=== PATIENT | female | born 1965 | race African-American/Black ===

== ENCOUNTER 2020-04-22 16:24 | Outpatient (REF) | payer OTHER, SELFPAY | END 2020-04-22 16:25 | disposition home or self-care (01) | LOC: HO.LAB 16:24 | PROVIDERS: Visit Provider Internal Medicine | DX: Z20.822 Contact with and (suspected) exposure to COVID-19 (principal) | CPT/HCPCS: 36415; C9803; U0003 ==

== ENCOUNTER 2020-05-01 10:40 | Outpatient (REF) | payer OTHER, SELFPAY ==
--- NOTE | ~2020-05-01 | MM_ITS ---
EXAMINATION: MM SCREENING DIGITAL BREAST TOMOSYNTHESIS, BILATERAL CLINICAL INFORMATION: Screening. Asymptomatic. The lifetime risk of breast cancer based on the Tyrer-Cuzick Model is 12.6%. COMPARISON: Mammography: January 04, 2019 and studies dating back to February 01, 2013 TECHNIQUE: Digital breast tomosynthesis is performed in both the craniocaudal and mediolateral oblique views along with computer-aided detection (CAD). Synthesized 2D images are generated from the tomosynthesis. FINDINGS: There are scattered areas of fibroglandular density (ACR BI-RADS breast composition Category b). There are no significant masses, abnormal calcifications, or other abnormalities. MM/MM tomosynthesis screening BI IMPRESSION: There are no significant changes from prior study. ASSESSMENT: BI-RADS 1: Negative RECOMMENDATION: Routine annual mammography screening. This patient's information was entered into a reminder system with a target due date for their next mammogram.
[2020-05-01 12:12] LABS: MANUAL DIFF FLAG NO
[2020-05-01 12:22] LABS: Basophils Absolute Auto 0.1 X10*3/uL (0.0-0.2); Basophils Percent Auto 1.2 % (0-2); Eosinophils Absolute Auto 0.5 X10*3/uL (0.0-0.4); Hematocrit 40.3 % (37-47); Hemoglobin 13.1 g/dl (12.0-16.0); Imm Gran Abs Auto 0.01 X10*3/uL (0.00-0.03); Imm Gran Pct Auto 0.2 % (0.0-0.4); Lymphocytes Absolute Auto 2.8 X10*3/uL (1.2-4.9); Lymphocytes Percent Auto 49.2 % (20-40); Mean Corpuscular HGB Conc 32.5 g/dl (31.0-35.0); Mean Corpuscular Hemoglobin 29.4 pg (27.0-33.0); Mean Corpuscular Volume 90.4 fL (80-98); Mean Platelet Volume 12.6 fL (9.4-12.3); Monocytes Absolute Auto 0.6 X10*3/uL (0.1-1.2); Monocytes Percent Auto 10.1 % (2-11); Neutrophils Absolute Auto 1.8 X10*3/uL (2.0-8.3); Neutrophils Percent Auto 31.3 % (45-73); Platelet Count 236 X10*3/uL (160-400); Red Blood Count 4.46 X10*6/uL (4.20-5.50); Red Cell Distribution Width 14.5 % (11.0-16.0); White Blood Count 5.8 X10*3/uL (4.8-10.8)
[2020-05-01 12:52] LABS: Alanine Aminotransferase 15 U/L (0-31); Albumin Level 4.3 g/dL (3.5-5.0); Alkaline Phosphatase 83 U/L (39-117); Anion Gap 13 (12-20); Aspartate Amino Transferase 25 U/L (5-31); Bilirubin Total 0.2 mg/dL (0.0-1.0); Blood Urea Nitrogen 14 mg/dL (9-16); Calcium 9.4 mg/dL (8.4-10.2); Carbon Dioxide 25 mmol/L (22-29); Chloride 106 mmol/L (96-108); Cholesterol 226 mg/dL; Estimated Glomerular Filt Rate > 60; Glucose Random 87 mg/dL (60-115); HDL Cholesterol 79 mg/dL; LDL Cholesterol Calculated 134 mg/dl; Potassium 4.5 mmol/L (3.3-5.1); Sodium 139 mmol/L (135-145); Total Protein 7.5 g/dL (6.5-8.0); Triglycerides 66 mg/dL
[2020-05-01 13:04] LABS: Thyroid Stimulating Hormone 1.97 uIU/mL (0.32-4.0)
== END 2020-05-01 10:41 | disposition home or self-care (01) ==
LOC: HO.MAMMO 10:40
PROVIDERS: PCP Internal Medicine; Visit Provider Internal Medicine
DX: Z00.00 Encounter for general adult medical examination without abnormal findings (principal); Z12.31 Encounter for screening mammogram for malignant neoplasm of breast; F32.89 Other specified depressive episodes; I10 Essential (primary) hypertension; J45.909 Unspecified asthma, uncomplicated
CPT/HCPCS: 36415; 77063; 77067; 80053; 80061; 84443; 85025

== ENCOUNTER 2020-07-18 12:13 | Outpatient (REF) | payer OTHER, SELFPAY ==
--- NOTE | ~2020-07-18 | XR_ITS ---
EXAMINATION: XR KNEE, RIGHT CLINICAL INFORMATION: Pain. COMPARISON: X-ray of the right knee July 2019 TECHNIQUE: Two views of the right knee with additional AP upright view of both right and left knees. FINDINGS: Right knee: There are small marginal osteophytes about all compartments without joint space narrowing indicative of mild tricompartmental osteoarthritis. Trace effusion. Left knee single limited AP upright: Bones, joints and soft tissues are normal. XR/XR knee RT 3V IMPRESSION: Mild osteoarthritis of the right knee, unchanged. Left knee limited: Normal.
== END 2020-07-18 12:14 | disposition home or self-care (01) ==
LOC: HO.HOSX 12:13
PROVIDERS: PCP Internal Medicine; Visit Provider Physician Assistant
DX: M25.561 Pain in right knee (principal)
CPT/HCPCS: 20610; 73562; 99212; J1040

== ENCOUNTER → 2020-09-30 14:49 | Outpatient (BNVA) | payer OTHER, SELFPAY | PROVIDERS: PCP Internal Medicine; Visit Provider Orthopaedic Surgery | DX: M25.561 Pain in right knee (principal); S83.241D Other tear of medial meniscus, current injury, right knee, subsequent encounter; X58.XXXD Exposure to other specified factors, subsequent encounter; Z91.040 Latex allergy status | CPT/HCPCS: 99212 ==

== ENCOUNTER 2020-10-23 15:35 | Outpatient (REF) | payer OTHER, SELFPAY ==
--- NOTE | ~2020-10-23 | MR_ITS ---
EXAMINATION: MR KNEE WITHOUT CONTRAST, RIGHT CLINICAL INFORMATION: Tear of medial meniscus. COMPARISON: X-rays of the right knee June 2020. TECHNIQUE: MRI of the knee without contrast was performed using routine sequences on a high-field scanner. FINDINGS: MENISCI: Medial Meniscus: There is irregularity of the free edge. There is irregular abnormal signal extending from the femoral to the tibial articular surface of the junction of the posterior horn and posterior root indicative of an irregular vertical tear. There is mild outward protrusion of the meniscus which may be in part related to this tear. Slight blunting of the free edge of the body which may reflect additional tearing. The anterior horn is intact. Lateral Meniscus: Intact. LIGAMENTS: Cruciate: Intact. Collateral: Intact. EXTENSOR MECHANISM: Intact. ARTICULAR CARTILAGE/BONE: Patellofemoral Compartment: There is focal cartilage heterogeneity, cartilage loss and subchondral cystic microsoft exchange administrator an 8 mm area of the medial femoral condyle. Medial Compartment: There is high-grade cartilage loss involving both the femoral articular surfaces involving a broad area of the weightbearing portion of the compartment. This extends over approximately 3.5 cm anterior to posterior and up to 2.5 cm transverse. There is associated subchondral edema. There are marginal osteophytes. Overall moderate to severe arthrosis. Lateral Compartment: Mild cartilage heterogeneity in the posterior weightbearing tibial articular cartilage indicative of mild arthrosis. JOINT FLUID AND BURSAE: There is a moderate joint effusion and mild synovitis. There is a small High's cyst. MR/MR knee RT wo con IMPRESSION: Tear of the posterior horn and possibly the body of the medial meniscus. Mild arthrosis of the patellofemoral lateral compartment. Moderate to severe arthrosis of the medial compartment. Moderate joint effusion and synovitis.
== END 2020-10-23 15:36 | disposition home or self-care (01) ==
LOC: HO.MRI 15:35
PROVIDERS: PCP Internal Medicine; Visit Provider Orthopaedic Surgery
DX: S83.241D Other tear of medial meniscus, current injury, right knee, subsequent encounter (principal)
CPT/HCPCS: 73721

== ENCOUNTER → 2020-11-04 08:43 | Outpatient (BNVA) | payer OTHER, SELFPAY | PROVIDERS: Visit Provider Orthopaedic Surgery | DX: S83.241D Other tear of medial meniscus, current injury, right knee, subsequent encounter (principal) | CPT/HCPCS: 99212 ==

== ENCOUNTER → 2020-12-25 12:24 | Outpatient (BNVA) | payer OTHER, SELFPAY | PROVIDERS: Visit Provider Orthopaedic Surgery | DX: S83.241D Other tear of medial meniscus, current injury, right knee, subsequent encounter (principal) | CPT/HCPCS: 99212 ==

== ENCOUNTER 2021-01-21 07:14 | Day surgery (SDC) | payer OTHER, SELFPAY ==
[2021-01-14 10:04] VITALS: BMI 31.8
--- NOTE | 2021-01-19 09:43 | HO.ANESPROP2 ---
Documented by User: Jessica Latham NP 01/19/21 09:47 HPI - Anesthesia Eval Consult details Narrative: 55yo F for Right Knee Arthroscopy PMFSH Active Problems Active Problems: All Active Problems (Updated 01/13/21 @ 15:45 by Marian White, [facility]) Knee pain (Acute) Osteoarthritis of right knee (Acute) Tear of medial meniscus of right knee (Acute) Past Medical History Medical History Asthma Depression HTN (hypertension) Surgical History Surgical History Hx of excision of mass Hx of right breast biopsy Hx of tubal ligation Social History Social History Advance Directives Information Provided: Yes (informational brochure mailed) Advance Directives on File: No Current occupational status: employed 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 Allergies Allergy/AdvReac Type Severity Reaction Status Date / Time latex Allergy Intermediate Rash Verified 01/21/21 08:06 sertraline AdvReac Intermediate Headache Verified 01/21/21 08:06 Home Medications Medication Instructions Recorded Confirmed Last Taken Type albuterol sulfate 90 mcg/actuation 2 puff INHALATION Q6H PRN 01/13/21 01/13/21 Unknown History aerosol inhaler (Ventolin HFA) fluticasone propionate 110 2 puff INHALATION BID 01/13/21 01/13/21 Unknown History mcg/actuation HFA aerosol inhaler (Flovent HFA) ibuprofen 600 mg tablet 1 tab PO TID 01/13/21 01/13/21 Unknown History loratadine 10 mg tablet 10 mg PO DAILY 01/13/21 01/13/21 Unknown History losartan 50 mg tablet 1 tab PO DAILY 01/13/21 01/13/21 Unknown History melatonin 10 mg tablet 10 mg PO BEDTIME 01/13/21 01/13/21 Unknown History Exam Exam Date and Time: January 19, 2021 0943 Height,Weight and Vital Signs: Height 5 ft 3 in Weight 81.647 kg Assessment and Plan Assessment Anesthesia Assessment: Chart Reviewed Documented by User: Sabine Cordoba MD 01/21/21 09:58 [facility] Active Problems Active Problems: All Active Problems (Updated 01/13/21 @ 15:45 by Marian White RN) Knee pain (Acute) Osteoarthritis of right knee (Acute) Tear of medial meniscus of right knee (Acute) Asthma. Controlled. 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 Allergies Allergy/AdvReac Type Severity Reaction Status Date / Time latex Allergy Intermediate Rash Verified 01/21/21 08:06 sertraline AdvReac Intermediate Headache Verified 01/21/21 08:06 Home Medications Medication Instructions Recorded Confirmed Last Taken Type albuterol sulfate 90 mcg/actuation 2 puff INHALATION Q6H PRN 01/13/21 01/13/21 Unknown History aerosol inhaler (Ventolin HFA) fluticasone propionate 110 2 puff INHALATION BID 01/13/21 01/13/21 Unknown History mcg/actuation HFA aerosol inhaler (Flovent HFA) ibuprofen 600 mg tablet 1 tab PO TID 01/13/21 01/13/21 Unknown History loratadine 10 mg tablet 10 mg PO DAILY 01/13/21 01/13/21 Unknown History losartan 50 mg tablet 1 tab PO DAILY 01/13/21 01/13/21 Unknown History melatonin 10 mg tablet 10 mg PO BEDTIME 01/13/21 01/13/21 Unknown History Exam Height,Weight and Vital Signs: Height 5 ft 3 in Weight 81.647 kg Vital Signs Temp Pulse Resp BP Pulse Ox 01/21/21 08:10 97.1 F 77 16 125/75 98 Airway Mallampati Class: II TM Dist: >3cm Neck ROM: Full Loose/Missing/Broken Teeth: No Heart: RRR Lungs: CTAB Assessment and Plan Assessment Anesthesia Assessment: Anesthesia Plan Discussed Final Anesthetic Review Family History of Problems with Anesthesia: No History of Problems with Anesthesia: No NPO: Yes ASA Class: II Final Preanesthetic Review: No Changes in Pt Med Stat, Meds/Allgs Chart Reviewed, Consent Obtained/Reviewed and Anes Risks/Benef Reviewed Patient Risk: Low Procedure Risk: Low Assessment/Block/Sedation in SS: Assess/Block/Sedation-SS Anesthetic Plan Anesthetic Plan: GA Disposition: Standard PACU
[2021-01-21] VITALS (14 sets, daily range): BP systolic 99–138; BP diastolic 59–75; PULSE 60–85; RESP 14–20; TEMP 36.2–36.5; O2SAT 98–100
[2021-01-21] MEDS: Lactated Ringers 1,000 ML 100 ML IVCONT (08:25)
--- NOTE | 2021-01-21 10:14 | MHC.SHP ---
Pre-Procedural Eval Section A Date of Service: 01/21/21 The patient is an INPATIENT: No Changes since office visit: Yes Patient answered all questions; No Cold of Flu in the past 2 weeks, No New Medical Problems and No Changes in Medication The History & Physical has been completed within 30 days and I have reviewed it.: Yes Section B Chief Complaint: tear of medial meniscus Allergies: Allergies Allergy/AdvReac Type Severity Reaction Status Date / Time latex Allergy Intermediate Rash Verified 01/21/21 08:06 sertraline AdvReac Intermediate Headache Verified 01/21/21 08:06 Plan I have reviewed the history and physical and performed a pertinent physical examination on my patient. No changes have occurred unless specified.
--- NOTE | 2021-01-21 11:18 | P.BOP_ITS ---
Brief Operative Note Date of Service: 01/21/21 Pre-op diagnosis: right knee MMT Post-op diagnosis: other (Right knee MMT; Right knee OA) Procedure: Arthroscopiuc partial medial meniscectomy and chondroplasty Surgeon: Albert Samaniego MD Anesthesia: GETA and local Was an Thorough[employer] Horse Farm Manager used for this Procedure?: No Estimated blood loss (mL): 10 Tourniquet time (min): 17 IV fluids (mL): 500 Pathology: none sent Condition: stable Disposition: PACU
--- NOTE | 2021-01-21 11:21 | W.PM.OPN ---
Operative Note Operative Note Date of Service: 01/21/21 Narrative: Pre-op diagnosis: right knee MMT Post-op diagnosis: other (Right knee MMT; Right knee OA) Procedure: Arthroscopiuc partial medial meniscectomy and chondroplasty Surgeon: Albert Samaniego MD Anesthesia: GETA and local Was an Director Medical Science used for this Procedure?: No Estimated blood loss (mL): 10 Tourniquet time (min): 17 IV fluids (mL): 500 Pathology: none sent Condition: stable Disposition: PACU Procedure in detail: Patient was brought to the operating room placed supine on the arthroscopic table and prepped and draped in standard sterile fashion. A time-out was called to identify proper site proper procedure proper surgeon and IV antibiotics per weight were administered. I began by exsanguinating the limb and insufflating tourniquet to 300 mm Hg. Then made a standard anterolateral stab incision. The knee was insufflated with water and 30 degree arthroscope was placed. There was grade 1 fibrillations of the patella and the medial aspect of the trochlear but overall suprapatellar pouch was clean and the gutters were clean. I descended into the medial compartment where I made my medial portal under direct visualization. There was a degenerative tear tear of the body and posterior horn of the medial meniscus. The root was intact and there was grade 4 changes of the weight bearing protion of the MFC. I used a combination of biter shaver and cautery to remove unstable portions of the meniscus. Aroximally 30% meniscal volume was removed. Once I was happy with this the ACL was examined and found to be intact and the lateral compartment was examined. There were G1 fibrillation of the plateau but meniscus and LFC were normal. I then removed all instrumentation and closed the portals with skin glue. 25 mL of 2% Marcaine with epinephrine was injected into the joint and the surrounding soft tissues. Patient was then placed in sterile dressing extubated brought recovery room stable condition. There were no known complications.
[2021-01-21] MEDS: Ketorolac Tromethamine 15 MG/ML VIAL IVPUSH (11:41)
[2021-01-21] MEDS: fentaNYL citrate/PF 100 MCG/2 ML VIAL 25 MCG IVPUSH ×3 (11:41→12:32)
[2021-01-21] MEDS: oxyCODONE HCl Immed Release 5 MG TABLET PO (11:42)
[2021-01-21] MEDS: Acetaminophen 325 MG TABLET 650 MG PO (11:42)
== END 2021-01-21 13:21 | disposition home or self-care (01) ==
PROVIDERS: PCP Internal Medicine; Visit Provider Orthopaedic Surgery
PROC: (CPT 29870; principal; 2021-01-21 09:40)
DX: S83.241A Other tear of medial meniscus, current injury, right knee, initial encounter (principal); M25.461 Effusion, right knee; M17.11 Unilateral primary osteoarthritis, right knee; X58.XXXA Exposure to other specified factors, initial encounter; Y93.9 Activity, unspecified; Y92.9 Unspecified place or not applicable; Y99.8 Other external cause status; I10 Essential (primary) hypertension; J45.909 Unspecified asthma, uncomplicated; Z79.51 Long term (current) use of inhaled steroids; Z79.899 Other long term (current) drug therapy; Z91.040 Latex allergy status; Z88.8 Allergy status to other drugs, medicaments and biological substances
CPT/HCPCS: 29881; J0171; J0690; J1100; J1885; J2250; J2405; J3010

== ENCOUNTER → 2021-02-02 12:45 | Outpatient (BNVA) | payer OTHER, SELFPAY | PROVIDERS: Visit Provider Physician Assistant | DX: S83.241D Other tear of medial meniscus, current injury, right knee, subsequent encounter (principal) | CPT/HCPCS: 99212 ==

== ENCOUNTER → 2021-03-16 13:19 | Outpatient (BNVA) | payer OTHER, SELFPAY | PROVIDERS: Visit Provider Physician Assistant | DX: S83.241D Other tear of medial meniscus, current injury, right knee, subsequent encounter (principal); M17.11 Unilateral primary osteoarthritis, right knee | CPT/HCPCS: 99212 ==

== ENCOUNTER 2021-06-18 10:43 | Outpatient (REF) | payer OTHER, SELFPAY ==
--- NOTE | ~2021-06-18 | MM_ITS ---
EXAMINATION: MM SCREENING DIGITAL BREAST TOMOSYNTHESIS, BILATERAL CLINICAL INFORMATION: Screening. Asymptomatic. The lifetime risk of breast cancer based on the Tyrer-Cuzick Model is 11.6%. COMPARISON: Mammography: May 01, 2020 and studies dating back to September 01, 2011 TECHNIQUE: Digital breast tomosynthesis is performed in both the craniocaudal and mediolateral oblique views along with computer-aided detection (CAD). Synthesized 2D images are generated from the tomosynthesis. FINDINGS: There are scattered areas of fibroglandular density (ACR BI-RADS breast composition Category b). There are no significant masses, abnormal calcifications, or other abnormalities. MM/MM tomosynthesis screening BI IMPRESSION: There are no significant changes from prior study. ASSESSMENT: BI-RADS 1: Negative RECOMMENDATION: Routine annual mammography screening. This patient's information was entered into a reminder system with a target due date for their next mammogram.
== END 2021-06-18 10:44 | disposition home or self-care (01) ==
LOC: HO.MAMMO 10:43
PROVIDERS: PCP Internal Medicine; Visit Provider Internal Medicine
DX: Z12.31 Encounter for screening mammogram for malignant neoplasm of breast (principal)
CPT/HCPCS: 77063; 77067

== ENCOUNTER 2021-07-30 12:41 | Outpatient (REF) | payer OTHER, SELFPAY ==
[2021-07-30 13:00] LABS: MANUAL DIFF FLAG NO
[2021-07-30 13:29] LABS: Basophils Absolute Auto 0.1 X10*3/uL (0.0-0.2); Basophils Percent Auto 1.3 % (0-2); Eosinophils Absolute Auto 0.4 X10*3/uL (0.0-0.4); Eosinophils Percent Auto 5.5 % (0-4); Hematocrit 39.7 % (37.0-47.0); Hemoglobin 12.9 g/dl (12.0-16.0); Imm Gran Abs Auto 0.01 X10*3/uL (0.00-0.03); Imm Gran Pct Auto 0.1 % (0.0-0.4); Lymphocytes Percent Auto 44.1 % (20-40); Mean Corpuscular HGB Conc 32.5 g/dl (31.0-35.0); Mean Corpuscular Hemoglobin 29.6 pg (27.0-33.0); Mean Corpuscular Volume 91.1 fL (80.0-98.0); Mean Platelet Volume 11.9 fL (9.4-12.3); Monocytes Absolute Auto 0.8 X10*3/uL (0.1-1.2); Monocytes Percent Auto 11.5 % (2-11); Neutrophils Absolute Auto 2.5 x10*3/uL (2.0-8.3); Neutrophils Percent Auto 37.5 % (45-73); Platelet Count 298 X10*3/uL (160-400); Red Blood Count 4.36 X10*6/uL (4.20-5.50); White Blood Count 6.8 X10*3/uL (4.8-10.8)
[2021-07-30 13:51] LABS: Alanine Aminotransferase 16 U/L (0-31); Albumin Level 4.3 g/dL (3.5-5.0); Alkaline Phosphatase 104 U/L (39-117); Anion Gap 15 (12-20); Aspartate Amino Transferase 26 U/L (5-31); Bilirubin Total 0.5 mg/dL (0.0-1.0); Blood Urea Nitrogen 11 mg/dL (9-16); Calcium 10.1 mg/dL (8.4-10.2); Carbon Dioxide 27 mmol/L (22-29); Chloride 103 mmol/L (96-108); Cholesterol 249 mg/dL; Estimated Glomerular Filt Rate > 60; Glucose Random 94 mg/dL (60-115); HDL Cholesterol 82 mg/dL; LDL Cholesterol Calculated 152 mg/dl; Potassium 4.5 mmol/L (3.3-5.1); Sodium 140 mmol/L (135-145); Total Protein 7.9 g/dL (6.5-8.0); Triglycerides 75 mg/dL
== END 2021-07-30 12:42 | disposition home or self-care (01) ==
LOC: HO.LAB 12:41
PROVIDERS: PCP Internal Medicine; Visit Provider Internal Medicine
DX: Z00.00 Encounter for general adult medical examination without abnormal findings (principal); E78.00 Pure hypercholesterolemia, unspecified; I10 Essential (primary) hypertension
CPT/HCPCS: 36415; 80053; 80061; 85025

== ENCOUNTER 2021-07-30 15:00 | Outpatient (RCR) | payer OTHER, SELFPAY ==
--- NOTE | 2021-06-11 17:50 | MHC.PT.EP ---
[facility] [place] [facility] [place] Office [place] Office [address] Deborah Batres [address] [phone] F: [phone] F: [phone] F: [phone] F: [phone] Physical Therapy Plan of Care Date of Evaluation: Date of Surgery: 01/21/21 Diagnosis: other tear of medial meniscus, current injury, right knee unilateral primary osteoarthritis of right knee Assessment: Pt is a pleasant 56yo F who presents s/p R knee arthroscopy for a partial medial meniscectomy with chondroplasty with Dr. Samaniego on 01/21/21. She presents today with current impairments in pain, decreased R knee ROM, decreased quad strength, decreased hip/glute strength, and impaired body mechanics. She is limited functionally by prolonged standing, prolonged walking, squatting, and stair navigation. She is a good candidate for skilled PT services in order to address current impairments to maximize strength, ROM and performance with functional mobility. She will be seen 2x/week for 4 weeks and will be reassessed at that time. Frequency and Duration: The patient will be seen 2x/week for 4 weeks Short Term Goals: Pt will be I with HEP to promote self management of symptoms Pt will improve R knee flexion by 10 deg Medical Investigator Goals: Pt will tolerate standing and walking > 1 hour with minimal to no pain Pt will ascend/descend 1 flight of stairs with reciprocal gait pattern Treatment Plan: Modalities to reduce pain, spasms and effusion. Manual therapy to restore motion and function. Therapeutic exercise to improve strength and flexibility. Neuromuscular re-education for posture and balance. Therapeutic activities to return to functional activities of daily living. Electronically signed by: Vanessa Govea, PT, DPT Please sign and return to therapist. Thank you for your referral.
--- NOTE | 2021-08-25 13:50 | MHC.PT.DC ---
[facility] [place] [facility] [place] Office [place] Office [address] Deborah Batres [address] [facility] [phone] F: [phone] F: [phone] F: [phone] F: [phone] Physical Therapy Discharge Report Diagnosis: other tear of medial meniscus, current injury, right knee unilateral primary osteoarthritis of right knee Date of Surgery: 01/21/21 Date of Evaluation: 06/11/21 Date of Discharge: 08/25/21 Treatments to Date: 9 Cancellations to Date: 4 No Shows to Date: Discharge Status: Improved Function Patient Elected to Stop Discharge Summary: Pt was seen for PT from 06/11/21-07/30/21. She was making great progress with skilled PT. She had an overall decrease in pain and an increase in functional activities. Her last attended appointment was 07/30/21. She was anticipated to be D/C her following appointment, on 08/06/21 however pt cancelled that appointment and did not reschedule. Pt is being D/C from skilled PT. Pt current level of function unknown at this time. Electronically signed by: Vanessa Govea, PT, DPT Please sign and return to therapist. Thank you for your referral.
== END 2021-08-25 13:50 | disposition home or self-care (01) ==
LOC: HO.PT 15:00
PROVIDERS: PCP Internal Medicine; Visit Provider Physician Assistant
DX: S83.241D Other tear of medial meniscus, current injury, right knee, subsequent encounter (principal); M17.11 Unilateral primary osteoarthritis, right knee
CPT/HCPCS: 97110; 97140; 97161; 97530

== ENCOUNTER → 2021-10-08 11:24 | Outpatient (BNVA) | payer OTHER, SELFPAY | PROVIDERS: PCP Internal Medicine; Visit Provider Physician Assistant | DX: M17.11 Unilateral primary osteoarthritis, right knee (principal); S83.241D Other tear of medial meniscus, current injury, right knee, subsequent encounter | CPT/HCPCS: 20610; 99212 ==

== ENCOUNTER 2021-12-02 11:57 | Outpatient (REF) | payer OTHER, SELFPAY ==
--- NOTE | ~2021-12-02 | US_ITS ---
EXAMINATION: US ABDOMEN COMPLETE CLINICAL INFORMATION: Right upper quadrant pain. COMPARISON: None. TECHNIQUE: Real-time imaging of the abdominal viscera. FINDINGS: PANCREAS: Not well visualized. There is question of a hypoechoic lesion in the head/neck of the pancreas versus prominent lymph node. This measures 0.6 x 2 cm and is seen image 3. ABDOMINAL AORTA: The proximal, mid, and distal segments are normal in caliber. INFERIOR VENA CAVA: Visualized portions are normal. LIVER: The liver is slightly enlarged. There are multiple hyper and hypoechoic lesions in the liver. Largest lesions are a 5 x 3.3 x 5.4 cm hypoechoic lesion in the lateral segment of the left lobe and 5 cm hyperechoic lesion in the right lobe. GALLBLADDER: Normal. The gallbladder is physiologically distended without evidence of stones, sludge, polyps, wall thickening or pericholecystic fluid. COMMON BILE DUCT: Normal in caliber measuring 0.5 cm in diameter. RIGHT KIDNEY: Normal. No hydronephrosis. No renal calculi or focal parenchymal lesions. The kidney measures 9.4 cm in maximum dimension. LEFT KIDNEY: Normal. No hydronephrosis. No renal calculi or focal parenchymal lesions. The kidney measures 8.9 cm in maximum dimension. SPLEEN: Not seen. FREE FLUID: None. US/US abdomen complete IMPRESSION: Enlarged liver and multiple predominately hyperechoic liver lesions. Appearance is suggestive of metastatic disease. Limited visualization of the pancreas. Otherwise unremarkable exam. Findings will be communicated by the [place] work flow bank examiner.
== END 2021-12-02 11:58 | disposition home or self-care (01) ==
LOC: HO.US 11:57
PROVIDERS: PCP Internal Medicine; Visit Provider Internal Medicine
DX: R10.11 Right upper quadrant pain (principal)
CPT/HCPCS: 76700

== ENCOUNTER → 2021-12-17 10:43 | Outpatient (BNV) | payer MEDICAID, OTHER, SELFPAY | PROVIDERS: PCP Internal Medicine; Referring Provider Internal Medicine; Visit Provider Internal Medicine Medical Oncology | DX: C78.7 Secondary malignant neoplasm of liver and intrahepatic bile duct (principal); C80.1 Malignant (primary) neoplasm, unspecified | CPT/HCPCS: 99204; 99213; 99214 ==

== ENCOUNTER 2022-01-18 07:51 | Outpatient (REF) | payer OTHER, SELFPAY ==
--- NOTE | ~2022-01-18 | CT_ITS ---
EXAMINATION: CT ABDOMEN AND PELVIS WITH CONTRAST CLINICAL INFORMATION: Liver lesions COMPARISON: Previous abdominal ultrasound November 2021 TECHNIQUE: Multidetector volumetric images were obtained from the superior aspect of the liver through the pubic symphysis following administration 85 mL of Omnipaque 350 intravenous contrast. Sagittal and coronal reformatted images were obtained on the technologist's workstation. Oral contrast: Yes This CT examination was performed using dose optimization techniques as appropriate, variously including the following: *Automated exposure control *Adjustment of mA and/or kV according to patient size (this includes techniques or standardized protocols for targeted exams where dose is matched to indication/reason for exam; i.e. extremities or head) *Use of iterative reconstruction technique DLP: 475 mGy-cm FINDINGS: LUNG BASES: Bilateral pulmonary nodules, largest measuring 1 cm in the left lower lobe. LIVER, GALLBLADDER, AND BILIARY TREE: The liver is upper normal in size. There are innumerable low-attenuation liver lesions suggestive of metastatic disease. Largest lesion measure 6 x 6.2 cm in the posterior segment of the right lobe and 5 cm in the medial segment of the left lobe. No biliary duct dilatation. The gallbladder is contracted. PANCREAS: Unremarkable. SPLEEN: Unremarkable. ADRENAL GLANDS: Unremarkable. KIDNEYS AND URETERS: The kidneys are normal in size, shape, and attenuation. No hydronephrosis, hydroureter, or calculi seen. No perinephric stranding. BLADDER: Unremarkable. GASTROINTESTINAL TRACT: There is a soft tissue mass in the hepatic flexure strongly suspicious for neoplasm. This measures approximately 4 cm. There is luminal narrowing or apple core appearance. There is stranding of the adjacent fat and small adjacent soft tissue mass is seen laterally questionable for peritoneal disease versus lymph nodes. These measure 1.4 and 0.6 cm for example coronal reconstructed image 16. There are also prominent adjacent mesenteric lymph nodes largest measuring 9 and 10 mm coronal reconstructed image 23. Small and large bowel is otherwise normal. The appendix is normal. ABDOMINAL WALL: No significant hernia is appreciated. LYMPH NODES: There are prominent mesenteric lymph nodes adjacent to the mass measuring up to 9 and 10 mm. There are soft tissue masses lateral to the mass probably representing peritoneal disease as opposed to lymph nodes measuring 1.4 and 0.6 cm. There is a small peritoneal soft tissue mass in the left upper quadrant adjacent to the left lobe of the liver in the stomach measuring 5 mm axial image 22 series 3. There may be peritoneal disease without fat stranding under the left anterior hemidiaphragm as well. There are prominent retroperitoneal lymph nodes, largest and aortocaval lymph node measuring 1 cm in short axis axial image 27 series No ascites. VASCULAR: Unremarkable. PELVIC VISCERA: Unremarkable. OSSEOUS STRUCTURES: Unremarkable. CT/CT abdomen pelvis w IV con IMPRESSION: 4 cm colon mass in the hepatic flexure. Enlarged adjacent lymph nodes, metastatic disease to the liver and peritoneal disease. Bilateral pulmonary nodules also probably representing metastatic disease. Findings will be communicated by the [place] work flow software quality automation engineer. Fleischner guidelines were followed.
--- NOTE | ~2022-01-18 | CT_ITS ---
EXAMINATION: CT CHEST WITH CONTRAST CLINICAL INFORMATION: Metastatic disease to the liver COMPARISON: None TECHNIQUE: Multidetector volumetric CT imaging of the chest was obtained after the administration of 85 mL of Omnipaque 350 intravenous contrast without immediate adverse reactions. Axial MIP volume rendering provided. Sagittal and coronal reformatted images were obtained. This CT examination was performed using dose optimization techniques as appropriate, variously including the following: *Automated exposure control *Adjustment of mA and/or kV according to patient size (this includes techniques or standardized protocols for targeted exams where dose is matched to indication/reason for exam; i.e. extremities or head) *Use of iterative reconstruction technique DLP: 131 mGy-cm FINDINGS: LUNGS: There are bilateral pulmonary nodules. Largest pulmonary nodules measure 6 mm in the right lower lobe axial image 285 series 7, 9 mm in the left lower lobe axial image 242 series 7 and 1 cm in the left lower lobe axial image 327 series 7. MEDIASTINUM: The mediastinum is normal. CORONARY ARTERY CALCIFICATION: None visualized on this study. PLEURA: There is no pleural effusion. No pleural mass or thickening. AXILLA: There is bilateral axillary and left supraclavicular lymphadenopathy. Lymph nodes are upper normal in size. UPPER ABDOMEN: See abdominal and pelvic CT report from the same day OSSEOUS STRUCTURES: Unremarkable. CT/CT chest w IV con IMPRESSION: Bilateral pulmonary nodules. Bilateral axillary and left supraclavicular upper normal-size lymph nodes. Fleischner guidelines were followed.
[2022-01-18 10:16] LABS: Creatinine POC 0.6 mg/dL (0.5-1.4); GFR POC > 60
[2022-01-18] MEDS: iohexoL 350 MG/ML 100 ML INFUS..BTL IV (10:42)
[2022-01-18] MEDS: Barium Sulfate Oral (Berry) 450 ML ORAL.SUSP 900 ML PO (10:42)
== END 2022-01-18 07:52 | disposition home or self-care (01) ==
LOC: HO.CT 07:51
PROVIDERS: Visit Provider Internal Medicine Medical Oncology
DX: C78.7 Secondary malignant neoplasm of liver and intrahepatic bile duct (principal)
CPT/HCPCS: 71260; 74177; 82565; Q9967

== ENCOUNTER 2022-01-27 11:49 | Day surgery (SDC) | payer OTHER, SELFPAY ==
--- NOTE | ~2022-01-27 | US_ITS ---
EXAMINATION: ULTRASOUND-GUIDED LIVER BIOPSY CLINICAL INFORMATION: Liver lesions COMPARISON: Previous abdominal ultrasound November [address] of the abdomen and pelvis December 2021 TECHNIQUE: Procedure and risks and benefits including bleeding and infection were discussed with the patient through an special education inclusion teacher and informed consent was obtained. The patient was positioned in the left decubitus position. The right upper quadrant was prepped and draped in the usual sterile fashion. The skin and soft tissues were anesthetized with 1% lidocaine plain. Using ultrasound guidance and a coaxial system, access to a 6 cm lesion in the right lobe of the liver was obtained. 6 20-gauge core biopsies were obtained. There is no complication. Patient received 25 mg of intravenous Benadryl during the procedure. FINDINGS: There are multiple hypoechoic liver lesions suggestive of metastatic disease. No fluid collection or ascites post biopsy. US/US biopsy liver IMPRESSION: Ultrasound-guided liver biopsy.
[2022-01-27 12:35] LABS: MANUAL DIFF FLAG NO
[2022-01-27 12:38] LABS: Basophils Absolute Auto 0.1 X10*3/uL (0.0-0.2); Basophils Percent Auto 0.8 % (0-2); Eosinophils Absolute Auto 0.3 X10*3/uL (0.0-0.4); Eosinophils Percent Auto 3.5 % (0-4); Imm Gran Abs Auto 0.04 X10*3/uL (0.00-0.03); Imm Gran Pct Auto 0.5 % (0.0-0.4); Lymphocytes Absolute Auto 1.6 X10*3/uL (1.2-4.9); Lymphocytes Percent Auto 20.5 % (20-40); Mean Corpuscular HGB Conc 33.3 g/dl (31.0-35.0); Mean Corpuscular Hemoglobin 28.9 pg (27.0-33.0); Mean Corpuscular Volume 86.7 fL (80.0-98.0); Mean Platelet Volume 10.9 fL (9.4-12.3); Monocytes Absolute Auto 1.2 X10*3/uL (0.1-1.2); Monocytes Percent Auto 16.3 % (2-11); Neutrophils Absolute Auto 4.4 x10*3/uL (2.0-8.3); Neutrophils Percent Auto 58.4 % (45-73); Platelet Count 349 X10*3/uL (160-400); Red Blood Count 4.15 X10*6/uL (4.20-5.50); Red Cell Distribution Width 14.3 % (11.0-16.0); White Blood Count 7.6 X10*3/uL (4.8-10.8)
[2022-01-27 12:43] VITALS: BMI 26.2
[2022-01-27 12:44] LABS: INTERNATIONAL NORM RATIO 1.3 (0.9-1.1); Prothrombin Time 14.6 SEC (10.0-13.1)
[2022-01-27 12:47] LABS: Partial Thromboplastin Time 28.9 SEC (26.0-36.4)
[2022-01-27 14:10] VITALS: BP 125/71; PULSE 83; RESP 16; TEMP 36.8; O2SAT 100
--- NOTE | 2022-01-27 14:14 | HO.RADPN ---
RADIOLOGY Narrative Narrative: Right lobe liver biopsy using coaxial system. 6 20g core biopsies obtained. No complication.
[2022-01-27] MEDS: Lidocaine HCl 1 % MPF 5 ML VIAL 10 ML SUBCUT (14:18)
[2022-01-27 14:25] VITALS: BP 128/66; PULSE 89; RESP 17; O2SAT 100
[2022-01-27 14:40] VITALS: BP 121/64; PULSE 82; RESP 16; O2SAT 100
[2022-01-27 15:10] VITALS: BP 119/66; PULSE 99; RESP 18; O2SAT 100
[2022-01-27 16:10] VITALS: BP 116/63; PULSE 96; RESP 17; TEMP 36.8; O2SAT 99
== END 2022-01-27 16:40 | disposition home or self-care (01) ==
PROVIDERS: PCP Internal Medicine; Visit Provider Radiology Diagnostic Radiology
DX: C78.7 Secondary malignant neoplasm of liver and intrahepatic bile duct (principal); J45.909 Unspecified asthma, uncomplicated; I10 Essential (primary) hypertension; F32.A Depression, unspecified; Z79.51 Long term (current) use of inhaled steroids; Z79.1 Long term (current) use of non-steroidal anti-inflammatories (NSAID); Z79.899 Other long term (current) drug therapy; Z91.040 Latex allergy status
CPT/HCPCS: 36415; 47000; 76942; 85025; 85610; 85730; 88307; 88341; 88342; J1200; J2250; J3010

== ENCOUNTER 2022-02-04 10:52 | Outpatient (REF) | payer OTHER, SELFPAY ==
[2022-02-04 11:02] LABS: MANUAL DIFF FLAG NO
[2022-02-04 12:01] LABS: Basophils Absolute Auto 0.1 X10*3/uL (0.0-0.2); Basophils Percent Auto 1.2 % (0-2); Eosinophils Absolute Auto 0.6 X10*3/uL (0.0-0.4); Eosinophils Percent Auto 8.4 % (0-4); Hematocrit 36.4 % (37.0-47.0); Hemoglobin 11.7 g/dl (12.0-16.0); Imm Gran Abs Auto 0.01 X10*3/uL (0.00-0.03); Imm Gran Pct Auto 0.1 % (0.0-0.4); Lymphocytes Percent Auto 27.2 % (20-40); Mean Corpuscular HGB Conc 32.1 g/dl (31.0-35.0); Mean Corpuscular Hemoglobin 28.3 pg (27.0-33.0); Mean Corpuscular Volume 87.9 fL (80.0-98.0); Monocytes Absolute Auto 1.1 X10*3/uL (0.1-1.2); Monocytes Percent Auto 14.5 % (2-11); Neutrophils Absolute Auto 3.6 x10*3/uL (2.0-8.3); Neutrophils Percent Auto 48.6 % (45-73); Platelet Count 368 X10*3/uL (160-400); Red Blood Count 4.14 X10*6/uL (4.20-5.50); Red Cell Distribution Width 14.7 % (11.0-16.0); White Blood Count 7.4 X10*3/uL (4.8-10.8)
[2022-02-04 12:37] LABS: Alanine Aminotransferase 27 U/L (0-31); Albumin Level 3.8 g/dL (3.5-5.0); Alkaline Phosphatase 208 U/L (39-117); Anion Gap 19 (12-20); Aspartate Amino Transferase 66 U/L (5-31); Bilirubin Total 0.6 mg/dL (0.0-1.0); Blood Urea Nitrogen 7 mg/dL (9-16); Calcium 9.1 mg/dL (8.4-10.2); Carbon Dioxide 22 mmol/L (22-29); Chloride 103 mmol/L (96-108); Cholesterol 184 mg/dL; Estimated Glomerular Filt Rate > 60; Glucose Random 88 mg/dL (60-115); HDL Cholesterol 40 mg/dL; LDL Cholesterol Calculated 128 mg/dl; Potassium 4.5 mmol/L (3.3-5.1); Sodium 139 mmol/L (135-145); Total Protein 7.4 g/dL (6.5-8.0); Triglycerides 83 mg/dL
[2022-02-04 12:43] LABS: Thyroid Stimulating Hormone 2.64 uIU/mL (0.32-4.0)
== END 2022-02-04 10:53 | disposition home or self-care (01) ==
LOC: HO.LAB 10:52
PROVIDERS: PCP Internal Medicine; Visit Provider Internal Medicine
DX: E78.00 Pure hypercholesterolemia, unspecified (principal); I10 Essential (primary) hypertension; J45.909 Unspecified asthma, uncomplicated; L63.8 Other alopecia areata
CPT/HCPCS: 36415; 80053; 80061; 84443; 85025

== ENCOUNTER → 2022-02-26 12:46 | Outpatient (BNVA) | payer OTHER, SELFPAY | PROVIDERS: PCP Internal Medicine; Visit Provider Internal Medicine | DX: C80.1 Malignant (primary) neoplasm, unspecified (principal); C78.7 Secondary malignant neoplasm of liver and intrahepatic bile duct; D68.9 Coagulation defect, unspecified; R79.89 Other specified abnormal findings of blood chemistry | CPT/HCPCS: 99202 ==

== ENCOUNTER 2022-03-07 18:05 | Observation (INO) | payer OTHER, SELFPAY ==
--- NOTE | ~2022-03-07 | CT_ITS ---
EXAMINATION: CT ANGIOGRAM OF THE CHEST WITH AND WITHOUT CONTRAST (CT PULMONARY ANGIOGRAM FOR PE) CLINICAL INFORMATION: Reason for Exam sob with hx of metastatic colon ca COMPARISON: 01/18/2022 TECHNIQUE: Prior to contrast administration, noncontrast localization images were obtained. Subsequently, multidetector volumetric imaging was performed from the thoracic inlet to below the diaphragms following the administration of 65 mL Omnipaque 350 intravenous contrast. No contrast reaction reported Sagittal, coronal, and MIP oblique sagittal reformatted images were obtained on the CT workstation, uploaded to PACS, and reviewed. This CT examination was performed using dose optimization techniques as appropriate, variously including the following: *Automated exposure control *Adjustment of mA and/or kV according to patient size (this includes techniques or standardized protocols for targeted exams where dose is matched to indication/reason for exam; i.e. extremities or head) *Use of iterative reconstruction technique Total exam dose-length product 237 mGy-cm FINDINGS: QUALITY OF STUDY/CONTRAST BOLUS: Satisfactory. PULMONARY ARTERIES: No central or segmental pulmonary emboli. THORACIC AORTA: No aneurysm or dissection. LUNG: There are numerous bilateral lung nodules, the majority of which are subcentimeter in size, which overall appear increased in size compared to prior. For example, one of the largest nodules measures 1.7 cm in the left lower lobe on image 316/507 currently versus 1.3 cm previously. PLEURA: No pleural effusion or pneumothorax. MEDIASTINUM: Visualized thyroid gland is unremarkable. There is a thick-walled appearance of the distal esophagus near the GE junction. Left hilar adenopathy has increased from prior, now measuring 1.9 x 1.6 cm on image 28/61 versus 0.9 x 0.7 cm previously. Cardiac size is within normal limits; no pericardial effusion. No evidence of septal bowing or right heart strain. CHEST WALL/AXILLA: No axillary or internal mammary lymphadenopathy. OSSEOUS STRUCTURES: No acute or suspicious osseous abnormality. UPPER ABDOMEN: Numerous masses are again demonstrated in the liver, overall increased in size from prior. For example, a posterior right hepatic lobe mass near the dome measures approximately 7.3 cm in diameter currently versus 5.9 cm previously. No reflux of contrast into the hepatic veins to suggest elevated right heart pressures. CT/CT angio chest PE protocol IMPRESSION: 1. No pulmonary embolus identified. 2. Numerous bilateral lung nodules, overall increased in size from 01/18/2022. 3. Left hilar adenopathy, increased from prior. 4. Numerous hepatic masses, overall increased in size from prior. VTE: negative
[2022-03-07 18:29] VITALS: BP 142/76; BP 150/70; PULSE 102; PULSE 125; RESP 18; TEMP 39.3; O2SAT 97; O2SAT 99; BMI 29.0
--- NOTE | 2022-03-07 18:32 | ED.SOB ---
HPI - SOB/Dyspnea General Chief Complaint: Asthma Stated Complaint: diff breathing Time Seen by Provider: 03/07/22 18:32 Source: patient and family Mode of arrival: EMS History of Present Illness HPI Narrative: Patient recently diagnosed with colon cancer with metastasis to liver with history of asthma comes here for increased shortness of breath for last few days feel less air in his chest no fever no chills , +wheezing no chest pain also patient complaining of pain in the right lower chest posteriorly when she takes deep breath previous CT scan of chest showed lung nodules. Colon cancer recently diagnosed plan for colonoscopy next week Related Data Home Medications Medication Instructions Recorded Confirmed albuterol sulfate 90 mcg/actuation 2 puff inhalation Q6H PRN Wheezing 01/13/21 03/07/22 aerosol inhaler (Ventolin HFA) losartan 50 mg tablet 1 tab PO DAILY 01/13/21 03/07/22 omeprazole 20 mg capsule,delayed 20 mg PO DAILY 10/08/21 03/07/22 release metoprolol succinate 50 mg 1 tab PO DAILY 12/17/21 03/07/22 tablet,extended release 24 hr triamcinolone acetonide 0.5 % 1 appl topical BID PRN Pain 12/17/21 02/25/22 topical cream Previous Rx's Medication Instructions Recorded peg 3350-electrolytes 236 240 ml PO Q10M colonoscopy #4,000 02/26/22 gram-22.74 gram-6.74 gram-5.86 mL gram solution (Golytely) Allergies Allergy/AdvReac Type Severity Reaction Status Date / Time latex Allergy Intermediate Rash Verified 02/26/22 13:04 Review of Systems Review of Systems: Yes all other systems are reviewed and are negative [facility] Past Medical History Medical History (Updated 03/08/22 @ 01:43 by Dimitri Monreal MD) Asthma Depression HTN (hypertension) Surgical History Hx of excision of mass Hx of right breast biopsy Hx of tubal ligation Family History Family History Paternal Grandmother Breast cancer Maternal Aunt Breast cancer Social History Social History Household Members: Children Housing: Apartment Are you a primary congregational care pastor to a significant other at home: No Do you presently have visiting nurse or other home services: No Alcohol intake: never Patient Tobacco Use Status: Never used Tobacco Smoked in Last 30 Days: No Use of substances other than those prescribed or required for medical reasons: No Advance Directives: No Advance Directives Information Provided: No Patient : No service: No Current occupational status: employed 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 Oriented X3. No acute distress. Eyes: PERRLA, No Nystagmus ENT: Pharynx normal. Oral Mucosa moist Neck: Normal inspection. Neck supple. CVS: Normal heart rate and rhythm. Pulses normal. Respiratory: No respiratory distress. Equal air entry bilateral, bilateral wheezing and rhonchi Abdomen: Soft and nontender. Bowel sounds are present, no mass palpable, no CVA tenderness Skin: Skin warm and dry. Normal skin color. Normal skin turgor. Extremities: No lower extremity edema. No calf tenderness Neuro: Oriented X 3. No motor deficit. No sensory deficit.No cerebellar signs , cranial nerves II-XII intact Medications Administered Generic Name Dose Route Start Last Admin Trade Name Freq PRN Reason Stop Dose Admin Methylprednisolone Sodium Succinate 40 mg 03/07/22 23:45 03/08/22 01:07 Methylprednisolone Sod Succ 40 Mg/Ml Vial IVPUSH 40 mg Q12H SAUL Administration Sodium Chloride 3 ml 03/08/22 00:00 03/08/22 01:07 0.9 % Sodium Chloride Flush 3 Ml Syringe IVFLUSH 3 ml QSHIFT SAUL Administration Discontinued Medications Generic Name Dose Route Start Last Admin Trade Name Freq PRN Reason Stop Dose Admin Albuterol Sulfate 2.5 mg/ 0 mg 03/07/22 19:08 03/07/22 19:22 Albuterol/Ipratropium 3 ml INHALE 03/07/22 19:09 1 each ONCE ONE Administration Ceftriaxone Sodium 1 gm/ 50 mls @ 100 mls/hr 03/07/22 20:58 03/07/22 22:53 Sodium Chloride IV 03/07/22 21:27 Infused ONCE ONE Infusion Sodium Chloride 1,000 mls @ 999 mls/hr 03/07/22 20:58 03/07/22 22:53 Ns IV 03/07/22 21:58 Infused .Q1H1M ONE Infusion Sodium Chloride 1,000 mls @ 999 mls/hr 03/07/22 22:53 03/08/22 00:05 Ns IV 03/07/22 23:53 Infused .Q1H1M ONE Infusion Ibuprofen 600 mg 03/07/22 21:22 03/07/22 21:46 Ibuprofen 600 Mg Tablet PO 03/07/22 21:23 600 mg ONCE ONE Administration Iohexol 100 ml 03/07/22 21:37 03/07/22 21:37 Iohexol 350 Mg/Ml 100 Ml Infus..Btl IV 03/07/22 21:38 65 ml ONCE ONE Administration Medical Decision Making Medical Decision Making [facility] Narrative: Patient with recent diagnosis of metastatic colorectal cancer came with increased shortness of breath CTA chest negative for PE lab workup showed leukocytosis with lactic acidosis. COVID 19 was positive although patient was vaccinated patient lactic acidosis likely from albuterol treatment and elevated liver functions. Possible sepsis patient received 2 L of normal saline and started on Rocephin will admit Lab Attestation: I reviewed the patient's lab results. Independent interpretation of EKG, rhythm strip, radiology study: Independent interp EKG,rhythm strip, radiology study I performed an independent interpretation of the: EKG My interpretation is sinus tachycardia with heart rate 125 beats per minute poor progression of R waves no acute ST wave changes Discharge Plan Discharge Clinical Impression: COVID-19, Metastatic colon cancer to liver, Acute bronchitis, Acidosis, lactic Patient Disposition: Admitted As Inpatient
--- NOTE | 2022-03-07 19:06 | ECG_ITS ---
Test Reason : SOB Blood Pressure : / mmHG Vent. Rate : 125 BPM Atrial Rate : 125 BPM P-R Int : 128 ms QRS Dur : 072 ms QT Int : 300 ms P-R-T Axes : 043 028 052 degrees QTc Int : 433 ms Sinus tachycardia Septal infarct , age undetermined Abnormal ECG No previous ECGs available Referred By: Dimitri Monreal Electronically Signed By:MARI MCDUFFIE
[2022-03-07] MEDS: Albuterol Sulfate 2.5 MG, Albuterol/Iprat 2.5/0.5MG 3 ML 3 ML INHALE (19:22)
[2022-03-07 20:13] LABS: MANUAL DIFF FLAG NO
[2022-03-07 20:20] LABS: INTERNATIONAL NORM RATIO 1.3 (0.9-1.1); Prothrombin Time 14.9 SEC (10.0-13.1)
[2022-03-07 20:23] LABS: Partial Thromboplastin Time 27.4 SEC (26.0-36.4)
[2022-03-07 20:25] LABS: Basophils Percent Auto 0.2 % (0-2); Eosinophils Percent Auto 0.1 % (0-4); Hematocrit 35.3 % (37.0-47.0); Hemoglobin 11.7 g/dl (12.0-16.0); Imm Gran Abs Auto 0.05 X10*3/uL (0.00-0.03); Imm Gran Pct Auto 0.3 % (0.0-0.4); Lymphocytes Absolute Auto 2.1 X10*3/uL (1.2-4.9); Lymphocytes Percent Auto 14.3 % (20-40); Mean Corpuscular HGB Conc 33.1 g/dl (31.0-35.0); Mean Corpuscular Hemoglobin 28.6 pg (27.0-33.0); Mean Corpuscular Volume 86.3 fL (80.0-98.0); Mean Platelet Volume 12.4 fL (9.4-12.3); Monocytes Absolute Auto 1.4 X10*3/uL (0.1-1.2); Monocytes Percent Auto 9.5 % (2-11); Neutrophils Absolute Auto 11.2 x10*3/uL (2.0-8.3); Neutrophils Percent Auto 75.6 % (45-73); Platelet Count 350 X10*3/uL (160-400); Red Blood Count 4.09 X10*6/uL (4.20-5.50); Red Cell Distribution Width 15.9 % (11.0-16.0); White Blood Count 14.9 X10*3/uL (4.8-10.8)
[2022-03-07 20:51] LABS: Alanine Aminotransferase 38 U/L (0-31); Albumin Level 3.5 g/dL (3.5-5.0); Alkaline Phosphatase 221 U/L (39-117); Anion Gap 20 (12-20); Aspartate Amino Transferase 253 U/L (5-31); Bilirubin Total 1.4 mg/dL (0.0-1.0); Blood Urea Nitrogen 8 mg/dL (9-16); Calcium 8.9 mg/dL (8.4-10.2); Carbon Dioxide 19 mmol/L (22-29); Chloride 99 mmol/L (96-108); Creatinine Clr Calc Pharmacy 64.9; Estimated Glomerular Filt Rate > 60; Glucose Random 75 mg/dL (60-115); Magnesium 1.8 mg/dL (1.6-2.6); Potassium 4.2 mmol/L (3.3-5.1); Sodium 134 mmol/L (135-145); Total Protein 7.3 g/dL (6.5-8.0)
[2022-03-07 20:57] LABS: Lactic Acid 2.6 mmol/L (0.5-2.0)
[2022-03-07 21:10] LABS: Influenza A PCR NEGATIVE (Negative); Influenza B PCR NEGATIVE (Negative); Resp Syncy Virus RNA Qual PCR NEGATIVE (Negative); SARS COV2 PCR INHOUSE POSITIVE (Negative)
[2022-03-07] MEDS: iohexoL 350 MG/ML 100 ML INFUS..BTL IV (21:37)
[2022-03-07] MEDS: Ibuprofen 600 MG TABLET PO (21:46)
[2022-03-07] MEDS: 0.9 % Sodium Chloride 1,000 ML 999 ML IV ×2 (21:47→23:04)
[2022-03-07] MEDS: cefTRIAXone sodium 1 GM in 0.9 % Sodium Chloride 50 ML IV (21:47)
[2022-03-07 22:02] VITALS: BP 138/74; PULSE 116; RESP 18; TEMP 37.9; O2SAT 99
[2022-03-07 22:11] LABS: Reflex Lactate? Lactic Acid Added
[2022-03-07 22:59] LABS: ~Lactic Acid-LAB USE ONLY 2.2 mmol/L (0.5-2.0)
[2022-03-07 23:01] VITALS: TEMP 37.6
--- NOTE | 2022-03-07 23:35 | PM.IMHP ---
History of Present Illness Date of Service: 03/07/22 Chief Complaint: Dyspnea This is a 56-year-old female with pertinent history of essential hypertension, gastroesophageal reflux disease, asthma, recently diagnosed colon cancer who presents to the emergency department for evaluation of dyspnea. Patient states it started 2 days prior to presentation and has been progressive, worse with exertion. Associated wheezing. Also has been having fever and chills at home. Has been vaccinated for COVID-19. She she states she was recently diagnosed with metastatic colon cancer. Is followed by Dr. Salvador as an outpatient and was referred to [facility] for screening colonoscopy. Patient states she her home inhaler did not help with wheezing or dyspnea. Patient denies chest discomfort palpitations, abdominal pain, changes in urinary habits Review of Systems Constitutional: Constitutional: Reports chills and Reports fever(s) Cardiovascular: Cardiovascular: Reports no additional cardiovascular complaints and Reports dyspnea on exertion Respiratory: Respiratory: Reports cough, Reports dyspnea on exertion and Reports wheezing Allergic/Immunologic: Allergic/Immunologic: Reports wheezing [facility] Medical History (Updated 03/07/22 @ 23:41 by Lanie Baker MD) Asthma Depression HTN (hypertension) Family History Paternal Grandmother Breast cancer Maternal Aunt Breast cancer Surgical History Hx of excision of mass Hx of right breast biopsy Hx of tubal ligation Social History Household Members: Children Housing: Apartment Are you a primary reservoir caretaker to a significant other at home: No Do you presently have visiting nurse or other home services: No Alcohol intake: never Patient Tobacco Use Status: Never used Tobacco Smoked in Last 30 Days: No Use of substances other than those prescribed or required for medical reasons: No Advance Directives: No Advance Directives Information Provided: No Patient : No service: No Current occupational status: employed 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 Allergies Allergy/AdvReac Type Severity Reaction Status Date / Time latex Allergy Intermediate Rash Verified 02/26/22 13:04 Active Medications: Current Medications Albuterol/Ipratropium (Albuterol/Iprat 2.5/0.5mg 3 Ml Ampul.Neb) 3 ml INHALE RQ4H WHILE AWAKE [facility] Albuterol/Ipratropium (Albuterol/Iprat 2.5/0.5mg 3 Ml Ampul.Neb) 3 ml INHALE RQ4H PRN PRN Reason: wheezing Sodium Chloride (Ns) 1,000 mls @ 999 mls/hr IV .Q1H1M ONE Stop: 03/07/22 23:53 Last Admin: 03/07/22 23:04 Dose: 999 mls/hr Methylprednisolone Sodium Succinate (Methylprednisolone Sod Succ 40 Mg/Ml Vial) 40 mg IVPUSH Q12H [facility] Pharmacy Consult (Consult Rx Perform Med Rec) 1 each MISCELLANE ONCE PRN PRN Reason: Consult order Home Medications Medication Instructions Recorded Confirmed Last Taken Type albuterol sulfate 90 mcg/actuation 2 puff inhalation Q6H PRN Wheezing 01/13/21 03/07/22 Unknown History aerosol inhaler (Ventolin HFA) losartan 50 mg tablet 1 tab PO DAILY 01/13/21 03/07/22 Unknown History omeprazole 20 mg capsule,delayed 20 mg PO DAILY 10/08/21 03/07/22 Unknown History release metoprolol succinate 50 mg 1 tab PO DAILY 12/17/21 03/07/22 Unknown History tablet,extended release 24 hr triamcinolone acetonide 0.5 % 1 appl topical BID PRN Pain 12/17/21 02/25/22 Unknown History topical cream Physical Exam Vital Signs and Narrative: Vital Signs: Last Vital Signs Temp 99.7 F 03/07/22 23:01 Pulse 116 H 03/07/22 22:02 Resp 18 03/07/22 22:02 BP 138/74 03/07/22 22:02 Pulse Ox 99 03/07/22 22:02 O2 Del Method 03/07/22 22:02 BMI result Body Mass Index 29.0 Middle-aged female lying in bed in mild distress Neck supple, no JVD Regular rate and rhythm, S1-S2 heard Bilateral expiratory wheezing noted Abdomen soft nontender, no guarding, no rigidity Patient is awake, alert and oriented to self, place, time and person ; no focal motor deficit Psych: Normal mood No pedal edema Results Labs CBC and Chem 7: 03/07/22 20:06 03/07/22 20:06 Labs: Laboratory Results - last 24 hr 03/07/22 03/07/22 03/07/22 20:06 20:06 20:06 MCV 86.3 MCH 28.6 MCHC 33.1 RDW 15.9 Plt Count 350 D MPV 12.4 H Immature Gran % (Auto) 0.3 Neut % (Auto) 75.6 H Lymph % (Auto) 14.3 L [place] % (Auto) 9.5 Eos % (Auto) 0.1 Baso % (Auto) 0.2 Lymph # (Auto) 2.1 [place] # (Auto) 1.4 H Eos # (Auto) 0.0 Baso # (Auto) 0.0 Abs Immat Gran (auto) 0.05 H Absolute Neuts (auto) 11.2 H Absolute Nucleated RBC 0.000 Nucleated RBC % (auto) 0.0 PT 14.9 H INR 1.3 H APTT 27.4 Anion Gap 20 Estim Creat Clear Calc 64.9 Estimated GFR > 60 Random Glucose 75 Lactic Acid Lactic Acid F/U @ 2Hr Calcium 8.9 D Magnesium 1.8 Total Bilirubin 1.4 H AST 253 H ALT 38 H Alkaline Phosphatase 221 H Total Protein 7.3 Albumin 3.5 Influenza Type A (PCR) Influenza Type B (PCR) RSV RNA Qual (PCR) SARS-CoV-2 RNA (RT-PCR) 03/07/22 03/07/22 03/07/22 20:06 20:06 22:38 MCV MCH MCHC RDW Plt Count MPV Immature Gran % (Auto) Neut % (Auto) Lymph % (Auto) [place] % (Auto) Eos % (Auto) Baso % (Auto) Lymph # (Auto) [place] # (Auto) Eos # (Auto) Baso # (Auto) Abs Immat Gran (auto) Absolute Neuts (auto) Absolute Nucleated RBC Nucleated RBC % (auto) PT INR APTT Anion Gap Estim Creat Clear Calc Estimated GFR Random Glucose Lactic Acid 2.6 H* Lactic Acid F/U @ 2Hr 2.2 H* Calcium Magnesium Total Bilirubin AST ALT Alkaline Phosphatase Total Protein Albumin Influenza Type A (PCR) NEGATIVE Influenza Type B (PCR) NEGATIVE RSV RNA Qual (PCR) NEGATIVE SARS-CoV-2 RNA (RT-PCR) POSITIVE A Imaging Radiologist's Impressions: Impressions Chest CTA 03/07/22 21:39 IMPRESSION: 1. No pulmonary embolus identified. 2. Numerous bilateral lung nodules, overall increased in size from 01/18/2022. 3. Left hilar adenopathy, increased from prior. 4. Numerous hepatic masses, overall increased in size from prior. VTE: negative Assessment and Plan (1) COVID: Status: Acute (2) Asthma exacerbation: Status: Acute (3) Liver metastases: Status: Acute (4) Colorectal cancer: Status: Acute (5) HTN (hypertension): Status: Acute Plan This is a 56-year-old female with pertinent history of essential hypertension, gastroesophageal reflux disease, asthma, recently diagnosed colon cancer who presents to the emergency department for evaluation of dyspnea. #. Acute dyspnea due to asthma exacerbation in the setting of COVID-19 infection: Maintaining normal oxygen saturation on room air. Will admit with precautions. No indication for remdesivir. Initiating scheduled and p.r.n. DuoNebs. Initiating systemic steroids #. Acute lactic acidosis: Trended down with fluid resuscitation #. Reactive leukocytosis: No indication for bacterial superinfection, defer antibiotics #. Essential hypertension: Hold p.o. antihypertensives, restart as appropriate #. Gastroesophageal reflux disease: On PPI #. Metastatic colon cancer: Is followed by Dr. Salvador as an outpatient. Scheduled for screening colonoscopy by Dr. Jimenez as an outpatient next week Med rec pending DVT prophylaxis: Lovenox 40 mg daily Diet Full code Time Spent With Patient Time: Total time managing care of this patient today ____ minutes. Quality Stroke Does the patient have a stroke diagnosis?: No VTE Prior VTE?: No VTE Risk Level:: Medical - moderate - high VTE Device Contraindication: Treatment Not Indicated VTE Drug Contraindication: N/A - Med Ordered
[2022-03-08 00:14] VITALS: BP 110/64; PULSE 101; RESP 18; TEMP 37.6; O2SAT 98
[2022-03-08 00:42] LABS: Reflex Lactate? 2 Y
[2022-03-08] MEDS: 0.9 % Sodium Chloride Flush 3 ML SYRINGE IVFLUSH ×2 (01:07→10:54)
[2022-03-08] MEDS: methylPREDNISolone Sod Succ 40 MG/ML VIAL IVPUSH ×2 (01:07→10:53)
[2022-03-08 01:28] LABS: ~Lactic Acid-LAB USE ONLY 1.3 mmol/L (0.5-2.0)
[2022-03-08 06:18] LABS: MANUAL DIFF FLAG NO
[2022-03-08 06:28] LABS: Basophils Percent Auto 0.1 % (0-2); Hematocrit 35.4 % (37.0-47.0); Hemoglobin 11.7 g/dl (12.0-16.0); Imm Gran Abs Auto 0.08 X10*3/uL (0.00-0.03); Imm Gran Pct Auto 0.6 % (0.0-0.4); Lymphocytes Absolute Auto 0.8 X10*3/uL (1.2-4.9); Lymphocytes Percent Auto 5.3 % (20-40); Mean Corpuscular HGB Conc 33.1 g/dl (31.0-35.0); Mean Corpuscular Hemoglobin 28.1 pg (27.0-33.0); Mean Corpuscular Volume 84.9 fL (80.0-98.0); Mean Platelet Volume 11.8 fL (9.4-12.3); Monocytes Absolute Auto 0.6 X10*3/uL (0.1-1.2); Monocytes Percent Auto 4.3 % (2-11); Neutrophils Absolute Auto 12.8 x10*3/uL (2.0-8.3); Neutrophils Percent Auto 89.7 % (45-73); Platelet Count 390 X10*3/uL (160-400); Red Blood Count 4.17 X10*6/uL (4.20-5.50); Red Cell Distribution Width 16.4 % (11.0-16.0); White Blood Count 14.3 X10*3/uL (4.8-10.8)
[2022-03-08 06:45] LABS: Anion Gap 13 (12-20); Blood Urea Nitrogen 7 mg/dL (9-16); Calcium 8.5 mg/dL (8.4-10.2); Carbon Dioxide 21 mmol/L (22-29); Chloride 108 mmol/L (96-108); Creatinine Clr Calc Pharmacy 76.2; Estimated Glomerular Filt Rate > 60; Glucose Random 107 mg/dL (60-115); Potassium 4.4 mmol/L (3.3-5.1); Sodium 138 mmol/L (135-145)
[2022-03-08 06:46] VITALS: BP 111/67; PULSE 87; RESP 18; TEMP 36.4; O2SAT 100
[2022-03-08 07:34] VITALS: BP 110/59; PULSE 76; RESP 18; TEMP 37.3; O2SAT 98
--- NOTE | 2022-03-08 08:27 | P.PNIM_ITS ---
Subjective Subjective Date of Service: 03/08/22 Interval History: F/u asthma exacerbation interval history Physical Exam Vital Signs: Vital Signs: Last Vital Signs Temp 99.1 F 03/08/22 07:34 Pulse 76 03/08/22 07:34 Resp 18 03/08/22 07:34 BP 110/59 L 03/08/22 07:34 Pulse Ox 98 03/08/22 07:34 O2 Del Method 03/08/22 07:34 BMI result Body Mass Index 29.0 Const: Other: General: AO X 3, no acute distress Resp: CTA bilateral CVS: S1,S2,RRR GI: +BS, NT, no distention Skin: No rash Neuro: motor grossly intact Psych: appropriate affect Objective Data Active Medications Acetaminophen (Acetaminophen 325 Mg Tablet) 650 mg PO Q6H PRN PRN Reason: Pain, Mild (Pain Scale 1-3) Albuterol/Ipratropium (Albuterol/Iprat 2.5/0.5mg 3 Ml Ampul.Neb) 3 ml INHALE RQ4H WHILE AWAKE [facility] Albuterol/Ipratropium (Albuterol/Iprat 2.5/0.5mg 3 Ml Ampul.Neb) 3 ml INHALE RQ4H PRN PRN Reason: wheezing Enoxaparin Sodium (Enoxaparin Sodium 40 Mg/0.4 Ml Syringe) 40 mg SUBCUT Q24H SAUL Melatonin (Melatonin 3 Mg Tablet) 6 mg PO BEDTIME PRN PRN Reason: Insomnia Methylprednisolone Sodium Succinate (Methylprednisolone Sod Succ 40 Mg/Ml Vial) 40 mg IVPUSH Q12H [facility] Last Admin: 03/08/22 01:07 Dose: 40 mg Documented By: KARINA Ondansetron HCl (Ondansetron Hcl 4 Mg/2 Ml Vial) 4 mg IVPUSH Q8H PRN PRN Reason: Nausea and Vomiting Pharmacy Consult (Consult Rx Perform Med Rec) 1 each MISCELLANE ONCE PRN PRN Reason: Consult order Sodium Chloride (0.9 % Sodium Chloride Flush 3 Ml Syringe) 3 ml IVFLUSH QSHIFT [facility] Last Admin: 03/08/22 01:07 Dose: 3 ml Documented By: KARINA Labs CBC & Chem 7: 03/08/22 05:43 03/08/22 05:43 Labs: Laboratory Results - last 24 hr 1203/07/22 03/07/22 20:06 20:06 20:06 MCV 86.3 MCH 28.6 MCHC 33.1 RDW 15.9 Plt Count 350 D MPV 12.4 H Immature Gran % (Auto) 0.3 Neut % (Auto) 75.6 H Lymph % (Auto) 14.3 L [place] % (Auto) 9.5 Eos % (Auto) 0.1 Baso % (Auto) 0.2 Lymph # (Auto) 2.1 [place] # (Auto) 1.4 H Eos # (Auto) 0.0 Baso # (Auto) 0.0 Abs Immat Gran (auto) 0.05 H Absolute Neuts (auto) 11.2 H Absolute Nucleated RBC 0.000 Nucleated RBC % (auto) 0.0 PT 14.9 H INR 1.3 H APTT 27.4 Anion Gap 20 Estim Creat Clear Calc 64.9 Estimated GFR > 60 Random Glucose 75 Lactic Acid Lactic Acid F/U @ 2Hr Lactic Acid F/U @ 4Hr Calcium 8.9 D Magnesium 1.8 Total Bilirubin 1.4 H AST 253 H ALT 38 H Alkaline Phosphatase 221 H Total Protein 7.3 Albumin 3.5 Influenza Type A (PCR) Influenza Type B (PCR) RSV RNA Qual (PCR) SARS-CoV-2 RNA (RT-PCR) 03/07/22 03/07/22 03/07/22 20:06 20:06 22:38 MCV MCH MCHC RDW Plt Count MPV Immature Gran % (Auto) Neut % (Auto) Lymph % (Auto) [place] % (Auto) Eos % (Auto) Baso % (Auto) Lymph # (Auto) [place] # (Auto) Eos # (Auto) Baso # (Auto) Abs Immat Gran (auto) Absolute Neuts (auto) Absolute Nucleated RBC Nucleated RBC % (auto) PT INR APTT Anion Gap Estim Creat Clear Calc Estimated GFR Random Glucose Lactic Acid 2.6 H* Lactic Acid F/U @ 2Hr 2.2 H* Lactic Acid F/U @ 4Hr Calcium Magnesium Total Bilirubin AST ALT Alkaline Phosphatase Total Protein Albumin Influenza Type A (PCR) NEGATIVE Influenza Type B (PCR) NEGATIVE RSV RNA Qual (PCR) NEGATIVE SARS-CoV-2 RNA (RT-PCR) POSITIVE A 03/08/22 03/08/22 03/08/22 01:12 05:43 05:43 MCV 84.9 MCH 28.1 MCHC 33.1 RDW 16.4 H Plt Count 390 MPV 11.8 Immature Gran % (Auto) 0.6 H Neut % (Auto) 89.7 H Lymph % (Auto) 5.3 L [place] % (Auto) 4.3 Eos % (Auto) 0.0 Baso % (Auto) 0.1 Lymph # (Auto) 0.8 L [place] # (Auto) 0.6 Eos # (Auto) 0.0 Baso # (Auto) 0.0 Abs Immat Gran (auto) 0.08 H Absolute Neuts (auto) 12.8 H Absolute Nucleated RBC 0.000 Nucleated RBC % (auto) 0.0 PT INR APTT Anion Gap 13 Estim Creat Clear Calc 76.2 Estimated GFR > 60 Random Glucose 107 Lactic Acid Lactic Acid F/U @ 2Hr Lactic Acid F/U @ 4Hr 1.3 Calcium 8.5 Magnesium Total Bilirubin AST ALT Alkaline Phosphatase Total Protein Albumin Influenza Type A (PCR) Influenza Type B (PCR) RSV RNA Qual (PCR) SARS-CoV-2 RNA (RT-PCR) Assessment and Plan (1) Metastatic colon cancer to liver: Status: Acute (2) Asthma: Status: Acute Plan This is a 56-year-old female with pertinent history of essential hypertension, gastroesophageal reflux disease, asthma, recently diagnosed colon cancer who presents to the emergency department for evaluation of dyspnea.? #.? Acute dyspnea due to asthma exacerbation in the setting of COVID-19 infection:? Maintaining normal oxygen saturation on room air.? Will admit with precautions.? No indication for remdesivir.? Initiating scheduled and p.r.n. DuoNebs.? Initiating systemic steroids #.? Acute lactic acidosis: Trended down with fluid resuscitation #.? Reactive leukocytosis:? No indication for bacterial superinfection, defer antibiotics #.? Essential hypertension:? Hold p.o. antihypertensives, restart as appropriate #.? Gastroesophageal reflux disease: On PPI #.? Metastatic colon cancer:? Is followed by Dr. Salvador as an outpatient.? Scheduled for screening colonoscopy by Dr. Jimenez as an outpatient next week Med rec pending DVT prophylaxis:? Lovenox 40 mg daily Time Spent With Patient Time: Total time managing care of this patient today ____ minutes. Quality Stroke Does the patient have a stroke diagnosis?: No VTE Prior VTE?: No VTE Risk Level:: Medical - moderate - high VTE Device Contraindication: Treatment Not Indicated VTE Drug Contraindication: N/A - Med Ordered
[2022-03-08] MEDS: Albuterol/Iprat 2.5/0.5MG 3 ML AMPUL.NEB INHALE ×3 (08:49→14:17)
[2022-03-08 08:50] VITALS: PULSE 76; RESP 16; O2SAT 98
--- NOTE | 2022-03-08 09:03 | PHA.MEDREC ---
Pharmacy Consult ? Medication Reconciliation Pharmacy has completed the medication reconciliation. Utilized interpertur. Patient reported all medications. When asked about an albuterol inhaler she reported she need a nebulizer but does not have one at home. Lo Orellana, VirgieD
--- NOTE | 2022-03-08 09:10 | MHC.CM.PN ---
Patient is Covid (+); CM spoke with Son/HCP/Rk @ [phone] and addressed MCGRAW with him, the original will be mailed certified letter to Rk and a copy has been placed on the chart. 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 Home, self care is the goal and CM has initiated and will follow for dc planning. Patient has received Pfizer/covid vax x4 and the PCP is Dr. Corine Martines.
[2022-03-08] MEDS: Enoxaparin Sodium 40 MG/0.4 ML SYRINGE SUBCUT (10:53)
--- NOTE | 2022-03-08 11:21 | P.DS_ITS ---
DS: Providers Provider Date of Service: 03/08/22 Date of admission: 03/07/22 23:43 Primary care physician: Unknown Physician DS: Diagnosis Discharge Diagnosis (1) Metastatic colon cancer to liver: Status: Acute (2) Asthma: Status: Acute DS: Summary Hospital Course Hospital Course: Chief Complaint: Dyspnea This is a 56-year-old female with pertinent history of essential hypertension, gastroesophageal reflux disease, asthma, recently diagnosed colon cancer who presents to the emergency department for evaluation of dyspnea.? Patient states it started 2 days prior to presentation and has been progressive, worse with exertion.? Associated wheezing.? Also has been having fever and chills at home.? Has been vaccinated for COVID-19.? She she states she was recently diagnosed with metastatic colon cancer.? Is followed by Dr. Salvador as an outpatient and was referred to [facility] for screening colonoscopy.? Patient states she her home inhaler did not help with wheezing or dyspnea.? Patient denies chest discomfort palpitations, abdominal pain, changes in urinary habits Hospital course: Patient was admitted overnight for exacerbation of asthm but no hypoxia and incidental covid, she has been treated with IV steroid, bronchodilators by [facility] and is doing well, lungs are clear, normal breathing pattern, there was no indication for remdesevir for covid. Will discharge with Prednisone for 4 more days and to continue use of inhalers Time Spent with Patient Time attestation: Total time managing care of this patient today ____ minutes. Discharge coordination time: Greater than 30 minutes Quality: Safe Use of Opioids Does Pt have an Active Cancer Diagnosis on the Problem List?: Yes Opioid Measure Date for [facility] Report: 02/06/22 Opioid Measure Time for [facility] Report: 11:21 Quality: Stroke Does the patient have a stroke diagnosis?: No Physical Exam Vital Signs: Vital Signs: Last Vital Signs Temp 99.1 F 03/08/22 07:34 Pulse 76 03/08/22 08:50 Resp 16 03/08/22 08:50 BP 110/59 L 03/08/22 07:34 Pulse Ox 98 03/08/22 07:34 O2 Del Method 03/08/22 07:34 BMI result Body Mass Index 29.0 DS: Data Data Completed and Pending Labs on day of discharge: Laboratory Results - last 24 hr 03/07/22 03/07/22 03/07/22 20:06 20:06 20:06 WBC 14.9 H RBC 4.09 L Hgb 11.7 L Hct 35.3 L MCV 86.3 MCH 28.6 MCHC 33.1 RDW 15.9 Plt Count 350 D MPV 12.4 H Immature Gran % (Auto) 0.3 Neut % (Auto) 75.6 H Lymph % (Auto) 14.3 L Greene % (Auto) 9.5 Eos % (Auto) 0.1 Baso % (Auto) 0.2 Lymph # (Auto) 2.1 Greene # (Auto) 1.4 H Eos # (Auto) 0.0 Baso # (Auto) 0.0 Abs Immat Gran (auto) 0.05 H Absolute Neuts (auto) 11.2 H Absolute Nucleated RBC 0.000 Nucleated RBC % (auto) 0.0 PT 14.9 H INR 1.3 H APTT 27.4 Sodium 134 L Potassium 4.2 Chloride 99 Carbon Dioxide 19 L Anion Gap 20 BUN 8 L Creatinine 0.81 Estim Creat Clear Calc 64.9 Estimated GFR > 60 Random Glucose 75 Lactic Acid Lactic Acid F/U @ 2Hr Lactic Acid F/U @ 4Hr Calcium 8.9 D Magnesium 1.8 Total Bilirubin 1.4 H AST 253 H ALT 38 H Alkaline Phosphatase 221 H Total Protein 7.3 Albumin 3.5 Influenza Type A (PCR) Influenza Type B (PCR) RSV RNA Qual (PCR) SARS-CoV-2 RNA (RT-PCR) 03/07/22 03/07/22 03/07/22 20:06 20:06 22:38 WBC RBC Hgb Hct MCV MCH MCHC RDW Plt Count MPV Immature Gran % (Auto) Neut % (Auto) Lymph % (Auto) Greene % (Auto) Eos % (Auto) Baso % (Auto) Lymph # (Auto) Greene # (Auto) Eos # (Auto) Baso # (Auto) Abs Immat Gran (auto) Absolute Neuts (auto) Absolute Nucleated RBC Nucleated RBC % (auto) PT INR APTT Sodium Potassium Chloride Carbon Dioxide Anion Gap BUN Creatinine Estim Creat Clear Calc Estimated GFR Random Glucose Lactic Acid 2.6 H* Lactic Acid F/U @ 2Hr 2.2 H* Lactic Acid F/U @ 4Hr Calcium Magnesium Total Bilirubin AST ALT Alkaline Phosphatase Total Protein Albumin Influenza Type A (PCR) NEGATIVE Influenza Type B (PCR) NEGATIVE RSV RNA Qual (PCR) NEGATIVE SARS-CoV-2 RNA (RT-PCR) POSITIVE A 03/08/22 03/08/22 03/08/22 01:12 05:43 05:43 WBC 14.3 H RBC 4.17 L Hgb 11.7 L Hct 35.4 L MCV 84.9 MCH 28.1 MCHC 33.1 RDW 16.4 H Plt Count 390 MPV 11.8 Immature Gran % (Auto) 0.6 H Neut % (Auto) 89.7 H Lymph % (Auto) 5.3 L Greene % (Auto) 4.3 Eos % (Auto) 0.0 Baso % (Auto) 0.1 Lymph # (Auto) 0.8 L Greene # (Auto) 0.6 Eos # (Auto) 0.0 Baso # (Auto) 0.0 Abs Immat Gran (auto) 0.08 H Absolute Neuts (auto) 12.8 H Absolute Nucleated RBC 0.000 Nucleated RBC % (auto) 0.0 PT INR APTT Sodium 138 Potassium 4.4 Chloride 108 Carbon Dioxide 21 L Anion Gap 13 BUN 7 L Creatinine 0.69 Estim Creat Clear Calc 76.2 Estimated GFR > 60 Random Glucose 107 Lactic Acid Lactic Acid F/U @ 2Hr Lactic Acid F/U @ 4Hr 1.3 Calcium 8.5 Magnesium Total Bilirubin AST ALT Alkaline Phosphatase Total Protein Albumin Influenza Type A (PCR) Influenza Type B (PCR) RSV RNA Qual (PCR) SARS-CoV-2 RNA (RT-PCR) Discharge Plan Discharge Anticipated Discharge Date/Time: 03/08/22 11:19 Patient Disposition: Home Health Service Referrals: Physician,Unknown J [Primary Care Provider] - 1 Week Discharge Medications: No Action metoprolol succinate 50 mg tablet extended release 24 hr 1 tab PO DAILY losartan 50 mg tablet 1 tab PO DAILY omeprazole 20 mg capsule,delayed release(DR/EC) 20 mg PO DAILY Discharge Orders: Discharge Order (Routine); Ordered 03/08/22 Ordered By: Jose Armando Carrion Diet: Advance to usual diet Stand Alone Forms: Patient Portal Discharge page Care Plan Goals: Full recovery from asthma and covid Health Concerns: COVID-19 Asthma exacerbation Metastatic colon cancer Plan of Treatment: Take prednisone as directed. Use inhalers as directed Follow-up with your primary care doctor Follow-up with your oncologist as previously arranged Assessment: as above
[2022-03-08 11:28] VITALS: BP 111/58; PULSE 91; RESP 20; TEMP 36.6; O2SAT 97
[2022-03-08 11:30] VITALS: PULSE 89; RESP 16; O2SAT 99
--- NOTE | 2022-03-08 11:31 | MHC.CM.PN ---
Patient has been medically cleared for dc to home today with services. A referral was made to [facility], who has been notified of today's dc.
== END 2022-03-08 17:04 | disposition home health service (06) ==
LOC: HO.ED 19:42 → HO.EDOVER 23:51 → HO.IMC 03-08 06:04
PROVIDERS: Admitting Provider Student in an Organized Health Care Education/Training Program; Emergency Provider Internal Medicine; PCP Internal Medicine; Visit Provider Internal Medicine
DX: U07.1 COVID-19 (principal); J45.901 Unspecified asthma with (acute) exacerbation; I10 Essential (primary) hypertension; J45.909 Unspecified asthma, uncomplicated; C18.9 Malignant neoplasm of colon, unspecified; C78.7 Secondary malignant neoplasm of liver and intrahepatic bile duct; Z79.899 Other long term (current) drug therapy
CPT/HCPCS: 0241U; 36415; 71275; 80048; 80053; 83605; 83735; 85025; 85610; 85730; 87040; 93005; 94640; 96361; 96372; 96374; 96375; 99219; 99285; J0696; J1650; J2920; Q9967

== ENCOUNTER 2022-03-16 08:27 | Day surgery (SDC) | payer OTHER, SELFPAY ==
--- NOTE | ~2022-03-16 | IR_ITS ---
PROCEDURE: IR INSERTION OF TUNNEL CATHETER CLINICAL INFORMATION: Colon carcinoma with liver metastases. COMPARISON: CT scan of 03/07/[address] abdomen of 01/18/2022. TECHNIQUE AND FINDINGS: Ultrasound evaluation of the neck for venous access was performed demonstrating the right internal jugular vein to be patent. Image was obtained. Using sterile technique and ultrasound guidance, the right internal jugular vein was accessed and guidewire placed into the right atrium. All elements of maximal sterile barrier technique followed including use of cap, mask, sterile gown, sterile gloves, a sterile full body drape and hand hygiene. Also followed skin preparation with 2% chlorhexidine for cutaneous antisepsis, and sterile ultrasound preparation with sterile gel and probe cover when applicable. Over the wire, access catheter was placed with a larger 0.035 inch guidewire directed into the inferior vena cava. Attention was now turned to creating a port pocket within the upper right anterior chest wall. Incision was made and port pocket blunt-dissected. A tunnel track was then made from the port pocket to the internal jugular puncture site and the 6.6-Macedonian port catheter was tunneled through the tract. Following fascial dilatation, through a peel-away sheath, the catheter was placed at the level of the cavoatrial junction and trimmed in length. Catheter was attached to the port and the port was flushed with heparinized saline. The port was then sutured in the port pocket with two 2-0 monofilament sutures. The skin incision site was then closed with a running subcuticular stitch with 4-0 absorbable suture. The port incision was then closed with tissue adhesive and the internal jugular puncture site was closed with tissue adhesive. Patient tolerated the procedure without difficulty. FLUOROSCOPY TIME: 1.2 minutes. DAP: 77 Gy-cm2. CONSCIOUS SEDATION: The patient received intravenous conscious sedation under my direct supervision. A registered nurse monitored the patient and the patient's vital signs throughout the procedure. The total sedation time was 69 minutes. A total of 1 mg of Versed and 50 mcg fentanyl was given for good effect. IR/IR cvc insert tunnel w prt/security developer IMPRESSION: Right internal jugular port catheter placement as described.
[2022-03-16 09:33] LABS: Hematocrit 34.9 % (37.0-47.0); Hemoglobin 11.6 g/dl (12.0-16.0); Mean Corpuscular HGB Conc 33.2 g/dl (31.0-35.0); Mean Corpuscular Volume 84.3 fL (80.0-98.0); Mean Platelet Volume 10.5 fL (9.4-12.3); Platelet Count 475 X10*3/uL (160-400); Red Blood Count 4.14 X10*6/uL (4.20-5.50); Red Cell Distribution Width 16.2 % (11.0-16.0)
[2022-03-16 09:35] LABS: WBC ABN SCTR FOR CBC 1
[2022-03-16 09:38] VITALS: BMI 28.5
[2022-03-16 09:38] LABS: INTERNATIONAL NORM RATIO 1.3 (0.9-1.1); Prothrombin Time 14.8 SEC (10.0-13.1)
[2022-03-16 10:06] LABS: Eosinophils Percent Manual 1 % (0-4); Lymphocytes Percent Manual 5 % (20-40); Monocytes Percent Manual 10 % (2-11); Neutrophils Percent Manual 84 % (45-73)
[2022-03-16 10:07] LABS: Band Neutrophils Percent 0 % (3-5); Large Platelet PRESENT; Platelet Estimate SLIGHTLY INCREASED (NORMAL); Platelet Morphology Comment NOTED
[2022-03-16 10:10] LABS: Burr Cells 1+ (0-2) /OIF; RBC Morphology NOTED
[2022-03-16 10:30] LABS: Eosinophils Absolute Manual 0.1 X10*3/uL (0.0-0.4); Lymphocytes Absolute Manual 0.5 X10*3/uL (1.2-4.9); Monocytes Absolute Manual 1.1 X10*3/uL (0.1-1.2); Neutrophils Absolute Manual 9.2 X10*3/uL (2.0-8.3); White Blood Count 10.9 X10*3/uL (4.8-10.8)
[2022-03-16] MEDS: Lidocaine HCl 1 % MPF 30 ML VIAL SUBCUT (11:52)
[2022-03-16] MEDS: Lidocaine HCl 1% PF/Epi 1:200,000 30 ML VIAL 10 ML INFILTRATI (11:53)
[2022-03-16] MEDS: Heparin Sodium,Porcine Flush 500 UNIT/5 ML SYRINGE IVFLUSH (11:54)
[2022-03-16 12:53] VITALS: BP 126/72; PULSE 94; RESP 17; TEMP 37.2; O2SAT 98
[2022-03-16 13:08] VITALS: BP 120/75; PULSE 89; RESP 18; O2SAT 98
[2022-03-16 13:23] VITALS: BP 124/75; PULSE 88; RESP 16; O2SAT 98
[2022-03-16 13:38] VITALS: BP 119/76; PULSE 90; RESP 16; O2SAT 98
[2022-03-16 13:53] VITALS: BP 115/76; PULSE 90; RESP 18; O2SAT 98
[2022-03-16 14:08] VITALS: BP 132/73; PULSE 99; RESP 18; TEMP 37.2; O2SAT 98
== END 2022-03-16 14:19 | disposition home or self-care (01) ==
PROVIDERS: Radiology Diagnostic Radiology; PCP Internal Medicine; Visit Provider Internal Medicine Medical Oncology
DX: Z45.2 Encounter for adjustment and management of vascular access device (principal); C78.7 Secondary malignant neoplasm of liver and intrahepatic bile duct; C18.9 Malignant neoplasm of colon, unspecified; Z91.040 Latex allergy status; J45.909 Unspecified asthma, uncomplicated; I10 Essential (primary) hypertension; F32.A Depression, unspecified; Z79.51 Long term (current) use of inhaled steroids; Z79.899 Other long term (current) drug therapy
CPT/HCPCS: 36415; 36561; 85007; 85027; 85610; 85730; 99152; 99153; C1769; C1788; J0690; J1642; J2250; J3010

== ENCOUNTER → 2022-03-26 11:17 | Outpatient (REF) | payer OTHER, SELFPAY ==
--- NOTE | ~2022-03-26 | NM_ITS ---
EXAMINATION: NM BONE SCAN OF THE WHOLE BODY CLINICAL INFORMATION: Liver adenocarcinoma. Patient states back and rib pain. COMPARISON: No previous bone scan or recent radiographs are available for comparison. CT angiogram of the chest dated 03/07/[address] scan of the chest, abdomen, and pelvis dated 01/18/2022 are available for comparison. TECHNIQUE: Multiple gamma scintillation camera images of the whole body were performed 2.5 hours following the intravenous administration of 24 mCi Tc-99m MDP. FINDINGS: In the head, no significant abnormalities are present. In the thoracic cage and upper extremities, no significant abnormalities are present. Some residual radiopharmaceutical at the injection site in the left antecubital fossa is noted. In the spine, no significant abnormalities are present. In the pelvis, no significant abnormalities are present. In the lower extremities, no significant abnormalities are present. No other definite bony abnormalities are noted. The urinary bladder and faint visualization of both kidneys are noted. NM/NM bone scan whole body IMPRESSION: Normal whole body bone scan. No evidence of osseous metastatic disease.
== END ==
LOC: HO.NUCMED 11:17
PROVIDERS: Visit Provider Internal Medicine Medical Oncology
DX: C78.7 Secondary malignant neoplasm of liver and intrahepatic bile duct (principal)
CPT/HCPCS: 78306; A9503

== ENCOUNTER 2022-04-08 08:16 | Day surgery (SDC) | payer OTHER, SELFPAY ==
--- NOTE | 2022-04-07 13:16 | HO.ANESPROP2 ---
Documented by User: Jessica Latham NP 04/07/22 13:17 HPI - Anesthesia Eval Consult details Narrative: 56yo F for Upper Endoscopy and Colonoscopy [place] with Liver mets PMFSH Active Problems Active Problems: All Active Problems (Updated 03/18/22 @ 15:34 by Lluvia Araiza [facility]) Metastatic colon cancer to liver (Acute) Knee pain (Acute) Osteoarthritis of right knee (Acute) Tear of medial meniscus of right knee (Acute) Coagulopathy (Acute) Elevated LFTs (Acute) COVID-19 (Acute) Past Medical History Medical History Asthma Asthma Colorectal cancer Depression HTN (hypertension) Liver metastases Metastatic colon cancer to liver Family History Family History Paternal Grandmother Breast cancer Maternal Aunt Breast cancer Family history of problems with anesthesia: No Surgical History Surgical History Hx of arthroscopy of right knee Hx of excision of mass Hx of right breast biopsy Hx of tubal ligation History of Problems with Anesthesia: No Social History Social History Household Members: Children Housing: Apartment Are you a primary respiratory care program director to a significant other at home: No Do you presently have visiting nurse or other home services: No Alcohol intake: never Patient Tobacco Use Status: Never used Tobacco e-Cigarette/Vaping Use: Never Used Are you DNR?: No Advance Directives: No Advance Directives Information Provided: Yes Nutrition Risks: No Nutritional Risk service: No Current occupational status: employed 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 Allergies Allergy/AdvReac Type Severity Reaction Status Date / Time latex Allergy Intermediate Rash Verified 04/01/22 13:26 Home Medications Medication Instructions Recorded Confirmed Last Taken Type losartan 50 mg tablet 1 tab PO DAILY 01/13/21 04/08/22 04/07/22 History omeprazole 20 mg capsule,delayed 20 mg PO DAILY 10/08/21 04/08/22 04/07/22 History release metoprolol succinate 50 mg 1 tab PO DAILY 12/17/21 04/08/22 04/07/22 History tablet,extended release 24 hr Exam Exam Date and Time: April 07, 2022 1316 Pertinent Lab Results Pertinent Lab Results: Laboratory Tests 04/01/22 04/01/22 14:54 14:54 WBC 11.5 H Hgb 11.3 L Hct 34.3 L Plt Count 495 H Sodium 137 Potassium 3.9 Chloride 101 Carbon Dioxide 25 BUN 4 L Creatinine 0.69 Assessment and Plan Assessment Anesthesia Assessment: Chart Reviewed Final Anesthetic Review Family History of Problems with Anesthesia: No History of Problems with Anesthesia: No Documented by User: Valerie Dickerson MD 04/08/22 09:55 [facility] Past Medical History Medical History Asthma Asthma Colorectal cancer Depression HTN (hypertension) Liver metastases Metastatic colon cancer to liver Family History Family History Paternal Grandmother Breast cancer Maternal Aunt Breast cancer Surgical History Surgical History Hx of arthroscopy of right knee Hx of excision of mass Hx of right breast biopsy Hx of tubal ligation Social History Social History Household Members: Children Housing: Apartment Are you a primary respiratory care program director to a significant other at home: No Do you presently have visiting nurse or other home services: No Alcohol intake: never Patient Tobacco Use Status: Never used Tobacco e-Cigarette/Vaping Use: Never Used Are you DNR?: No Advance Directives: No Advance Directives Information Provided: Yes Nutrition Risks: No Nutritional Risk service: No Current occupational status: employed 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 Allergies Allergy/AdvReac Type Severity Reaction Status Date / Time latex Allergy Intermediate Rash Verified 04/01/22 13:26 Home Medications Medication Instructions Recorded Confirmed Last Taken Type losartan 50 mg tablet 1 tab PO DAILY 01/13/21 04/08/22 04/07/22 History omeprazole 20 mg capsule,delayed 20 mg PO DAILY 10/08/21 04/08/22 04/07/22 History release metoprolol succinate 50 mg 1 tab PO DAILY 12/17/21 04/08/22 04/07/22 History tablet,extended release 24 hr Exam Airway Mallampati Class: II TM Dist: >3cm Neck ROM: Full Heart: rr Lungs: cta Assessment and Plan Final Anesthetic Review NPO: Yes ASA Class: II and III Final Preanesthetic Review: No Changes in Pt Med Stat, Meds/Allgs Chart Reviewed, Consent Obtained/Reviewed and Anes Risks/Benef Reviewed Patient Risk: Low Procedure Risk: Low Anesthetic Plan Anesthetic Plan: MAC: Disposition: Standard PACU
[2022-04-08] VITALS (7 sets, daily range): BP systolic 91–134; BP diastolic 59–88; PULSE 99–108; RESP 16–32; TEMP 36.6–37; O2SAT 89–97; BMI 28.1
[2022-04-08] MEDS: Lactated Ringers 1,000 ML 100 ML IVCONT (08:40)
--- NOTE | 2022-04-08 08:45 | MHC.SHP ---
Pre-Procedural Eval Section A Date of Service: 04/08/22 Section B Chief Complaint: coagulation,malignant neoplasm,secondary Relevant Family History (Specify if Yes): No Relevant Social History: None Present Medications: see Short Stay Collaborative assessment Medical History: Significant History (Asthma Asthma Colorectal cancer Depression HTN (hypertension) Liver metastases Metastatic colon cancer to liver) History of Previous Operations: Relevant previous surgery/procedure and date(s) ( Hx of arthroscopy of right knee Hx of excision of mass Hx of right breast biopsy Hx of tubal ligation) Allergies: Allergies Allergy/AdvReac Type Severity Reaction Status Date / Time latex Allergy Intermediate Rash Verified 04/01/22 13:26 Review of Systems Sugical H&P ROS: Negative: Constitution, Cardiovascular, Respiratory, Neurological, Psychiatric, Hem-Onc, Allergic/Immunologic, Gastrointestinal, Genitourinary, Musculoskeletal, Integumentary, Endocrine and Eyes/Ears/Nose/Throat Exam Surgical H&P Exam: Normal: HEENT, Normal: Heart, Normal: Lungs, Normal: Extremities, Normal: Abdomen, Normal: Skin and Normal: Neurological Plan Diagnosis/Plan: Unchanged I have reviewed the history and physical and performed a pertinent physical examination on my patient. No changes have occurred unless specified. Time Spent With Patient Time: Total time managing care of this patient today ____ minutes.
--- NOTE | 2022-04-08 09:13 | W.PM.OPN ---
Operative Note Operative Note Date of Service: 04/08/22 Narrative: Operative Information Procedure Description: EGD, Colonoscopy Indication: neoplasia, liver mets Anesthesia: MAC FLEXIBLE TRANSORAL UPPER GASTROINTESTINAL ENDOSCOPY AND COLONOSCOPY PROCEDURE NOTE UPPER ENDOSCOPY Consent: Indications for the procedure and potential complications of bleeding, perforation, reaction to medications and missed diagnosis were discussed with the patient and informed consent was obtained. Instrument: Olympus GIF H 190 J mid size upper endoscope Monitoring: Vital signs and clinical assessment, continuous EKG monitoring, Pulse oximetry, Carbon Dioxide monitoring and blood pressure monitoring were done throughout the procedure. Procedure: The patient was placed in the left lateral decubitis position and pre-procedure medications were administered and a bite block was placed. The endoscope was inserted into the mouth and advanced under direct vision to the third part of duodenum. A careful inspection was made as the upper endoscope was withdrawn including a retroflexed examination of the proximal stomach; Findings and interventions are described below. Findings: Larynx:normal Esophagus: GE junction at 40 cm, diaphragm hiatus at 40 cm, irregular z line, bx taken Stomach: Patchy erythema bx taken body and from fundus due to reticular appearing mucosa. Biopsies were obtained. Grade 2 flap valve on retroflexed examination of the cardia. Duodenum: Normal bulb and descending duodenum, Intervention: Biopsies as noted above COLONOSCOPY Instrument: Olympus variable stiffness pediatric scope 190L Colonoscopy Monitoring: Vital signs and clinical assessment, continuous EKG monitoring, Pulse oximetry, Carbon Dioxide monitoring and blood pressure monitoring were done throughout the procedure. Colon withdrawal time was 8 minutes. Procedure: The patient was placed in the left lateral decubitis position and pre-procedure medications were administered. After a digital rectal examination of the ano-rectum, the video colonoscope was inserted into the rectum and advanced through the colon to the cecum/TI. The colonoscope was slowly withdrawn in a retrograde panoramic fashion and the colon mucosa was carefully examined including a retroflexed view of the rectum. Findings and interventions are described below. Procedure Difficulty:difficult Findings: Terminal Ileum-not reached Cecum:not reached Ascending Colon: not reached Transverse Colon - colonic mass occluding the lumen at hepatic flexure, unable to pass the scope, tried an upper GI scope but also unable to pass, bx taken Descending Colon:normal Sigmoid Colon: normal Rectum: Retroflexion with small internal hemorrhoids, grade I Anorectum - normal Colon preparation: [place] Bowel Preparation Scale Right colon; n/a Transverse colon: 2 Left colon; 3 (0 = Unprepared colon segment with mucosa not seen due to solid stool that cannot be cleared. 1 = Portion of mucosa of the colon segment seen, but other areas of the colon segment not well seen due to staining, residual stool and/or opaque liquid. 2 = Minor amount of residual staining, small fragments of stool and/or opaque liquid, but mucosa of colon segment seen well. 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
[2022-04-08] MEDS: Albuterol Sulfate (0.083%) 2.5 MG/3 ML VIAL.NEB INHALE (10:38)
== END 2022-04-08 11:45 | disposition home or self-care (01) ==
PROVIDERS: Visit Provider Internal Medicine Gastroenterology
PROC: (CPT 45380; principal; 2022-04-08 09:10)
DX: C78.7 Secondary malignant neoplasm of liver and intrahepatic bile duct (principal); C18.3 Malignant neoplasm of hepatic flexure; R63.0 Anorexia; K29.50 Unspecified chronic gastritis without bleeding; D64.9 Anemia, unspecified; D75.839 Thrombocytosis, unspecified; R79.1 Abnormal coagulation profile; K44.9 Diaphragmatic hernia without obstruction or gangrene; I10 Essential (primary) hypertension; J45.909 Unspecified asthma, uncomplicated; F32.A Depression, unspecified; Z79.899 Other long term (current) drug therapy; Z91.040 Latex allergy status
CPT/HCPCS: 45380; 43239; 88305; 88341; 88342; J2250; J2405

== ENCOUNTER → 2022-04-19 10:30 | Outpatient (BNVA) | payer OTHER, SELFPAY | PROVIDERS: PCP Internal Medicine; Visit Provider Internal Medicine | DX: C19 Malignant neoplasm of rectosigmoid junction (principal); C78.7 Secondary malignant neoplasm of liver and intrahepatic bile duct; R79.89 Other specified abnormal findings of blood chemistry; R76.8 Other specified abnormal immunological findings in serum | CPT/HCPCS: 99212 ==

== ENCOUNTER 2022-05-13 11:04 | Emergency (ER) | payer OTHER, SELFPAY ==
[2022-05-13 11:12] VITALS: BP 148/40; BP 160/90; PULSE 70; PULSE 74; RESP 20; TEMP 37.1; O2SAT 99; BMI 23.6
[2022-05-13 11:22] LABS: Glucose, Whole Blood 380 mg/dL (60-115)
[2022-05-13 12:30] LABS: Basophils Absolute Auto 0.1 X10*3/uL (0.0-0.2); Basophils Percent Auto 0.3 % (0-2); Hematocrit 36.6 % (37.0-47.0); Imm Gran Abs Auto 1.29 X10*3/uL (0.00-0.03); Lymphocytes Absolute Auto 1.9 X10*3/uL (1.2-4.9); Lymphocytes Percent Auto 7.4 % (20-40); Mean Corpuscular HGB Conc 32.8 g/dl (31.0-35.0); Mean Corpuscular Hemoglobin 28.5 pg (27.0-33.0); Mean Corpuscular Volume 86.9 fL (80.0-98.0); Mean Platelet Volume 10.7 fL (9.4-12.3); Monocytes Absolute Auto 1.5 X10*3/uL (0.1-1.2); Monocytes Percent Auto 5.8 % (2-11); NRBC Pct Auto 0.1 /100WBC (0.0-0.2); Neutrophils Absolute Auto 21.1 x10*3/uL (2.0-8.3); Neutrophils Percent Auto 81.5 % (45-73); Platelet Count 151 X10*3/uL (160-400); Red Blood Count 4.21 X10*6/uL (4.20-5.50); Red Cell Distribution Width 20.3 % (11.0-16.0); SCAN SMEAR FLAG 1
[2022-05-13 12:35] LABS: INTERNATIONAL NORM RATIO 1.1 (0.9-1.1); Prothrombin Time 12.8 SEC (10.0-13.1)
[2022-05-13 12:38] LABS: Acetone, serum QL Negative (Negative)
[2022-05-13 12:46] LABS: MANUAL DIFF FLAG NO; White Blood Count 25.9 X10*3/uL (4.8-10.8)
[2022-05-13 12:49] LABS: Alanine Aminotransferase 54 U/L (0-31); Albumin Level 3.2 g/dL (3.5-5.0); Alkaline Phosphatase 281 U/L (39-117); Anion Gap 17 (12-20); Aspartate Amino Transferase 55 U/L (5-31); Bilirubin Total 0.6 mg/dL (0.0-1.0); Blood Urea Nitrogen 20 mg/dL (9-16); Calcium 8.8 mg/dL (8.4-10.2); Carbon Dioxide 22 mmol/L (22-29); Chloride 99 mmol/L (96-108); Estimated Glomerular Filt Rate > 60; Glucose Random 396 mg/dL (60-115); Magnesium 2.2 mg/dL (1.6-2.6); Potassium 5.1 mmol/L (3.3-5.1); Sodium 133 mmol/L (135-145); Total Protein 6.1 g/dL (6.5-8.0)
[2022-05-13 13:12] LABS: Influenza A PCR NEGATIVE (Negative); Influenza B PCR NEGATIVE (Negative); Resp Syncy Virus RNA Qual PCR NEGATIVE (Negative); SARS COV2 PCR INHOUSE NEGATIVE (Negative)
--- NOTE | 2022-05-13 14:57 | ED_ITS ---
HPI - General Adult General Chief complaint: General Medical Stated complaint: WEAKNESS,YELLOW SKIN/EYES,FAST=0 PER EMS Time Seen by Provider: 05/13/22 12:50 Source: patient Mode of arrival: ambulatory Limitations: no limitations History of Present Illness HPI narrative: 57-year-old female with history of colon cancer and liver cancer on chemotherapy presents with swelling of the left face. Symptoms started yesterday. She reports that her face would not go down. She denied any pain, numbness, tingling. She denies any dental issues, sinus issues. She had no fevers or chills, cough or mucus production. She has had no nasal discharge or ear discharge. Patient has never had this before. She describes symptoms as moderate in nature. She called her oncologist who instructed her to come to the emergency department for evaluation. There are no clear relieving or exacerbating features. She reports having rubbed the area which has improved the swelling. Related Data Home Medications Medication Instructions Recorded Confirmed losartan 50 mg tablet 1 tab PO DAILY 01/13/21 04/30/22 omeprazole 20 mg capsule,delayed 20 mg PO DAILY 10/08/21 04/30/22 release metoprolol succinate 50 mg 1 tab PO DAILY 12/17/21 04/30/22 tablet,extended release 24 hr Previous Rx's Medication Instructions Recorded ipratropium 0.5 mg-albuterol 3 mg 3 ml inhalation RQ4H PRN wheezing 03/08/22 (2.5 mg base)/3 mL nebulization #90 mL soln nebulizers #1 ea 03/09/22 oxycodone 5 mg tablet 5 mg PO Q8H PRN Breakthrough Pain, 03/16/22 Moderate #30 tabs ondansetron 8 mg disintegrating 8 mg PO Q8H PRN Nausea And 03/18/22 tablet Vomiting #60 tabs dexamethasone 4 mg tablet 4 mg PO BID #60 tabs 04/14/22 polyethylene glycol 3350 17 17 g PO DAILY 30 days #510 grams 05/03/22 gram/dose oral powder (Miralax) sennosides 8.6 mg tablet (Senokot) 8.6 mg PO BID #60 tabs 05/03/22 Allergies Allergy/AdvReac Type Severity Reaction Status Date / Time latex Allergy Intermediate Rash Verified 04/30/22 14:09 Review of Systems Review of Systems: CONSTITUTIONAL: Denies weight loss, fever and chills. HEENT: Denies changes in vision and hearing. RESPIRATORY: Denies SOB and cough. CV: Denies palpitations no CP. GI: Denies abdominal pain, nausea, vomiting and diarrhea. : Denies dysuria and urinary frequency. MSK: Denies myalgia and joint pain. SKIN: Denies rash and pruritus. NEUROLOGICAL: Denies headache and syncope. PSYCHIATRIC: Denies recent changes in mood. Denies anxiety and depression. All other ROS are negative unless in HPI PMFSH Past Medical History Medical History Asthma Asthma Colorectal cancer Depression HTN (hypertension) Liver metastases Metastatic colon cancer to liver Surgical History History of esophagogastroduodenoscopy (EGD) Hx of arthroscopy of right knee Hx of colonoscopy Hx of excision of mass Hx of right breast biopsy Hx of tubal ligation Family History Family History Paternal Grandmother Breast cancer Maternal Aunt Breast cancer Social History Social History Household Members: Children Housing: Apartment Are you a primary property caretaker to a significant other at home: No Do you presently have visiting nurse or other home services: No Alcohol intake: never Patient Tobacco Use Status: Never used Tobacco Smoked in Last 30 Days: No e-Cigarette/Vaping Use: Never Used Use of substances other than those prescribed or required for medical reasons: No Any prior treatment program specific to substance use: No Advance Directives: No Advance Directives Information Provided: Yes service: No Current occupational status: employed 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 Physical Exam ED Vital Signs: Vital Signs - 24 hr 05/13/22 11:12 Temperature 98.7 F Pulse Rate 70 Respiratory Rate 20 Blood Pressure 160/90 H Pulse Oximetry 99 Oxygen Delivery Method Room Air BMI result Body Mass Index 23.6 GEN: Well developed, no acute distress, alert, oriented HEENT: Normocephalic, atraumatic, normal external ears, nose appears normal, no oropharyngeal edema or exudates, left facial swelling, normal dentition no erythema or fluctuance surfaces, no sinus tenderness, TM clear bilaterally mild redness to the affected area Eyes: Normal to appearance Neck: Supple, no lymphadenopathy Respiratory: Talks in complete sentences, no respiratory distress, clear to auscultation bilaterally Cardiovascular: Regular rate and rhythm, no murmurs rubs or gallops Abdomen: Soft, nontender, nondistended, no guarding, no rebound Back: No CVA tenderness Extremities: No clubbing cyanosis or edema Neurologic: No focal neurologic deficits, cranial nerves 2-12 intact, strength is 5/5 bilaterally, gait normal Skin: No rash Course Course Course Narrative: 57-year-old female with history of metastatic colon cancer presents with swelling to the left face. Is atraumatic, not painful. Examination did not reveal any dental or sinus related issues. Etiology is not entirely clear. Lab work has been obtained which demonstrates an elevated white blood cell count in a few other abnormalities. She did receive a course of chemotherapy yesterday and she does report being fatigued which is normal for her. At this point, we will contact the oncologist discussed the course of action indeterminate appropriate disposition. Patient appears nontoxic. Is possible we could treat for underlying dental related infection with close follow-up. Reevaluation(s) Reevaluation #1: Patient to be discharged at this time. All results and treatment plan has been discussed. Time: 15:14 Consultations Consultation #1: Dr. Salvador is aware of the elevated white blood cell count and additional lab findings. As patient is well appearing, no evidence of CVA which was their concern, will discharge at this time. Will start her on Augmentin for possible skin/dental infection. Will also start her on metformin for a likely iatrogenic induced hyperglycemia secondary to check discussed all results with the patient. Discussed discharge plan with the patient as well. Time: 15:00 Medical Decision Making Medical Decision Making [facility] Narrative: 57-year-old female with history of metastatic colon cancer presents with swelling to the left face. Is atraumatic, not painful. Examination did not reveal any dental or sinus related issues. Etiology is not entirely clear. Lab work has been obtained which demonstrates an elevated white blood cell count in a few other abnormalities. She did receive a course of chemotherapy yesterday and she does report being fatigued which is normal for her. At this point, we will contact the oncologist discussed the course of action indeterminate appropriate disposition. Patient appears nontoxic. Is possible we could treat for underlying dental related infection with close follow-up. Differential Diagnosis Differential Diagnoses: The differential diagnosis associated with the presentation includes (Dental infection, gingivitis, sinus infection, nasal infection, ear infection, cellulitis, parotitis) Admission/Observation Consideration of admission/observation: Escalation of care including admission/observation considered Consult Healthcare Provider Management of the patient was discussed with: Child Nutrition Assistant (Oncologist) Lab Data MDM Lab Attestation statement: I reviewed the patient's lab results. 05/13/22 12:19 05/13/22 12:19 Labs: Lab Results 05/13/22 05/13/22 05/13/22 Range/Units 11:18 12:19 12:19 WBC 25.9 H (4.8-10.8) X10*3/uL RBC 4.21 (4.20-5.50) X10*6/uL Hgb 12.0 (12.0-16.0) g/dl Hct 36.6 L (37.0-47.0) % MCV 86.9 (80.0-98.0) fL MCH 28.5 (27.0-33.0) pg MCHC 32.8 (31.0-35.0) g/dl RDW 20.3 H (11.0-16.0) % Plt Count 151 L (160-400) X10*3/uL MPV 10.7 (9.4-12.3) fL Immature Gran % (Auto) 5.0 H (0.0-0.4) % Neut % (Auto) 81.5 H (45-73) % Lymph % (Auto) 7.4 L (20-40) % [place] % (Auto) 5.8 (2-11) % Eos % (Auto) 0.0 (0-4) % Baso % (Auto) 0.3 (0-2) % Lymph # (Auto) 1.9 (1.2-4.9) X10*3/uL [place] # (Auto) 1.5 H (0.1-1.2) X10*3/uL Eos # (Auto) 0.0 (0.0-0.4) X10*3/uL Baso # (Auto) 0.1 (0.0-0.2) X10*3/uL Abs Immat Gran (auto) 1.29 H (0.00-0.03) X10*3/uL Absolute Neuts (auto) 21.1 H (2.0-8.3) x10*3/uL Absolute Nucleated RBC 0.030 H (0.0-0.012) X10*3/uL Nucleated RBC % (auto) 0.1 (0.0-0.2) /100WBC PT 12.8 (10.0-13.1) SEC INR 1.1 (0.9-1.1) Sodium (135-145) mmol/L Potassium (3.3-5.1) mmol/L Chloride (96-108) mmol/L Carbon Dioxide (22-29) mmol/L Anion Gap (12-20) BUN (9-16) mg/dL Creatinine (0.5-1.4) mg/dL Estim Creat Clear Calc Estimated GFR POC Glucose 380 H* (60-115) mg/dL Random Glucose (60-115) mg/dL Calcium (8.4-10.2) mg/dL Magnesium (1.6-2.6) mg/dL Total Bilirubin (0.0-1.0) mg/dL AST (5-31) U/L ALT (0-31) U/L Alkaline Phosphatase (39-117) U/L Total Protein (6.5-8.0) g/dL Albumin (3.5-5.0) g/dL Acetone, Qual (Negative) Influenza Type A (PCR) (Negative) Influenza Type B (PCR) (Negative) RSV RNA Qual (PCR) (Negative) SARS-CoV-2 RNA (RT-PCR) (Negative) 05/13/22 05/13/22 Range/Units 12:19 12:19 WBC (4.8-10.8) X10*3/uL RBC (4.20-5.50) X10*6/uL Hgb (12.0-16.0) g/dl Hct (37.0-47.0) % MCV (80.0-98.0) fL MCH (27.0-33.0) pg MCHC (31.0-35.0) g/dl RDW (11.0-16.0) % Plt Count (160-400) X10*3/uL MPV (9.4-12.3) fL Immature Gran % (Auto) (0.0-0.4) % Neut % (Auto) (45-73) % Lymph % (Auto) (20-40) % [place] % (Auto) (2-11) % Eos % (Auto) (0-4) % Baso % (Auto) (0-2) % Lymph # (Auto) (1.2-4.9) X10*3/uL [place] # (Auto) (0.1-1.2) X10*3/uL Eos # (Auto) (0.0-0.4) X10*3/uL Baso # (Auto) (0.0-0.2) X10*3/uL Abs Immat Gran (auto) (0.00-0.03) X10*3/uL Absolute Neuts (auto) (2.0-8.3) x10*3/uL Absolute Nucleated RBC (0.0-0.012) X10*3/uL Nucleated RBC % (auto) (0.0-0.2) /100WBC PT (10.0-13.1) SEC INR (0.9-1.1) Sodium 133 L (135-145) mmol/L Potassium 5.1 D (3.3-5.1) mmol/L Chloride 99 (96-108) mmol/L Carbon Dioxide 22 (22-29) mmol/L Anion Gap 17 (12-20) BUN 20 H (9-16) mg/dL Creatinine 0.76 (0.5-1.4) mg/dL Estim Creat Clear Calc 63.0 Estimated GFR > 60 POC Glucose (60-115) mg/dL Random Glucose 396 H* (60-115) mg/dL Calcium 8.8 (8.4-10.2) mg/dL Magnesium 2.2 (1.6-2.6) mg/dL Total Bilirubin 0.6 (0.0-1.0) mg/dL AST 55 H (5-31) U/L ALT 54 H (0-31) U/L Alkaline Phosphatase 281 H (39-117) U/L Total Protein 6.1 L (6.5-8.0) g/dL Albumin 3.2 L (3.5-5.0) g/dL Acetone, Qual Negative (Negative) Influenza Type A (PCR) NEGATIVE (Negative) Influenza Type B (PCR) NEGATIVE (Negative) RSV RNA Qual (PCR) NEGATIVE (Negative) SARS-CoV-2 RNA (RT-PCR) NEGATIVE (Negative) Tests considered The following testing was considered but not selected: CT scan sinuses Prescription Management I considered prescription management with: Antibiotic Chronic Conditions Patient?s care impacted by: Cancer Discharge Plan Discharge Clinical Impression: Left facial swelling, Elevated LFTs, Leukocytosis Patient Disposition: Home, Self-Care Instructions: Leukocytosis (ED), Cellulitis (ED) Additional Instructions: Return to the emergency department for worsening swelling, high fevers, any additional concerning symptoms. Prescriptions: No Action metoprolol succinate 50 mg tablet extended release 24 hr 1 tab PO DAILY oxycodone 5 mg Tablet 5 mg PO Q8H PRN (Reason: Breakthrough Pain, Moderate) Qty: 30 0RF Rx Instructions: Partial Fill upon patient request. ondansetron 8 mg Tablet,Disintegrating 8 mg PO Q8H PRN (Reason: Nausea And Vomiting) Qty: 60 6RF dexamethasone 4 mg Tablet 4 mg PO BID Qty: 60 4RF Rx Instructions: Take 4 mg po BID, days 2 and 3 of chemotherapy q 2 weeks. polyethylene glycol 3350 [Miralax] 17 gram/dose powder 17 g PO DAILY 30 Days Qty: 510 0RF sennosides [Senokot] 8.6 mg Tablet 8.6 mg PO BID Qty: 60 3RF losartan 50 mg tablet 1 tab PO DAILY ipratropium-albuterol 0.5 mg-3 mg(2.5 mg base)/3 mL Solution For Nebulization 3 ml inhalation RQ4H PRN (Reason: wheezing) Qty: 90 0RF (DME) nebulizers [facility] See Rx Instructions .Route Qty: 1 0RF Rx Instructions: As directed omeprazole 20 mg capsule,delayed release(DR/EC) 20 mg PO DAILY Referrals: Corine Martines MD [Primary Care Provider] - 2 days James Salvador MD [Physician] - 2 days Print Language: Slovenian
[2022-05-13] MEDS: metFORMIN HCl 500 MG TABLET PO (15:22)
[2022-05-13] MEDS: Amoxicillin/Potassium Clav 875 MG TABLET PO (15:22)
[2022-05-13 15:26] VITALS: BP 145/96; PULSE 73; RESP 18; TEMP 37.2; O2SAT 99
== END 2022-05-13 15:27 | disposition home or self-care (01) ==
PROVIDERS: Physician Assistant Medical; Emergency Provider Emergency Medicine; PCP Internal Medicine
DX: R22.0 Localized swelling, mass and lump, head (principal); D72.829 Elevated white blood cell count, unspecified; R79.89 Other specified abnormal findings of blood chemistry; Z20.822 Contact with and (suspected) exposure to COVID-19; Z20.828 Contact with and (suspected) exposure to other viral communicable diseases; Z79.899 Other long term (current) drug therapy
CPT/HCPCS: 0241U; 36415; 80053; 82009; 82947; 83735; 85025; 85610; 99283; 99284

== ENCOUNTER 2022-06-16 11:09 | Outpatient (REF) | payer OTHER, SELFPAY ==
[2022-06-16 12:55] LABS: Estimated Average Glucose 154 mg/dL
[2022-06-16 13:49] LABS: Alanine Aminotransferase 46 U/L (0-31); Albumin Level 3.5 g/dL (3.5-5.0); Alkaline Phosphatase 224 U/L (39-117); Anion Gap 20 (12-20); Aspartate Amino Transferase 85 U/L (5-31); Bilirubin Total 0.4 mg/dL (0.0-1.0); Blood Urea Nitrogen 25 mg/dL (9-16); Calcium 9.4 mg/dL (8.4-10.2); Carbon Dioxide 19 mmol/L (22-29); Chloride 108 mmol/L (96-108); Estimated Glomerular Filt Rate 48; Glucose Random 111 mg/dL (60-115); Potassium 4.3 mmol/L (3.3-5.1); Sodium 143 mmol/L (135-145); Total Protein 6.2 g/dL (6.5-8.0)
[2022-06-16 14:12] LABS: Creatinine Urine 145.73 mg/dL; Microalbum/Creatinine Ratio Ur 334.1 ug/mg cr
== END 2022-06-16 11:10 | disposition home or self-care (01) ==
LOC: HO.LAB 11:09
PROVIDERS: PCP Internal Medicine; Visit Provider Internal Medicine
DX: Z00.01 Encounter for general adult medical examination with abnormal findings (principal); E11.65 Type 2 diabetes mellitus with hyperglycemia; I10 Essential (primary) hypertension; I73.00 Raynaud's syndrome without gangrene; J45.909 Unspecified asthma, uncomplicated
CPT/HCPCS: 36415; 80053; 82043; 83036

== ENCOUNTER 2022-06-30 12:33 | Outpatient (REF) | payer OTHER, SELFPAY ==
--- NOTE | ~2022-06-30 | MM_ITS ---
EXAMINATION: MM SCREENING DIGITAL BREAST TOMOSYNTHESIS, BILATERAL CLINICAL INFORMATION: Screening. Asymptomatic. Prior history left excisional biopsy 2001 and right ultrasound biopsy 2004. History colon cancer with hepatic metastases. The lifetime risk of breast cancer based on the Tyrer-Cuzick Model is 17%. COMPARISON: Mammography: 06/18/2021, 05/01/2020, 01/04/2019 TECHNIQUE: Digital breast tomosynthesis is performed in both the craniocaudal and mediolateral oblique views along with computer-aided detection (CAD). Synthesized 2D images are generated from the tomosynthesis. Additional left MLO view is provided. FINDINGS: There are scattered areas of fibroglandular density (ACR BI-RADS breast composition Category b). There are no significant masses, abnormal calcifications, or other abnormalities. Parenchymal pattern is similar to prior studies. There is no developing density or architectural abnormality. There is a port overlying the posterior upper right axilla on the MLO view. The skin contours are unremarkable. No significant changes. MM/MM tomosynthesis screening BI IMPRESSION: No significant changes from prior studies. ASSESSMENT: BI-RADS 2: Benign RECOMMENDATION: Routine annual mammography screening. This patient's information was entered into a reminder system with a target due date for their next mammogram.
== END 2022-06-30 12:34 | disposition home or self-care (01) ==
LOC: HO.MAMMO 12:33
PROVIDERS: PCP Internal Medicine; Visit Provider Internal Medicine
DX: Z12.31 Encounter for screening mammogram for malignant neoplasm of breast (principal)
CPT/HCPCS: 77063; 77067

== ENCOUNTER 2022-08-18 08:01 | Outpatient (REF) | payer OTHER, SELFPAY ==
--- NOTE | ~2022-08-18 | CT_ITS ---
EXAMINATION: CT ABDOMEN AND PELVIS WITH CONTRAST CLINICAL INFORMATION: Colon cancer. Follow-up liver lesions. COMPARISON: Previous CT of the abdomen and pelvis most recent December 2021 TECHNIQUE: Multidetector volumetric images were obtained from the superior aspect of the liver through the pubic symphysis following administration 85 mL of Omnipaque 350 intravenous contrast. Sagittal and coronal reformatted images were obtained on the technologist's workstation. Oral contrast: Yes This CT examination was performed using dose optimization techniques as appropriate, variously including the following: *Automated exposure control *Adjustment of mA and/or kV according to patient size (this includes techniques or standardized protocols for targeted exams where dose is matched to indication/reason for exam; i.e. extremities or head) *Use of iterative reconstruction technique DLP: 382 mGy-cm FINDINGS: LUNG BASES: The visualized lung bases are unremarkable. LIVER, GALLBLADDER, AND BILIARY TREE: There are multiple low-attenuation lesions seen in both lobes of the liver. These do not appear appreciably changed from December 2021 exam. Largest lesion in the left lobe measures 4 x 8 cm compared to 4 x 9 cm December 2021. Largest lesion in the right lobe measures 6 cm compared to 6 cm December 2021. No new liver lesion. Normal gallbladder. No biliary duct dilatation. PANCREAS: Unremarkable. SPLEEN: Unremarkable. ADRENAL GLANDS: Unremarkable. KIDNEYS AND URETERS: The kidneys are normal in size, shape, and attenuation. No hydronephrosis, hydroureter, or calculi seen. No perinephric stranding. BLADDER: Not optimally distended. GASTROINTESTINAL TRACT: The soft tissue mass in the hepatic flexure appears less apparent than seen on December 2021 exam. Peritoneal masses appear decreased in size as well. Largest peritoneal mass measures 5 mm axial image 37 series 3 compared to 1.4 cm on prior exam. No new peroneal disease. No ascites. The appendix is unremarkable. ABDOMINAL WALL: No significant hernia is appreciated. LYMPH NODES: Interval decrease in retroperitoneal lymphadenopathy. VASCULAR: Unremarkable. PELVIC VISCERA: Large new left pelvic mass measuring 5.3 x 7.6 cm Hounsfield units measure 50 postcontrast. This is increased from 1.5 x 2.5 cm December 2021. This does not abut the pelvic sidewall it is more suggestive of a left adnexal mass or peritoneal mass then enlarged lymph node. OSSEOUS STRUCTURES: Degenerative changes of the spine. No fracture or bone lesion. CT/CT abdomen pelvis w IV con IMPRESSION: Stable liver lesions. Interval decrease in soft tissue mass in the hepatic flexure, adjacent peritoneal disease and retroperitoneal lymphadenopathy. New left pelvic mass measuring 5.3 x 7.6 cm. Question primary left adnexal mass, metastatic disease to the left ovary or new peritoneal disease. Lymph node is considered less likely. Follow-up pelvic ultrasound recommended. Fleischner guidelines were followed.
--- NOTE | ~2022-08-18 | CT_ITS ---
EXAMINATION: CT CHEST WITH CONTRAST CLINICAL INFORMATION: Colon cancer. Follow up lung nodules. COMPARISON: Previous chest CT scans most recent February 2022 TECHNIQUE: Multidetector volumetric CT imaging of the chest was obtained after the administration of 85 mL of Omnipaque 350 intravenous contrast without immediate adverse reactions. Axial MIP volume rendering provided. Sagittal and coronal reformatted images were obtained. This CT examination was performed using dose optimization techniques as appropriate, variously including the following: *Automated exposure control *Adjustment of mA and/or kV according to patient size (this includes techniques or standardized protocols for targeted exams where dose is matched to indication/reason for exam; i.e. extremities or head) *Use of iterative reconstruction technique DLP: 98 mGy-cm FINDINGS: LUNGS: Largest pulmonary nodule may be slightly decreased in size and measures 0.8 x 1.3 cm in the left lower lobe axial image 320 series 5 compared to 0.9 x 1.4 cm on prior exam. Otherwise pulmonary nodules do not appear appreciably changed. No new pulmonary nodules are seen. MEDIASTINUM: Interval decrease in left hilar lymph node measuring 0.8 x 1 cm axial image 30 series 3 compared to 1.6 x 2 cm on previous exam. Small right hilar lymph nodes do not appear appreciably changed. No mediastinal adenopathy. Normal heart size. No pericardial effusion. Right jugular port with tip projecting over the SV PLEURA: There is no pleural effusion. No pleural mass or thickening. AXILLA: Small bilateral axillary lymph nodes. No enlarged lymph nodes or chest wall mass. UPPER ABDOMEN: See abdominal and pelvic CT report from the same day. OSSEOUS STRUCTURES: Unremarkable. CT/CT chest w IV con IMPRESSION: No appreciable change in bilateral pulmonary nodules. Largest pulmonary nodule in the left lower lobe may be slightly decreased in size. No new pulmonary nodules. Interval decrease in left hilar adenopathy. Fleischner guidelines were followed.
[2022-08-18] MEDS: Barium Sulfate Oral (Berry) 450 ML ORAL.SUSP 900 ML PO (10:48)
[2022-08-18] MEDS: iohexoL 350 MG/ML 100 ML INFUS..BTL IV (10:49)
== END 2022-08-18 08:02 | disposition home or self-care (01) ==
LOC: HO.CT 08:01
PROVIDERS: PCP Internal Medicine; Visit Provider Internal Medicine Medical Oncology
DX: C18.9 Malignant neoplasm of colon, unspecified (principal); C78.7 Secondary malignant neoplasm of liver and intrahepatic bile duct
CPT/HCPCS: 71260; 74177; Q9967

== ENCOUNTER 2022-09-03 12:58 | Outpatient (REF) | payer OTHER, SELFPAY ==
--- NOTE | ~2022-09-03 | US_ITS ---
EXAMINATION: US PELVIS performed transvaginally and transvesical CLINICAL INFORMATION: Left pelvic pain COMPARISON: CT scan of the abdomen and pelvis from 08/18/2022 TECHNIQUE: Ultrasound of the pelvis is performed using both transabdominal and transvaginal transducers along with Doppler. Transvaginal imaging is performed due to inadequate visualization transabdominally. FINDINGS: Uterus: The uterus is anteverted and anteflexed and measures 7.8 x 2.7 x 4.7 cm. The double wall endometrial thickness is 0.2 mm. The uterus is smooth in contour and has normal myometrial echogenicity. No visible fibroid. Adnexa: Right adnexa demonstrate complex heterogeneous and hypervascular 6.6 x 4.9 x 5.0 cm mass with cystic and solid components, findings are concordant with the recent CT scan Left ovary is not seen. Right ovary is not seen US/US pelvic and transvaginal IMPRESSION: 1. Complex hypervascular mass in the right adnexa. Consider possibility of cystadenocarcinoma among correlate with MRI 2. Nonvisualization of left ovary and unremarkable uterus.
== END 2022-09-03 12:59 | disposition home or self-care (01) ==
LOC: HO.US 12:58
PROVIDERS: Visit Provider Internal Medicine Medical Oncology
DX: R19.00 Intra-abdominal and pelvic swelling, mass and lump, unspecified site (principal)
CPT/HCPCS: 76830; 76856

== ENCOUNTER 2022-10-19 19:14 | Emergency (ER) | payer OTHER, SELFPAY ==
[2022-10-19 19:22] VITALS: BP 138/92; PULSE 90; O2SAT 98
[2022-10-19 19:25] VITALS: BP 150/88; PULSE 86; RESP 18; TEMP 36.8; O2SAT 94
[2022-10-19 19:44] VITALS: BMI 30.6
--- NOTE | 2022-10-19 20:14 | ED.GENADULT ---
HPI - General Adult General Chief complaint: General Medical Stated complaint: chemo meds stopped running in iv, per ems Time Seen by Provider: 10/19/22 19:50 History of Present Illness HPI narrative: Patient is a 57-year-old female presented today with having the chemo tubing falling off. came to the ED for further evaluation. No fever no chills no chest pain no shortness breath no nausea no vomiting history of colon cancer metastatic to the liver his son 5 fluorouracil. Is on a continuous infusion. Has a port in place. No chest pain or shortness of breath no dizziness no complaint except for the machine keep ringing Related Data Home Medications Medication Instructions Recorded Confirmed losartan 50 mg tablet 1 tab PO DAILY 01/13/21 07/26/22 omeprazole 20 mg capsule,delayed 20 mg PO DAILY 10/08/21 07/26/22 release metoprolol succinate 50 mg 1 tab PO DAILY 12/17/21 07/26/22 tablet,extended release 24 hr Previous Rx's Medication Instructions Recorded ipratropium 0.5 mg-albuterol 3 mg 3 ml inhalation RQ4H PRN wheezing 03/08/22 (2.5 mg base)/3 mL nebulization #90 mL soln nebulizers #1 ea 03/09/22 ondansetron 8 mg disintegrating 8 mg PO Q8H PRN Nausea And 03/18/22 tablet Vomiting #60 tabs polyethylene glycol 3350 17 17 g PO DAILY 30 days #510 grams 05/03/22 gram/dose oral powder (Miralax) sennosides 8.6 mg tablet (Senokot) 8.6 mg PO BID #60 tabs 05/03/22 metformin 500 mg tablet,extended 500 mg PO DAILY #14 tabs 05/13/22 release 24hr dexamethasone 4 mg tablet 4 mg PO BID #60 tabs 05/31/22 oxycodone 5 mg tablet 5 mg PO Q8H PRN Breakthrough Pain, 06/22/22 Moderate #30 tabs meclizine 25 mg chewable tablet 25 mg PO TID PRN Dizziness #50 tabs 06/28/22 (Antivert) Allergies Allergy/AdvReac Type Severity Reaction Status Date / Time latex Allergy Intermediate Rash Verified 04/30/22 14:09 Review of Systems Review of Systems: No fever no chills no chest pain or shortness breath no nausea no vomiting Yes all other systems are reviewed and are negative PMFSH Past Medical History Attestation statement: The following information was validated with the patient. Medical History Asthma Asthma Colorectal cancer Depression HTN (hypertension) Liver metastases Metastatic colon cancer to liver Surgical History History of esophagogastroduodenoscopy (EGD) Hx of arthroscopy of right knee Hx of colonoscopy Hx of excision of mass Hx of right breast biopsy Hx of tubal ligation Family History Family History Paternal Grandmother Breast cancer Maternal Aunt Breast cancer Social History Social History Household Members: Children Housing: Apartment Are you a primary day care home mother to a significant other at home: No Do you presently have visiting nurse or other home services: No Alcohol intake: never Patient Tobacco Use Status: Never used Tobacco e-Cigarette/Vaping Use: Never Used service: No Current occupational status: employed 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 Oriented X3. No acute distress. Eyes: Pupils equal, round and reactive to light. ENT: Pharynx normal. Neck: Normal inspection. Neck supple. No lymph nodes noted. No crepitus CVS: Normal heart rate and rhythm. Pulses normal. Normal S1 and S2 Respiratory: No respiratory distress. Breath sounds normal. No Wheezing. No rales Abdomen: Soft and nontender. No rigidity. No distention. good BS x4 Skin: Skin warm and dry. Normal skin color. Normal skin turgor. Extremities: No lower extremity edema. Neurovascular intact to all extremities. No Lacerations. No Rash Neuro: Oriented X 3. No motor deficit. No sensory deficit. Moving all extermities. No slurred speech Medical Decision Making Medical Decision Making MDM Narrative: Patient's chemo port seems to be clotted off. Flushes was done by nursing. Seems to be working at this point. Patient in no distress. Refilled up to the chemo pump. Everything is working. No distress. Will discharge Differential Diagnosis Differential Diagnoses: The differential diagnosis associated with the presentation includes Pump not working Discharge Plan Discharge Clinical Impression: Encounter for insertion of venous access port Patient Disposition: Home, Self-Care Instructions: Implanted Venous Access Port (DC), How to Care for Your Implanted Venous Access Port (DC) Prescriptions: No Action metoprolol succinate 50 mg tablet extended release 24 hr 1 tab PO DAILY ondansetron 8 mg Tablet,Disintegrating 8 mg PO Q8H PRN (Reason: Nausea And Vomiting) Qty: 60 6RF polyethylene glycol 3350 [Miralax] 17 gram/dose powder 17 g PO DAILY 30 Days Qty: 510 0RF sennosides [Senokot] 8.6 mg Tablet 8.6 mg PO BID Qty: 60 3RF dexamethasone 4 mg Tablet 4 mg PO BID Qty: 60 4RF Rx Instructions: Take 4 mg po BID, days 2 and 3 of chemotherapy q 2 weeks. oxycodone 5 mg Tablet 5 mg PO Q8H PRN (Reason: Breakthrough Pain, Moderate) Qty: 30 0RF Rx Instructions: Partial Fill upon patient request. meclizine [Antivert] 25 mg Tablet,Chewable 25 mg PO TID PRN (Reason: Dizziness) Qty: 50 4RF losartan 50 mg tablet 1 tab PO DAILY ipratropium-albuterol 0.5 mg-3 mg(2.5 mg base)/3 mL Solution For Nebulization 3 ml inhalation RQ4H PRN (Reason: wheezing) Qty: 90 0RF (DME) nebulizers Misc See Rx Instructions .Route Qty: 1 0RF Rx Instructions: As directed metformin 500 mg tablet extended release 24hr 500 mg PO DAILY Qty: 14 0RF omeprazole 20 mg capsule,delayed release(DR/EC) 20 mg PO DAILY Referrals: Corine Martines MD [Primary Care Provider] - 10/21/22
--- NOTE | 2022-10-19 20:21 | PC.NURSE ---
pt a&o, no sob or chest pain, Assessed port site, flushed with 10cc normal saline, port appears to be working appropriately. Will continue to monitor.
--- NOTE | 2022-10-19 20:34 | PC.NURSE ---
Reviewed discharge instructions with pt, pt verbalized understanding, no sign of distress upon discharge.
== END 2022-10-19 20:35 | disposition home or self-care (01) ==
PROVIDERS: Emergency Provider Emergency Medicine Emergency Medical Services; PCP Internal Medicine
DX: T82.594A Other mechanical complication of infusion catheter, initial encounter (principal); Y82.9 Unspecified medical devices associated with adverse incidents; Y92.9 Unspecified place or not applicable
CPT/HCPCS: 99282; 99284

== ENCOUNTER 2022-10-20 14:15 | Outpatient (REF) | payer OTHER, SELFPAY ==
--- NOTE | ~2022-10-20 | MR_ITS ---
EXAMINATION: MRI PELVIS WITH AND WITHOUT CONTRAST CLINICAL INFORMATION: Reason for Exam Complex Right adnexal mass COMPARISON: Pelvic ultrasound 09/03/2022, CT chest abdomen pelvis 10/20/2022. TECHNIQUE: Multiple routine MRI sequences through the pelvis were obtained before and after the uneventful administration of 7 mL of Gadavist gadolinium-based IV contrast. FINDINGS: UTERUS: Anteverted uterus has a normal configuration and is normal in size. Endometrium is uniform and measures 0.1 cm in thickness. Junctional zone is normal in signal and thickness. No focal uterine mass seen. CERVIX: Unremarkable. VAGINA: Unremarkable. OVARIES: A 6.7 x 7.2 x 5.6 cm heterogeneous T2 signal mass centered in the left adnexa with multiple thin internal septations, previously 7.4 x 5.[address] not significantly changed in size. KIDNEYS: Two normally positioned kidneys are seen. No hydronephrosis. Multiple hepatic metastases, partially imaged measuring up to 8.7 cm in the left hepatic lobe, previously 8.7 cm suboptimally evaluated on this MR pelvis. Previously seen peritoneal disease is suboptimally evaluated. BLADDER: Unremarkable. PELVIC FREE FLUID: No free fluid or ascites. LYMPH NODES: No pathologically enlarged lymph nodes. OSSEOUS STRUCTURES: T2 hyperintense signal in seen in the bilateral sacral ala and to a lesser extent the adjacent right iliac bone which could be seen in the setting of sacral insufficiency fractures. MR/MR pelvis wo/w con IMPRESSION: 1. A 7.2 cm heterogeneous T2 signal mass centered in the left adnexa with multiple thin internal septations not significantly changed in size from prior and remains suspicious for ovarian neoplasm, though given history of metastatic colon cancer metastasis could also be considered. 2. Multiple hepatic metastases, partially imaged measuring up to 8.7 cm in the left hepatic lobe, previously 8.7 cm suboptimally evaluated on this MR pelvis. Previously seen peritoneal disease is suboptimally evaluated on this MR pelvis. 3. T2 hyperintense signal in the bilateral sacral ala and to a lesser extent the adjacent right iliac bone which could be seen in the setting of sacral insufficiency fractures.
== END 2022-10-20 14:16 | disposition home or self-care (01) ==
LOC: HO.MRI 14:15
PROVIDERS: PCP Internal Medicine; Visit Provider Internal Medicine Medical Oncology
DX: N94.89 Other specified conditions associated with female genital organs and menstrual cycle (principal)
CPT/HCPCS: 72197; A9585

== ENCOUNTER 2022-11-24 09:39 | Outpatient (REF) | payer OTHER, SELFPAY ==
--- NOTE | ~2022-11-24 | PE_ITS ---
EXAMINATION: Fluorine-18 FDG PET/CT Scan CLINICAL INDICATION: Subsequent treatment management. Carcinoma of the colon and liver. Restaging. PROCEDURE: 70 minutes following the intravenous administration of 16.2 mCi of fluorine 18 FDG, images from the base of the skull to the mid thighs were obtained using a combined PET/CT scanner with CT scan based attenuation correction. No intravenous contrast was administered. Transverse, coronal, sagittal, and volume reconstruction projections were obtained. The patient's blood glucose as determined by a finger stick, was 107 mg/dl immediately prior to injection. The radiotracer was injected intravenously through the left antecubital superficial vein, without any complications. Total CT exam dose-length product 656.55 mGy-cm * These CT images were obtained using dose optimization techniques as appropriate, variously including the following: Automated exposure control * Adjustment of mA and/or kV according to patient size (this includes techniques or standardized protocols for targeted exams where dose is matched to indication/reason for exam; i.e. extremities or head) * Use of iterative reconstruction technique COMPARISON: CT of the chest abdomen and pelvis done on 01/18/2022 and August 18, 2022. Pelvic ultrasound done on 09/03/2022 and MRI of the pelvis done on 10/20/2022. FINDINGS: NECK AND VISUALIZED HEAD: No suspicious FDG avid disease. THORAX: Multiple abnormal FDG avid circumscribed solid-appearing soft tissue nodules are noted within the left axilla and subpectoral region. The dominant lesion measures approximately 2.1 x 1.1 cm, seen in the subpectoral region with SUV max of 9.8 (211/267), most consistent with presumed metastatic lymphadenopathy. There are numerous predominantly subcentimeter bilateral noncalcified non-FDG avid lung nodules present throughout both lung foley, consistent with metastatic disease, shows interval progression since the prior study dated 08/18/2022. However, the dominant nodule seen at left lower lobe of the lung currently measures approximately 1.1 cm and is stable. Specific note is made of new FDG avid groundglass nodule seen at the central part of the right upper lobe measures 2.4 x 1.2 cm with SUV max of 8.3 (199/267), consistent with interval disease progression, may represent evolving metastatic disease versus pneumonia or combination thereof. Close interval follow-up imaging surveillance is recommended for clarification. There are no FDG avid mediastinal or hilar or right axillary lymphadenopathy or pleural or pericardial effusion. ABDOMEN AND PELVIS: Previously documented, clinically known multifocal presumed metastatic disease seen throughout both lobes of the liver shows heterogeneous, variable FDG avidity with most pronounced changes seen along the subdiaphragmatic part of right lobe of the liver along the peripheral part of the lesions. For example eccentric nodular FDG avidity is seen SUV max of 7.6 along the posterior subdiaphragmatic lesions (171 67). The anterior subdiaphragmatic larger lesion shows peripheral FDG avidity with SUV max of 8.4 (166/267). Intense focal FDG avidity is noted within an annular constricting lesion involving the hepatic flexure region at right mid abdomen with SUV max of 9.4 (127/267), likely represent the site of primary colonic neoplasm. Please correlate with colonoscopy findings. The gallbladder, biliary tree, pancreas, spleen, both adrenal glands appear unremarkable. There are no FDG avid retroperitoneal, mesenteric, pelvic and/or groin lymphadenopathy. Both kidneys appear unremarkable. The bladder is unremarkable. The indexed left hemipelvic heterogeneous solid mass measuring approximately 7.3 x 5.4 x 6.5 cm at its maximum anteroposterior by transverse by craniocaudal dimension is predominantly photopenic/non-FDG avid except for anterior part of the mass shows some FDG avidity with SUV max of 3.7 (77/267). Differential diagnostic consideration would include primary ovarian neoplasm versus metastatic disease. MUSCULOSKELETAL: Mild generalized increase FDG avidity is noted throughout the entire included axial and visualized appendicular skeleton, may represent physiologic changes related to interval administration of G-CSF versus mild diffuse bone marrow involvement or physiologic reactive hyperplastic marrow or combination thereof. VASCULAR: No significant calcific atherosclerotic disease of the aorta and its branches. SUV max OF MEDIASTINAL BLOOD POOL: 2.9 SUV max OF LIVER: 4.7 THE SITE(S) OF MOST INTENSE FDG AVIDITY AND SUV MAX: Left subpectoral/level 2 left axillary lymph node with SUV max of 9.8. Focal intense FDG avidity involving the hepatic flexure with SUV max of 9.4, presumably represents the site of primary colonic neoplasm. PET/PET CT fusion skull to thigh IMPRESSION: 1. There are multiple presumed metastatic left axillary/subpectoral FDG avid lymphadenopathy with SUV max of 9.8. 2. Interval development of FDG avid groundglass opacity within the central part of the right upper lobe of the lung with SUV max of 3.3, may represent infection versus new metastatic disease or combination thereof. 3. Interval increase in size and number of previously documented presumed bilateral multifocal multilobar noncalcified lung parenchymal metastatic disease, too small for accurate characterization on this current study. The dominant lung nodules seen at left lower lobe of the lung however appears relatively stable in size measuring approximately 1.1 cm. 4. Previously documented, clinically known multifocal hepatic metastatic disease shows variable echogenicity and increased peripheral/marginal FDG avidity most pronounced along the subdiaphragmatic surface of right lobe of the liver. 5. Intense FDG avidity associated with annular constricting lesion at the hepatic flexure at right mid abdomen with SUV max of 9.4, likely representing the site of primary colonic neoplasm. 6. Previously documented, clinically known heterogeneous solid-appearing mass in the left hemipelvis shows mild FDG avidity anteriorly by the majority of the mass is not FDG avid. Differential includes primary ovarian malignancy versus ovarian metastatic disease. 7. Heterogeneous FDG avidity within the entire visualized skeleton, may represent physiologic changes related to interval administration of G-CSF versus physiologic reactive hyperplastic marrow or mild diffuse bone marrow replacement and/or infiltrative process.
== END 2022-11-24 09:40 | disposition home or self-care (01) ==
LOC: HO.PET 09:39
PROVIDERS: PCP Internal Medicine; Visit Provider Internal Medicine Medical Oncology
DX: Z13.89 Encounter for screening for other disorder (principal)

== ENCOUNTER 2022-12-06 09:46 | Day surgery (SDC) | payer MEDICAID, SELFPAY ==
--- NOTE | ~2022-12-06 | CT_ITS ---
PROCEDURE: CT GUIDED BIOPSY, ABDOMINAL MASS CLINICAL INFORMATION: Enlarging left adnexal mass. Past history of rectal cancer. COMPARISON: None available. TECHNIQUE: Following explaining CT fluoroscopy-guided left adnexal mass biopsy procedure, benefits and risk, a written consent was obtained. Patient was placed supine on CT fluoroscopy table and preliminary CT imaging was obtained. An optimal site was selected along the left anterior abdominal wall and marked on the skin. The marked area was cleaned and draped in usual sterile manner. 1% lidocaine was injected puncture site. A 20-gauge biopsy gun was then extremities from the skin incision into left adnexal mass and a 3 pass core biopsy of the mass was performed. Postprocedure complete hemostasis achieved at puncture site. Sterile dressing applied at puncture site. Repeat CT imaging was performed through the pelvis. This CT examination was performed using dose optimization techniques as appropriate, variously including the following: *Automated exposure control *Adjustment of mA and/or kV according to patient size (this includes techniques or standardized protocols for targeted exams where dose is matched to indication/reason for exam; i.e. extremities or head) *Use of iterative reconstruction technique DLP: 545. mGy-cm FINDINGS: On preliminary CT imaging there is a moderate size mass left adnexa similar to previous PET/CT exam 11/25/2022.. There is FDG activity seen in this mass. The bladder is mildly distended. There are numerous small pelvic wall lymph nodes which are small Approximately 3 pass core biopsy of this mass was performed with a 20-gauge biopsy gun. Post procedure CT revealed no hemorrhage or fluid in the pelvis. CT/CT guided needle placement IMPRESSION: Successful CT fluoroscopy-guided left adnexal mass biopsy performed. There were no immediate complications.
[2022-12-06 10:15] VITALS: BP 104/70; PULSE 96; RESP 18; TEMP 36.7; O2SAT 100; BMI 27.6
[2022-12-06 10:27] LABS: Prothrombin Time 12.7 SEC (11.1-13.3)
[2022-12-06 10:30] LABS: Partial Thromboplastin Time 30.7 SEC (26.0-36.4)
[2022-12-06 12:50] VITALS: BP 106/70; PULSE 84; RESP 14; TEMP 36.4; O2SAT 94
[2022-12-06 13:05] VITALS: BP 124/77; PULSE 82; RESP 17; O2SAT 95
[2022-12-06 13:24] VITALS: BP 110/66; PULSE 84; RESP 18; O2SAT 96
[2022-12-06 13:45] VITALS: BP 116/72; PULSE 96; RESP 18; TEMP 36.9; O2SAT 99
== END 2022-12-06 13:59 | disposition home or self-care (01) ==
PROVIDERS: PCP Internal Medicine; Visit Provider Radiology Diagnostic Radiology
DX: N94.89 Other specified conditions associated with female genital organs and menstrual cycle (principal); R19.09 Other intra-abdominal and pelvic swelling, mass and lump; C19 Malignant neoplasm of rectosigmoid junction; C78.7 Secondary malignant neoplasm of liver and intrahepatic bile duct; I10 Essential (primary) hypertension; J45.909 Unspecified asthma, uncomplicated; F32.A Depression, unspecified; Z79.899 Other long term (current) drug therapy; Z91.040 Latex allergy status
CPT/HCPCS: 36415; 49180; 77012; 85610; 85730; 88305; 88333; 88334; 88341; 88342; 99152; 99153; J2250; J3010

== ENCOUNTER 2022-12-30 13:08 | Outpatient (REF) | payer MEDICAID, SELFPAY | END 2022-12-30 13:09 | disposition home or self-care (01) | LOC: HO.LAB 13:08 | PROVIDERS: PCP Internal Medicine; Visit Provider Internal Medicine | DX: C18.9 Malignant neoplasm of colon, unspecified (principal); C78.7 Secondary malignant neoplasm of liver and intrahepatic bile duct; E11.65 Type 2 diabetes mellitus with hyperglycemia; I10 Essential (primary) hypertension; J45.909 Unspecified asthma, uncomplicated | CPT/HCPCS: 36415; 80053; 83036 ==

== ENCOUNTER 2023-02-10 13:00 | Outpatient (RCR) | payer MEDICAID, OTHER, SELFPAY ==
[2021-12-17 10:51] VITALS: BP 138/67; PULSE 75; RESP 14; TEMP 36.2; O2SAT 100; BMI 30.5
--- NOTE | 2021-12-17 11:15 | P.CNHO_ITS ---
Subjective - Subjective Chief complaint: Consult for: Liver lesions. Patient: new to practice Consult date: 12/17/21 Requesting Physician: Conrad. Primary Care Provider: Corine Martines MD Medical Summary: DIAGNOSIS: NEW LIVER LESIONS. HPI - Consult Narrative Reason for consult: Consult for: New liver lesions. Narrative: Kayden Angulo is a pleasant 56 year old lady, who developed abdominal pain a couple of weeks ago. She mentions sharp pain in the upper abdomen radiating to both sides, back to front like a belt. Level was up to 7 on 1-10 scale. It was a sharp pain. It recurred with change of position. Not related to meals. She went to see her primary doctor who ordered an abdominal ultrasound. Ultrasound of the abdomen from 12/07 revealed: IMPRESSION: Enlarged liver and multiple predominately hyperechoic liver lesions. Appearance is suggestive of metastatic disease. Limited visualization of the pancreas. Otherwise unremarkable exam. FAMILY HISTORY: Paternal grandma had breast cancer. Maternal aunt had breast cancer. They both from it. 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 She is single. She has 3 children. She denies any history of smoking. She quit alcohol several years ago. Denies drugs. ROS: She denies easy fatigability. No fever nor chills. Appetite is good however she has lost a few lb recently. She denies any headaches nor dizziness. She has had some chest pain. Denies shortness of breath. She recently had some cold symptoms those have resolved now. She denies any abdominal pain nausea vomiting heartburn or indigestion now. He denies diarrhea. Denies any gross blood in the stools. She has never had a colonoscopy. She denies any dysuria or hematuria. She has arthritis and tendinitis. She denies any focal weakness. She has depression. She has history of dermatitis but not active right now. She uses Dove soap only. Review of Systems - Constitutional Reports system reviewed and no additional complaints, except as documented - Eyes Reports system reviewed and no additional complaints, except as documented - ENT Reports system reviewed and no additional complaints, except as documented - Cardiovascular Reports system reviewed and no additional complaints, except as documented - Respiratory Reports no additional respiratory complaints - Gastrointestinal Reports system reviewed and no additional complaints, except as documented - Genitourinary Reports no additional female genitourinary complaints - Musculoskeletal Reports system reviewed and no additional complaints, except as documented - Integumentary/Breasts Skin/Breast: Reports no additional skin complaints - Neurologic Reports system reviewed and no additional complaints, except as documented - Psychiatric Reports system reviewed and no additional complaints, except as documented - Endocrine Reports no additional endocrine complaints - Hematologic/Lymphatic Reports system reviewed and no additional complaints, except as documented - Allergic/Immunologic Reports system reviewed and no additional complaints, except as documented Oncology Screenings - ECOG Performance Status ECOG Performance Status: 0 [facility] Medical History: Medical History (Last Reviewed 12/17/21 @ 10:59 by Jo Ann Sumner CMA) Asthma Depression HTN (hypertension) Functional capacity: independent ambulation Patient : No Family History: Family History (Last Updated 12/17/21 @ 11:00 by Jo Ann Sumner CMA) Paternal Grandmother Breast cancer Maternal Aunt Breast cancer Surgical History: Surgical History (Last Reviewed 12/17/21 @ 10:59 by Jo Ann Sumner CMA) Hx of excision of mass Hx of right breast biopsy Hx of tubal ligation Social History: Social History (Last Updated 12/17/21 @ 11:02 by Jo Ann Sumner CMA) Living Situation History: Household Members: Children Housing: Apartment Are you a primary human services care specialist to a significant other at home: No Do you presently have visiting nurse or other home services: No Alcohol History Details: 1. How often do you have a drink containing alcohol?: a. Never Tobacco History: Patient Tobacco Use Status: Never used Tobacco Substance Use History: Use of substances other than those prescribed or required for medical reasons : No Domestic Abuse History: Have you been hit, kicked, punched, or otherwise hurt by someone within the past year? 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 Home Medications and Allergies Home Medications Medication Instructions Recorded Confirmed Type albuterol sulfate 90 mcg/actuation 2 puff inhalation Q6H PRN Wheezing 01/13/21 12/17/21 History aerosol inhaler (Ventolin HFA) fluticasone propionate 110 2 puff inhalation BID 01/13/21 12/17/21 History mcg/actuation HFA aerosol inhaler (Flovent HFA) ibuprofen 600 mg tablet 1 tab PO TID 01/13/21 12/17/21 History losartan 50 mg tablet 1 tab PO DAILY 01/13/21 12/17/21 History omeprazole 20 mg capsule,delayed 20 mg PO DAILY 10/08/21 12/17/21 History release metoprolol succinate 50 mg 1 tab PO DAILY 12/17/21 12/17/21 History tablet,extended release 24 hr triamcinolone acetonide 0.5 % 1 appl topical BID PRN Pain 12/17/21 12/17/21 History topical cream Allergies Allergy/AdvReac Type Severity Reaction Status Date / Time latex Allergy Intermediate Rash Verified 12/17/21 11:02 Physical Exam Vital signs: Vital Signs Temp 97.1 F 12/17/21 10:51 Pulse 75 12/17/21 10:51 Resp 14 12/17/21 10:51 BP 138/67 12/17/21 10:51 Pulse Ox 100 12/17/21 10:51 O2 Del Method 12/17/21 10:51 Intake & Output 12/16/21 12/17/21 12/17/21 18:59 06:59 18:59 Other: Weight 73.4 kg [place] Weight in Grams [id number] Weight 73.4 kg - Constitutional Present: no acute distress - Routine HEENT Exam Head: Present: normal inspection Eye: Present: PERRL ENT: Present: mucous membranes moist - Routine Neck Exam Present: supple - Routine Respiratory Exam Present: CTAB - Routine Cardiovascular Exam Cardiovascular: Present: RRR, S1, S2 - Routine Abdominal Exam Present: soft, nontender - Routine Extremities Exam Present: nontender - Routine Skin Exam Present: intact - Routine Neurological Exam Present: alert, oriented X3, vision grossly intact - Detailed Neurological Exam: Coma Scale Eye Opening: Spontaneous (4) Verbal Response: Oriented (5) Motor Response: Obeys commands (6) [place] Coma Scale Total: 15 - Routine Psychiatric Exam Present: depressed Hem/Onc Consult Result - Labs CBC & Chem 7: 12/17/21 11:44 12/17/21 11:44 Assessment and Plan Patient Active problem list reviewed?: Yes (1) Liver metastases Status: Acute Assessment and plan: This is a pleasant 56-year-old lady who developed upper abdominal pain a couple of weeks ago. The pain has since subsided however ultrasound revealed: IMPRESSION: Enlarged liver and multiple predominately hyperechoic liver lesions. Appearance is suggestive of metastatic disease. Limited visualization of the pancreas. Otherwise unremarkable exam. No known primary has been noted. DIFFERENTIAL DIAGNOSIS: 1. A GI PRIMARY: COLON CARCINOMA: She has not had a screening colonoscopy done yet. 2. PANCREATIC CANCER: 3. BREAST CANCER: However recent mammogram was normal. 4. LUNG CANCER: Is in the differential however she does not smoke. , so less likely. 5. PRIMARY HEPATOMA: Would also be unlikely. Usually we find metastases, from another site into the liver and not primary. PLAN: I will proceed with further evaluation. Will initiate search for a primary: Get CT scans of the chest abdomen and pelvis. Will get ultrasound guided biopsy of the liver lesions to further define the primary. Will check baseline labs including tumor markers today:CEA 325, Ca 19/9 962, Ca 27.29: 18 . Will make further plans based upon the above results. All her questions were answered to her satisfaction. Thank you, Cc: Dr. Martines. - Time Spent With Patient Time Spent with Patient (in minutes): 30
[2021-12-17 11:47] LABS: MANUAL DIFF FLAG NO
[2021-12-17 12:09] LABS: Basophils Absolute Auto 0.1 X10*3/uL (0.0-0.2); Basophils Percent Auto 1.1 % (0-2); Eosinophils Absolute Auto 0.6 X10*3/uL (0.0-0.4); Eosinophils Percent Auto 8.9 % (0-4); Hematocrit 37.9 % (37.0-47.0); Hemoglobin 12.5 g/dl (12.0-16.0); Imm Gran Abs Auto 0.02 X10*3/uL (0.00-0.03); Imm Gran Pct Auto 0.3 % (0.0-0.4); Lymphocytes Absolute Auto 2.3 X10*3/uL (1.2-4.9); Lymphocytes Percent Auto 33.1 % (20-40); Mean Corpuscular Hemoglobin 29.1 pg (27.0-33.0); Mean Corpuscular Volume 88.3 fL (80.0-98.0); Monocytes Absolute Auto 0.9 X10*3/uL (0.1-1.2); Monocytes Percent Auto 12.6 % (2-11); Neutrophils Absolute Auto 3.1 x10*3/uL (2.0-8.3); Platelet Count 359 X10*3/uL (160-400); Red Blood Count 4.29 X10*6/uL (4.20-5.50); Red Cell Distribution Width 14.5 % (11.0-16.0); White Blood Count 7.1 X10*3/uL (4.8-10.8)
[2021-12-17 12:15] LABS: Alanine Aminotransferase 21 U/L (0-31); Albumin Level 3.9 g/dL (3.5-5.0); Alkaline Phosphatase 139 U/L (39-117); Anion Gap 16 (12-20); Aspartate Amino Transferase 44 U/L (5-31); Bilirubin Total 0.5 mg/dL (0.0-1.0); Blood Urea Nitrogen 8 mg/dL (9-16); Calcium 9.3 mg/dL (8.4-10.2); Carbon Dioxide 25 mmol/L (22-29); Chloride 106 mmol/L (96-108); Creatinine Clr Calc Pharmacy 76.9; Estimated Glomerular Filt Rate > 60; Glucose Random 98 mg/dL (60-115); Potassium 4.3 mmol/L (3.3-5.1); Sodium 143 mmol/L (135-145); Total Protein 7.3 g/dL (6.5-8.0)
[2021-12-17 12:27] LABS: Lactate Dehydrogenase 776 U/L (122-220)
--- NOTE | 2021-12-17 12:32 | MHC.HEMONCMA ---
Pt was in for consult. Clinical summary reviewed and updated, VSS. Labs were drawn. Pt to return in [address] scan and US was ordered.
[2021-12-19 09:07] LABS: CA 27.29 18 U/mL (<38)
[2021-12-19 10:36] LABS: Carbohydrate Antigen 19-9 962 U/mL (<34)
[2021-12-21 13:53] LABS: Alpha Fetoprotein 2.3 ng/mL
--- NOTE | 2021-12-23 14:01 | HO.HEMONCSCH ---
Ct scan and US sent to [facility].
--- NOTE | 2022-01-08 14:58 | PM.HEMONCPN ---
Medical Summary - Medical Summary Date of Service: 01/08/22 Chief complaint: Follow-up for: New liver lesions. Medical Summary: DIAGNOSIS: NEW LIVER LESIONS. Interval History Interval history: Kayden Angulo is a pleasant 56 year old lady, Here for a follow-up visit. She tells me there is nothing new in terms of her medical history. She does get pain around her ribs sometimes. She has good energy level. She is still working. She denies easy fatigability. No fever nor chills. Appetite is good however she has lost a few lb recently. She denies any headaches nor dizziness. She has had some chest pain. Denies shortness of breath. She recently had some cold symptoms those have resolved now. She denies any abdominal pain nausea vomiting heartburn or indigestion now. He denies diarrhea. Denies any gross blood in the stools. She has never had a colonoscopy. She denies any dysuria or hematuria. She has arthritis and tendinitis. She denies any focal weakness. She has depression. She has history of dermatitis but not active right now. She uses Dove soap only. PRESENTING HISTORY: She developed abdominal pain a couple of weeks ago. She mentions sharp pain in the upper abdomen radiating to both sides, back to front like a belt. Level was up to 7 on 1-10 scale. It was a sharp pain. It recurred with change of position. Not related to meals. She went to see her primary doctor who ordered an abdominal ultrasound. Ultrasound of the abdomen from 12/07 revealed: IMPRESSION: Enlarged liver and multiple predominately hyperechoic liver lesions. Appearance is suggestive of metastatic disease. Limited visualization of the pancreas. Otherwise unremarkable exam. FAMILY HISTORY: Paternal grandma had breast cancer. Maternal aunt had breast cancer. They both from it. 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 She is single. She has 3 children. She denies any history of smoking. She quit alcohol several years ago. Denies drugs. Review of Systems - Constitutional Reports no additional constitutional complaints - Eyes Reports no additional eye complaints - ENT Reports no additional ear, nose, mouth, and throat complaints - Cardiovascular Reports no additional cardiovascular complaints - Respiratory Reports no additional respiratory complaints - Gastrointestinal Reports no additional gastrointestinal complaints - Genitourinary Reports no additional female genitourinary complaints - Musculoskeletal Reports no additional musculoskeletal complaints - Integumentary/Breasts Skin/Breast: Reports no additional skin complaints - Neurologic Reports no additional neurologic complaints - Psychiatric Reports no additional psychiatric complaints - Endocrine Reports no additional endocrine complaints - Hematologic/Lymphatic Reports no additional hematologic/lymphatic complaints - Allergic/Immunologic Reports no additional allergic/immunologic complaints [facility] Medical History: Medical History (Last Reviewed 01/08/22 @ 15:12 by Jo Ann Sumner CMA) Asthma Depression HTN (hypertension) Functional capacity: independent ambulation Patient : No Family History: Family History (Last Reviewed 01/08/22 @ 15:12 by Jo Ann Sumner CMA) Paternal Grandmother Breast cancer Maternal Aunt Breast cancer Surgical History: Surgical History (Last Reviewed 01/08/22 @ 15:12 by Jo Ann Sumner CMA) Hx of excision of mass Hx of right breast biopsy Hx of tubal ligation Social History: Social History (Last Reviewed 01/08/22 @ 15:12 by Jo Ann Sumner CMA) Living Situation History: Household Members: Children Housing: Apartment Are you a primary care coordinator to a significant other at home: No Do you presently have visiting nurse or other home services: No Tobacco History: Patient Tobacco Use Status: Never used Tobacco Occupation Assessmet: service: No Current occupational status: employed 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 Oncology Screenings - ECOG Performance Status ECOG Performance Status: 0 Home Medications and Allergies Home Medications Medication Instructions Recorded Confirmed Type albuterol sulfate 90 mcg/actuation 2 puff inhalation Q6H PRN Wheezing 01/13/21 01/08/22 History aerosol inhaler (Ventolin HFA) fluticasone propionate 110 2 puff inhalation BID 01/13/21 01/08/22 History mcg/actuation HFA aerosol inhaler (Flovent HFA) ibuprofen 600 mg tablet 1 tab PO TID 01/13/21 01/08/22 History losartan 50 mg tablet 1 tab PO DAILY 01/13/21 01/08/22 History omeprazole 20 mg capsule,delayed 20 mg PO DAILY 10/08/21 01/08/22 History release metoprolol succinate 50 mg 1 tab PO DAILY 12/17/21 01/08/22 History tablet,extended release 24 hr triamcinolone acetonide 0.5 % 1 appl topical BID PRN Pain 12/17/21 01/08/22 History topical cream Allergies Allergy/AdvReac Type Severity Reaction Status Date / Time latex Allergy Intermediate Rash Verified 01/08/22 15:13 Exam Vital signs: Vital Signs Temp 97.1 F 12/17/21 10:51 Pulse 75 12/17/21 10:51 Resp 14 12/17/21 10:51 BP 138/67 12/17/21 10:51 Pulse Ox 100 12/17/21 10:51 O2 Del Method 12/17/21 10:51 Weight 73.4 kg BMI result Body Mass Index 30.5 - Constitutional Present: no acute distress - Routine HEENT Exam Head: Present: normal inspection Eye: Present: normal appearance ENT: Present: mucous membranes moist - Routine Neck Exam Present: full ROM - Routine Respiratory Exam Present: CTAB - Routine Cardiovascular Exam Cardiovascular: Present: RRR, S1, S2 - Routine Abdominal Exam Present: soft, nontender - Routine Rectal Exam Patient deferred: digital exam - Routine Extremities Exam Present: nontender - Routine Back/Spine/Pelvis Exam Back/Spine: Present: full ROM - Routine Skin Exam Present: intact - Routine Neurological Exam Present: alert, oriented X3, vision grossly intact - Detailed Neurological Exam: Coma Scale Eye Opening: Spontaneous (4) - Routine Psychiatric Exam Present: normal affect Data - Labs CBC & Chem 7: 12/17/21 11:44 12/17/21 11:44 Labs: 12/17/21 11:44 AFP [Alpha Fetoprotein] Routine CA 27.29 Routine Carbohydrate Antigen 19-9 Routine Carcinoembryonic Antigen Routine Complete Blood Count Auto Diff Stat Comprehensive Met. Panel Stat Lactate Dehydrogenase Routine Laboratory Last Values WBC 7.1 X10*3/uL (4.8-10.8) 12/17/21 11:44 RBC 4.29 X10*6/uL (4.20-5.50) 12/17/21 11:44 Hgb 12.5 g/dl (12.0-16.0) 12/17/21 11:44 Hct 37.9 % (37.0-47.0) 12/17/21 11:44 MCV 88.3 fL (80.0-98.0) 12/17/21 11:44 MCH 29.1 pg (27.0-33.0) 12/17/21 11:44 MCHC 33.0 g/dl (31.0-35.0) 12/17/21 11:44 RDW 14.5 % (11.0-16.0) 12/17/21 11:44 Plt Count 359 X10*3/uL (160-400) 12/17/21 11:44 MPV 12.0 fL (9.4-12.3) 12/17/21 11:44 Immature Gran % (Auto) 0.3 % (0.0-0.4) 12/17/21 11:44 Neut % (Auto) 44.0 % (45-73) L 12/17/21 11:44 Lymph % (Auto) 33.1 % (20-40) 12/17/21 11:44 [place] % (Auto) 12.6 % (2-11) H 12/17/21 11:44 Eos % (Auto) 8.9 % (0-4) H 12/17/21 11:44 Baso % (Auto) 1.1 % (0-2) 12/17/21 11:44 Lymph # (Auto) 2.3 X10*3/uL (1.2-4.9) 12/17/21 11:44 [place] # (Auto) 0.9 X10*3/uL (0.1-1.2) 12/17/21 11:44 Eos # (Auto) 0.6 X10*3/uL (0.0-0.4) H 12/17/21 11:44 Baso # (Auto) 0.1 X10*3/uL (0.0-0.2) 12/17/21 11:44 Abs Immat Gran (auto) 0.02 X10*3/uL (0.00-0.03) 12/17/21 11:44 Absolute Neuts (auto) 3.1 x10*3/uL (2.0-8.3) 12/17/21 11:44 Absolute Nucleated RBC 0.000 X10*3/uL (0.0-0.012) 12/17/21 11:44 Nucleated RBC % (auto) 0.0 /100WBC (0.0-0.2) 12/17/21 11:44 Sodium 143 mmol/L (135-145) 12/17/21 11:44 Potassium 4.3 mmol/L (3.3-5.1) 12/17/21 11:44 Chloride 106 mmol/L (96-108) 12/17/21 11:44 Carbon Dioxide 25 mmol/L (22-29) 12/17/21 11:44 Anion Gap 16 (12-20) 12/17/21 11:44 BUN 8 mg/dL (9-16) L 12/17/21 11:44 Creatinine 0.73 mg/dL (0.5-1.4) 12/17/21 11:44 Estim Creat Clear Calc 76.9 12/17/21 11:44 Estimated GFR > 60 12/17/21 11:44 Random Glucose 98 mg/dL (60-115) 12/17/21 11:44 Calcium 9.3 mg/dL (8.4-10.2) D 12/17/21 11:44 Total Bilirubin 0.5 mg/dL (0.0-1.0) 12/17/21 11:44 AST 44 U/L (5-31) H D 12/17/21 11:44 ALT 21 U/L (0-31) 12/17/21 11:44 Alkaline Phosphatase 139 U/L (39-117) H D 12/17/21 11:44 Lactate Dehydrogenase 776 U/L (122-220) H 12/17/21 11:44 Total Protein 7.3 g/dL (6.5-8.0) 12/17/21 11:44 Albumin 3.9 g/dL (3.5-5.0) 12/17/21 11:44 Alpha Fetoprotein 2.3 ng/mL 12/17/21 11:44 Carcinoembryonic Ag 325.60 ng/mL 12/17/21 11:44 CA 19-9 Antigen 962 U/mL (<34) H 12/17/21 11:44 CA 27-29 18 U/mL (<38) 12/17/21 11:44 Assessment and Plan Patient Active problem list reviewed?: Yes (1) Liver metastases Status: Acute Assessment and plan: This is a pleasant 56-year-old lady who developed upper abdominal pain a couple of weeks ago. The pain has since subsided however ultrasound revealed: IMPRESSION: Enlarged liver and multiple predominately hyperechoic liver lesions. Appearance is suggestive of metastatic disease. Limited visualization of the pancreas. Otherwise unremarkable exam. No known primary has been noted. DIFFERENTIAL DIAGNOSIS: 1. A GI PRIMARY: COLON CARCINOMA: She has not had a screening colonoscopy done yet. 2. PANCREATIC CANCER: 3. BREAST CANCER: However recent mammogram was normal. 4. LUNG CANCER: Is in the differential however she does not smoke. , so less likely. 5. PRIMARY HEPATOMA: Would also be unlikely. Usually we find metastases, from another site into the liver and not primary. l checked baseline labs including tumor markers today:CEA 325, Ca 19/9 962, Ca 27.29: 18 . PLAN: I will proceed with further evaluation. Will initiate search for a primary: Get CT scans of the chest abdomen and pelvis. Will get ultrasound guided biopsy of the liver lesions to further define the primary. Will make further plans based upon the above results. She will return in a couple of weeks for a follow-up. All her questions were answered to her satisfaction. Thank you, Cc: Dr. Martines. - Time Spent With Patient Time Spent with Patient (in minutes): 25
[2022-01-08 15:09] VITALS: BP 146/78; PULSE 87; RESP 12; TEMP 36.2; O2SAT 99
--- NOTE | 2022-01-08 16:36 | MHC.HEMONCMA ---
Pt was in for follow up. Clinical summary reviewed and updated, VSS. Labs were drawn. Pt was given CT scan appt in office for 01/18.
--- NOTE | 2022-01-13 12:55 | HO.HEMONCSCH ---
Addendum entered by Jo Ann Sumner CMA 01/21/22 13:15: Left pt another msg informing her of appt. Original Note: Called pt and left msg informing her of US biopsy for 01/27/22 at 1pm, told her to go to [facility] at 12pm and to stop ibuprofen 3 days prior.
[2022-02-04 11:19] VITALS: BP 145/77; PULSE 90; RESP 14; TEMP 36.4; O2SAT 100; BMI 28.8
--- NOTE | 2022-02-04 11:30 | PM.HEMONCPN ---
Medical Summary - Medical Summary Date of Service: 02/04/22 Chief complaint: Follow-up for: Mets to liver from colon primary. Medical Summary: DIAGNOSIS: NEW LIVER LESIONS. 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 Interval History Interval history: Kayden Angulo is a pleasant 56 year old lady, here for a follow-up visit. She tells me that lately she has noticed some nausea especially in the morning. She denies any abdominal pain, vomiting heartburn or indigestion now. She denies diarrhea. Denies any gross blood in the stools. She has never had a colonoscopy. She does get pain around her ribs sometimes. She has good energy level. She is still working. She denies easy fatigability. No fever nor chills. Appetite is not that good, she has lost some weight recently. She gets headaches, occassional dizziness. She has had some chest pain. Denies shortness of breath. She recently had some cold symptoms those have resolved now. She denies any dysuria or hematuria. She has arthritis and tendinitis. She denies any focal weakness. She has depression. She has history of dermatitis but not active right now. She uses Dove soap only. She tells me there is nothing new in terms of her medical history. PRESENTING HISTORY: She developed abdominal pain about six weeks ago. She mentions sharp pain in the upper abdomen radiating to both sides, back to front like a belt. Level was up to 7 on 1-10 scale. It was a sharp pain. It recurred with change of position. Not related to meals. She went to see her primary doctor who ordered an abdominal ultrasound. Ultrasound of the abdomen from 12/07 revealed: IMPRESSION: Enlarged liver and multiple predominately hyperechoic liver lesions. Appearance is suggestive of metastatic disease. Limited visualization of the pancreas. Otherwise unremarkable exam. FAMILY HISTORY: Paternal grandma had breast cancer. Maternal aunt had breast cancer. They both from it. 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 She is single. She has 3 children. She denies any history of smoking. She quit alcohol several years ago. Denies drugs. Review of Systems - Constitutional Reports system reviewed and no additional complaints, except as documented, Reports weight loss, Denies lack of energy - Eyes Reports system reviewed and no additional complaints, except as documented - ENT Reports system reviewed and no additional complaints, except as documented - Cardiovascular Reports system reviewed and no additional complaints, except as documented - Respiratory Reports no additional respiratory complaints - Gastrointestinal Reports system reviewed and no additional complaints, except as documented, Reports nausea - Genitourinary Reports no additional female genitourinary complaints - Musculoskeletal Reports system reviewed and no additional complaints, except as documented - Integumentary/Breasts Skin/Breast: Reports no additional skin complaints - Neurologic Reports system reviewed and no additional complaints, except as documented - Psychiatric Reports system reviewed and no additional complaints, except as documented - Endocrine Reports no additional endocrine complaints - Hematologic/Lymphatic Reports system reviewed and no additional complaints, except as documented - Allergic/Immunologic Reports system reviewed and no additional complaints, except as documented PMFSH Medical History: Medical History (Last Reviewed 02/04/22 @ 11:23 by Jo Ann Sumner CMA) Asthma Depression HTN (hypertension) Functional capacity: independent ambulation Patient : No Family History: Family History (Last Reviewed 02/04/22 @ 11:23 by Jo Ann Sumner CMA) Paternal Grandmother Breast cancer Maternal Aunt Breast cancer Surgical History: Surgical History (Last Reviewed 02/04/22 @ 11:23 by Jo Ann Sumner CMA) Hx of excision of mass Hx of right breast biopsy Hx of tubal ligation Social History: Social History (Last Reviewed 02/04/22 @ 11:23 by Jo Ann Sumner CMA) Living Situation History: Household Members: Children Housing: Apartment Are you a primary health care assistant to a significant other at home: No Do you presently have visiting nurse or other home services: No Tobacco History: Patient Tobacco Use Status: Never used Tobacco Occupation Assessmet: service: No Current occupational status: employed 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 Home Medications and Allergies Home Medications Medication Instructions Recorded Confirmed Type albuterol sulfate 90 mcg/actuation 2 puff inhalation Q6H PRN Wheezing 01/13/21 02/04/22 History aerosol inhaler (Ventolin HFA) fluticasone propionate 110 2 puff inhalation BID 01/13/21 02/04/22 History mcg/actuation HFA aerosol inhaler (Flovent HFA) ibuprofen 600 mg tablet 1 tab PO TID 01/13/21 02/04/22 History losartan 50 mg tablet 1 tab PO DAILY 01/13/21 02/04/22 History omeprazole 20 mg capsule,delayed 20 mg PO DAILY 10/08/21 02/04/22 History release metoprolol succinate 50 mg 1 tab PO DAILY 12/17/21 02/04/22 History tablet,extended release 24 hr triamcinolone acetonide 0.5 % 1 appl topical BID PRN Pain 12/17/21 02/04/22 History topical cream Allergies Allergy/AdvReac Type Severity Reaction Status Date / Time latex Allergy Intermediate Rash Verified 02/04/22 11:24 Exam Vital signs: Vital Signs Temp 97.5 F 02/04/22 11:19 Pulse 90 02/04/22 11:19 Resp 14 02/04/22 11:19 BP 145/77 H 02/04/22 11:19 Pulse Ox 100 02/04/22 11:19 O2 Del Method 02/04/22 11:19 Intake & Output 02/03/22 02/04/22 02/04/22 18:59 06:59 18:59 Other: Weight 69.3 kg [place] Weight in Grams 08181 Weight 69.3 kg BMI result Body Mass Index 28.8 - Constitutional Present: no acute distress - Routine HEENT Exam Head: Present: normal inspection Eye: Present: normal appearance ENT: Present: mucous membranes moist - Routine Neck Exam Present: full ROM - Routine Respiratory Exam Present: CTAB - Routine Cardiovascular Exam Cardiovascular: Present: RRR, S1, S2 - Routine Abdominal Exam Present: soft, nontender - Routine Rectal Exam Patient deferred: digital exam - Routine Extremities Exam Present: nontender - Routine Back/Spine/Pelvis Exam Back/Spine: Present: full ROM - Routine Skin Exam Present: intact - Routine Neurological Exam Present: alert, oriented X3, vision grossly intact - Detailed Neurological Exam: Coma Scale Eye Opening: Spontaneous (4) - Routine Psychiatric Exam Present: normal affect Data - Labs CBC & Chem 7: 12/17/21 11:44 12/17/21 11:44 Assessment and Plan Patient Active problem list reviewed?: Yes (1) Liver metastases Status: Acute Assessment and plan: This is a pleasant 56-year-old lady who developed upper abdominal pain a couple of weeks ago. The pain has since subsided however ultrasound revealed: IMPRESSION: Enlarged liver and multiple predominately hyperechoic liver lesions. Appearance is suggestive of metastatic disease. Limited visualization of the pancreas. Otherwise unremarkable exam. No known primary has been noted. DIFFERENTIAL DIAGNOSIS: 1. A GI PRIMARY: COLON CARCINOMA: She has not had a screening colonoscopy done yet. 2. PANCREATIC CANCER: 3. BREAST CANCER: However recent mammogram was normal. 4. LUNG CANCER: Is in the differential however she does not smoke. , so less likely. 5. PRIMARY HEPATOMA: Would also be unlikely. Usually we find metastases, from another site into the liver and not primary. l checked baseline labs including tumor markers today:CEA 325, Ca 19/9 962, Ca 27.29: 18 . DATABASE: LABS FROM TODAY: CBC WBC 7.4, HGB 11.7, HCT 36.4, PLT 368. CMP: Lytes WNL, glucose:88, BUN 7, SUPERVISOR [employer] ACCOUNTS 0.73. LFTs: 0.6/208/66/27. I proceeded with further evaluation. l initiated search for a primary: CT scans of the chest abdomen and pelvis, from 01/18: Bilateral pulmonary nodules. Bilateral axillary and left supraclavicular upper normal-size lymph nodes. 4 cm colon mass in the hepatic flexure. Enlarged adjacent lymph nodes metastatic disease to the liver and peritoneal disease. Bilateral pulmonary nodules also probably representing metastatic disease. l proceeded with an ultrasound guided biopsy of the liver lesions to further define the primary. Biopsy of the lesion in the right lobe of the liver on 01/27 revealed: Moderately differentiated adenocarcinoma consistent with metastatic colorectal cancer. Unfortunately, very little tumor was present, insufficient for ancillary testing. I did shared the results with her today. PLAN: I will refer her to GI for a colonoscopy. That way we can obtain more issues to proceed with ancillary testing, to decide about the best regimen to give her. An appointment is being set up with [facility] [place]. Will make further plans based upon the above results. She will return in a couple of weeks for a follow-up. All her questions were answered to her satisfaction. Thank you, Cc: Dr. Martines. - Time Spent With Patient Time Spent with Patient (in minutes): 30
--- NOTE | 2022-02-04 12:12 | MHC.HEMONCMA ---
Pt was in for follow up. Clinical summary reviewed and updated, VSS. Pt to return in 1 month. I will set up an appt for colonoscopy, once scheduled i will inform pt.
--- NOTE | 2022-02-16 14:17 | HO.HEMONCSCH ---
Sent message for GI to contact pt for a colonoscopy appt.
[2022-02-25 09:54] VITALS: BP 137/81; PULSE 95; RESP 12; TEMP 37.3; O2SAT 99; BMI 28.1
--- NOTE | 2022-02-25 10:04 | P.PNHO-ONC_ITS ---
Medical Summary - Medical Summary Date of Service: 02/25/22 Chief complaint: Follow-up for: Liver metastases, likely colon primary. Medical Summary: DIAGNOSIS: NEW LIVER LESIONS. 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 Interval History Interval history: Kayden Angulo is a pleasant 56 year old lady, here for a follow-up visit. She tells me that lately she has noticed pain under both sides of her ribcages. Sometimes she feels electric shock-like sensations. That is fleeting. She denies any abdominal pain, vomiting heartburn or indigestion now. She gets some nausea especially in the morning. Appetite is not that good, she has lost some weight, from 152 to in 49 lbs. She denies diarrhea. Denies any gross blood in the stools. She has never had a colonoscopy. Her energy level, has gone down. She is still trying to work, it is getting harder. No fever nor chills. She gets headaches, occassional dizziness. She has had some chest pain. Denies shortness of breath. She denies any dysuria or hematuria. She has arthritis and tendinitis. She has some back pain, and right knee pain. : Down the steps, couple of months ago. She denies any focal weakness. She has depression. She has history of dermatitis but not active now. She uses Dove soap only. PRESENTING HISTORY: She developed abdominal pain about six weeks ago. She mentions sharp pain in the upper abdomen radiating to both sides, back to front like a belt. Level was up to 7 on 1-10 scale. It was a sharp pain. It recurred with change of position. Not related to meals. She went to see her primary doctor who ordered an abdominal ultrasound. Ultrasound of the abdomen from 12/07 revealed: IMPRESSION: Enlarged liver and multiple predominately hyperechoic liver lesions. Appearance is suggestive of metastatic disease. Limited visualization of the pancreas. Otherwise unremarkable exam. FAMILY HISTORY: Paternal grandma had breast cancer. Maternal aunt had breast cancer. They both from it. 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 She is single. She has 3 children. She denies any history of smoking. She quit alcohol several years ago. Denies drugs. Review of Systems - Constitutional Reports system reviewed and no additional complaints, except as documented, Reports fatigue, Reports weakness, Reports weight loss, Denies fever(s) - Eyes Reports system reviewed and no additional complaints, except as documented - ENT Reports system reviewed and no additional complaints, except as documented - Cardiovascular Reports system reviewed and no additional complaints, except as documented, Reports chest pain - Respiratory Reports no additional respiratory complaints - Gastrointestinal Reports system reviewed and no additional complaints, except as documented - Genitourinary Reports no additional female genitourinary complaints - Musculoskeletal Reports system reviewed and no additional complaints, except as documented, Reports back pain - Integumentary/Breasts Skin/Breast: Reports no additional skin complaints - Neurologic Reports system reviewed and no additional complaints, except as documented - Psychiatric Reports system reviewed and no additional complaints, except as documented - Endocrine Reports no additional endocrine complaints - Hematologic/Lymphatic Reports system reviewed and no additional complaints, except as documented - Allergic/Immunologic Reports system reviewed and no additional complaints, except as documented PMFSH Medical History: Medical History (Last Reviewed 02/26/22 @ 14:01 by Cassie Jimenez MD) Asthma Depression HTN (hypertension) Functional capacity: independent ambulation Patient : No Family History: Family History (Last Reviewed 02/26/22 @ 14:01 by Cassie Jimenez MD) Paternal Grandmother Breast cancer Maternal Aunt Breast cancer Surgical History: Surgical History (Last Reviewed 02/26/22 @ 14:01 by Cassie Jimenez MD) Hx of excision of mass Hx of right breast biopsy Hx of tubal ligation Social History: Social History (Last Reviewed 02/26/22 @ 14:01 by Cassie Jimenez MD) Living Situation History: Household Members: Children Housing: Apartment Are you a primary manager of care to a significant other at home: No Do you presently have visiting nurse or other home services: No Tobacco History: Patient Tobacco Use Status: Never used Tobacco Occupation Assessmet: service: No Current occupational status: employed 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 Oncology Screenings - ECOG Performance Status ECOG Performance Status: 0 Home Medications and Allergies Home Medications Medication Instructions Recorded Confirmed Type albuterol sulfate 90 mcg/actuation 2 puff inhalation Q6H PRN Wheezing 01/13/21 02/25/22 History aerosol inhaler (Ventolin HFA) fluticasone propionate 110 2 puff inhalation BID 01/13/21 02/25/22 History mcg/actuation HFA aerosol inhaler (Flovent HFA) losartan 50 mg tablet 1 tab PO DAILY 01/13/21 02/25/22 History omeprazole 20 mg capsule,delayed 20 mg PO DAILY 10/08/21 02/25/22 History release metoprolol succinate 50 mg 1 tab PO DAILY 12/17/21 02/25/22 History tablet,extended release 24 hr triamcinolone acetonide 0.5 % 1 appl topical BID PRN Pain 12/17/21 02/25/22 History topical cream atorvastatin 20 mg tablet 20 mg PO DAILY 02/26/22 History Allergies Allergy/AdvReac Type Severity Reaction Status Date / Time latex Allergy Intermediate Rash Verified 02/26/22 13:04 Exam Vital signs: Vital Signs Temp 99.1 F 02/25/22 09:54 Pulse 95 02/25/22 09:54 Resp 12 02/25/22 09:54 BP 137/81 02/25/22 09:54 Pulse Ox 99 02/25/22 09:54 O2 Del Method 02/25/22 09:54 Intake & Output 02/24/22 02/25/22 02/25/22 18:59 06:59 18:59 Other: Weight 67.6 kg Weight in Grams 34795 Weight 67.6 kg BMI result Body Mass Index 28.1 - Constitutional Present: no acute distress - Routine HEENT Exam Head: Present: normal inspection Eye: Present: normal appearance ENT: Present: mucous membranes moist - Routine Neck Exam Present: full ROM - Routine Respiratory Exam Present: CTAB - Routine Cardiovascular Exam Cardiovascular: Present: RRR, S1, S2 - Routine Abdominal Exam Present: soft, nontender - Routine Rectal Exam Patient deferred: digital exam - Routine Extremities Exam Present: nontender - Routine Back/Spine/Pelvis Exam Back/Spine: Present: full ROM - Routine Skin Exam Present: intact - Routine Neurological Exam Present: alert, oriented X3, vision grossly intact - Detailed Neurological Exam: Coma Scale Eye Opening: Spontaneous (4) - Routine Psychiatric Exam Present: normal affect Data - Labs CBC & Chem 7: 02/25/22 10:23 02/25/22 10:23 Assessment and Plan Patient Active problem list reviewed?: Yes (1) Liver metastases Status: Acute Assessment and plan: This is a pleasant 56-year-old lady who developed upper abdominal pain a couple of weeks ago. The pain has since subsided however ultrasound revealed: IMPRESSION: Enlarged liver and multiple predominately hyperechoic liver lesions. Appearance is suggestive of metastatic disease. Limited visualization of the pancreas. Otherwise unremarkable exam. No known primary has been noted. DIFFERENTIAL DIAGNOSIS: 1. A GI PRIMARY: COLON CARCINOMA: She has not had a screening colonoscopy done yet. 2. PANCREATIC CANCER: 3. BREAST CANCER: However recent mammogram was normal. 4. LUNG CANCER: Is in the differential however she does not smoke. , so less likely. 5. PRIMARY HEPATOMA: Would also be unlikely. Usually we find metastases, from another site into the liver and not primary. l checked baseline labs including tumor markers today:CEA 325, Ca 19/9 962, Ca 27.29: 18 . DATABASE: LABS FROM TODAY: CBC WBC 7.4, HGB 11.7, HCT 36.4, PLT 368. CMP: Lytes WNL, glucose:88, BUN 7, BREAK OFF WORKER 0.73. LFTs: 0.6/208/66/27. I proceeded with further evaluation. l initiated search for a primary: CT scans of the chest abdomen and pelvis, from 01/18: Bilateral pulmonary nodules. Bilateral axillary and left supraclavicular upper normal-size lymph nodes. 4 cm colon mass in the hepatic flexure. Enlarged adjacent lymph nodes metastatic disease to the liver and peritoneal disease. Bilateral pulmonary nodules also probably representing metastatic disease. l proceeded with an ultrasound guided biopsy of the liver lesions to further def ine the primary. Biopsy of the lesion in the right lobe of the liver on 01/27 revealed: Moderately differentiated adenocarcinoma consistent with metastatic colorectal cancer. Unfortunately, very little tumor was present, insufficient for ancillary testing. I referred her to GI for a colonoscopy. That way we can obtain more issues to proceed with ancillary testing, to decide about the best regimen to give her. Initial appointment was 03/16. Fortunately they were able to give us an earlier appointment for tomorrow at 13:[address] Jimenez. PLAN: Hopefully the colonoscopy can be expedited as well. Will make further plans based upon the above results. She would be a candidate for FOLFOX plus bevacizumab, as first-line therapy. In while I will check a bone scan on account of ongoing back and rib pain. She will return in a couple of weeks for a follow-up. All her questions were answered to her satisfaction. Thank you, Cc: Dr. Martines. Addendum: Dr. Jimenez, has graciously seen her and is scheduling her for an EGD/COLONOSCOPY, in the near future. Will follow the results and start her on treatment. Meanwhile will arrange for a Port-A-Cath placement, to facilitate the chemo. - Time Spent With Patient Time Spent with Patient (in minutes): 30
[2022-02-25 10:29] LABS: MANUAL DIFF FLAG NO
[2022-02-25 10:34] LABS: Basophils Absolute Auto 0.1 X10*3/uL (0.0-0.2); Basophils Percent Auto 0.7 % (0-2); Eosinophils Absolute Auto 0.4 X10*3/uL (0.0-0.4); Eosinophils Percent Auto 4.3 % (0-4); Hematocrit 35.6 % (37.0-47.0); Hemoglobin 11.8 g/dl (12.0-16.0); Imm Gran Abs Auto 0.03 X10*3/uL (0.00-0.03); Imm Gran Pct Auto 0.4 % (0.0-0.4); Lymphocytes Absolute Auto 1.7 X10*3/uL (1.2-4.9); Mean Corpuscular HGB Conc 33.1 g/dl (31.0-35.0); Mean Corpuscular Hemoglobin 28.9 pg (27.0-33.0); Mean Platelet Volume 10.5 fL (9.4-12.3); Monocytes Absolute Auto 1.4 X10*3/uL (0.1-1.2); Monocytes Percent Auto 16.2 % (2-11); Neutrophils Percent Auto 58.4 % (45-73); Platelet Count 486 X10*3/uL (160-400); Red Blood Count 4.09 X10*6/uL (4.20-5.50); Red Cell Distribution Width 15.4 % (11.0-16.0); White Blood Count 8.6 X10*3/uL (4.8-10.8)
[2022-02-25 10:52] LABS: Alanine Aminotransferase 27 U/L (0-31); Albumin Level 3.8 g/dL (3.5-5.0); Alkaline Phosphatase 208 U/L (39-117); Anion Gap 19 (12-20); Aspartate Amino Transferase 65 U/L (5-31); Blood Urea Nitrogen 7 mg/dL (9-16); Calcium 9.5 mg/dL (8.4-10.2); Carbon Dioxide 24 mmol/L (22-29); Chloride 101 mmol/L (96-108); Estimated Glomerular Filt Rate > 60; Glucose Random 95 mg/dL (60-115); Potassium 4.5 mmol/L (3.3-5.1); Sodium 139 mmol/L (135-145); Total Protein 7.6 g/dL (6.5-8.0)
[2022-02-25 11:04] LABS: Bilirubin Total 0.8 mg/dL (0.0-1.0)
--- NOTE | 2022-02-25 12:35 | MHC.HEMONCMA ---
Pt was in for follow up. Clinical summary reviewed and updated, VSS. Labs were drawn. Pt to return in 2 weeks.
--- NOTE | 2022-02-25 16:12 | HO.HEMONCSCH ---
Bone scan sent to [facility] as STAT.
--- NOTE | 2022-03-01 17:07 | MHC.HEMONC ---
Port order left for J Oann to enter into [facility].
--- NOTE | 2022-03-03 11:05 | HO.HEMONCSCH ---
Port insertion sent to [facility]. Waiting appt.
--- NOTE | 2022-03-05 16:16 | HO.HEMONCSCH ---
Spoke with pt and informed her of port insertion on tuesday03/08/22 at 0830.
--- NOTE | 2022-03-10 09:48 | HO.HEMONCSCH ---
Pt is r/s for bone scan on 03/26 at 11. She is aware of appt. Also informed pt we are waiting on new appt for port insertion.
--- NOTE | 2022-03-10 12:25 | HO.HEMONCSCH ---
Pt is scheduled for port insertion on 03/16 at 1030, she is aware of appt.
[2022-03-18 10:24] VITALS: BP 119/68; PULSE 139; RESP 14; TEMP 37.1; O2SAT 99; BMI 27.2
[2022-03-18 10:44] LABS: Basophils Percent Auto 0.2 % (0-2); Eosinophils Percent Auto 0.1 % (0-4); Hematocrit 34.2 % (37.0-47.0); Hemoglobin 11.4 g/dl (12.0-16.0); Imm Gran Abs Auto 0.18 X10*3/uL (0.00-0.03); Lymphocytes Absolute Auto 1.2 X10*3/uL (1.2-4.9); Lymphocytes Percent Auto 6.4 % (20-40); MANUAL DIFF FLAG SCAN; Mean Corpuscular HGB Conc 33.3 g/dl (31.0-35.0); Mean Corpuscular Hemoglobin 27.9 pg (27.0-33.0); Mean Corpuscular Volume 83.8 fL (80.0-98.0); Mean Platelet Volume 10.3 fL (9.4-12.3); Monocytes Percent Auto 10.7 % (2-11); Neutrophils Absolute Auto 15.3 x10*3/uL (2.0-8.3); Neutrophils Percent Auto 81.6 % (45-73); Platelet Count 402 X10*3/uL (160-400); Red Blood Count 4.08 X10*6/uL (4.20-5.50); Red Cell Distribution Width 16.3 % (11.0-16.0); SCAN SMEAR FLAG 1; White Blood Count 18.7 X10*3/uL (4.8-10.8)
--- NOTE | 2022-03-18 10:55 | PM.HEMONCPN ---
Medical Summary - Medical Summary Date of Service: 03/18/22 Chief complaint: Follow-up for: Liver lesions from colon primary. Medical Summary: DIAGNOSIS: NEW LIVER LESIONS. 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 Interval History Interval history: Kayden Angulo is a pleasant 56 year old lady, here for a follow-up visit. She is not feeling well. She had the Port-A-Cath placed on Tuesday. The site is hurting. I gave her oxycodone however she took it on an empty stomach. It caused nausea and drowsiness. She has pain under both sides of her ribcages. She feels it radiating to the back on the right side. Sometimes she feels electric shock-like sensations. That is fleeting. She denies any abdominal pain, vomiting heartburn or indigestion now. She gets some nausea especially in the morning. She brings up whitish phlegm. Appetite is not that good, she has lost some weight, from 152 to in 49 lbs. She denies diarrhea. Denies any gross blood in the stools. She has never had a colonoscopy. Her energy level, is down. It is very difficult for her to continue working. No fever nor chills. She gets headaches, occassional dizziness. She has had some chest pain. Denies shortness of breath. She denies any dysuria or hematuria. She has arthritis and tendinitis. She has some back pain, and right knee pain. : Down the steps, couple of months ago. She denies any focal weakness. She has depression. She has history of dermatitis but not active now. She uses Dove soap only. PRESENTING HISTORY: She developed abdominal pain about six weeks ago. She mentions sharp pain in the upper abdomen radiating to both sides, back to front like a belt. Level was up to 7 on 1-10 scale. It was a sharp pain. It recurred with change of position. Not related to meals. She went to see her primary doctor who ordered an abdominal ultrasound. Ultrasound of the abdomen from 12/07 revealed: IMPRESSION: Enlarged liver and multiple predominately hyperechoic liver lesions. Appearance is suggestive of metastatic disease. Limited visualization of the pancreas. Otherwise unremarkable exam. FAMILY HISTORY: Paternal grandma had breast cancer. Maternal aunt had breast cancer. They both from it. 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 She is single. She has 3 children. She denies any history of smoking. She quit alcohol several years ago. Denies drugs. Review of Systems - Constitutional Reports no additional constitutional complaints, Reports daytime sleepiness, Reports lack of energy, Reports malaise, Reports weakness, Reports weight loss - Eyes Reports no additional eye complaints - ENT Reports no additional ear, nose, mouth, and throat complaints - Cardiovascular Reports no additional cardiovascular complaints - Respiratory Reports no additional respiratory complaints - Gastrointestinal Reports no additional gastrointestinal complaints, Reports abdominal pain, Reports feeling full early, Reports nausea - Genitourinary Reports no additional female genitourinary complaints - Musculoskeletal Reports no additional musculoskeletal complaints - Integumentary/Breasts Skin/Breast: Reports no additional skin complaints - Neurologic Reports no additional neurologic complaints, Reports weakness - Psychiatric Reports no additional psychiatric complaints - Endocrine Reports no additional endocrine complaints - Hematologic/Lymphatic Reports no additional hematologic/lymphatic complaints - Allergic/Immunologic Reports no additional allergic/immunologic complaints [facility] Medical History: Medical History (Last Reviewed 03/18/22 @ 10:26 by Jo Ann Sumner CMA) Asthma Asthma Colorectal cancer Depression HTN (hypertension) Liver metastases Metastatic colon cancer to liver Functional capacity: independent ambulation Patient : No Family History: Family History (Last Reviewed 03/18/22 @ 10:27 by Jo Ann Sumner CMA) Paternal Grandmother Breast cancer Maternal Aunt Breast cancer Surgical History: Surgical History (Last Reviewed 03/18/22 @ 10:27 by Jo Ann Sumner CMA) Hx of arthroscopy of right knee Hx of excision of mass Hx of right breast biopsy Hx of tubal ligation Social History: Social History (Last Reviewed 03/18/22 @ 10:27 by Jo Ann Sumner CMA) Living Situation History: Household Members: Children Housing: Apartment Are you a primary respiratory care technician to a significant other at home: No Do you presently have visiting nurse or other home services: No Alcohol History Details: 1. How often do you have a drink containing alcohol?: a. Never Tobacco History: Patient Tobacco Use Status: Never used Tobacco e-Cigarette/Vaping Use: Never Used Substance Use History: Use of substances other than those prescribed or required for medical reasons: No Domestic Abuse History: Have you been hit, kicked, punched, or otherwise hurt by someone within the past year? 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 Oncology Screenings - ECOG Performance Status ECOG Performance Status: 1 Home Medications and Allergies Home Medications Medication Instructions Recorded Confirmed Type losartan 50 mg tablet 1 tab PO DAILY 01/13/21 03/18/22 History omeprazole 20 mg capsule,delayed 20 mg PO DAILY 10/08/21 03/18/22 History release metoprolol succinate 50 mg 1 tab PO DAILY 12/17/21 03/18/22 History tablet,extended release 24 hr Allergies Allergy/AdvReac Type Severity Reaction Status Date / Time latex Allergy Intermediate Rash Verified 03/18/22 10:27 Exam Vital signs: Vital Signs Temp 98.7 F 03/18/22 10:24 Pulse 139 H 03/18/22 10:24 Resp 14 03/18/22 10:24 BP 119/68 03/18/22 10:24 Pulse Ox 99 03/18/22 10:24 O2 Del Method 03/18/22 10:24 Intake & Output 03/17/22 03/18/22 03/18/22 18:59 06:59 18:59 Other: Weight 65.4 kg Weight in Grams 65021 Weight 65.4 kg BMI result Body Mass Index 27.2 - Constitutional Present: no acute distress - Routine HEENT Exam Head: Present: normal inspection Eye: Present: normal appearance ENT: Present: mucous membranes moist - Routine Neck Exam Present: full ROM - Routine Respiratory Exam Present: CTAB - Routine Cardiovascular Exam Cardiovascular: Present: RRR, S1, S2 - Routine Abdominal Exam Present: soft, nontender - Routine Rectal Exam Patient deferred: digital exam - Routine Extremities Exam Present: nontender - Routine Back/Spine/Pelvis Exam Back/Spine: Present: full ROM - Routine Skin Exam Present: intact - Routine Neurological Exam Present: alert, oriented X3, vision grossly intact - Detailed Neurological Exam: Coma Scale Eye Opening: Spontaneous (4) - Routine Psychiatric Exam Present: normal affect Data - Labs CBC & Chem 7: 03/18/22 10:30 03/18/22 10:30 Assessment and Plan Patient Active problem list reviewed?: Yes (1) Liver metastases Status: Inactive Assessment and plan: This is a pleasant 56-year-old lady who developed upper abdominal pain a couple of weeks ago. The pain has since subsided however ultrasound revealed: IMPRESSION: Enlarged liver and multiple predominately hyperechoic liver lesions. Appearance is suggestive of metastatic disease. Limited visualization of the pancreas. Otherwise unremarkable exam. No known primary has been noted. DIFFERENTIAL DIAGNOSIS: 1. A GI PRIMARY: COLON CARCINOMA: She has not had a screening colonoscopy done yet. 2. PANCREATIC CANCER: 3. BREAST CANCER: However recent mammogram was normal. 4. LUNG CANCER: Is in the differential however she does not smoke. , so less likely. 5. PRIMARY HEPATOMA: Would also be unlikely. Usually we find metastases, from another site into the liver and not primary. l checked baseline labs including tumor markers today:CEA 325, Ca 19/9 962, Ca 27.29: 18 . DATABASE: LABS FROM TODAY: CBC WBC 7.4, HGB 11.7, HCT 36.4, PLT 368. CMP: Lytes WNL, glucose:88, BUN 7, LYE PEEL OPERATOR 0.73. LFTs: 0.6/208//. I proceeded with further evaluation. l initiated search for a primary: CT scans of the chest abdomen and pelvis, from 01/18: Bilateral pulmonary nodules. Bilateral axillary and left supraclavicular upper normal-size lymph nodes. 4 cm colon mass in the hepatic flexure. Enlarged adjacent lymph nodes metastatic disease to the liver and peritoneal disease. Bilateral pulmonary nodules also probably representing metastatic disease. l proceeded with an ultrasound guided biopsy of the liver lesions to further define the primary. Biopsy of the lesion in the right lobe of the liver on 01/27 revealed: Moderately differentiated adenocarcinoma consistent with metastatic colorectal cancer. Unfortunately, very little tumor was present, insufficient for ancillary testing. I referred her to GI for a colonoscopy. That way we can obtain more issues to proceed with ancillary testing, to decide about the best regimen to give her. She was seen by Dr. Jimenez, on 02/26. The colonoscopy is scheduled for 03/30/22. Meanwhile she is not feeling well today. Has pain and nausea. Has not been eating too well. PLAN: She was given some IV hydration with MVI, oxycodone and Zofran. Will make further plans based upon the above results. She would be a candidate for FOLFOX plus bevacizumab, as first-line therapy. Will schedule treatment right after the colonoscopy. Will omit bevacizumab with the 1st cycle. The bone scan has been ordered on account of ongoing back and rib pain. It is scheduled for next Tuesday. She will return in a couple of weeks for a follow-up. All her questions were answered to her satisfaction. Thank you, Cc: Dr. Martines. - Time Spent With Patient Time Spent with Patient (in minutes): 30
[2022-03-18 11:14] LABS: Alanine Aminotransferase 34 U/L (0-31); Albumin Level 3.3 g/dL (3.5-5.0); Alkaline Phosphatase 212 U/L (39-117); Anion Gap 15 (12-20); Aspartate Amino Transferase 118 U/L (5-31); Blood Urea Nitrogen 8 mg/dL (9-16); Calcium 8.7 mg/dL (8.4-10.2); Carbon Dioxide 25 mmol/L (22-29); Chloride 95 mmol/L (96-108); Estimated Glomerular Filt Rate > 60; Glucose Random 92 mg/dL (60-115); Potassium 4.1 mmol/L (3.3-5.1); Sodium 131 mmol/L (135-145); Total Protein 6.8 g/dL (6.5-8.0)
[2022-03-18 11:22] LABS: SLIDE REVIEW VERIFIED
[2022-03-18] MEDS: oxyCODONE HCl Immed Release 5 MG TABLET PO (11:36)
[2022-03-18] MEDS: Ondansetron ODT 8 MG TAB.RAPDIS TRANSLINGU (11:36)
[2022-03-18 12:36] LABS: Bilirubin Total 2.3 mg/dL (0.0-1.0)
--- NOTE | 2022-03-18 15:55 | MHC.HEMONC ---
Per Dr. Salvador's request, this nurse admin oxycodone 5mg PO x1 now and Ondansetron 8mg PO x1 now, w/ good effect, pt stated she had abdominal pain of 7/10, which improved to 2/10, also had no appetite, but was able to eat half a sandwich today. [facility] accounts payable administrator Ashley was in for Belgian-language translation. Nurse accessed pt's R chest implanted port, flushed w/ NS, and found positive blood return. Nurse admin 1 liter NS w/ MVI over 2 hours, which pt tolerated well. Nurse flushed port w/ NS and Heparin 500 units, then de-accessed. Pt was given documentation about Bevacizumab, Fluorouracil, Oxaliplatin, and Leucovorin, as she will apparently be beginning FOLFOX w/ Bevacizumab in March. PA is to be requested by Ammonia Worker Dai, but this nurse booked pt for chemo teach on , 04/01/22. Pt was given departure packet.
--- NOTE | 2022-03-26 09:58 | MHC.HEMONC ---
Triage call: Patient complains of abdominal pain with no bowel movement in 4 days.(on Oxycodone) Serbian speaking only. Proposal Coordinator Le here and assisted with translation. Patient instructed to start over the counter Colace once a day and Miralax twice a day as needed. Instructed to call back if symptoms do not improve. Patient verbalizes understanding.
--- NOTE | 2022-03-30 17:34 | HO.HEMONCPA ---
Addendum entered by Lilly Traore 02/02/23 11:55: PER WEBSITE NO PA NEEDED FOR NEULASTA [id number] ON 02/02/23 AT 11:56AM EST Addendum entered by Lilly Traore 12/02/22 13:18: PA APPROVED BY FOR AVASTIN AUTH # [id number] EXPIRES ON 06/02/23 11/30/22 WILL BE COVERED CALLED AND SPOKE WITH FREDERICK Mccord ON 12/02/22 AT 1312 EST Addendum entered by Lilly Traore 12/02/22 11:37: [facility] DIRECT TERMED ON 11/25/22 PA PENDING FOR AVASTIN [id number] AWAITING DECISION FROM [facility] Addendum entered by Lilly Traore 11/26/22 10:36: PA FOR AVASTIN APPROVED AUTH# [id number] DOS 11/25/22 - 11/23/23 Addendum entered by Lilly Traore 11/24/22 13:57: NO PA FOR LEUCOVORIN [id number] FLUOROURCIL [id number] AND IRINOTECAN [id number] PER [address](PROMPT PA) FOR [facility] PA PENDING FOR AVASTIN [id number] TRACKING [id number] PENDING FOR [address](PROMPT PA) Addendum entered by Lilly Traore 11/18/22 10:42: PA PENDING FOR AVASTIN J9305 LEUCOVORIN J0640 FLUOROURCIL J9190 AND IRINOTECAN [id number] PENDING AWAITING DECISION FROM [address]/[facility] DIRECT NEULASTA PA for continuation of therapy APPROVED AUTH # [id number] dos 09/14/22 - 03/16/23 Addendum entered by Lilly Traore 10/08/22 11:14: NEULASTA PA for continuation of therapy APPROVED AUTH # [id number] dos 09/14/22 - 03/16/23 Addendum entered by Dai Pressley 09/14/22 15:11: NEULASTA PA for continuation of therapy REQUESTED. AWAITING DECISION Addendum entered by Dai Pressley 04/02/22 16:10: NO PA REQUIRED FOR EMEND, OXALIPLATIN, LEUCOVORIN, &FLUOROURSCIL. DOCUMENT SCANNED IN THE CHART. MVASI([id number]) PREFERRED DRUG, NO PA REQUIRED NEULASTA PA APPROVED. AUTH#[id number]. DOS- 03/30/2022 to 09/27/2022. DOCUMENT SCANNED IN THE CHART AVASTIN PA DENIED Addendum entered by Dai Pressley 04/02/22 11:16: NO PA REQUIRED FOR EMEND, OXALIPLATIN, LEUCOVORIN, &FLUOROURSCIL. DOCUMENT SCANNED IN THE CHART NEULASTA & BEVACIZUMAB PA REQUESTED. AWAITING DECISION Original Note: PA FOR EMEND, AVASTIN, OXALIPLATIN, LEUCOVORIN, FLUOROURSCIL, AND NEULASTA REQIESED. AWAITING DECISION
[2022-04-01 13:23] VITALS: BP 143/86; PULSE 105; RESP 12; TEMP 36.6; O2SAT 99; BMI 27.1
--- NOTE | 2022-04-01 13:45 | P.PNHO-ONC_ITS ---
Medical Summary - Medical Summary Date of Service: 04/01/22 Chief complaint: Follow-up for: Metastatic colon carcinoma with liver lesions. Medical Summary: DIAGNOSIS: NEW LIVER LESIONS. 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 Interval History Interval history: Kayden Angulo is a pleasant 56 year old lady, here for a follow-up visit. She tells me she came down with COVID on March 08. She was not feeling well, for few days. She is now feeling better. Her energy level, is down. No fever nor chills. She gets headaches, occassional dizziness. She has had some chest pain. Denies shortness of breath. She still gets pain in the back radiating to the left side of the belly. She has pain under both sides of her ribcages. She feels it radiating to the back on the right side. Sometimes she feels electric shock-like sensations. That is fleeting. She denies any abdominal pain, vomiting heartburn or indigestion. She gets some nausea especially in the morning. She brings up whitish phlegm. Appetite is not that good, she has lost some weight, from 152 to to 149 lbs. She is only able to take apple juice, fruit cocktail and Rema soup. She is trying Ensure now. She denies diarrhea. Denies any gross blood in the stools. She actually has constipation. She has never had a colonoscopy. She denies any dysuria or hematuria. She has arthritis and tendinitis. She has some back pain, and right knee pain. : Down the steps, couple of months ago. She denies any focal weakness. She has depression. She has history of dermatitis but not active now. She uses Dove soap only. It is very difficult for her to continue working. PRESENTING HISTORY: She developed abdominal pain about six weeks ago. She mentions sharp pain in the upper abdomen radiating to both sides, back to front like a belt. Level was up to 7 on 1-10 scale. It was a sharp pain. It recurred with change of position. Not related to meals. She went to see her primary doctor who ordered an abdominal ultrasound. Ultrasound of the abdomen from 12/07 revealed: IMPRESSION: Enlarged liver and multiple predominately hyperechoic liver lesions. Appearance is suggestive of metastatic disease. Limited visualization of the pancreas. Otherwise unremarkable exam. FAMILY HISTORY: Paternal grandma had breast cancer. Maternal aunt had breast cancer. They both from it. 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 She is single. She has 3 children. She denies any history of smoking. She quit alcohol several years ago. Denies drugs. Review of Systems - Constitutional Reports system reviewed and no additional complaints, except as documented, Reports fatigue, Reports lack of energy, Reports weakness, Reports weight loss, Denies fever(s) - Eyes Reports system reviewed and no additional complaints, except as documented - ENT Reports system reviewed and no additional complaints, except as documented - Cardiovascular Reports system reviewed and no additional complaints, except as documented - Respiratory Reports no additional respiratory complaints - Gastrointestinal Reports system reviewed and no additional complaints, except as documented - Genitourinary Reports no additional female genitourinary complaints - Musculoskeletal Reports system reviewed and no additional complaints, except as documented - Integumentary/Breasts Skin/Breast: Reports no additional skin complaints - Neurologic Reports system reviewed and no additional complaints, except as documented, Reports weakness - Psychiatric Reports system reviewed and no additional complaints, except as documented - Endocrine Reports no additional endocrine complaints - Hematologic/Lymphatic Reports system reviewed and no additional complaints, except as documented - Allergic/Immunologic Reports system reviewed and no additional complaints, except as documented PMFSH Medical History: Medical History (Last Reviewed 04/01/22 @ 13:26 by Jo Ann Sumner CMA) Asthma Asthma Colorectal cancer Depression HTN (hypertension) Liver metastases Metastatic colon cancer to liver Functional capacity: independent ambulation Patient : No Family History: Family History (Last Reviewed 04/01/22 @ 13:26 by Jo Ann Sumner CMA) Paternal Grandmother Breast cancer Maternal Aunt Breast cancer Surgical History: Surgical History (Last Reviewed 04/01/22 @ 13:26 by Jo Ann Sumner CMA) Hx of arthroscopy of right knee Hx of excision of mass Hx of right breast biopsy Hx of tubal ligation Social History: Social History (Last Reviewed 04/01/22 @ 13:26 by Jo Ann Sumner CMA) Living Situation History: Household Members: Children Housing: Apartment Are you a primary personal care attendant to a significant other at home: No Do you presently have visiting nurse or other home services: No Tobacco History: Patient Tobacco Use Status: Never used Tobacco e-Cigarette/Vaping Use: Never Used Occupation Assessmet: service: No Current occupational status: employed 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 Oncology Screenings - ECOG Performance Status ECOG Performance Status: 0 Home Medications and Allergies Home Medications Medication Instructions Recorded Confirmed Type losartan 50 mg tablet 1 tab PO DAILY 01/13/21 04/01/22 History omeprazole 20 mg capsule,delayed 20 mg PO DAILY 10/08/21 04/01/22 History release metoprolol succinate 50 mg 1 tab PO DAILY 12/17/21 04/01/22 History tablet,extended release 24 hr Allergies Allergy/AdvReac Type Severity Reaction Status Date / Time latex Allergy Intermediate Rash Verified 04/01/22 13:26 Exam Vital signs: Vital Signs Temp 97.9 F 04/01/22 13:23 Pulse 105 H 04/01/22 13:23 Resp 12 04/01/22 13:23 BP 143/86 H 04/01/22 13:23 Pulse Ox 99 04/01/22 13:23 O2 Del Method 04/01/22 13:23 Intake & Output 03/31/22 04/01/22 04/01/22 18:59 06:59 18:59 Other: Weight 65 kg [place] Weight in Grams 31599 Weight 65 kg BMI result Body Mass Index 27.1 - Constitutional Present: no acute distress - Routine HEENT Exam Head: Present: normal inspection Eye: Present: normal appearance ENT: Present: mucous membranes moist - Routine Neck Exam Present: full ROM - Routine Respiratory Exam Present: CTAB - Routine Cardiovascular Exam Cardiovascular: Present: RRR, S1, S2 - Routine Abdominal Exam Present: soft, nontender - Routine Rectal Exam Patient deferred: digital exam - Routine Extremities Exam Present: nontender - Routine Back/Spine/Pelvis Exam Back/Spine: Present: full ROM - Routine Skin Exam Present: intact - Routine Neurological Exam Present: alert, oriented X3, vision grossly intact - Detailed Neurological Exam: Coma Scale Eye Opening: Spontaneous (4) - Routine Psychiatric Exam Present: normal affect Data - Labs CBC & Chem 7: 04/01/22 14:54 04/01/22 14:54 Assessment and Plan Patient Active problem list reviewed?: Yes (1) Liver metastases Status: Inactive Assessment and plan: This is a pleasant 56-year-old lady who developed upper abdominal pain a couple of weeks ago. The pain has since subsided however ultrasound revealed: IMPRESSION: Enlarged liver and multiple predominately hyperechoic liver lesions. Appearance is suggestive of metastatic disease. Limited visualization of the pancreas. Otherwise unremarkable exam. No known primary has been noted. DIFFERENTIAL DIAGNOSIS: 1. A GI PRIMARY: COLON CARCINOMA: She has not had a screening colonoscopy done yet. 2. PANCREATIC CANCER: 3. BREAST CANCER: However recent mammogram was normal. 4. LUNG CANCER: Is in the differential however she does not smoke. , so less likely. 5. PRIMARY HEPATOMA: Would also be unlikely. Usually we find metastases, from another site into the liver and not primary. l checked baseline labs including tumor markers today:CEA 325, Ca 19/9 962, Ca 27.29: 18 . DATABASE: LABS FROM TODAY: CBC WBC 7.4, HGB 11.7, HCT 36.4, PLT 368. CMP: Lytes WNL, glucose:88, BUN 7, CASTING REPAIRER 0.73. LFTs: 0.6/208/66/27. I proceeded with further evaluation. l initiated search for a primary: CT scans of the chest abdomen and pelvis, from 01/18: Bilateral pulmonary nodules. Bilateral axillary and left supraclavicular upper normal-size lymph nodes. 4 cm colon mass in the hepatic flexure. Enlarged adjacent lymph nodes metastatic disease to the liver and peritoneal disease. Bilateral pulmonary nodules also probably representing metastatic disease. l proceeded with an ultrasound guided biopsy of the liver lesions to further define the primary. Biopsy of the lesion in the right lobe of the liver on 01/27 revealed: Moderately differentiated adenocarcinoma consistent with metastatic colorectal cancer. Unfortunately, very little tumor was present, insufficient for ancillary t esting. I referred her to GI for a colonoscopy. That way we can obtain more issues to proceed with ancillary testing, to decide about the best regimen to give her. She was seen by Dr. Jimenez, on 02/26. The colonoscopy was scheduled for 03/26/22. However she came down with COVID. The procedure was postponed pending medical clearance. The bone scan was ordered on account of ongoing back and rib pain. It was done on 03/26: Normal whole body bone scan. No evidence of osseous metastatic disease. CEA Level: 863. She is not feeling well. Has had pain and nausea. She has not been eating too well. PLAN: She is now scheduled for the colonoscopy for April 08. She would be a candidate for FOLFOX plus bevacizumab, as first-line therapy. Will schedule treatment right after the colonoscopy. Will omit bevacizumab with the 1st cycle. She will return in a couple of weeks for a follow-up. All her questions were answered to her satisfaction. Thank you, Cc: Dr. Martines. Dr. Jimenez. - Time Spent With Patient Time Spent with Patient (in minutes): 30
[2022-04-01 14:57] LABS: MANUAL DIFF FLAG NO
--- NOTE | 2022-04-01 15:07 | MHC.HEMONC ---
Chemotherapy: FOLFOX + AVASTIN. Patient accompanied by friend. Patient Mozambican speaking only- jet mechanic Lucy present. Educational materials provided on each medication. Potential side effects including nausea/vomiting, neutropenia, fatigue, alopecia, peripheral neuropathy, diarrhea etc all discussed. Symptom management including use of prn Zofran/Imodium and when to call clinic reviewed with patient. She verbalizes understanding. All questions and concerns addressed. Consent signed. Awaiting prior authorization before scheduling chemotherapy. Exam with Dr. Salvador today. Labs obtained. VSS. Oxycodone refill requested - Dr. Salvador aware.
[2022-04-01 15:12] LABS: Basophils Percent Auto 0.3 % (0-2); Eosinophils Absolute Auto 0.1 X10*3/uL (0.0-0.4); Eosinophils Percent Auto 0.5 % (0-4); Hematocrit 34.3 % (37.0-47.0); Hemoglobin 11.3 g/dl (12.0-16.0); Imm Gran Abs Auto 0.06 X10*3/uL (0.00-0.03); Imm Gran Pct Auto 0.5 % (0.0-0.4); Lymphocytes Absolute Auto 1.6 X10*3/uL (1.2-4.9); Lymphocytes Percent Auto 13.9 % (20-40); Mean Corpuscular HGB Conc 32.9 g/dl (31.0-35.0); Mean Corpuscular Hemoglobin 28.3 pg (27.0-33.0); Mean Corpuscular Volume 85.8 fL (80.0-98.0); Mean Platelet Volume 11.2 fL (9.4-12.3); Monocytes Absolute Auto 1.4 X10*3/uL (0.1-1.2); Monocytes Percent Auto 12.1 % (2-11); Neutrophils Absolute Auto 8.3 x10*3/uL (2.0-8.3); Neutrophils Percent Auto 72.7 % (45-73); Platelet Count 495 X10*3/uL (160-400); Red Cell Distribution Width 18.1 % (11.0-16.0); White Blood Count 11.5 X10*3/uL (4.8-10.8)
[2022-04-01 15:30] LABS: Alanine Aminotransferase 23 U/L (0-31); Albumin Level 3.2 g/dL (3.5-5.0); Alkaline Phosphatase 374 U/L (39-117); Anion Gap 15 (12-20); Aspartate Amino Transferase 106 U/L (5-31); Blood Urea Nitrogen 4 mg/dL (9-16); Calcium 8.9 mg/dL (8.4-10.2); Carbon Dioxide 25 mmol/L (22-29); Chloride 101 mmol/L (96-108); Creatinine Clr Calc Pharmacy 76.7; Estimated Glomerular Filt Rate > 60; Glucose Random 94 mg/dL (60-115); Potassium 3.9 mmol/L (3.3-5.1); Sodium 137 mmol/L (135-145); Total Protein 7.2 g/dL (6.5-8.0)
[2022-04-02 09:25] LABS: HBc Num1 8.68 S/CO (0.00-0.79); HBsAGNum1 0.23 S/CO (0.00-0.99); Hepatitis B Surface Antigen Negative (Negative); ~Hepatitis B Surface Antibody NONREACTIVE (Nonreactive)
[2022-04-02 13:35] LABS: HBc Num2 8.24 S/CO; HBc Num3 8.42 S/CO; Hepatitis B Core Antibody Reactive (Nonreactive)
[2022-04-03 20:54] LABS: Hepatitis B Core Antibody IgM NON-REACTIVE (NON-REACTIVE)
--- NOTE | 2022-04-05 15:54 | MHC.HEMONC ---
Patient scheduled for chemotherapy 04/14/22- notified by Iris. Patient requested to have labs done day prior.
[2022-04-13 10:06] LABS: MANUAL DIFF FLAG NO
[2022-04-13 10:12] LABS: Basophils Absolute Auto 0.1 X10*3/uL (0.0-0.2); Basophils Percent Auto 0.5 % (0-2); Eosinophils Absolute Auto 0.2 X10*3/uL (0.0-0.4); Eosinophils Percent Auto 1.8 % (0-4); Hematocrit 32.5 % (37.0-47.0); Hemoglobin 10.8 g/dl (12.0-16.0); Imm Gran Pct Auto 1.1 % (0.0-0.4); Lymphocytes Absolute Auto 1.4 X10*3/uL (1.2-4.9); Lymphocytes Percent Auto 15.3 % (20-40); Mean Corpuscular HGB Conc 33.2 g/dl (31.0-35.0); Mean Corpuscular Hemoglobin 28.3 pg (27.0-33.0); Mean Corpuscular Volume 85.1 fL (80.0-98.0); Mean Platelet Volume 10.1 fL (9.4-12.3); Monocytes Absolute Auto 1.3 X10*3/uL (0.1-1.2); Neutrophils Absolute Auto 6.3 x10*3/uL (2.0-8.3); Neutrophils Percent Auto 67.3 % (45-73); Platelet Count 463 X10*3/uL (160-400); Red Blood Count 3.82 X10*6/uL (4.20-5.50); Red Cell Distribution Width 19.7 % (11.0-16.0); White Blood Count 9.3 X10*3/uL (4.8-10.8)
[2022-04-13 10:19] LABS: Appearance Urine Cloudy; Color Urine Dark Yellow; Glucose Urine UA Negative (Negative); Leukocyte Esterase Urine Small (1+) (Negative); Nitrite Urine Negative (Negative); Specific Gravity - Urine 1.015 (1.005-1.025); UMIC TRIGGER UA YES; Urine Blood Trace (Negative); Urine Ketones Trace mg/dL (Negative); Urine Protein 30 (1+) mg/dL (Neg-Trace)
[2022-04-13 10:33] LABS: Bacteria Urine 3+ (None Seen)
[2022-04-13 10:38] LABS: Alanine Aminotransferase 18 U/L (0-31); Albumin Level 2.7 g/dL (3.5-5.0); Alkaline Phosphatase 356 U/L (39-117); Anion Gap 13 (12-20); Aspartate Amino Transferase 81 U/L (5-31); Bilirubin Total 1.9 mg/dL (0.0-1.0); Blood Urea Nitrogen 6 mg/dL (9-16); Calcium 8.4 mg/dL (8.4-10.2); Carbon Dioxide 28 mmol/L (22-29); Chloride 101 mmol/L (96-108); Creatinine Clr Calc Pharmacy 81.4; Estimated Glomerular Filt Rate > 60; Glucose Random 88 mg/dL (60-115); Potassium 3.8 mmol/L (3.3-5.1); Sodium 138 mmol/L (135-145); Total Protein 6.4 g/dL (6.5-8.0)
[2022-04-14 08:44] VITALS: BP 134/84; PULSE 97; RESP 18; TEMP 36.3; O2SAT 98; BMI 26.8
[2022-04-14] MEDS: Fosaprepitant Dimeglumine 150 MG in 0.9 % Sodium Chloride 145 ML 300 MG IV (09:09)
[2022-04-14] MEDS: diphenhydrAMINE HCL 50 MG/ML VIAL 25 MG IVPUSH (09:45)
[2022-04-14] MEDS: Acetaminophen 325 MG TABLET 650 MG PO (09:47)
[2022-04-14] MEDS: dexAMETHasone sod phosphate/NS 12 MG/50 ML PIGGYBACK 200 MG IV (09:48)
[2022-04-14] MEDS: OXALIplatin 100 MG, OXALIplatin 50 MG in Dextrose 5 % 500 ML 265 MG IV (11:57)
[2022-04-14] MEDS: Leucovorin Calcium 680 MG in Dextrose 5 % 250 ML 142 MG IV (11:58)
[2022-04-14 14:00] VITALS: BP 132/80; PULSE 89; RESP 18; TEMP 36.1; O2SAT 98
[2022-04-14] MEDS: fluorouraciL 4,100 MG in 0.9 % Sodium Chloride 10 ML IV (14:21)
--- NOTE | 2022-04-14 15:24 | MHC.HEMONC ---
Pt here for C1 Folfox/MVasi. Port accessed with good blood return noted. Labs done 04/13 reviewed. Forest Ecologist in to review treatment today. All pts questions were answered. Pre-meds given as ordered. Pt tolerated MVasi well. At end of oxaliplatin infusion, pt states she is SOB. Forest Ecologist Ganesh in room. Pt states she feels SOB for a little while, and thought it was from her asthma, so she tried her inhaler. She did not ring out for nurse. She states inhaler helped a little, but still SOB. No cough. VSS. Dr Leyva notified and in to see pt. LS clear. Pt ok to go home, and understands to call if SOB gets worse at home. Departure packet given. Pt home with 5fu infusion pump. Hospital transportation van set up for pt to return on Tuesday for pump take down and for next treatment scheduled in 2 weeks.
--- NOTE | 2022-04-15 14:18 | MHC.HEMONC ---
Received call from pt's son stating he doesn't know what to do with the box his mother came home with yesterday as it has no directions Educated on home chemo pump and to return to department tomorrow when machine beeps that it is completed infusion. Son states pharmacy did not fill script for dexamethasone yesterday- states directions were unclear to pharmacist. Pharmacy called-dexamethasone administration instructions clarified with pharmacy. Son notified-plan to picker packer dexamethasone today and administer one tablet today and 2 tomorrow as directed-verbalizes understanding
--- NOTE | 2022-04-16 08:52 | HE.ONCSEC ---
PATIENT CAME IN EARLY (8:49 TO BE EXACT ) . PATIENT'S INJECTION APPT WAS FOR 12:00PM , I NOTIFIED ANDREAS OF THIS AND SHE TOLD ME IT WAS OK TO CHECK PATIENT IN .
[2022-04-16] MEDS: Heparin Sodium,Porcine Flush 500 UNIT/5 ML SYRINGE IVFLUSH (11:25)
--- NOTE | 2022-04-16 11:35 | MHC.HEMONC ---
Pt here for chemo pump take down. Port flushed with heparin and de accessed. Neulasta not given today per Dr Salvador-will monitor WBC with next cycle. Pt has calendar with next appointment scheduled
[2022-04-27 08:31] LABS: MANUAL DIFF FLAG NO
[2022-04-27 08:44] LABS: Appearance Urine Turbid; Color Urine Dark Yellow; Eosinophils Absolute Auto 0.1 X10*3/uL (0.0-0.4); Eosinophils Percent Auto 2.9 % (0-4); Glucose Urine UA Negative (Negative); Hematocrit 32.9 % (37.0-47.0); Hemoglobin 10.9 g/dl (12.0-16.0); Imm Gran Abs Auto 0.01 X10*3/uL (0.00-0.03); Imm Gran Pct Auto 0.2 % (0.0-0.4); Leukocyte Esterase Urine Small (1+) (Negative); Lymphocytes Absolute Auto 1.8 X10*3/uL (1.2-4.9); Lymphocytes Percent Auto 42.9 % (20-40); Mean Corpuscular HGB Conc 33.1 g/dl (31.0-35.0); Mean Corpuscular Hemoglobin 28.7 pg (27.0-33.0); Mean Corpuscular Volume 86.6 fL (80.0-98.0); Mean Platelet Volume 11.2 fL (9.4-12.3); Monocytes Absolute Auto 0.8 X10*3/uL (0.1-1.2); Monocytes Percent Auto 19.6 % (2-11); Neutrophils Absolute Auto 1.4 x10*3/uL (2.0-8.3); Neutrophils Percent Auto 33.4 % (45-73); Nitrite Urine Negative (Negative); PH 7.5 (5.0-9.0); Platelet Count 410 X10*3/uL (160-400); Red Cell Distribution Width 19.5 % (11.0-16.0); Specific Gravity - Urine 1.015 (1.005-1.025); UMIC TRIGGER UA YES; Urine Blood Negative (Negative); Urine Ketones Negative (Negative); Urine Protein 30 (1+) mg/dL (Neg-Trace); White Blood Count 4.1 X10*3/uL (4.8-10.8)
[2022-04-27 08:53] LABS: Bacteria Urine 4+ (None Seen); Squamous Epithelial Cell Urine >20 /HPF (0-2)
[2022-04-27 09:00] LABS: Alanine Aminotransferase 22 U/L (0-31); Albumin Level 3.1 g/dL (3.5-5.0); Alkaline Phosphatase 313 U/L (39-117); Anion Gap 15 (12-20); Aspartate Amino Transferase 58 U/L (5-31); Bilirubin Total 1.2 mg/dL (0.0-1.0); Blood Urea Nitrogen 7 mg/dL (9-16); Calcium 8.8 mg/dL (8.4-10.2); Carbon Dioxide 26 mmol/L (22-29); Chloride 103 mmol/L (96-108); Creatinine Clr Calc Pharmacy 86.4; Estimated Glomerular Filt Rate > 60; Glucose Random 87 mg/dL (60-115); Potassium 4.2 mmol/L (3.3-5.1); Sodium 140 mmol/L (135-145); Total Protein 6.6 g/dL (6.5-8.0)
[2022-04-28 08:35] VITALS: BP 156/80; PULSE 92; RESP 18; TEMP 36.4; O2SAT 98; BMI 25.3
[2022-04-28] MEDS: Alteplase Cath Clear 2 MG VIAL INTRACATH (09:58)
[2022-04-28] MEDS: ondansetron HCL 16 MG in 0.9 % Sodium Chloride 50 ML 232 MG IV (10:52)
[2022-04-28] MEDS: diphenhydrAMINE HCL 50 MG/ML VIAL 25 MG IVPUSH (10:53)
[2022-04-28] MEDS: dexAMETHasone sod phosphate 12 MG in 0.9 % Sodium Chloride 50 ML 212 MG IV (10:54)
[2022-04-28] MEDS: Acetaminophen 325 MG TABLET 650 MG PO (10:55)
[2022-04-28] MEDS: Fosaprepitant Dimeglumine 150 MG in 0.9 % Sodium Chloride 145 ML 300 MG IV (11:54)
[2022-04-28] MEDS: LEUCOVORIN CALCIUM IV (13:17)
[2022-04-28] MEDS: DEXTROSE 5% IV (13:17)
[2022-04-28] MEDS: OXALIplatin 100 MG, OXALIplatin 40 MG in Dextrose 5 % 500 ML 264 MG IV (13:24)
[2022-04-28] MEDS: fluorouraciL 650 MG in Syringe 0 ML IVPUSH (15:19)
[2022-04-28] MEDS: FLUOROURACIL IV (15:20)
[2022-04-28] MEDS: SODIUM CHLORIDE 0.9% IV (15:20)
--- NOTE | 2022-04-28 16:34 | MHC.HEMONC ---
C2: FOLFOX +MVASI. Labs/UA obtained day prior and reviewed. Patient reports feeling well after first cycle. Denies nausea/diarrhea. Port accessed without difficulty- flushes easily. Patient denies pain however no blood return. Dr. Leyva notified. TPA ordered and instilled. Approx after 30minutes -positive blood return. Pre-medicated with Tylenol 650mg PO, Zofran 16mg IV, Dexamethasone 12mg IV, Benadryl 25mg IV, and Emend. Chemo infusion well tolerated. No signs of reaction. Patient to return Tuesday for pump take down/Neulasta and exam with Dr. Salvador. Discharge packet provided.
[2022-04-30] MEDS: Heparin Sodium,Porcine Flush 500 UNIT/5 ML SYRINGE IVFLUSH (13:18)
--- NOTE | 2022-04-30 13:27 | MHC.HEMONC ---
Pt here for chemo pump take down-port flushed with heparin and de accessed. Neulasta injection given SC in left arm-tolerated well
[2022-04-30 13:39] VITALS: BP 130/84; PULSE 84; RESP 18; TEMP 36.4; O2SAT 97
--- NOTE | 2022-04-30 14:16 | P.PNHO-ONC_ITS ---
Medical Summary - Medical Summary Date of Service: 04/30/22 Chief complaint: FOLLOW-UP FOR: METASTATIC RECTAL CARCINOMA. Medical Summary: DIAGNOSIS: NEW LIVER LESIONS. Pathology from 01/27: Moderately differentiated adenocarcinoma consistent with metastases from colore ctal primary. CURRENT THERAPY: Started on modified FOLFOX and bevacizumab on 04/14. Day 15 on 04/28. Interval History Interval history: Kayden Angulo is a pleasant 56 year old lady, here for a follow-up visit. She tolerated the chemotherapy will for the most part. She noted a headache and some back pain. Sometimes she feels her hands are shaky. She gets pain in her right knee. However yesterday she was full of energy. She cleaned out the whole house. She has noticed that her bellyi is down in terms of the girth. It feels softer too. She has been under the care of GI. They have recommended low-fiber low residue diet. She tells me that since she came down with COVID, she has noticed some night sweats 2 to 3 times a week. She is unable to sleep those nights. Her energy level, is up. No fever nor chills. She gets headaches, occassional dizziness. She has no chest pain. Denies shortness of breath. She denies any abdominal pain, vomiting heartburn or indigestion. She denies nausea nor vomiting. Appetite is better, now, She is taking Ensure now. She denies diarrhea. Denies any gross blood in the stools. She actually has constipation. . She denies any dysuria or hematuria. She has arthritis and tendinitis. She has some back pain, and right knee pain. . She denies any focal weakness. She has depression. She has history of dermatitis but not active now. She uses Dove soap only. She had a colonoscopy on 04/[address] Olivarez: Transverse Colon - colonic mass occluding the lumen at hepatic flexure, unable to pass the scope, tried an upper GI scope but also unable to pass, bx taken. Positive for adenocarcinoma. MSI stable. PRESENTING HISTORY: She developed abdominal pain about six weeks ago. She mentions sharp pain in the upper abdomen radiating to both sides, back to front like a belt. Level was up to 7 on 1-10 scale. It was a sharp pain. It recurred with change of position. Not related to meals. She went to see her primary doctor who ordered an abdominal ultrasound. Ultrasound of the abdomen from 12/07 revealed: IMPRESSION: Enlarged liver and multiple predominately hyperechoic liver lesions. Appearance is suggestive of metastatic disease. Limited visualization of the pancreas. Otherwise unremarkable exam. FAMILY HISTORY: Paternal grandma had breast cancer. Maternal aunt had breast cancer. They both from it. 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 She is single. She has 3 children. She denies any history of smoking. She quit alcohol several years ago. Denies drugs. Review of Systems - Constitutional Reports system reviewed and no additional complaints, except as documented - Eyes Reports system reviewed and no additional complaints, except as documented - ENT Reports system reviewed and no additional complaints, except as documented - Cardiovascular Reports system reviewed and no additional complaints, except as documented - Respiratory Reports no additional respiratory complaints - Gastrointestinal Reports system reviewed and no additional complaints, except as documented - Genitourinary Reports no additional female genitourinary complaints - Musculoskeletal Reports system reviewed and no additional complaints, except as documented - Integumentary/Breasts Skin/Breast: Reports no additional skin complaints - Neurologic Reports system reviewed and no additional complaints, except as documented, Reports weakness - Psychiatric Reports system reviewed and no additional complaints, except as documented - Endocrine Reports no additional endocrine complaints - Hematologic/Lymphatic Reports system reviewed and no additional complaints, except as documented - Allergic/Immunologic Reports system reviewed and no additional complaints, except as documented PMFSH Medical History: Medical History (Last Reviewed 04/30/22 @ 14:09 by Jo Ann Sumner CMA) Asthma Asthma Colorectal cancer Depression HTN (hypertension) Liver metastases Metastatic colon cancer to liver Functional capacity: independent ambulation Patient : No Family History: Family History (Last Reviewed 04/30/22 @ 14:09 by Jo Ann Sumner CMA) Paternal Grandmother Breast cancer Maternal Aunt Breast cancer Surgical History: Surgical History (Last Reviewed 04/30/22 @ 14:09 by Jo Ann Sumner CMA) History of esophagogastroduodenoscopy (EGD) Hx of arthroscopy of right knee Hx of colonoscopy Hx of excision of mass Hx of right breast biopsy Hx of tubal ligation Social History: Social History (Last Reviewed 04/30/22 @ 14:09 by Jo Ann Sumner CMA) Living Situation History: Household Members: Children Housing: Apartment Are you a primary occasional caregiver to a significant other at home: No Do you presently have visiting nurse or other home services: No Alcohol History Details: 1. How often do you have a drink containing alcohol?: a. Never Tobacco History: Patient Tobacco Use Status: Never used Tobacco e-Cigarette/Vaping Use: Never Used Substance Use History: Use of substances other than those prescribed or required for medical reasons : No Domestic Abuse History: Have you been hit, kicked, punched, or otherwise hurt by someone within the past year? 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 Oncology Screenings - ECOG Performance Status ECOG Performance Status: 0 Home Medications and Allergies Current Medications: Current Medications Heparin Sodium (Porcine) (Heparin Sodium,Porcine Flush 500 Unit/5 Ml Syringe) 500 unit IVFLUSH ONCE SAUL Stop: 04/30/22 23:59 Last Admin: 04/30/22 13:18 Dose: 500 unit Dexamethasone Sodium Phosphate (12 mg/ Sodium Chloride) 53 mls @ 212 mls/hr IV ONCE SAUL Last Infusion: 04/28/22 11:09 Dose: Infused Home Medications Medication Instructions Recorded Confirmed Type losartan 50 mg tablet 1 tab PO DAILY 01/13/21 04/30/22 History omeprazole 20 mg capsule,delayed 20 mg PO DAILY 10/08/21 04/30/22 History release metoprolol succinate 50 mg 1 tab PO DAILY 12/17/21 04/30/22 History tablet,extended release 24 hr Allergies Allergy/AdvReac Type Severity Reaction Status Date / Time latex Allergy Intermediate Rash Verified 04/30/22 14:09 Exam Vital signs: Vital Signs Temp 97.6 F 04/30/22 13:39 Pulse 84 04/30/22 13:39 Resp 18 04/30/22 13:39 BP 130/84 04/30/22 13:39 Pulse Ox 97 04/30/22 13:39 O2 Del Method 04/30/22 13:39 Weight 60.8 kg BMI result Body Mass Index 25.3 - Constitutional Present: no acute distress - Routine HEENT Exam Head: Present: normal inspection Eye: Present: normal appearance ENT: Present: mucous membranes moist - Routine Neck Exam Present: full ROM - Routine Respiratory Exam Present: CTAB - Routine Cardiovascular Exam Cardiovascular: Present: RRR, S1, S2 - Routine Abdominal Exam Present: soft, nontender - Routine Rectal Exam Patient deferred: digital exam - Routine Extremities Exam Present: nontender - Routine Back/Spine/Pelvis Exam Back/Spine: Present: full ROM - Routine Skin Exam Present: intact - Routine Neurological Exam Present: alert, oriented X3, vision grossly intact - Detailed Neurological Exam: Coma Scale Eye Opening: Spontaneous (4) - Routine Psychiatric Exam Present: normal affect Data - Labs CBC & Chem 7: 04/27/22 08:23 04/27/22 08:23 Assessment and Plan Patient Active problem list reviewed?: Yes (1) Liver metastases Status: Inactive Assessment and plan: This is a pleasant 56-year-old lady who developed upper abdominal pain a couple of weeks ago. The pain has since subsided however ultrasound revealed: IMPRESSION: Enlarged liver and multiple predominately hyperechoic liver lesions. Appearance is suggestive of metastatic disease. Limited visualization of the pancreas. Otherwise unremarkable exam. No known primary has been noted. DIFFERENTIAL DIAGNOSIS: 1. A GI PRIMARY: COLON CARCINOMA: She has not had a screening colonoscopy done yet. 2. PANCREATIC CANCER: 3. BREAST CANCER: However recent mammogram was normal. 4. LUNG CANCER: Is in the differential however she does not smoke. , so less likely. 5. PRIMARY HEPATOMA: Would also be unlikely. Usually we find metastases, from another site into the liver and not primary. l checked baseline labs including tumor markers today:CEA 325, Ca 19/9 962, Ca 27.29: 18 . DATABASE: LABS FROM TODAY: CBC WBC 7.4, HGB 11.7, HCT 36.4, PLT 368. CMP: Lytes WNL, glucose:88, BUN 7, ALFALFA DEHYDRATOR OPERATOR 0.73. LFTs: 0.6/208/66/27. I proceeded with further evaluation. l initiated search for a primary: CT scans of the chest abdomen and pelvis, from 01/18: Bilateral pulmonary nodules. Bilateral axillary and left supraclavicular upper normal-size lymph nodes. 4 cm colon mass in the hepatic flexure. Enlarged adjacent lymph nodes metastatic disease to the liver and peritoneal disease. Bilateral pulmonary nodules also probably representing metastatic disease. l proceeded with an ultrasound guided biopsy of the liver lesions to further define the primary. Biopsy of the lesion in the right lobe of the liver on 01/27 revealed: Moderately differentiated adenocarcinoma consistent with metastatic colorectal cancer. Unfortunately, very little tumor was present, insufficient for ancillary testing. I referred her to GI for a colonoscopy. That way we can obtain more issues to proceed with ancillary testing, to decide about the best regimen to give her. She was seen by Dr. Jimenez, on 02/26. The colonoscopy was scheduled for 03/26/22. However she came down with COVID. The procedure was postponed pending medical clearance. The bone scan was ordered on account of ongoing back and rib pain. It was done on 03/26: Normal whole body bone scan. No evidence of osseous metastatic disease. CEA Level: 754, previously 863. She is feeling quite well. So far tolerating the chemotherapy well. She is symptomatically improved. Sign of early response. PLAN: She has started on FOLFOX plus bevacizumab, she received day 15 on 04/28. She is here for pump removal. Her white count was 4.1 this week. She was given Neulasta to prevent chemothe rapy-induced neutropenia. Will follow the tumor marker, after completion of this cycle. She will return in a couple of weeks for a follow-up. Will recheck imaging after she completes 3 cycles of chemo. All her questions were answered to her satisfaction. Thank you, Cc: Dr. Martines. Dr. Jimenez. - Time Spent With Patient Time Spent with Patient (in minutes): 30
--- NOTE | 2022-04-30 15:15 | MHC.HEMONCMA ---
Pt was in for follow up. Clinical summary reviewed and updated, VSS. Pt to return in few weeks.
--- NOTE | 2022-05-03 15:01 | MHC.HEMONC ---
Triage call: Patient called [facility] to report ongoing constipation stating that Miralax was causing more discomfort. Dr. Salvador notified. Order for Senna sent to pharmacy- patient instructed to take two Senna tonight before bedtime and if needed 1-2 tabs daily. Encouraged to increase PO fluids and notify our department if no relief. Patient verbalizes understanding.
[2022-05-12 08:32] LABS: Hematocrit 40.4 % (37.0-47.0); Hemoglobin 13.2 g/dl (12.0-16.0); Mean Corpuscular HGB Conc 32.7 g/dl (31.0-35.0); Mean Corpuscular Hemoglobin 28.8 pg (27.0-33.0); Mean Corpuscular Volume 88.2 fL (80.0-98.0); Mean Platelet Volume 11.5 fL (9.4-12.3); NRBC Pct Auto 0.4 /100WBC (0.0-0.2); Platelet Count 166 X10*3/uL (160-400); Red Blood Count 4.58 X10*6/uL (4.20-5.50); Red Cell Distribution Width 21.2 % (11.0-16.0); White Blood Count 18.7 X10*3/uL (4.8-10.8)
[2022-05-12 08:49] VITALS: BP 144/86; PULSE 78; RESP 12; TEMP 36.3; O2SAT 100; BMI 24.5
[2022-05-12 08:51] LABS: Appearance Urine Clear; Color Urine Yellow; Glucose Urine UA Negative (Negative); Leukocyte Esterase Urine Trace (Negative); Nitrite Urine Negative (Negative); PH 8.5 (5.0-9.0); Specific Gravity - Urine 1.015 (1.005-1.025); UMIC TRIGGER UA YES; Urine Blood Negative (Negative); Urine Ketones Negative (Negative); Urine Protein Negative (Neg-Trace)
[2022-05-12 08:52] LABS: Alanine Aminotransferase 39 U/L (0-31); Albumin Level 3.6 g/dL (3.5-5.0); Alkaline Phosphatase 294 U/L (39-117); Anion Gap 15 (12-20); Aspartate Amino Transferase 45 U/L (5-31); Bilirubin Total 0.7 mg/dL (0.0-1.0); Blood Urea Nitrogen 15 mg/dL (9-16); Carbon Dioxide 23 mmol/L (22-29); Chloride 104 mmol/L (96-108); Creatinine Clr Calc Pharmacy 70.3; Estimated Glomerular Filt Rate > 60; Glucose Random 111 mg/dL (60-115); Potassium 4.2 mmol/L (3.3-5.1); Sodium 138 mmol/L (135-145); Total Protein 6.6 g/dL (6.5-8.0)
[2022-05-12 09:02] LABS: Band Neutrophils Percent 1 % (3-5); Lymphocytes Absolute Manual 5.8 X10*3/uL (1.2-4.9); Lymphocytes Percent Manual 31 % (20-40); Metamyelocytes Absolute 0.6 X10*3/uL; Metamyelocytes Percent 3 %; Monocytes Absolute Manual 1.5 X10*3/uL (0.1-1.2); Monocytes Percent Manual 8 % (2-11); Neutrophils Absolute Manual 10.8 X10*3/uL (2.0-8.3); Neutrophils Percent Manual 57 % (45-73)
[2022-05-12 09:03] LABS: Platelet Estimate NORMAL (NORMAL); Platelet Morphology Comment NORMAL; RBC Morphology NOTED
[2022-05-12 09:08] LABS: Bacteria Urine 1+ (None Seen); Hyaline Casts Urine 0-2 /LPF (0-2); RBC Urine 0-2 /HPF (0-2)
[2022-05-12] MEDS: ondansetron HCL 16 MG in 0.9 % Sodium Chloride 50 ML 200 MG IV (09:34)
[2022-05-12] MEDS: diphenhydrAMINE HCL 50 MG/ML VIAL 25 MG IVPUSH (09:34)
[2022-05-12] MEDS: dexAMETHasone sod phosphate 12 MG in 0.9 % Sodium Chloride 50 ML 212 MG IV (09:34)
[2022-05-12] MEDS: Acetaminophen 325 MG TABLET 650 MG PO (09:35)
[2022-05-12] MEDS: Fosaprepitant Dimeglumine 150 MG in 0.9 % Sodium Chloride 145 ML 300 MG IV (10:45)
[2022-05-12 11:26] VITALS: BP 132/74; PULSE 77; RESP 18; TEMP 36.8; O2SAT 98
[2022-05-12] MEDS: DEXTROSE 5% IV (12:15)
[2022-05-12] MEDS: LEUCOVORIN CALCIUM IV (12:15)
[2022-05-12] MEDS: OXALIplatin 100 MG, OXALIplatin 40 MG in Dextrose 5 % 500 ML 264 MG IV (12:16)
[2022-05-12] MEDS: fluorouraciL 650 MG in Syringe 0 ML 600 MG IVPUSH (14:34)
[2022-05-12] MEDS: FLUOROURACIL IV (14:35)
[2022-05-12] MEDS: SODIUM CHLORIDE 0.9% IV (14:35)
--- NOTE | 2022-05-12 15:17 | MHC.HEMONC ---
Here for C3 Mvasi/Folfox. Lab draw done. Port accessed with good blood return noted. Amada CAVAZOS in room to interpret. Pt does c/o some fatigue. She also has some discoloration to her first 2 fingers on the right hand. Skin is intact, and she states she is using lotion. No other complaints offered. Lab results reviewed. Premeds given as ordered. Treatment done and tolerated well. Departure packet given with calendar for next appointment. Home with infusion pump.
--- NOTE | 2022-05-13 08:51 | HE.ONCSEC ---
PATIENT CALLED TRIAGE THIS MORNING , ANDREAS TRANSFERRED THE CALL TO ME . I HAD DIFFICULTY TRYING TO TRANSLATE SOME THINGS THE PATIENT WAS SAYING SO WITH THE HELP OF HERNESTO THE ELASTIC YARN TWISTER , SHE TRANSLATED THAT THE PATIENT WAS SAYING WHEN SHE GOT HOME FROM [facility] SHE REALIZED AND NOTICED THAT THE LEFT SIDE OF HER FACE WAS HIGHER THEN THE OTHER AND SHE FEELS LIKE SHE IS GETTING PARALYSIS . SHE ALSO STATED HOW SHE HAS BEEN SWEATING ALOT RECENTLY AND EVEN HAD TO CHANGE HER BED SHEETS 3-4 TIMES. I INFORMED ANDREAS OF THIS .
--- NOTE | 2022-05-13 10:13 | MHC.HEMONC ---
Triage call-pt states she noticed that the left side of her face is higher than her right side of her face-states feels like she is getting paralysis States she's been sweating a lot in the past week and needs to change bed linen a few times. Dr Salvador notified. Pt called with assist of [employer] bridge leverman-Pt instructed to go to the ED to r/o stroke-verbalizes understanding to information given. States she does not have a ride but will call an ambulance
[2022-05-14] MEDS: Heparin Sodium,Porcine Flush 500 UNIT/5 ML SYRINGE IVFLUSH (13:18)
--- NOTE | 2022-05-14 16:06 | MHC.HEMONC ---
Here for pump take down. Is feeling good today. She states the left side of her face was swollen yesterday, but today is fine. She was evaluated in the ED and discharged home. Confirmed that 5fu infusion is complete. Port flushed with heparin 500units and de-accessed. No neulasta given per Dr Salvador. Pt scheduled for labs on 05/18 and Dai Renee will work on getting lyft for pt as hospital transportation is booked.
[2022-05-18 10:51] LABS: MANUAL DIFF FLAG NO
[2022-05-18 10:55] LABS: Basophils Percent Auto 0.1 % (0-2); Hematocrit 40.5 % (37.0-47.0); Hemoglobin 13.5 g/dl (12.0-16.0); Imm Gran Abs Auto 0.07 X10*3/uL (0.00-0.03); Imm Gran Pct Auto 0.7 % (0.0-0.4); Lymphocytes Absolute Auto 1.4 X10*3/uL (1.2-4.9); Lymphocytes Percent Auto 13.2 % (20-40); Mean Corpuscular HGB Conc 33.3 g/dl (31.0-35.0); Mean Corpuscular Volume 87.1 fL (80.0-98.0); Mean Platelet Volume 10.2 fL (9.4-12.3); Monocytes Absolute Auto 0.2 X10*3/uL (0.1-1.2); Monocytes Percent Auto 1.4 % (2-11); NRBC Pct Auto 0.5 /100WBC (0.0-0.2); Neutrophils Absolute Auto 9.1 x10*3/uL (2.0-8.3); Neutrophils Percent Auto 84.6 % (45-73); Platelet Count 165 X10*3/uL (160-400); Red Blood Count 4.65 X10*6/uL (4.20-5.50); Red Cell Distribution Width 19.9 % (11.0-16.0); White Blood Count 10.7 X10*3/uL (4.8-10.8)
[2022-05-18 11:31] LABS: Alanine Aminotransferase 37 U/L (0-31); Albumin Level 3.9 g/dL (3.5-5.0); Alkaline Phosphatase 226 U/L (39-117); Anion Gap 16 (12-20); Aspartate Amino Transferase 25 U/L (5-31); Blood Urea Nitrogen 22 mg/dL (9-16); Calcium 9.3 mg/dL (8.4-10.2); Carbon Dioxide 21 mmol/L (22-29); Chloride 97 mmol/L (96-108); Creatinine Clr Calc Pharmacy 61.6; Estimated Glomerular Filt Rate > 60; Glucose Random 454 mg/dL (60-115); Potassium 4.4 mmol/L (3.3-5.1); Sodium 130 mmol/L (135-145); Total Protein 6.8 g/dL (6.5-8.0)
--- NOTE | 2022-05-18 11:43 | MHC.HEMONC ---
Nurse took call from lab, pt has critical high glucose of 454. Nurse informed Dr. Salvador. Nurse called pt at home, informed her, she stated she had eaten breakfast before test, nurse asked if she takes PO metformin BID, but she could not confirm, but she did confirm that she can check her blood sugar at home, will check it now. Pt is asymptomatic.
[2022-05-26 08:48] LABS: Alanine Aminotransferase 39 U/L (0-31); Albumin Level 3.2 g/dL (3.5-5.0); Alkaline Phosphatase 208 U/L (39-117); Anion Gap 13 (12-20); Aspartate Amino Transferase 48 U/L (5-31); Bilirubin Total 0.6 mg/dL (0.0-1.0); Blood Urea Nitrogen 15 mg/dL (9-16); Calcium 8.3 mg/dL (8.4-10.2); Carbon Dioxide 23 mmol/L (22-29); Chloride 105 mmol/L (96-108); Creatinine Clr Calc Pharmacy 72.3; Estimated Glomerular Filt Rate > 60; Glucose Random 142 mg/dL (60-115); Potassium 4.6 mmol/L (3.3-5.1); Sodium 136 mmol/L (135-145); Total Protein 5.7 g/dL (6.5-8.0)
[2022-05-26 08:51] LABS: Basophils Percent Auto 0.3 % (0-2); Eosinophils Percent Auto 0.8 % (0-4); Hematocrit 38.2 % (37.0-47.0); Hemoglobin 12.6 g/dl (12.0-16.0); Imm Gran Abs Auto 0.01 X10*3/uL (0.00-0.03); Imm Gran Pct Auto 0.3 % (0.0-0.4); Lymphocytes Absolute Auto 2.4 X10*3/uL (1.2-4.9); Lymphocytes Percent Auto 62.2 % (20-40); MANUAL DIFF FLAG SCAN; Mean Corpuscular Hemoglobin 29.3 pg (27.0-33.0); Mean Corpuscular Volume 88.8 fL (80.0-98.0); Mean Platelet Volume 10.2 fL (9.4-12.3); Monocytes Absolute Auto 0.8 X10*3/uL (0.1-1.2); Monocytes Percent Auto 20.4 % (2-11); Neutrophils Absolute Auto 0.6 x10*3/uL (2.0-8.3); Platelet Count 134 X10*3/uL (160-400); Red Cell Distribution Width 20.2 % (11.0-16.0); SCAN SMEAR FLAG 1; White Blood Count 3.9 X10*3/uL (4.8-10.8)
[2022-05-26 08:54] VITALS: BP 110/72; PULSE 100; RESP 18; TEMP 36.6; O2SAT 98
[2022-05-26 08:55] VITALS: BMI 24.5
[2022-05-26 08:56] LABS: Appearance Urine Clear; Color Urine Yellow; Glucose Urine UA Negative (Negative); Leukocyte Esterase Urine Small (1+) (Negative); Nitrite Urine Negative (Negative); UMIC TRIGGER UA YES; Urine Blood Negative (Negative); Urine Ketones Negative (Negative); Urine Protein Negative (Neg-Trace)
[2022-05-26 09:08] LABS: Bacteria Urine Trace (None Seen); Hyaline Casts Urine 0-2 /LPF (0-2); RBC Urine 0-2 /HPF (0-2); WBC Urine 0-5 /HPF (0-5)
[2022-05-26 09:23] LABS: SLIDE REVIEW VERIFIED
--- NOTE | 2022-05-26 12:00 | MHC.HEMONC ---
treatment held today for anc 0.6. pre pharmacist anc needs be to >1.5 for oxplatin. rescheduled for 05/31. she will still come on tuesday for follow up with dr virk. pt reports she has been taking dexamethasone everyday and now needs refill. pt was told multiple time with electronic assembly and son, who speaks citizen of [place], how to take this medication. explained again and the harmful effects if continues to take dex everyday. pt also concerned with skin color changes, black finger tips. explained this is a side effect of the chemo and will be addresses with dr virk.
[2022-05-28 13:15] VITALS: BP 125/69; PULSE 82; RESP 16; TEMP 36.1; O2SAT 98; BMI 25.4
--- NOTE | 2022-05-28 13:30 | PM.HEMONCPN ---
Medical Summary - Medical Summary Date of Service: 05/28/22 Chief complaint: For: Rectal carcinoma. Primary Care Provider: Corine Martines MD Medical Summary: DIAGNOSIS: NEW LIVER LESIONS. 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 CURRENT THERAPY: Started on modified FOLFOX and bevacizumab on 04/14. Day 15 on 04/28. Cycle 2 on 05/12. Day 14 on 06/01. Interval History Interval history: Kayden Angulo is a pleasant 57 year old lady, here for a follow-up visit. She tolerated the chemotherapy very well. However her last chemotherapy had to be held on account of neutropenia. She has had occassional nose bleeds. Her energy is fluctuating. Apetite is good. She has changed her diet. Taking more fiber. She gets dizzy at times. She gets pain in her right knee. Legs are not that strong. She has noticed that her belly is down in terms of the girth. It feels softer. She has been eating more now. She has been under the care of GI. No fever nor chills. She gets headaches. She has no chest pain. Denies shortness of breath. She denies any abdominal pain, vomiting heartburn or indigestion. She denies nausea nor vomiting. She denies diarrhea. Denies any gross blood in the stools. She actually has constipation. . She denies any dysuria or hematuria. She has arthritis and tendinitis. She has some back pain, and right knee pain. She denies any focal weakness. She has depression. Skin of her fingers is darkening. She has history of dermatitis but not active now. She uses Dove soap only. She had a colonoscopy on 04/[address] Olivarez: Transverse Colon - colonic mass occluding the lumen at hepatic flexure, unable to pass the scope, tried an upper GI scope but also unable to pass, bx taken. Positive for adenocarcinoma. MSI stable. PRESENTING HISTORY: She developed abdominal pain about six weeks ago. She mentions sharp pain in the upper abdomen radiating to both sides, back to front like a belt. Level was up to 7 on 1-10 scale. It was a sharp pain. It recurred with change of position. Not related to meals. She went to see her primary doctor who ordered an abdominal ultrasound. Ultrasound of the abdomen from 12/07 revealed: IMPRESSION: Enlarged liver and multiple predominately hyperechoic liver lesions. Appearance is suggestive of metastatic disease. Limited visualization of the pancreas. Otherwise unremarkable exam. FAMILY HISTORY: Paternal grandma had breast cancer. Maternal aunt had breast cancer. They both from it. 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 She is single. She has 3 children. She denies any history of smoking. She quit alcohol several years ago. Denies drugs. Review of Systems - Constitutional Reports no additional constitutional complaints - Eyes Reports no additional eye complaints - ENT Reports no additional ear, nose, mouth, and throat complaints - Cardiovascular Reports no additional cardiovascular complaints - Respiratory Reports no additional respiratory complaints - Gastrointestinal Reports no additional gastrointestinal complaints - Genitourinary Reports no additional female genitourinary complaints - Musculoskeletal Reports no additional musculoskeletal complaints - Integumentary/Breasts Skin/Breast: Reports no additional skin complaints - Neurologic Reports no additional neurologic complaints, Reports weakness - Psychiatric Reports no additional psychiatric complaints - Endocrine Reports no additional endocrine complaints - Hematologic/Lymphatic Reports no additional hematologic/lymphatic complaints - Allergic/Immunologic Reports no additional allergic/immunologic complaints [facility] Medical History: Medical History (Last Reviewed 05/13/22 @ 14:58 by Damion Marquis MD) Asthma Asthma Colorectal cancer Depression HTN (hypertension) Liver metastases Metastatic colon cancer to liver Functional capacity: independent ambulation Family History: Family History (Last Reviewed 05/13/22 @ 14:58 by Damion Marquis MD) Paternal Grandmother Breast cancer Maternal Aunt Breast cancer Surgical History: Surgical History (Last Reviewed 05/13/22 @ 14:58 by Damion Marquis MD) History of esophagogastroduodenoscopy (EGD) Hx of arthroscopy of right knee Hx of colonoscopy Hx of excision of mass Hx of right breast biopsy Hx of tubal ligation Social History: Social History (Last Reviewed 05/13/22 @ 14:58 by Damion Marquis MD) Living Situation History: Household Members: Children Housing: Apartment Are you a primary patient care coordinator to a significant other at home: No Do you presently have visiting nurse or other home services: No Alcohol History Details: 1. How often do you have a drink containing alcohol?: a. Never Tobacco History: Patient Tobacco Use Status: Never used Tobacco e-Cigarette/Vaping Use: Never Used Substance Use History: Use of substances other than those prescribed or required for medical reasons: No Domestic Abuse History: Have you been hit, kicked, punched, or otherwise hurt by someone within the past year? 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 Home Medications and Allergies Current Medications: Current Medications Heparin Sodium (Porcine) (Heparin Sodium,Porcine Flush 500 Unit/5 Ml Syringe) 500 unit IVFLUSH ONCE SAUL Stop: 05/28/22 23:59 Dexamethasone Sodium Phosphate (12 mg/ Sodium Chloride) 53 mls @ 212 mls/hr IV ONCE SAUL Last Infusion: 04/28/22 11:09 Dose: Infused Home Medications Medication Instructions Recorded Confirmed Type losartan 50 mg tablet 1 tab PO DAILY 01/13/21 04/30/22 History omeprazole 20 mg capsule,delayed 20 mg PO DAILY 10/08/21 04/30/22 History release metoprolol succinate 50 mg 1 tab PO DAILY 12/17/21 04/30/22 History tablet,extended release 24 hr Allergies Allergy/AdvReac Type Severity Reaction Status Date / Time latex Allergy Intermediate Rash Verified 04/30/22 14:09 Exam Vital signs: Vital Signs Temp 97.0 F 05/28/22 13:15 Pulse 82 05/28/22 13:15 Resp 16 05/28/22 13:15 BP 125/69 05/28/22 13:15 Pulse Ox 98 05/28/22 13:15 O2 Del Method 05/28/22 13:15 Intake & Output 05/27/22 05/28/22 05/28/22 18:59 06:59 18:59 Other: Weight 61 kg [place] Weight in Grams 54539 Weight 61 kg BMI result Body Mass Index 25.4 - Constitutional Present: no acute distress - Routine HEENT Exam Head: Present: normal inspection Eye: Present: normal appearance ENT: Present: mucous membranes moist - Routine Neck Exam Present: full ROM - Routine Respiratory Exam Present: CTAB - Routine Cardiovascular Exam Cardiovascular: Present: RRR, S1, S2 - Routine Abdominal Exam Present: soft, nontender - Routine Rectal Exam Patient deferred: digital exam - Routine Extremities Exam Present: nontender - Routine Back/Spine/Pelvis Exam Back/Spine: Present: full ROM - Routine Skin Exam Present: intact - Routine Neurological Exam Present: alert, oriented X3, vision grossly intact - Detailed Neurological Exam: Coma Scale Eye Opening: Spontaneous (4) - Routine Psychiatric Exam Present: normal affect Data - Labs CBC & Chem 7: 05/26/22 08:23 05/26/22 08:23 Assessment and Plan Patient Active problem list reviewed?: Yes (1) Liver metastases Status: Inactive Assessment and plan: This is a pleasant 56-year-old lady who developed upper abdominal pain a couple of weeks ago. The pain has since subsided however ultrasound revealed: IMPRESSION: Enlarged liver and multiple predominately hyperechoic liver lesions. Appearance is suggestive of metastatic disease. Limited visualization of the pancreas. Otherwise unremarkable exam. No known primary has been noted. DIFFERENTIAL DIAGNOSIS: 1. A GI PRIMARY: COLON CARCINOMA: She has not had a screening colonoscopy done yet. 2. PANCREATIC CANCER: 3. BREAST CANCER: However recent mammogram was normal. 4. LUNG CANCER: Is in the differential however she does not smoke. , so less likely. 5. PRIMARY HEPATOMA: Would also be unlikely. Usually we find metastases, from another site into the liver and not primary. l checked baseline labs including tumor markers today:CEA 325, Ca 19/9 962, Ca 27.29: 18 . DATABASE: LABS FROM TODAY: CBC WBC 7.4, HGB 11.7, HCT 36.4, PLT 368. CMP: Lytes WNL, glucose:88, BUN 7, MIXING MACHINE TENDER CORK ROD 0.73. LFTs: 0.6/208/66/27. I proceeded with further evaluation. l initiated search for a primary: CT scans of the chest abdomen and pelvis, from 01/18: Bilateral pulmonary nodules. Bilateral axillary and left supraclavicular upper normal-size lymph nodes. 4 cm colon mass in the hepatic flexure. Enlarged adjacent lymph nodes metastatic disease to the liver and peritoneal disease. Bilateral pulmonary nodules also probably representing metastatic disease. l proceeded with an ultrasound guided biopsy of the liver lesions to further define the primary. Biopsy of the lesion in the right lobe of the liver on 01/27 revealed: Moderately differentiated adenocarcinoma consistent with metastatic colorectal cancer. Unfortunately, very little tumor was present, insufficient for ancillary testing. I referred her to GI for a colonoscopy. That way we can obtain more issues to proceed with ancillary testing, to decide about the best regimen to give her. She was seen by Dr. Jimenez, on 02/26. The colonoscopy was scheduled for 03/26/22. However she came down with COVID. The procedure was postponed pending medical clearance. The bone scan was ordered on account of ongoing back and rib pain. It was done on 03/26: Normal whole body bone scan. No evidence of osseous metastatic disease. CEA Level: 754, previously 863. She is feeling very well. She is symptomatically improved. Sign of early response. So far tolerating the chemotherapy well. She started FOLFOX plus bevacizumab, on 04/14. She received day 15 on 04/28. Cycle 2 on 05/12. D 14 had to be postponed till 06/01, on account of neutropenia. PLAN: She will recieve Neulasta, on 06/03 to prevent chemotherapy-induced neutropenia. Will follow the tumor marker, after completion of this cycle. She will return in a couple of weeks for a follow-up. Will recheck imaging after she completes 3 cycles of chemo. All her questions were answered to her satisfaction. Thank you, Cc: Dr. Martines. Dr. Jimenez. - Time Spent With Patient Time Spent with Patient (in minutes): 26
--- NOTE | 2022-05-28 16:13 | MHC.HEMONC ---
Addendum entered by Ivone Rogers RN 05/28/22 16:29: Refill request for Dexamethasone given to Dr. Salvador. Original Note: Exam with Dr. Salvador- [facility] present. VSS. Patient reports feeling well. Patient to return Tuesday for chemotherapy.
[2022-05-31 09:12] LABS: Basophils Percent Auto 0.8 % (0-2); Eosinophils Absolute Auto 0.1 X10*3/uL (0.0-0.4); Eosinophils Percent Auto 1.9 % (0-4); Hematocrit 36.5 % (37.0-47.0); Imm Gran Abs Auto 0.12 X10*3/uL (0.00-0.03); Imm Gran Pct Auto 2.5 % (0.0-0.4); Lymphocytes Absolute Auto 2.8 X10*3/uL (1.2-4.9); Lymphocytes Percent Auto 58.6 % (20-40); MANUAL DIFF FLAG SCAN; Mean Corpuscular HGB Conc 32.9 g/dl (31.0-35.0); Mean Corpuscular Hemoglobin 29.3 pg (27.0-33.0); Mean Platelet Volume 9.9 fL (9.4-12.3); Monocytes Absolute Auto 1.1 X10*3/uL (0.1-1.2); Monocytes Percent Auto 22.3 % (2-11); Neutrophils Absolute Auto 0.7 x10*3/uL (2.0-8.3); Neutrophils Percent Auto 13.9 % (45-73); Platelet Count 282 X10*3/uL (160-400); Red Cell Distribution Width 20.8 % (11.0-16.0); SCAN SMEAR FLAG 1; White Blood Count 4.9 X10*3/uL (4.8-10.8)
[2022-05-31 09:14] LABS: Appearance Urine Clear; Color Urine Yellow; Glucose Urine UA Negative (Negative); Leukocyte Esterase Urine Trace (Negative); Nitrite Urine Negative (Negative); UMIC TRIGGER UA YES; Urine Blood Negative (Negative); Urine Ketones Negative (Negative); Urine Protein Negative (Neg-Trace)
[2022-05-31 09:16] LABS: Bacteria Urine Trace (None Seen); Hyaline Casts Urine 0-2 /LPF (0-2); RBC Urine 0-2 /HPF (0-2); Squamous Epithelial Cell Urine 0-2 /HPF (0-2); WBC Urine 0-5 /HPF (0-5)
[2022-05-31 09:28] LABS: Alanine Aminotransferase 39 U/L (0-31); Albumin Level 3.1 g/dL (3.5-5.0); Alkaline Phosphatase 226 U/L (39-117); Anion Gap 13 (12-20); Aspartate Amino Transferase 49 U/L (5-31); Bilirubin Total 0.5 mg/dL (0.0-1.0); Blood Urea Nitrogen 9 mg/dL (9-16); Calcium 8.4 mg/dL (8.4-10.2); Carbon Dioxide 21 mmol/L (22-29); Chloride 109 mmol/L (96-108); Creatinine Clr Calc Pharmacy 74.6; Estimated Glomerular Filt Rate > 60; Glucose Random 139 mg/dL (60-115); Sodium 139 mmol/L (135-145); Total Protein 5.6 g/dL (6.5-8.0)
[2022-05-31 09:37] VITALS: BP 125/71; PULSE 102; TEMP 36.8; O2SAT 98
[2022-05-31 09:38] VITALS: BMI 25.4
[2022-05-31 09:47] LABS: SLIDE REVIEW VERIFIED
[2022-05-31] MEDS: diphenhydrAMINE HCL 50 MG/ML VIAL 25 MG IVPUSH (10:03)
[2022-05-31] MEDS: dexAMETHasone sod phosphate/NS 12 MG/50 ML PIGGYBACK 200 MG IV (10:03)
[2022-05-31] MEDS: Acetaminophen 325 MG TABLET 650 MG PO (10:03)
--- NOTE | 2022-05-31 10:24 | HE.PHANOTE ---
CHEMO- 05/31/22 PATIENTS ANC 0.7 TODAY. LAST WEEK PATIENT WAS NOT TREATED DUE TO LOW ANC. SPOKE WITH DR. MAYO AND STILL WANTS TO TREAT AND WILL GIVE NEULASTA AT THE END OF TREATMENT. ALSO WANTS TO GIVE 100% OF DOSES.
[2022-05-31] MEDS: Leucovorin Calcium 640 MG in Dextrose 5 % 250 ML 141 MG IV (11:53)
[2022-05-31] MEDS: OXALIplatin 100 MG, OXALIplatin 40 MG in Dextrose 5 % 500 ML 264 MG IV (12:00)
--- NOTE | 2022-05-31 13:03 | MHC.HEMONC ---
Here for c4 mvasi/folfox. Port accessed and good blood return obtained. Labs drawn and reviewed by Dr Salvador. OK to proceed today despite low ANC, will give neulasta at pump takedown appt. Premeds and chemo tolerated well. Complains of fatigue at times and discolortion in fingers. Dexamethasone instructions reviewed and written on calendar. She is aware of next appt. Discharge packet provided.
[2022-05-31] MEDS: fluorouraciL 650 MG in Syringe 0 ML 13 MG IVPUSH (14:08)
[2022-06-02] MEDS: Heparin Sodium,Porcine Flush 500 UNIT/5 ML SYRINGE IVFLUSH (13:40)
--- NOTE | 2022-06-02 13:51 | MHC.HEMONC ---
chemo pump d/c bag volume 0. port flushed with heparin. nuelasta given in r upper arm. pt confirms tonight will be the last night of taking dexamethasone
[2022-06-14 08:15] VITALS: BP 145/81; PULSE 88; RESP 18; TEMP 36.2; O2SAT 100; BMI 26.7
[2022-06-14 08:49] LABS: MANUAL DIFF FLAG NO
[2022-06-14 08:55] LABS: Basophils Absolute Auto 0.1 X10*3/uL (0.0-0.2); Basophils Percent Auto 0.6 % (0-2); Eosinophils Percent Auto 0.2 % (0-4); Hematocrit 37.9 % (37.0-47.0); Hemoglobin 12.3 g/dl (12.0-16.0); Imm Gran Abs Auto 0.48 X10*3/uL (0.00-0.03); Imm Gran Pct Auto 3.9 % (0.0-0.4); Lymphocytes Absolute Auto 4.1 X10*3/uL (1.2-4.9); Lymphocytes Percent Auto 33.4 % (20-40); Mean Corpuscular HGB Conc 32.5 g/dl (31.0-35.0); Mean Corpuscular Hemoglobin 29.6 pg (27.0-33.0); Mean Corpuscular Volume 91.3 fL (80.0-98.0); Mean Platelet Volume 12.6 fL (9.4-12.3); Monocytes Absolute Auto 1.5 X10*3/uL (0.1-1.2); Monocytes Percent Auto 11.8 % (2-11); Neutrophils Absolute Auto 6.2 x10*3/uL (2.0-8.3); Neutrophils Percent Auto 50.1 % (45-73); Platelet Count 156 X10*3/uL (160-400); Red Blood Count 4.15 X10*6/uL (4.20-5.50); Red Cell Distribution Width 21.2 % (11.0-16.0); White Blood Count 12.3 X10*3/uL (4.8-10.8)
[2022-06-14 08:56] LABS: NRBC Pct Auto 1.1 /100WBC (0.0-0.2)
[2022-06-14 08:59] LABS: Appearance Urine Clear; Color Urine Yellow; Glucose Urine UA Negative (Negative); Leukocyte Esterase Urine Small (1+) (Negative); Nitrite Urine Negative (Negative); PH 5.5 (5.0-9.0); UMIC TRIGGER UA YES; Urine Blood Negative (Negative); Urine Ketones Trace mg/dL (Negative); Urine Protein 30 (1+) mg/dL (Neg-Trace)
[2022-06-14 09:07] LABS: Alanine Aminotransferase 26 U/L (0-31); Albumin Level 3.1 g/dL (3.5-5.0); Alkaline Phosphatase 222 U/L (39-117); Anion Gap 16 (12-20); Aspartate Amino Transferase 49 U/L (5-31); Bilirubin Total 0.4 mg/dL (0.0-1.0); Blood Urea Nitrogen 14 mg/dL (9-16); Calcium 8.7 mg/dL (8.4-10.2); Carbon Dioxide 20 mmol/L (22-29); Chloride 109 mmol/L (96-108); Creatinine Clr Calc Pharmacy 75.3; Estimated Glomerular Filt Rate > 60; Glucose Random 97 mg/dL (60-115); Sodium 141 mmol/L (135-145); Total Protein 5.7 g/dL (6.5-8.0)
[2022-06-14 09:08] LABS: Bacteria Urine None Seen (None Seen); Hyaline Casts Urine 0-2 /LPF (0-2); RBC Urine 0-2 /HPF (0-2)
--- NOTE | 2022-06-14 09:24 | PM.HEMONCPN ---
Medical Summary - Medical Summary Date of Service: 06/14/22 Chief complaint: Follow-up for: Rectal carcinoma. Primary Care Provider: Corine Martines MD Medical Summary: DIAGNOSIS: NEW LIVER LESIONS. 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 CURRENT THERAPY: Started on modified FOLFOX and bevacizumab on 04/14. Day 15 on 04/28. Cycle 2 on 05/12. Day 14 on 06/01. Cycle 3 day 1 today. Interval History Interval history: Kayden Angulo is a pleasant 57 year old lady, here for a follow-up visit. She is here for cycle 3 day 1. Yesterday she noted pain in her left flank, it was not severe was more of a boring nature. Today she noted pain in her right upper quadrant area that radiated to the right flank. She has noted some bloating after eating. She has had occassional nose bleeds. Her skin of the hands is turning dark, she is otherwise tolerated the chemotherapy very well. Her energy goes up and down. Legs are not that strong. Apetite is good. She has been eating more now. She has changed her diet. Has been taking more fiber. She gets dizzy at times. No fever nor chills. She gets headaches. She has no chest pain. Denies shortness of breath. She has noticed that her belly is down in terms of the girth. It feels softer. She has been under the care of GI. She denies any abdominal pain, vomiting heartburn or indigestion. She does feel bloated. She denies nausea nor vomiting. She denies diarrhea. Denies any gross blood in the stools. She actually has constipation. . She denies any dysuria or hematuria. She has arthritis and tendinitis. She has some back pain, and right knee pain. She gets pain in her right knee. She denies any focal weakness. She has depression. Skin of her fingers is darkening. She has history of dermatitis but not active now. She uses Dove soap only. PRESENTING HISTORY: She developed abdominal pain about six weeks ago. She mentions sharp pain in the upper abdomen radiating to both sides, back to front like a belt. Level was up to 7 on 1-10 scale. It was a sharp pain. It recurred with change of position. Not related to meals. She went to see her primary doctor who ordered an abdominal ultrasound. Ultrasound of the abdomen from 12/07 revealed: IMPRESSION: Enlarged liver and multiple predominately hyperechoic liver lesions. Appearance is suggestive of metastatic disease. Limited visualization of the pancreas. Otherwise unremarkable exam. She had a colonoscopy on 04/[address] Olivarez: Transverse Colon - colonic mass occluding the lumen at hepatic flexure, unable to pass the scope, tried an upper GI scope but also unable to pass, bx taken. Positive for adenocarcinoma. MSI stable. FAMILY HISTORY: Paternal grandma had breast cancer. Maternal aunt had breast cancer. They both from it. 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 She is single. She has 3 children. She denies any history of smoking. She quit alcohol several years ago. Denies drugs. Review of Systems - Constitutional Reports no additional constitutional complaints - Eyes Reports no additional eye complaints - ENT Reports no additional ear, nose, mouth, and throat complaints - Cardiovascular Reports no additional cardiovascular complaints - Respiratory Reports no additional respiratory complaints - Gastrointestinal Reports no additional gastrointestinal complaints - Genitourinary Reports no additional female genitourinary complaints - Musculoskeletal Reports no additional musculoskeletal complaints - Integumentary/Breasts Skin/Breast: Reports no additional skin complaints - Neurologic Reports no additional neurologic complaints, Reports weakness - Psychiatric Reports no additional psychiatric complaints - Endocrine Reports no additional endocrine complaints - Hematologic/Lymphatic Reports no additional hematologic/lymphatic complaints - Allergic/Immunologic Reports no additional allergic/immunologic complaints [facility] Medical History: Medical History (Last Reviewed 05/13/22 @ 14:58 by Damion Marquis MD) Asthma Asthma Colorectal cancer Depression HTN (hypertension) Liver metastases Metastatic colon cancer to liver Functional capacity: independent ambulation Family History: Family History (Last Reviewed 05/13/22 @ 14:58 by Damion Marquis MD) Paternal Grandmother Breast cancer Maternal Aunt Breast cancer Surgical History: Surgical History (Last Reviewed 05/13/22 @ 14:58 by Damion Marquis MD) History of esophagogastroduodenoscopy (EGD) Hx of arthroscopy of right knee Hx of colonoscopy Hx of excision of mass Hx of right breast biopsy Hx of tubal ligation Social History: Social History (Last Reviewed 05/13/22 @ 14:58 by Damion Marquis MD) Living Situation History: Household Members: Children Housing: Apartment Are you a primary child care giver to a significant other at home: No Do you presently have visiting nurse or other home services: No Alcohol History Details: 1. How often do you have a drink containing alcohol?: a. Never Tobacco History: Patient Tobacco Use Status: Never used Tobacco e-Cigarette/Vaping Use: Never Used Substance Use History: Use of substances other than those prescribed or required for medical reasons: No Domestic Abuse History: Have you been hit, kicked, punched, or otherwise hurt by someone within the past year? 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 Oncology Screenings - ECOG Performance Status ECOG Performance Status: 1 Home Medications and Allergies Current Medications: Current Medications Acetaminophen (Acetaminophen 325 Mg Tablet) 650 mg PO ONCE SAUL Stop: 06/14/22 23:59 Diphenhydramine HCl (Diphenhydramine Hcl 50 Mg/Ml Vial) 25 mg IVPUSH ONCE SAUL Stop: 06/14/22 23:59 Dexamethasone Sodium Phosphate (Decadron) 12 mg in 50 mls @ 200 mls/hr IV ONCE SAUL Stop: 06/14/22 23:59 Ondansetron HCl (Zofran) 16 mg in 50 mls @ 200 mls/hr IV ONCE SAUL Stop: 06/14/22 23:59 Dexamethasone Sodium Phosphate (12 mg/ Sodium Chloride) 53 mls @ 212 mls/hr IV ONCE SAUL Last Infusion: 04/28/22 11:09 Dose: Infused Home Medications Medication Instructions Recorded Confirmed Type losartan 50 mg tablet 1 tab PO DAILY 01/13/21 04/30/22 History omeprazole 20 mg capsule,delayed 20 mg PO DAILY 10/08/21 04/30/22 History release metoprolol succinate 50 mg 1 tab PO DAILY 12/17/21 04/30/22 History tablet,extended release 24 hr Allergies Allergy/AdvReac Type Severity Reaction Status Date / Time latex Allergy Intermediate Rash Verified 04/30/22 14:09 Exam Vital signs: Vital Signs Temp 97.2 F 06/14/22 08:15 Pulse 88 06/14/22 08:15 Resp 18 06/14/22 08:15 BP 145/81 H 06/14/22 08:15 Pulse Ox 100 06/14/22 08:15 O2 Del Method 06/14/22 08:15 Intake & Output 06/13/22 06/14/22 06/14/22 18:59 06:59 18:59 Other: Weight 64.2 kg [place] Weight in Grams 30075 Weight 64.2 kg BMI result Body Mass Index 26.7 - Constitutional Present: no acute distress - Routine HEENT Exam Head: Present: normal inspection Eye: Present: normal appearance ENT: Present: mucous membranes moist - Routine Neck Exam Present: full ROM - Routine Respiratory Exam Present: CTAB - Routine Cardiovascular Exam Cardiovascular: Present: RRR, S1, S2 - Routine Abdominal Exam Present: soft, nontender - Routine Rectal Exam Patient deferred: digital exam - Routine Extremities Exam Present: nontender - Routine Back/Spine/Pelvis Exam Back/Spine: Present: full ROM - Routine Skin Exam Present: intact - Routine Neurological Exam Present: alert, oriented X3, vision grossly intact - Detailed Neurological Exam: Coma Scale Eye Opening: Spontaneous (4) - Routine Psychiatric Exam Present: normal affect Data - Labs CBC & Chem 7: 06/14/22 08:30 06/14/22 08:30 Assessment and Plan Patient Active problem list reviewed?: Yes (1) Liver metastases Status: Inactive Assessment and plan: This is a pleasant 56-year-old lady who developed upper abdominal pain a couple of weeks ago. The pain has since subsided however ultrasound revealed: IMPRESSION: Enlarged liver and multiple predominately hyperechoic liver lesions. Appearance is suggestive of metastatic disease. Limited visualization of the pancreas. Otherwise unremarkable exam. No known primary has been noted. DIFFERENTIAL DIAGNOSIS: 1. A GI PRIMARY: COLON CARCINOMA: She has not had a screening colonoscopy done yet. 2. PANCREATIC CANCER: 3. BREAST CANCER: However recent mammogram was normal. 4. LUNG CANCER: Is in the differential however she does not smoke. , so less likely. 5. PRIMARY HEPATOMA: Would also be unlikely. Usually we find metastases, from another site into the liver and not primary. l checked baseline labs including tumor markers today:CEA 325, Ca 19/9 962, Ca 27.29: 18 . DATABASE: LABS FROM TODAY: CBC WBC 7.4, HGB 11.7, HCT 36.4, PLT 368. CMP: Lytes WNL, glucose:88, BUN 7, POSTPARTUM NURSE 0.73. LFTs: 0.6/208/66/27. I proceeded with further evaluation. l initiated search for a primary: CT scans of the chest abdomen and pelvis, from 01/18: Bilateral pulmonary nodules. Bilateral axillary and left supraclavicular upper normal-size lymph nodes. 4 cm colon mass in the hepatic flexure. Enlarged adjacent lymph nodes metastatic disease to the liver and peritoneal disease. Bilateral pulmonary nodules also probably representing metastatic disease. l proceeded with an ultrasound guided biopsy of the liver lesions to further define the primary. Biopsy of the lesion in the right lobe of the liver on 01/27 revealed: Moderately differentiated adenocarcinoma consistent with metastatic colorectal cancer. Unfortunately, very little tumor was present, insufficient for ancillary testing. I referred her to GI for a colonoscopy. That way we can obtain more issues to proceed with ancillary testing, to decide about the best regimen to give her. She was seen by Dr. Jimenez, on 02/26. The colonoscopy was scheduled for 03/26/22. However she came down with COVID. The procedure was postponed pending medical clearance. The bone scan was ordered on account of ongoing back and rib pain. It was done on 03/26: Normal whole body bone scan. No evidence of osseous metastatic disease. CEA Level: 863, 754, 1460, 1920, 869 (06/14). She started FOLFOX plus bevacizumab, on 04/14. She received day 15 on 04/28. Cycle 2 on 05/12. D 14 had to be postponed till 06/01, on account of neutropenia. Here for cycle 3 day 1. She is feeling well. She had flank pain over the weekend. She feels bloating, otherwise tolerating the chemotherapy well. She has omeprazole at home however she has not been taking it. PLAN: I gave her a dose today. She will continue it on a regular basis, at home. She will recieve Neulasta, on 06/16 to prevent chemotherapy-induced neutropenia. Will follow the tumor marker, and imaging studies, after completion of this cycle. She will return in a couple of weeks for a follow-up. All her questions were answered to her satisfaction. Thank you, Cc: Dr. Martines. Dr. Jimenez. - Time Spent With Patient Time Spent with Patient (in minutes): 30
[2022-06-14] MEDS: Acetaminophen 325 MG TABLET 650 MG PO (09:32)
[2022-06-14] MEDS: diphenhydrAMINE HCL 50 MG/ML VIAL 25 MG IVPUSH (09:33)
[2022-06-14] MEDS: dexAMETHasone sod phosphate/NS 12 MG/50 ML PIGGYBACK 200 MG IV (09:37)
[2022-06-14] MEDS: Fosaprepitant Dimeglumine 150 MG in 0.9 % Sodium Chloride 145 ML 300 MG IV (10:46)
[2022-06-14] MEDS: OXALIplatin 100 MG, OXALIplatin 40 MG in Dextrose 5 % 500 ML 264 MG IV (12:22)
[2022-06-14] MEDS: LEUCOVORIN CALCIUM IV (12:23)
[2022-06-14] MEDS: DEXTROSE 5% IV (12:23)
[2022-06-14] MEDS: Omeprazole 20 MG CAPSULE.DR PO (14:31)
[2022-06-14] MEDS: fluorouraciL 650 MG in Syringe 0 ML 13 MG IVPUSH (14:36)
[2022-06-14] MEDS: FLUOROURACIL IV (14:37)
[2022-06-14] MEDS: SODIUM CHLORIDE 0.9% IV (14:37)
--- NOTE | 2022-06-14 15:10 | MHC.HEMONC ---
Here for C5 MVasi/Folfox. Port accessed with good blood return noted. Labs obtained. Iris in room to translate, pt c/o pain to both sides abd that radiates around the back. States the pain is sharp. Also states her abd feels bloated. Both hands discolored. States she is applying lotion. No peeling, denies neuropathy. States only sensitive to cold. Dr Salvador aware and will see pt today. Labs reviewed and ok for treatment. Premeds given as ordered. Treatment done and tolerated well. Dr Salvador in to see pt. Omeprazole 20mg po given as ordered. Home with infusion pump. Scheduled for take down in 2 days. Transportation scheduled for appointments. Departure packet given and pt departed unit.
[2022-06-16] MEDS: Heparin Sodium,Porcine Flush 500 UNIT/5 ML SYRINGE IVFLUSH (11:47)
--- NOTE | 2022-06-16 16:32 | MHC.HEMONC ---
Pt was in today for pump takedown, nurse verified that pt's take-home 5FU infusion had completed. Nurse flushed pt's port w/ NS and heparin 500 units. Pt said she had a PCP appt w/ Dr. Hylton's office, OA Iris called to inform them pt would be a bit late. Nurse de-accessed pt's port, all of which was well-tolerated. Pt departed clinic in a aaron, then nurse noted that pt also has Neulasta inj sched on tx plan. Nurse called pt after she left, no answer, left VM to please call back or return to clinic for Neulasta inj, but no response. Nurse also called Dr. Hylton's office, but they were closed from 12-1pm for lunch, nurse also left message to call back, but no response. Dr. Salvador was notified, also that pt's WBC was 12.3 on Mon, 06/14. Dr. Salvador asked that pt return the following week to have labs checked. This nurse to sched f/u labs w/ pt the next day, so transportation can be booked.
--- NOTE | 2022-06-17 15:43 | HO.HEMONCSCH ---
Pt was called multiple times by BLAYNE Haley, messages left, she was finally able to contact pt by cell phone, informed her that Dr. Salvador requests she come in next week to have her blood work checked, particularly to see if her WBC count is low. Pt agreed to come in on 06/22/22 at 11:30am for blood draw. BLAYNE Haley agreed to contact transportation services to book pt a shuttle filler picker at 11am. Nurse created lab appt for that time, and entered orders.
[2022-06-22 11:38] VITALS: BP 148/85; PULSE 83; RESP 18; TEMP 36.8; O2SAT 99
[2022-06-22] MEDS: 0.9 % Sodium Chloride 1,000 ML 500 ML IV (12:10)
[2022-06-22 12:16] LABS: MANUAL DIFF FLAG NO
[2022-06-22 12:21] LABS: Basophils Percent Auto 0.5 % (0-2); Eosinophils Absolute Auto 0.1 X10*3/uL (0.0-0.4); Eosinophils Percent Auto 0.8 % (0-4); Hematocrit 33.9 % (37.0-47.0); Hemoglobin 11.2 g/dl (12.0-16.0); Imm Gran Abs Auto 0.07 X10*3/uL (0.00-0.03); Imm Gran Pct Auto 1.1 % (0.0-0.4); Lymphocytes Absolute Auto 2.3 X10*3/uL (1.2-4.9); Lymphocytes Percent Auto 37.8 % (20-40); Mean Corpuscular Hemoglobin 29.5 pg (27.0-33.0); Mean Corpuscular Volume 89.2 fL (80.0-98.0); Monocytes Absolute Auto 0.4 X10*3/uL (0.1-1.2); Monocytes Percent Auto 6.7 % (2-11); NRBC Pct Auto 0.5 /100WBC (0.0-0.2); Neutrophils Absolute Auto 3.3 x10*3/uL (2.0-8.3); Neutrophils Percent Auto 53.1 % (45-73); Platelet Count 124 X10*3/uL (160-400); Red Cell Distribution Width 19.9 % (11.0-16.0); White Blood Count 6.2 X10*3/uL (4.8-10.8)
[2022-06-22 12:37] LABS: Alanine Aminotransferase 26 U/L (0-31); Alkaline Phosphatase 177 U/L (39-117); Anion Gap 12 (12-20); Aspartate Amino Transferase 41 U/L (5-31); Bilirubin Total 0.6 mg/dL (0.0-1.0); Blood Urea Nitrogen 11 mg/dL (9-16); Calcium 8.2 mg/dL (8.4-10.2); Carbon Dioxide 23 mmol/L (22-29); Chloride 110 mmol/L (96-108); Creatinine Clr Calc Pharmacy 67.5; Estimated Glomerular Filt Rate > 60; Glucose Random 182 mg/dL (60-115); Potassium 3.6 mmol/L (3.3-5.1); Sodium 141 mmol/L (135-145); Total Protein 5.2 g/dL (6.5-8.0)
--- NOTE | 2022-06-22 12:46 | MHC.HEMONC ---
Addendum entered by Gem Dueñas RN 06/22/22 15:30: Hydration finished. Pt reports feeling better. No dizziness when questioned. Labs reviewed. Port was de accessed with heparin. Site benign. Bandaid applied. Pt given summary. Pt instructed to call if symptoms worsen. Pt departed. Neulasta not given, too soon to next treatment. Original Note: Pt here for labs to check CBC had not received neulasta last week. Port to right chest assessed and labs drawn. Pt c/o feeling dizzy, facial swelling, acid reflux, abd bloating. Pt reports BM daily using softners. also c/o intermittent bleeding when she wakes up from left nare. Pt alert, talking in full sentences, amb with steady gait. Dr Salvador in to see patient. Encouraged use of nasal saline spray, steam in showers to moisten nasal passages. Verbal order for NS 1 liter over 2 hours. Order entered and NS hung at 500ml hr. Pt relaxing in recliner, talking with other visitors in room.
[2022-06-28 08:17] VITALS: BP 168/97; PULSE 100; RESP 18; TEMP 36.6; O2SAT 100; BMI 28.0
[2022-06-28 08:55] LABS: Appearance Urine Clear; Color Urine Yellow; Glucose Urine UA Negative (Negative); Leukocyte Esterase Urine Trace (Negative); Nitrite Urine Negative (Negative); UMIC TRIGGER UA YES; Urine Blood Negative (Negative); Urine Ketones Negative (Negative); Urine Protein Negative (Neg-Trace)
[2022-06-28 08:57] LABS: Bacteria Urine None Seen (None Seen); Hyaline Casts Urine 0-2 /LPF (0-2); RBC Urine 0-2 /HPF (0-2); WBC Urine 0-5 /HPF (0-5)
[2022-06-28] MEDS: Acetaminophen 325 MG TABLET 650 MG PO (09:28)
[2022-06-28] MEDS: diphenhydrAMINE HCL 50 MG/ML VIAL 25 MG IVPUSH (09:28)
[2022-06-28] MEDS: dexAMETHasone sod phosphate/NS 12 MG/50 ML PIGGYBACK 200 MG IV (09:29)
[2022-06-28] MEDS: Fosaprepitant Dimeglumine 150 MG in 0.9 % Sodium Chloride 145 ML 300 MG IV (10:54)
[2022-06-28] MEDS: Leucovorin Calcium 680 MG in Dextrose 5 % 250 ML 142 MG IV (12:12)
[2022-06-28] MEDS: OXALIplatin 100 MG, OXALIplatin 40 MG in Dextrose 5 % 500 ML 264 MG IV (12:13)
[2022-06-28 13:47] VITALS: BP 145/77; PULSE 95; RESP 18; O2SAT 98
--- NOTE | 2022-06-28 15:28 | MHC.HEMONC ---
Addendum entered by Ivone Rogers RN 06/28/22 15:50: Patient requests medication for dizziness. Dr. Salvador notified. Original Note: C6: FOLFOX +MVASI. Labs obtained day Tuesday and reviewed. UA unremarkable. Patient reports feeling well. Facial swelling still present but not worse. No other symptoms. Dr. Salvador notified and states this is probably related to Dexamethasone use. (patient did report taking Dex for one month)Denies nausea/diarrhea. Port accessed without difficulty- flushes easily. Positive blood return. Pre-medicated with Tylenol 650mg PO, Zofran 16mg IV, Dexamethasone 12mg IV, Benadryl 25mg IV, and Emend. Chemo infusion well tolerated. No signs of reaction. 5FU bolus and pump administered. Patient to return Tuesday for pump take down/Neulasta. Discharge packet provided.
[2022-06-30] MEDS: Heparin Sodium,Porcine Flush 500 UNIT/5 ML SYRINGE IVFLUSH (12:24)
[2022-07-13 08:12] VITALS: BP 145/77; PULSE 110; RESP 18; TEMP 36.2; O2SAT 98; BMI 27.6
[2022-07-13 08:47] LABS: Hematocrit 38.2 % (37.0-47.0); Hemoglobin 12.4 g/dl (12.0-16.0); Mean Corpuscular HGB Conc 32.5 g/dl (31.0-35.0); Mean Corpuscular Hemoglobin 29.7 pg (27.0-33.0); Mean Corpuscular Volume 91.4 fL (80.0-98.0); Mean Platelet Volume 12.2 fL (9.4-12.3); Platelet Count 105 X10*3/uL (160-400); Red Blood Count 4.18 X10*6/uL (4.20-5.50); Red Cell Distribution Width 20.8 % (11.0-16.0)
[2022-07-13 08:50] LABS: NRBC Pct Auto 1.8 /100WBC (0.0-0.2)
[2022-07-13 08:51] LABS: WBC ABN SCTR FOR CBC 1; White Blood Count 15.4 X10*3/uL (4.8-10.8)
[2022-07-13 08:56] LABS: Appearance Urine Hazy; Color Urine Yellow; Glucose Urine UA Negative (Negative); Leukocyte Esterase Urine Trace (Negative); Nitrite Urine Negative (Negative); UMIC TRIGGER UA YES; Urine Blood Negative (Negative); Urine Ketones Negative (Negative); Urine Protein Negative (Neg-Trace)
[2022-07-13 09:02] LABS: Bacteria Urine Trace (None Seen); Hyaline Casts Urine 0-2 /LPF (0-2); RBC Urine 0-2 /HPF (0-2)
[2022-07-13 09:05] LABS: Alanine Aminotransferase 28 U/L (0-31); Albumin Level 3.5 g/dL (3.5-5.0); Alkaline Phosphatase 255 U/L (39-117); Anion Gap 13 (12-20); Aspartate Amino Transferase 53 U/L (5-31); Bilirubin Total 0.6 mg/dL (0.0-1.0); Blood Urea Nitrogen 9 mg/dL (9-16); Calcium 8.7 mg/dL (8.4-10.2); Carbon Dioxide 23 mmol/L (22-29); Chloride 110 mmol/L (96-108); Creatinine Clr Calc Pharmacy 67.6; Estimated Glomerular Filt Rate > 60; Glucose Random 176 mg/dL (60-115); Potassium 3.3 mmol/L (3.3-5.1); Sodium 143 mmol/L (135-145); Total Protein 6.1 g/dL (6.5-8.0)
[2022-07-13 09:08] LABS: Atypical Lymph Absolute Manual 0.2 x10*3/uL; Atypical Lymphs Percent Manual 1 % (0-6); Band Neutrophils Percent 4 % (3-5); Basophils Abs Manual 0.5 X10*3/uL (0.0-0.2); Basophils Percent Manual 3 % (0-2); Lymphocytes Absolute Manual 4.8 X10*3/uL (1.2-4.9); Lymphocytes Percent Manual 31 % (20-40); Metamyelocytes Absolute 0.3 X10*3/uL; Metamyelocytes Percent 2 %; Monocytes Absolute Manual 0.8 X10*3/uL (0.1-1.2); Monocytes Percent Manual 5 % (2-11); Neutrophils Absolute Manual 8.9 X10*3/uL (2.0-8.3); Neutrophils Percent Manual 54 % (45-73)
[2022-07-13 09:09] LABS: Nucleated Red Blood Cells 3 /100WBC (0-0)
[2022-07-13 09:14] LABS: Macrocytosis 1+ (5-14) /OIF; RBC Morphology NOTED
[2022-07-13 09:15] LABS: Large Platelet PRESENT; Microcytosis 1+ (5-14) /OIF; Platelet Estimate DECREASED (NORMAL); Platelet Morphology Comment NOTED; Polychromasia 1+ (0-2) /OIF
[2022-07-13] MEDS: diphenhydrAMINE HCL 50 MG/ML VIAL 25 MG IVPUSH (09:39)
[2022-07-13] MEDS: dexAMETHasone sod phosphate/NS 12 MG/50 ML PIGGYBACK 200 MG IV (09:40)
[2022-07-13] MEDS: Acetaminophen 325 MG TABLET 650 MG PO (09:41)
[2022-07-13 10:01] VITALS: PULSE 94
[2022-07-13] MEDS: Fosaprepitant Dimeglumine 150 MG in 0.9 % Sodium Chloride 145 ML 300 MG IV (11:08)
[2022-07-13] MEDS: Leucovorin Calcium 680 MG in Dextrose 5 % 250 ML 142 MG IV (12:54)
[2022-07-13] MEDS: OXALIplatin 100 MG, OXALIplatin 40 MG in Dextrose 5 % 500 ML 264 MG IV (12:55)
--- NOTE | 2022-07-13 15:46 | MHC.HEMONC ---
C7 Mvasi/Folfox. Pt amb to tx room 1. Pt denies any symptoms. Does have intermittent low back pain. Port to right chest accessed good blood return. Labs drawn and reviewed by Dr Leyva. ok to treat. Pre meds given: Tylenol 650mg po, Dex 12mg IV, Benadryl 25mg IV, Zofran 16mg IV, Emend 150mg IV. Mvasi/Folfox infused. Pt toll well. 5FU push given and Pt home with 5FU pump. Pt to return on 07/15/22 for pump takedown. Summary given and Pt departed.
[2022-07-15] MEDS: Heparin Sodium,Porcine Flush 500 UNIT/5 ML SYRINGE IVFLUSH (12:49)
--- NOTE | 2022-07-15 14:36 | MHC.HEMONC ---
Here for pump take down. Verified bag volume of 0ml. Port flushed with heparin 500units and de-accessed. Neulasta 6mg sc given left upper arm and tolerated well. Next chemo scheduled for 2 weeks. Departed unit.
[2022-07-26 08:34] VITALS: BP 166/91; PULSE 87; RESP 18; TEMP 36.6; O2SAT 98; BMI 28.0
[2022-07-26 08:59] LABS: Basophils Absolute Auto 0.1 X10*3/uL (0.0-0.2); Basophils Percent Auto 1.3 % (0-2); Eosinophils Absolute Auto 0.2 X10*3/uL (0.0-0.4); Eosinophils Percent Auto 1.8 % (0-4); Hematocrit 36.8 % (37.0-47.0); Hemoglobin 11.9 g/dl (12.0-16.0); Imm Gran Abs Auto 0.07 X10*3/uL (0.00-0.03); Imm Gran Pct Auto 0.7 % (0.0-0.4); Lymphocytes Absolute Auto 3.1 X10*3/uL (1.2-4.9); MANUAL DIFF FLAG SCAN; Mean Corpuscular HGB Conc 32.3 g/dl (31.0-35.0); Mean Corpuscular Hemoglobin 29.6 pg (27.0-33.0); Mean Corpuscular Volume 91.5 fL (80.0-98.0); Mean Platelet Volume 12.8 fL (9.4-12.3); Monocytes Absolute Auto 1.8 X10*3/uL (0.1-1.2); Monocytes Percent Auto 19.4 % (2-11); NRBC Pct Auto 0.2 /100WBC (0.0-0.2); Neutrophils Absolute Auto 4.1 x10*3/uL (2.0-8.3); Neutrophils Percent Auto 43.8 % (45-73); Platelet Count 132 X10*3/uL (160-400); Red Blood Count 4.02 X10*6/uL (4.20-5.50); Red Cell Distribution Width 20.3 % (11.0-16.0); SCAN SMEAR FLAG 1; White Blood Count 9.4 X10*3/uL (4.8-10.8)
[2022-07-26 09:00] LABS: Appearance Urine Clear; Color Urine Yellow; Glucose Urine UA Negative (Negative); Leukocyte Esterase Urine Moderate (2+) (Negative); Nitrite Urine Negative (Negative); PH 7.5 (5.0-9.0); UMIC TRIGGER UA YES; Urine Blood Negative (Negative); Urine Ketones Negative (Negative); Urine Protein Negative (Neg-Trace)
[2022-07-26 09:05] LABS: Bacteria Urine 1+ (None Seen); Hyaline Casts Urine 0-2 /LPF (0-2); RBC Urine 0-2 /HPF (0-2)
[2022-07-26 09:31] LABS: SLIDE REVIEW VERIFIED
[2022-07-26 09:51] LABS: Alanine Aminotransferase 31 U/L (0-31); Albumin Level 3.3 g/dL (3.5-5.0); Alkaline Phosphatase 283 U/L (39-117); Anion Gap 14 (12-20); Aspartate Amino Transferase 48 U/L (5-31); Bilirubin Total 0.7 mg/dL (0.0-1.0); Blood Urea Nitrogen 8 mg/dL (9-16); Calcium 8.8 mg/dL (8.4-10.2); Carbon Dioxide 22 mmol/L (22-29); Chloride 109 mmol/L (96-108); Estimated Glomerular Filt Rate > 60; Potassium 3.4 mmol/L (3.3-5.1); Sodium 142 mmol/L (135-145); Total Protein 5.8 g/dL (6.5-8.0)
[2022-07-26] MEDS: Acetaminophen 325 MG TABLET 650 MG PO (10:40)
[2022-07-26] MEDS: diphenhydrAMINE HCL 50 MG/ML VIAL 25 MG IVPUSH (10:40)
[2022-07-26] MEDS: dexAMETHasone sod phosphate/NS 12 MG/50 ML PIGGYBACK 200 MG IV (10:41)
[2022-07-26] MEDS: Fosaprepitant Dimeglumine 150 MG in 0.9 % Sodium Chloride 145 ML 300 MG IV (10:41)
[2022-07-26 11:22] LABS: Glucose Random 134 mg/dL (60-115)
--- NOTE | 2022-07-26 12:36 | PM.HEMONCPN ---
Medical Summary - Medical Summary Date of Service: 07/26/22 Chief complaint: Follow-up for: Rectal carcinoma with Mets. Primary Care Provider: Corine Martines MD Medical Summary: DIAGNOSIS: NEW LIVER LESIONS. 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 CURRENT THERAPY: Started on modified FOLFOX and bevacizumab on 04/14. Day 15 on 04/28. Cycle 2 on 05/12. Day 14 on 06/01. Cycle 3 day 1 today. Interval History Interval history: Kayden Angulo is a pleasant 57 year old lady, here for a follow-up visit. She is here for cycle 4 day 14. She is feeling very well. Occasionally she notices some easy bruising on her arms and legs. Sometimes she notes pain in her back and left flank. Her skin of the hands is turning dark, she is otherwise tolerated the chemotherapy very well. Her energy is good. No QUINTERO, nor dizziness. No fever nor chills. She has no chest pain. Denies shortness of breath. She has noticed that her abdominal girth is down. She denies any abdominal pain, vomiting heartburn or indigestion. She does feel bloated. She denies nausea nor vomiting.She has noted some bloating after eating. She denies diarrhea. Denies any gross blood in the stools. She actually has constipation. Apetite is good. She has been eating more now. She has changed her diet. Has been taking more fiber. She has been under the care of GI. She denies any dysuria or hematuria. She has arthritis and tendinitis. She has some back pain, and right knee pain. She gets pain in her right knee. She denies any focal weakness. She has depression. Skin of her fingers is darkening. She has history of dermatitis but not active now. She uses Dove soap only. PRESENTING HISTORY: She developed abdominal pain about six weeks ago. She mentions sharp pain in the upper abdomen radiating to both sides, back to front like a belt. Level was up to 7 on 1-10 scale. It was a sharp pain. It recurred with change of position. Not related to meals. She went to see her primary doctor who ordered an abdominal ultrasound. Ultrasound of the abdomen from 12/07 revealed: IMPRESSION: Enlarged liver and multiple predominately hyperechoic liver lesions. Appearance is suggestive of metastatic disease. Limited visualization of the pancreas. Otherwise unremarkable exam. She had a colonoscopy on 04/[address] Olivarez: Transverse Colon - colonic mass occluding the lumen at hepatic flexure, unable to pass the scope, tried an upper GI scope but also unable to pass, bx taken. Positive for adenocarcinoma. MSI stable. FAMILY HISTORY: Paternal grandma had breast cancer. Maternal aunt had breast cancer. They both from it. 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 She is single. She has 3 children. She denies any history of smoking. She quit alcohol several years ago. Denies drugs. Review of Systems - Constitutional Reports no additional constitutional complaints, Denies fever(s), Denies weakness, Reports weight gain - Eyes Reports no additional eye complaints - ENT Reports no additional ear, nose, mouth, and throat complaints - Cardiovascular Reports no additional cardiovascular complaints - Respiratory Reports no additional respiratory complaints - Gastrointestinal Reports no additional gastrointestinal complaints - Genitourinary Reports no additional female genitourinary complaints - Musculoskeletal Reports no additional musculoskeletal complaints - Integumentary/Breasts Skin/Breast: Reports no additional skin complaints - Neurologic Reports no additional neurologic complaints, Reports weakness - Psychiatric Reports no additional psychiatric complaints - Endocrine Reports no additional endocrine complaints - Hematologic/Lymphatic Reports no additional hematologic/lymphatic complaints - Allergic/Immunologic Reports no additional allergic/immunologic complaints PMFSH Medical History: Medical History (Last Reviewed 05/13/22 @ 14:58 by Damion Marquis MD) Asthma Asthma Colorectal cancer Depression HTN (hypertension) Liver metastases Metastatic colon cancer to liver Functional capacity: independent ambulation Patient : No Family History: Family History (Last Reviewed 05/13/22 @ 14:58 by Damion Marquis MD) Paternal Grandmother Breast cancer Maternal Aunt Breast cancer Surgical History: Surgical History (Last Reviewed 05/13/22 @ 14:58 by Damion Marquis MD) History of esophagogastroduodenoscopy (EGD) Hx of arthroscopy of right knee Hx of colonoscopy Hx of excision of mass Hx of right breast biopsy Hx of tubal ligation Social History: Social History (Last Reviewed 05/13/22 @ 14:58 by Damion Marquis MD) Living Situation History: Household Members: Children Housing: Apartment Are you a primary customer care team coach to a significant other at home: No Do you presently have visiting nurse or other home services: No Alcohol History Details: 1. How often do you have a drink containing alcohol?: a. Never Tobacco History: Patient Tobacco Use Status: Never used Tobacco e-Cigarette/Vaping Use: Never Used Substance Use History: Use of substances other than those prescribed or required for medical reasons: No Domestic Abuse History: Have you been hit, kicked, punched, or otherwise hurt by someone within the past year? 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 Oncology Screenings - ECOG Performance Status ECOG Performance Status: 0 Home Medications and Allergies Current Medications: Current Medications Acetaminophen (Acetaminophen 325 Mg Tablet) 650 mg PO ONCE SAUL Stop: 07/26/22 23:59 Last Admin: 07/26/22 10:40 Dose: 650 mg Diphenhydramine HCl (Diphenhydramine Hcl 50 Mg/Ml Vial) 25 mg IVPUSH ONCE SAUL Stop: 07/26/22 23:59 Last Admin: 07/26/22 10:40 Dose: 25 mg Dexamethasone Sodium Phosphate (Decadron) 12 mg in 50 mls @ 200 mls/hr IV ONCE SAUL Stop: 07/26/22 23:59 Last Admin: 07/26/22 10:41 Dose: 200 mls/hr Ondansetron HCl (Zofran) 16 mg in 50 mls @ 200 mls/hr IV ONCE SAUL Stop: 07/26/22 23:59 Last Admin: 07/26/22 10:41 Dose: 200 mls/hr Fosaprepitant 150 mg/ Sodium (Chloride) 150 mls @ 300 mls/hr IV ONCE SAUL Stop: 07/26/22 23:59 Last Admin: 07/26/22 10:41 Dose: 300 mls/hr Bevacizumab-awwb 325 mg/ (Sodium Chloride) 100 mls @ 200 mls/hr IV ONCE SAUL Stop: 07/26/22 23:59 Last Admin: 07/26/22 12:32 Dose: 200 mls/hr Leucovorin Calcium 680 mg/ (Dextrose) 284 mls @ 142 mls/hr IV ONCE SAUL Stop: 07/26/22 23:59 Oxaliplatin 100 mg/ (Oxaliplatin 40 mg/ Dextrose) 528 mls @ 264 mls/hr IV ONCE SAUL Stop: 07/26/22 23:59 Fluorouracil 4,050 mg/ Sodium (Chloride) 92 mls @ 2 mls/hr IV ONCE SAUL Stop: 07/26/22 23:59 Fluorouracil 675 mg/ IV (Miscellaneous Supplies) 13.5 mls @ 0 mls/hr IVPUSH ONCE SAUL Stop: 07/26/22 23:59 Home Medications Medication Instructions Recorded Confirmed Type losartan 50 mg tablet 1 tab PO DAILY 01/13/21 07/26/22 History omeprazole 20 mg capsule,delayed 20 mg PO DAILY 10/08/21 07/26/22 History release metoprolol succinate 50 mg 1 tab PO DAILY 12/17/21 07/26/22 History tablet,extended release 24 hr Allergies Allergy/AdvReac Type Severity Reaction Status Date / Time latex Allergy Intermediate Rash Verified 04/30/22 14:09 Exam Vital signs: Vital Signs Temp 97.8 F 07/26/22 08:34 Pulse 87 07/26/22 08:34 Resp 18 07/26/22 08:34 BP 166/91 H 07/26/22 08:34 Pulse Ox 98 07/26/22 08:34 O2 Del Method Room Air 07/26/22 08:34 Intake & Output 07/25/22 07/26/22 07/26/22 18:59 06:59 18:59 Other: Weight 67.3 kg Opp Weight in Grams 08411 Weight 67.3 kg BMI result Body Mass Index 28.0 - Constitutional Present: no acute distress - Routine HEENT Exam Head: Present: normal inspection Eye: Present: normal appearance ENT: Present: mucous membranes moist - Routine Neck Exam Present: full ROM - Routine Respiratory Exam Present: CTAB - Routine Cardiovascular Exam Cardiovascular: Present: RRR, S1, S2 - Routine Abdominal Exam Present: soft, nontender - Routine Rectal Exam Patient deferred: digital exam - Routine Extremities Exam Present: nontender - Routine Back/Spine/Pelvis Exam Back/Spine: Present: full ROM - Routine Skin Exam Present: intact - Routine Neurological Exam Present: alert, oriented X3, vision grossly intact - Detailed Neurological Exam: Coma Scale Eye Opening: Spontaneous (4) - Routine Psychiatric Exam Present: normal affect Data - Labs CBC & Chem 7: 07/26/22 08:49 07/26/22 08:49 Assessment and Plan Patient Active problem list reviewed?: Yes (1) Liver metastases Status: Inactive Assessment and plan: This is a pleasant 56-year-old lady who developed upper abdominal pain a couple of weeks ago. The pain has since subsided however ultrasound revealed: IMPRESSION: Enlarged liver and multiple predominately hyperechoic liver lesions. Appearance is suggestive of metastatic disease. Limited visualization of the pancreas. Otherwise unremarkable exam. No known primary has been noted. DIFFERENTIAL DIAGNOSIS: 1. A GI PRIMARY: COLON CARCINOMA: She has not had a screening colonoscopy done yet. 2. PANCREATIC CANCER: 3. BREAST CANCER: However recent mammogram was normal. 4. LUNG CANCER: Is in the differential however she does not smoke. , so less likely. 5. PRIMARY HEPATOMA: Would also be unlikely. Usually we find metastases, from another site into the liver and not primary. l checked baseline labs including tumor markers today:CEA 325, Ca 19/9 962, Ca 27.29: 18 . DATABASE: LABS FROM TODAY: CBC WBC 7.4, HGB 11.7, HCT 36.4, PLT 368. CMP: Lytes WNL, glucose:88, BUN 7, STEEL WHEEL ENGRAVER 0.73. LFTs: 0.6/208/66/27. I proceeded with further evaluation. l initiated search for a primary: CT scans of the chest abdomen and pelvis, from 01/18: Bilateral pulmonary nodules. Bilateral axillary and left supraclavicular upper normal-size lymph nodes. 4 cm colon mass in the hepatic flexure. Enlarged adjacent lymph nodes metastatic disease to the liver and peritoneal disease. Bilateral pulmonary nodules also probably representing metastatic disease. l proceeded with an ultrasound guided biopsy of the liver lesions to further define the primary. Biopsy of the lesion in the right lobe of the liver on 01/27 revealed: Moderately differentiated adenocarcinoma consistent with metastatic colorectal cancer. Unfortunately, very little tumor was present, insufficient for ancillary testing. I referred her to GI for a colonoscopy. That way we can obtain more issues to proceed with ancillary testing, to decide about the best regimen to give her. She was seen by Dr. Jimenez, on 02/26. The colonoscopy was scheduled for 03/26/22. However she came down with COVID. The procedure was postponed pending medical clearance. The bone scan was ordered on account of ongoing back and rib pain. It was done on 03/26: Normal whole body bone scan. No evidence of osseous metastatic disease. CEA Level: 863, 754, 1460, 1920, 869 (06/14). She started FOLFOX plus bevacizumab, on 04/14. She received day 15 on 04/28. Cycle 2 on 05/12. D 14 had to be postponed till 06/01, on account of neutropenia. Here for cycle 4 day 14. She is feeling well. She feels bloating, otherwise tolerating the chemotherapy well. She is taking omeprazole. CEA level: 05/18:1920. 06/14:869. 07/26:426. This is very encouraging. PLAN: She will recieve Neulasta, on 07/28 to prevent chemotherapy-induced neutropenia. Will follow the imaging studies, after completion of this cycle. She will return in a couple of weeks for her next does and a follow-up. All her questions were answered to her satisfaction. Thank you, Cc: Dr. Martines. Dr. Jimenez. - Time Spent With Patient Time Spent with Patient (in minutes): 30
[2022-07-26] MEDS: Leucovorin Calcium 680 MG in Dextrose 5 % 250 ML 142 MG IV (13:18)
[2022-07-26] MEDS: OXALIplatin 100 MG, OXALIplatin 40 MG in Dextrose 5 % 500 ML 264 MG IV (13:20)
--- NOTE | 2022-07-26 13:37 | MHC.HEMONCSW ---
SW introduced self to Pt. who speaks some maori. she wants her son to be her Health Care Proxy and thinks she filled out a form. She said she would bring a copy.
[2022-07-26] MEDS: fluorouraciL 4,050 MG in 0.9 % Sodium Chloride 11 ML IV (15:25)
--- NOTE | 2022-07-26 15:54 | MHC.HEMONC ---
Pt here for C7D1 Mvasi/Folfox and follow up. Pt reports that her blood sugars have been elevated at home. States is on a sliding scale insulin at home. Also reports that she has fatigue. Dr Salvador made aware of blood sugar elevations at home. Dexamethasone at home decreased to 4mg po daily x 2 days after day 1 of chemo. Port to right chest accessed, good blood return, labs drawn and reviewed with Dr salvador. Ok to treat. Pre meds given. Tylenol po, Dex IV, Benadryl IV, Zofran IV, Emend IV. Mvasi, Leucovorin, Oxaliplatin infused. 5FU push given and Pt home with 5FU pump. Pt aware to return on Tue for pump take down and neulasta. Pt departed.
[2022-07-28] MEDS: Heparin Sodium,Porcine Flush 500 UNIT/5 ML SYRINGE IVFLUSH (12:33)
[2022-07-28 12:35] VITALS: BP 148/82; PULSE 78; RESP 20
[2022-08-09 08:53] VITALS: BMI 27.6
[2022-08-09 08:55] LABS: Appearance Urine Clear; Basophils Absolute Auto 0.1 X10*3/uL (0.0-0.2); Basophils Percent Auto 0.9 % (0-2); Color Urine Dark Yellow; Eosinophils Absolute Auto 0.2 X10*3/uL (0.0-0.4); Eosinophils Percent Auto 1.3 % (0-4); Glucose Urine UA Negative (Negative); Hematocrit 38.2 % (37.0-47.0); Hemoglobin 12.5 g/dl (12.0-16.0); Imm Gran Abs Auto 0.24 X10*3/uL (0.00-0.03); Imm Gran Pct Auto 1.7 % (0.0-0.4); Leukocyte Esterase Urine Small (1+) (Negative); Lymphocytes Absolute Auto 3.1 X10*3/uL (1.2-4.9); Lymphocytes Percent Auto 21.9 % (20-40); Mean Corpuscular HGB Conc 32.7 g/dl (31.0-35.0); Mean Corpuscular Hemoglobin 30.2 pg (27.0-33.0); Mean Corpuscular Volume 92.3 fL (80.0-98.0); Monocytes Absolute Auto 3.1 X10*3/uL (0.1-1.2); NRBC Pct Auto 0.2 /100WBC (0.0-0.2); Neutrophils Absolute Auto 7.4 x10*3/uL (2.0-8.3); Neutrophils Percent Auto 52.3 % (45-73); Nitrite Urine Negative (Negative); Platelet Count 137 X10*3/uL (160-400); Red Blood Count 4.14 X10*6/uL (4.20-5.50); Red Cell Distribution Width 19.3 % (11.0-16.0); SCAN SMEAR FLAG 1; Specific Gravity - Urine 1.015 (1.005-1.025); UMIC TRIGGER UA YES; Urine Blood Negative (Negative); Urine Ketones Negative (Negative); Urine Protein 30 (1+) mg/dL (Neg-Trace); White Blood Count 14.1 X10*3/uL (4.8-10.8)
[2022-08-09 08:57] LABS: Bacteria Urine Trace (None Seen); Hyaline Casts Urine 0-2 /LPF (0-2)
[2022-08-09 08:59] VITALS: BP 125/75; PULSE 105; TEMP 36.3; O2SAT 97
[2022-08-09 09:09] LABS: Alanine Aminotransferase 20 U/L (0-31); Albumin Level 3.5 g/dL (3.5-5.0); Alkaline Phosphatase 271 U/L (39-117); Anion Gap 12 (12-20); Aspartate Amino Transferase 35 U/L (5-31); Blood Urea Nitrogen 7 mg/dL (9-16); Calcium 8.6 mg/dL (8.4-10.2); Carbon Dioxide 23 mmol/L (22-29); Chloride 105 mmol/L (96-108); Creatinine Clr Calc Pharmacy 71.3; Estimated Glomerular Filt Rate > 60; Glucose Random 200 mg/dL (60-115); Potassium 3.3 mmol/L (3.3-5.1); Sodium 137 mmol/L (135-145); Total Protein 6.3 g/dL (6.5-8.0)
[2022-08-09 09:17] LABS: MANUAL DIFF FLAG NO; Monocytes Percent Auto 21.9 % (2-11)
[2022-08-09] MEDS: oxyCODONE HCl Immed Release 5 MG TABLET PO (09:26)
[2022-08-09] MEDS: Acetaminophen 325 MG TABLET 650 MG PO (09:26)
[2022-08-09] MEDS: dexAMETHasone sod phosphate/NS 12 MG/50 ML PIGGYBACK 200 MG IV (09:27)
[2022-08-09] MEDS: diphenhydrAMINE HCL 50 MG/ML VIAL 25 MG IVPUSH (09:27)
[2022-08-09] MEDS: Fosaprepitant Dimeglumine 150 MG in 0.9 % Sodium Chloride 145 ML 300 MG IV (09:34)
[2022-08-09] MEDS: OXALIplatin 100 MG, OXALIplatin 40 MG in Dextrose 5 % 500 ML 264 MG IV (11:49)
[2022-08-09] MEDS: Leucovorin Calcium 680 MG in Dextrose 5 % 250 ML 142 MG IV (11:56)
--- NOTE | 2022-08-09 14:47 | MHC.HEMONC ---
Addendum entered by Margarita Pedersen RN 08/09/22 14:56: Scheduled for CT scan on 08/18/22 at 10:00 Original Note: Here for c8 mvasi/folfox. Labs drawn and reviewed, ok to proceed today. Complains of pain in left side and back, not currently taking her pain meds. Given oxycodone 5mg here in infusion suite with moderate effect. Has script at home for oxycodone that she will take with food. Chemo tolerated well, pt aware of next appt. Discharge packet provided.
[2022-08-11 11:24] VITALS: BP 177/92; PULSE 82; RESP 18; TEMP 36.2; O2SAT 97; BMI 27.9
[2022-08-11] MEDS: Heparin Sodium,Porcine Flush 500 UNIT/5 ML SYRINGE IVFLUSH (11:30)
[2022-08-11 11:34] VITALS: BP 143/86
--- NOTE | 2022-08-11 16:12 | MHC.HEMONC ---
Pt was in today for pump takedown of home-fluorouracil infusion, as well as Neulasta injection, nurse verified pt has PA for Neulasta. Nurse confirmed infusion had completed, flushed pt's R chest port w/ NS, found positive blood return, then flushed w/ heparin 500 units, and de-accessed port.. Unfotunately, pt c/o worsening facial swelling, as well as continued discoloration and dryness of bilat hands and feet. This nurse left message to update Dr. Salvador. Nurse admin Neulasta 6mg SC to pt's RUE, which she tolerated well. Pt departed, to return in 2 weeks for next cycle.
[2022-08-24 08:15] VITALS: BP 134/81; PULSE 90; RESP 18; TEMP 36.5; O2SAT 98; BMI 28.0
[2022-08-24 08:39] LABS: Appearance Urine Clear; Color Urine Yellow; Glucose Urine UA Negative (Negative); Leukocyte Esterase Urine Trace (Negative); Nitrite Urine Negative (Negative); PH 6.5 (5.0-9.0); UMIC TRIGGER UA YES; Urine Blood Negative (Negative); Urine Ketones Negative (Negative); Urine Protein Negative (Neg-Trace)
[2022-08-24 08:42] LABS: Bacteria Urine Trace (None Seen); Hyaline Casts Urine 0-2 /LPF (0-2); RBC Urine 0-2 /HPF (0-2); WBC Urine 0-5 /HPF (0-5)
[2022-08-24 08:54] LABS: Basophils Absolute Auto 0.1 X10*3/uL (0.0-0.2); Basophils Percent Auto 0.8 % (0-2); Eosinophils Absolute Auto 0.1 X10*3/uL (0.0-0.4); Eosinophils Percent Auto 1.1 % (0-4); Hematocrit 39.3 % (37.0-47.0); Hemoglobin 12.5 g/dl (12.0-16.0); Imm Gran Abs Auto 0.44 X10*3/uL (0.00-0.03); Imm Gran Pct Auto 3.9 % (0.0-0.4); Lymphocytes Percent Auto 35.1 % (20-40); Mean Corpuscular HGB Conc 31.8 g/dl (31.0-35.0); Mean Corpuscular Hemoglobin 29.7 pg (27.0-33.0); Mean Corpuscular Volume 93.3 fL (80.0-98.0); Mean Platelet Volume 12.1 fL (9.4-12.3); Monocytes Absolute Auto 2.4 X10*3/uL (0.1-1.2); NRBC Pct Auto 0.5 /100WBC (0.0-0.2); Neutrophils Absolute Auto 4.3 x10*3/uL (2.0-8.3); Neutrophils Percent Auto 37.8 % (45-73); Platelet Count 224 X10*3/uL (160-400); Red Blood Count 4.21 X10*6/uL (4.20-5.50); Red Cell Distribution Width 19.6 % (11.0-16.0); SCAN SMEAR FLAG 1; White Blood Count 11.3 X10*3/uL (4.8-10.8)
[2022-08-24 08:59] LABS: Alanine Aminotransferase 19 U/L (0-31); Albumin Level 3.4 g/dL (3.5-5.0); Alkaline Phosphatase 248 U/L (39-117); Anion Gap 12 (12-20); Aspartate Amino Transferase 34 U/L (5-31); Bilirubin Total 0.4 mg/dL (0.0-1.0); Blood Urea Nitrogen 10 mg/dL (9-16); Calcium 9.2 mg/dL (8.4-10.2); Carbon Dioxide 25 mmol/L (22-29); Chloride 109 mmol/L (96-108); Creatinine Clr Calc Pharmacy 73.8; Estimated Glomerular Filt Rate > 60; Glucose Random 121 mg/dL (60-115); Potassium 3.6 mmol/L (3.3-5.1); Sodium 142 mmol/L (135-145); Total Protein 6.4 g/dL (6.5-8.0)
[2022-08-24 09:01] LABS: MANUAL DIFF FLAG NO; Monocytes Percent Auto 21.3 % (2-11)
[2022-08-24] MEDS: Acetaminophen 325 MG TABLET 650 MG PO (09:24)
[2022-08-24] MEDS: diphenhydrAMINE HCL 50 MG/ML VIAL 25 MG IVPUSH (09:25)
[2022-08-24] MEDS: dexAMETHasone sod phosphate/NS 12 MG/50 ML PIGGYBACK 200 MG IV (09:25)
--- NOTE | 2022-08-24 09:39 | PM.HEMONCPN ---
Medical Summary - Medical Summary Date of Service: 08/24/22 Chief complaint: FOLLOW-UP FOR: RECTAL CARCINOMA WITH LIVER METS. Primary Care Provider: Corine Martines MD Medical Summary: DIAGNOSIS: NEW LIVER LESIONS. 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 CURRENT THERAPY: Started on modified FOLFOX and bevacizumab on 04/14. Day 15 on 04/28. Cycle 2 on 05/12. Day 14 on 06/01. Cycle 5 day 14 today. Interval History Interval history: Kayden Angulo is a pleasant 57 year old lady, here for a follow-up visit. She is here for cycle 5 day 14. She is feeling very well. Last Tuesday while she was cooking, she noted onset of tingling in her hands. It spread to the back of her neck and into the back and then legs. She felt too weak. She also noted some memory loss. It lasted about 3 minutes. She then went to lay down in the living room. Her blood sugar was normal. Her energy is good. No QUINTERO, nor dizziness. No fever nor chills. She has no chest pain. Denies shortness of breath. She has noticed that her abdominal girth is down. She denies any abdominal pain, vomiting heartburn or indigestion. She does feel bloated. She denies nausea nor vomiting.She has noted some bloating after eating. She denies diarrhea. Denies any gross blood in the stools. She actually has constipation. Apetite is good. She has been eating more now. She has changed her diet. Has been taking more fiber. She has been under the care of GI. Sometimes she notes pain in her back and left flank. She denies any dysuria or hematuria. She has arthritis and tendinitis. She has some back pain, and right knee pain. She gets pain in her right knee. She denies any focal weakness. She has depression. Skin of her fingers is darkening. She has history of dermatitis but not active now. She uses Dove soap only. She is otherwise tolerated the chemotherapy very well. Occasionally she notices some easy bruising on her arms and legs. PRESENTING HISTORY: She developed abdominal pain about six weeks ago. She mentions sharp pain in the upper abdomen radiating to both sides, back to front like a belt. Level was up to 7 on 1-10 scale. It was a sharp pain. It recurred with change of position. Not related to meals. She went to see her primary doctor who ordered an abdominal ultrasound. Ultrasound of the abdomen from 12/07 revealed: IMPRESSION: Enlarged liver and multiple predominately hyperechoic liver lesions. Appearance is suggestive of metastatic disease. Limited visualization of the pancreas. Otherwise unremarkable exam. She had a colonoscopy on 04/[address] Olivarez: Transverse Colon - colonic mass occluding the lumen at hepatic flexure, unable to pass the scope, tried an upper GI scope but also unable to pass, bx taken. Positive for adenocarcinoma. MSI stable. FAMILY HISTORY: Paternal grandma had breast cancer. Maternal aunt had breast cancer. They both from it. 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 She is single. She has 3 children. She denies any history of smoking. She quit alcohol several years ago. Denies drugs. Review of Systems - Constitutional Reports system reviewed and no additional complaints, except as documented, Denies fatigue, Denies fever(s), Denies weakness, Denies weight loss - Eyes Reports system reviewed and no additional complaints, except as documented - ENT Reports system reviewed and no additional complaints, except as documented - Cardiovascular Reports system reviewed and no additional complaints, except as documented - Respiratory Reports no additional respiratory complaints - Gastrointestinal Reports system reviewed and no additional complaints, except as documented - Genitourinary Reports no additional female genitourinary complaints - Musculoskeletal Reports system reviewed and no additional complaints, except as documented - Integumentary/Breasts Skin/Breast: Reports no additional skin complaints - Neurologic Reports system reviewed and no additional complaints, except as documented, Denies weakness - Psychiatric Reports system reviewed and no additional complaints, except as documented - Endocrine Reports no additional endocrine complaints - Hematologic/Lymphatic Reports system reviewed and no additional complaints, except as documented - Allergic/Immunologic Reports system reviewed and no additional complaints, except as documented PMFSH Medical History: Medical History (Last Reviewed 05/13/22 @ 14:58 by Damion Marquis MD) Asthma Asthma Colorectal cancer Depression HTN (hypertension) Liver metastases Metastatic colon cancer to liver Functional capacity: independent ambulation Patient : No Family History: Family History (Last Reviewed 05/13/22 @ 14:58 by Damion Marquis MD) Paternal Grandmother Breast cancer Maternal Aunt Breast cancer Surgical History: Surgical History (Last Reviewed 05/13/22 @ 14:58 by Damion Marquis MD) History of esophagogastroduodenoscopy (EGD) Hx of arthroscopy of right knee Hx of colonoscopy Hx of excision of mass Hx of right breast biopsy Hx of tubal ligation Social History: Social History (Last Reviewed 05/13/22 @ 14:58 by Damion Marquis MD) Living Situation History: Household Members: Children Housing: Apartment Are you a primary transitions rn care coordinator to a significant other at home: No Do you presently have visiting nurse or other home services: No Tobacco History: Patient Tobacco Use Status: Never used Tobacco e-Cigarette/Vaping Use: Never Used Occupation Assessmet: service: No Current occupational status: employed 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 Oncology Screenings - ECOG Performance Status ECOG Performance Status: 0 Home Medications and Allergies Current Medications: Current Medications Acetaminophen (Acetaminophen 325 Mg Tablet) 650 mg PO ONCE SAUL Stop: 08/24/22 23:59 Last Admin: 08/24/22 09:24 Dose: 650 mg Diphenhydramine HCl (Diphenhydramine Hcl 50 Mg/Ml Vial) 25 mg IVPUSH ONCE SAUL Stop: 08/24/22 23:59 Last Admin: 08/24/22 09:25 Dose: 25 mg Dexamethasone Sodium Phosphate (Decadron) 12 mg in 50 mls @ 200 mls/hr IV ONCE SAUL Stop: 08/24/22 23:59 Last Admin: 08/24/22 09:25 Dose: 200 mls/hr Ondansetron HCl (Zofran) 16 mg in 50 mls @ 200 mls/hr IV ONCE SAUL Stop: 08/24/22 23:59 Last Admin: 08/24/22 09:25 Dose: 200 mls/hr Fosaprepitant 150 mg/ Sodium (Chloride) 150 mls @ 300 mls/hr IV ONCE SAUL Stop: 08/24/22 23:59 Home Medications Medication Instructions Recorded Confirmed Type losartan 50 mg tablet 1 tab PO DAILY 01/13/21 07/26/22 History omeprazole 20 mg capsule,delayed 20 mg PO DAILY 10/08/21 07/26/22 History release metoprolol succinate 50 mg 1 tab PO DAILY 12/17/21 07/26/22 History tablet,extended release 24 hr Allergies Allergy/AdvReac Type Severity Reaction Status Date / Time latex Allergy Intermediate Rash Verified 04/30/22 14:09 Exam Vital signs: Vital Signs Temp 97.7 F 08/24/22 08:15 Pulse 90 08/24/22 08:15 Resp 18 08/24/22 08:15 BP 134/81 08/24/22 08:15 Pulse Ox 98 08/24/22 08:15 O2 Del Method Room Air 08/24/22 08:15 Intake & Output 08/23/22 08/24/22 08/24/22 18:59 06:59 18:59 Other: Weight 67.3 kg Weight in Grams [id number] Weight 67.3 kg BMI result Body Mass Index 28.0 - Constitutional Present: no acute distress - Routine HEENT Exam Head: Present: normal inspection Eye: Present: normal appearance ENT: Present: mucous membranes moist - Routine Neck Exam Present: full ROM - Routine Respiratory Exam Present: CTAB - Routine Cardiovascular Exam Cardiovascular: Present: RRR, S1, S2 - Routine Abdominal Exam Present: soft, nontender - Routine Rectal Exam Patient deferred: digital exam - Routine Extremities Exam Present: nontender - Routine Back/Spine/Pelvis Exam Back/Spine: Present: full ROM - Routine Skin Exam Present: intact - Routine Neurological Exam Present: alert, oriented X3, vision grossly intact - Detailed Neurological Exam: Coma Scale Eye Opening: Spontaneous (4) - Routine Psychiatric Exam Present: normal affect Data - Labs CBC & Chem 7: 08/24/22 08:20 08/24/22 08:20 Assessment and Plan Patient Active problem list reviewed?: Yes (1) Liver metastases Status: Inactive Assessment and plan: This is a pleasant 57-year-old lady who developed upper abdominal pain. The pain since subsided however ultrasound revealed: IMPRESSION: Enlarged liver and multiple predominately hyperechoic liver lesions. Appearance is suggestive of metastatic disease. Limited visualization of the pancreas. Otherwise unremarkable exam. No known primary has been noted. DIFFERENTIAL DIAGNOSIS: 1. A GI PRIMARY: COLON CARCINOMA: She has not had a screening colonoscopy done yet. 2. PANCREATIC CANCER: 3. BREAST CANCER: However recent mammogram was normal. 4. LUNG CANCER: Is in the differential however she does not smoke. , so less likely. 5. PRIMARY HEPATOMA: Would also be unlikely. Usually we find metastases, from another site into the liver and not primary. l checked baseline labs including tumor markers today:CEA 325, Ca 19/9 962, Ca 27.29: 18 . DATABASE: LABS FROM TODAY: CBC WBC 7.4, HGB 11.7, HCT 36.4, PLT 368. CMP: Lytes WNL, glucose:88, BUN 7, CAP INSPECTOR 0.73. LFTs: 0.6/208/66/27. I proceeded with further evaluation. l initiated search for a primary: CT scans of the chest abdomen and pelvis, from 01/18: Bilateral pulmonary nodules. Bilateral axillary and left supraclavicular upper normal-size lymph nodes. 4 cm colon mass in the hepatic flexure. Enlarged adjacent lymph nodes metastatic disease to the liver and peritoneal disease. Bilateral pulmonary nodules also probably representing metastatic disease. l proceeded with an ultrasound guided biopsy of the liver lesions to further define the primary. Biopsy of the lesion in the right lobe of the liver on 01/27 revealed: Moderately differentiated adenocarcinoma consistent with metastatic colorectal cancer. Unfortunately, very little tumor was present, insufficient for ancillary testing. I referred her to GI for a colonoscopy. That way we can obtain more issues to proceed with ancillary testing, to decide about the best regimen to give her. She was seen by Dr. Jimenez, on 02/26. The colonoscopy was scheduled for 03/26/22. However she came down with COVID. The procedure was postponed pending medical clearance. The bone scan was ordered on account of ongoing back and rib pain. It was done on 03/26: Normal whole body bone scan. No evidence of osseous metastatic disease. CEA Level: 863, 754, 1460, 1920, 869 (06/14). She started FOLFOX plus bevacizumab, on 04/14. She received day 15 on 04/28. Cycle 2 on 05/12. D 14 had to be postponed till 06/01, on account of neutropenia. Here for cycle 5 day 14. She is feeling well. She feels bloating, otherwise tolerating the chemotherapy well. She is taking omeprazole. CEA level: 05/18:1920. 06/14:869. /:426. CT scan of the chest from 08/18: No appreciable change in bilateral pulmonary nodules. Largest pulmonary nodule in the left lower lobe may be slightly decreased in size. No new pulmonary nodules. Interval decrease in left hilar adenopathy. CT scan of the abdomen from 08/18: IMPRESSION: Stable liver lesions. Interval decrease in soft tissue mass in the hepatic flexure, adjacent peritoneal disease and retroperitoneal lymphadenopathy. New left pelvic mass measuring 5.3 x 7.6 cm. Question primary left adnexal mass, metastatic disease to the left ovary or new peritoneal disease. Lymph node is considered less likely. Follow-up pelvic ultrasound recommended. Fleischner guidelines were followed. PLAN: Will proceed with pelvic ultrasound for further evaluation, of the pelvic mass. Will consider biopsy as indicated. If there is disease progression will switch her to FOLFIRI with Avastin. She will return in a week for a follow-up. All her questions were answered to her satisfaction. Thank you, Cc: Dr. Martines. Dr. Jimenez. - Time Spent With Patient Time Spent with Patient (in minutes): 30
[2022-08-24] MEDS: Fosaprepitant Dimeglumine 150 MG in 0.9 % Sodium Chloride 145 ML 300 MG IV (09:57)
[2022-08-24] MEDS: Leucovorin Calcium 680 MG in Dextrose 5 % 250 ML 142 MG IV (14:23)
[2022-08-24] MEDS: OXALIplatin 100 MG, OXALIplatin 40 MG in Dextrose 5 % 500 ML 264 MG IV (14:24)
--- NOTE | 2022-08-24 16:50 | MHC.HEMONC ---
Dr Salvador in room to discuss recent cat scan results with pt
[2022-08-26] MEDS: Heparin Sodium,Porcine Flush 500 UNIT/5 ML SYRINGE IVFLUSH (13:01)
--- NOTE | 2022-08-26 15:38 | MHC.HEMONC ---
Pt here for chemo pump take down. Port flushed with heparin and de-accessed. Neulasta SC injection given in right arm-Tolerated well. (PA good till 09/27/22-Dai Pressley notified of need for new PA soon)
[2022-08-30 08:09] LABS: Carbohydrate Antigen 19-9 1686 U/mL (<34)
[2022-09-06 08:25] VITALS: BP 111/65; PULSE 118; RESP 18; TEMP 36.3; O2SAT 100; BMI 27.5
[2022-09-06 08:48] LABS: Basophils Absolute Auto 0.1 X10*3/uL (0.0-0.2); Basophils Percent Auto 0.6 % (0-2); Eosinophils Percent Auto 0.1 % (0-4); Hematocrit 36.6 % (37.0-47.0); Imm Gran Abs Auto 0.19 X10*3/uL (0.00-0.03); Imm Gran Pct Auto 1.6 % (0.0-0.4); Lymphocytes Absolute Auto 2.4 X10*3/uL (1.2-4.9); Lymphocytes Percent Auto 19.8 % (20-40); MANUAL DIFF FLAG SCAN; Mean Corpuscular HGB Conc 32.8 g/dl (31.0-35.0); Mean Corpuscular Hemoglobin 29.7 pg (27.0-33.0); Mean Corpuscular Volume 90.6 fL (80.0-98.0); Mean Platelet Volume 11.7 fL (9.4-12.3); Monocytes Absolute Auto 3.7 X10*3/uL (0.1-1.2); Monocytes Percent Auto 29.8 % (2-11); Neutrophils Absolute Auto 5.9 x10*3/uL (2.0-8.3); Neutrophils Percent Auto 48.1 % (45-73); Platelet Count 159 X10*3/uL (160-400); Red Blood Count 4.04 X10*6/uL (4.20-5.50); SCAN SMEAR FLAG 1; White Blood Count 12.2 X10*3/uL (4.8-10.8)
[2022-09-06 08:49] LABS: Appearance Urine Cloudy; Color Urine Yellow; Glucose Urine UA Negative (Negative); Leukocyte Esterase Urine Moderate (2+) (Negative); Nitrite Urine Negative (Negative); Specific Gravity - Urine 1.015 (1.005-1.025); UMIC TRIGGER UA YES; Urine Blood Negative (Negative); Urine Ketones Trace mg/dL (Negative); Urine Protein 30 (1+) mg/dL (Neg-Trace)
[2022-09-06 09:03] LABS: Alanine Aminotransferase 18 U/L (0-31); Albumin Level 3.4 g/dL (3.5-5.0); Alkaline Phosphatase 237 U/L (39-117); Anion Gap 17 (12-20); Aspartate Amino Transferase 26 U/L (5-31); Bilirubin Total 1.9 mg/dL (0.0-1.0); Blood Urea Nitrogen 9 mg/dL (9-16); Calcium 8.4 mg/dL (8.4-10.2); Carbon Dioxide 18 mmol/L (22-29); Chloride 103 mmol/L (96-108); Creatinine Clr Calc Pharmacy 61.2; Estimated Glomerular Filt Rate > 60; Glucose Random 166 mg/dL (60-115); Potassium 3.5 mmol/L (3.3-5.1); Sodium 134 mmol/L (135-145); Total Protein 6.2 g/dL (6.5-8.0)
[2022-09-06 09:10] LABS: Bacteria Urine 2+ (None Seen); Hyaline Casts Urine 0-2 /LPF (0-2); RBC Urine 0-2 /HPF (0-2); Renal Epithelial Cells Urine Present; Squamous Epithelial Cell Urine >20 /HPF (0-2); WBC Urine >50 /HPF (0-5)
[2022-09-06 09:13] LABS: SLIDE REVIEW VERIFIED
[2022-09-06] MEDS: diphenhydrAMINE HCL 50 MG/ML VIAL 25 MG IVPUSH (09:31)
[2022-09-06] MEDS: dexAMETHasone sod phosphate/NS 12 MG/50 ML PIGGYBACK 200 MG IV (09:34)
[2022-09-06] MEDS: Acetaminophen 325 MG TABLET 650 MG PO (09:36)
[2022-09-06] MEDS: Fosaprepitant Dimeglumine 150 MG in 0.9 % Sodium Chloride 145 ML 300 MG IV (10:40)
[2022-09-06] MEDS: Leucovorin Calcium 680 MG in Dextrose 5 % 250 ML 142 MG IV (12:09)
[2022-09-06] MEDS: OXALIplatin 100 MG, OXALIplatin 40 MG in Dextrose 5 % 500 ML 264 MG IV (12:11)
--- NOTE | 2022-09-06 15:17 | MHC.HEMONC ---
Here for C11 Folfox/MVasi. Port accessed with good blood return noted. Labs obtained and spec to lab. States is feeling ok, just feels tired, and c/o constipation. Labs reviewed and ok for treatment. Premedicated with tylenol po, zofran, benadryl, dexamethasone, and emend IV. Treatment done and tolerated well. Departure packet given. Scheduled for take down in 2 days, and next treatment in 2 weeks. Attempted to schedule hospital transportation for next treatment, but transportation van is booked that day, with no available berry picker time. Will need to schedule lyft for that day. Departed unit with home infusion pump.
[2022-09-08 12:35] VITALS: BP 127/80; PULSE 83; RESP 18; TEMP 35.9; O2SAT 98
[2022-09-08] MEDS: Heparin Sodium,Porcine Flush 500 UNIT/5 ML SYRINGE IVFLUSH (12:35)
--- NOTE | 2022-09-08 13:34 | MHC.HEMONC ---
Pt here for pump takedown. Pt offers no complaints. Pump verified at zero. Pump disconnected. Port flushed with saline and heparin, good blood return noted. Port de accessed. Neulasta 6mg subq given YOSELIN. Pt oll well. Declined summary. Pt departed.
--- NOTE | 2022-09-16 09:29 | HE.ONCSEC ---
Called and LVM for reminder of appt and chemo on 09/20/22.
[2022-09-20 07:58] VITALS: BP 125/92; PULSE 96; RESP 18; TEMP 36.2; O2SAT 100; BMI 28.2
--- NOTE | 2022-09-20 08:13 | PM.HEMONCPN ---
Medical Summary - Medical Summary Date of Service: 09/20/22 Chief complaint: Follow-up for: Rectal carcinoma with liver Mets. Primary Care Provider: Corine Martines MD Medical Summary: DIAGNOSIS: NEW LIVER LESIONS. 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 CURRENT THERAPY: Started on modified FOLFOX and bevacizumab on 04/14. Day 15 on 04/28. Cycle 2 on 05/12. Day 14 on 06/01. Cycle 6 day 14 today. Interval History Interval history: Kayden Angulo is a pleasant 57 year old lady, here for a follow-up visit. She had imaging done on 08/18, reported on 08/24 which revealed: No appreciable change in bilateral pulmonary nodules. Largest pulmonary nodule in the left lower lobe may be slightly decreased in size. No new pulmonary nodules. Interval decrease in left hilar adenopathy. IMPRESSION: Stable liver lesions. Interval decrease in soft tissue mass in the hepatic flexure, adjacent peritoneal disease and retroperitoneal lymphadenopathy. New left pelvic mass measuring 5.3 x 7.6 cm. Question primary left adnexal mass, metastatic disease to the left ovary or new peritoneal disease. Lymph node is considered less likely. Follow-up pelvic ultrasound recommended. Fleischner guidelines were followed. She had pelvic ultrasound on 09/03 that revealed: 1. Complex hypervascular mass in the right adnexa. Consider possibility of cystadenocarcinoma among correlate with MRI. 2. Nonvisualization of left ovary and unremarkable uterus. She is here for cycle 6 day 14. She is feeling quite well. Sometimes she gets a pain in the belly which radiates from the front to the back. Denies any pelvic pain. She has not had any pelvic surgery. Energy level is down. No QUINTERO, nor dizziness. No fever nor chills. She has no chest pain. Denies shortness of breath. She has noticed that her abdominal girth is down. She nausea,vomiting heartburn or indigestion. She does feel bloated. She denies diarrhea. Denies any gross blood in the stools. She actually has constipation. Apetite is good. She has been eating better now. She has been taking more fiber. She is under the care of GI. Sometimes she notes pain in her back and left flank. She denies any dysuria or hematuria. She has arthritis and tendinitis. She has some back pain, and right knee pain. She gets pain in her right knee. She denies any focal weakness. She has depression. Skin of her fingers is darkening. She has history of dermatitis but not active now. She uses Dove soap only. She is otherwise tolerated the chemotherapy very well. No easy bruising on her arms and legs. PRESENTING HISTORY: She developed abdominal pain about six weeks ago. She mentions sharp pain in the upper abdomen radiating to both sides, back to front like a belt. Level was up to 7 on 1-10 scale. It was a sharp pain. It recurred with change of position. Not related to meals. She went to see her primary doctor who ordered an abdominal ultrasound. Ultrasound of the abdomen from 12/07 revealed: IMPRESSION: Enlarged liver and multiple predominately hyperechoic liver lesions. Appearance is suggestive of metastatic disease. Limited visualization of the pancreas. Otherwise unremarkable exam. She had a colonoscopy on 04/[address] Olivarez: Transverse Colon - colonic mass occluding the lumen at hepatic flexure, unable to pass the scope, tried an upper GI scope but also unable to pass, bx taken. Positive for adenocarcinoma. MSI stable. FAMILY HISTORY: Paternal grandma had breast cancer. Maternal aunt had breast cancer. They both from it. 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 She is single. She has 3 children. She denies any history of smoking. She quit alcohol several years ago. Denies drugs. Review of Systems - Constitutional Reports no additional constitutional complaints, Denies increased appetite, Reports lack of energy, Denies weakness, Reports weight gain, Denies weight loss - Eyes Reports no additional eye complaints - ENT Reports no additional ear, nose, mouth, and throat complaints - Cardiovascular Reports no additional cardiovascular complaints - Respiratory Reports no additional respiratory complaints - Gastrointestinal Reports no additional gastrointestinal complaints, Reports abdominal pain - Genitourinary Reports no additional female genitourinary complaints - Musculoskeletal Reports no additional musculoskeletal complaints - Integumentary/Breasts Skin/Breast: Reports no additional skin complaints - Neurologic Reports no additional neurologic complaints, Denies weakness - Psychiatric Reports no additional psychiatric complaints - Endocrine Reports no additional endocrine complaints - Hematologic/Lymphatic Reports no additional hematologic/lymphatic complaints - Allergic/Immunologic Reports no additional allergic/immunologic complaints [facility] Medical History: Medical History (Last Reviewed 05/13/22 @ 14:58 by Damion Marquis MD) Asthma Asthma Colorectal cancer Depression HTN (hypertension) Liver metastases Metastatic colon cancer to liver Functional capacity: independent ambulation Patient : No Family History: Family History (Last Reviewed 05/13/22 @ 14:58 by Damion Marquis MD) Paternal Grandmother Breast cancer Maternal Aunt Breast cancer Surgical History: Surgical History (Last Reviewed 05/13/22 @ 14:58 by Damion Marquis MD) History of esophagogastroduodenoscopy (EGD) Hx of arthroscopy of right knee Hx of colonoscopy Hx of excision of mass Hx of right breast biopsy Hx of tubal ligation Social History: Social History (Last Reviewed 05/13/22 @ 14:58 by Damion Marquis MD) Living Situation History: Household Members: Children Housing: Apartment Are you a primary human services care specialist to a significant other at home: No Do you presently have visiting nurse or other home services: No Tobacco History: Patient Tobacco Use Status: Never used Tobacco e-Cigarette/Vaping Use: Never Used Occupation Assessmet: service: No Current occupational status: employed 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 Oncology Screenings - ECOG Performance Status ECOG Performance Status: 0 Home Medications and Allergies Current Medications: Current Medications Acetaminophen (Acetaminophen 325 Mg Tablet) 650 mg PO ONCE SAUL Stop: 09/20/22 23:59 Diphenhydramine HCl (Diphenhydramine Hcl 50 Mg/Ml Vial) 25 mg IVPUSH ONCE SAUL Stop: 09/20/22 23:59 Dexamethasone Sodium Phosphate (Decadron) 12 mg in 50 mls @ 200 mls/hr IV ONCE SAUL Stop: 09/20/22 23:59 Ondansetron HCl (Zofran) 16 mg in 50 mls @ 200 mls/hr IV ONCE SAUL Stop: 09/20/22 23:59 Fosaprepitant 150 mg/ Sodium (Chloride) 150 mls @ 300 mls/hr IV ONCE SAUL Stop: 09/20/22 23:59 Home Medications Medication Instructions Recorded Confirmed Type losartan 50 mg tablet 1 tab PO DAILY 01/13/21 07/26/22 History omeprazole 20 mg capsule,delayed 20 mg PO DAILY 10/08/21 07/26/22 History release metoprolol succinate 50 mg 1 tab PO DAILY 12/17/21 07/26/22 History tablet,extended release 24 hr Allergies Allergy/AdvReac Type Severity Reaction Status Date / Time latex Allergy Intermediate Rash Verified 04/30/22 14:09 Exam Vital signs: Vital Signs Temp 97.1 F 09/20/22 07:58 Pulse 96 09/20/22 07:58 Resp 18 09/20/22 07:58 BP 125/92 H 09/20/22 07:58 Pulse Ox 100 09/20/22 07:58 O2 Del Method Room Air 09/20/22 07:58 Intake & Output 09/19/22 09/20/22 09/20/22 18:59 06:59 18:59 Other: Weight 67.8 kg [place] Weight in Grams [id number] Weight 67.8 kg BMI result Body Mass Index 28.2 - Constitutional Present: no acute distress - Routine HEENT Exam Head: Present: normal inspection Eye: Present: normal appearance ENT: Present: mucous membranes moist - Routine Neck Exam Present: full ROM - Routine Respiratory Exam Present: CTAB - Routine Cardiovascular Exam Cardiovascular: Present: RRR, S1, S2 - Routine Abdominal Exam Present: soft, nontender - Routine Rectal Exam Patient deferred: digital exam - Routine Extremities Exam Present: nontender - Routine Back/Spine/Pelvis Exam Back/Spine: Present: full ROM - Routine Skin Exam Present: intact - Routine Neurological Exam Present: alert, oriented X3, vision grossly intact - Detailed Neurological Exam: Coma Scale Eye Opening: Spontaneous (4) - Routine Psychiatric Exam Present: normal affect Data - Labs CBC & Chem 7: 09/20/22 08:30 09/20/22 08:30 Assessment and Plan Patient Active problem list reviewed?: Yes (1) Liver metastases Status: Inactive Assessment and plan: This is a pleasant 57-year-old lady who developed upper abdominal pain. The pain since subsided however ultrasound revealed: IMPRESSION: Enlarged liver and multiple predominately hyperechoic liver lesions. Appearance is suggestive of metastatic disease. Limited visualization of the pancreas. Otherwise unremarkable exam. No known primary has been noted. DIFFERENTIAL DIAGNOSIS: 1. A GI PRIMARY: COLON CARCINOMA: She has not had a screening colonoscopy done yet. 2. PANCREATIC CANCER: 3. BREAST CANCER: However recent mammogram was normal. 4. LUNG CANCER: Is in the differential however she does not smoke. , so less likely. 5. PRIMARY HEPATOMA: Would also be unlikely. Usually we find metastases, from another site into the liver and not primary. l checked baseline labs including tumor markers today:CEA 325, Ca 19/9 962, Ca 27.29: 18 . DATABASE: LABS FROM TODAY: CBC WBC 7.4, HGB 11.7, HCT 36.4, PLT 368. CMP: Lytes WNL, glucose:88, BUN 7, MANAGER HEAVY DUTY 0.73. LFTs: 0.6/208/66/27. I proceeded with further evaluation. l initiated search for a primary: CT scans of the chest abdomen and pelvis, from 01/18: Bilateral pulmonary nodules. Bilateral axillary and left supraclavicular upper normal-size lymph nodes. 4 cm colon mass in the hepatic flexure. Enlarged adjacent lymph nodes metastatic disease to the liver and peritoneal disease. Bilateral pulmonary nodules also probably representing metastatic disease. l proceeded with an ultrasound guided biopsy of the liver lesions to further define the primary. Biopsy of the lesion in the right lobe of the liver on 01/27 revealed: Moderately differentiated adenocarcinoma consistent with metastatic colorectal cancer. Unfortunately, very little tumor was present, insufficient for ancillary testing. I referred her to GI for a colonoscopy. That way we can obtain more issues to proceed with ancillary testing, to decide about the best regimen to give her. She was seen by Dr. Jimenez, on 02/26. The colonoscopy was scheduled for 03/26/22. However she came down with COVID. The procedure was postponed pending medical clearance. The bone scan was ordered on account of ongoing back and rib pain. It was done on 03/26: Normal whole body bone scan. No evidence of osseous metastatic disease. CEA Level: 863, 754, 1460, 1920, 869 (06/14). She started FOLFOX plus bevacizumab, on 04/14. She received day 15 on 04/28. Cycle 2 on 05/12. D 14 had to be postponed till 06/01, on account of neutropenia. Here for cycle 5 day 14. She is feeling well. She feels bloating, otherwise tolerating the chemotherapy well. She is taking omeprazole. CEA level: 05/18:1920. 06/14:869. /:426. CT scan of the chest from 08/18: No appreciable change in bilateral pulmonary nodules. Largest pulmonary nodule in the left lower lobe may be slightly decreased in size. No new pulmonary nodules. Interval decrease in left hilar adenopathy. CT scan of the abdomen from 08/18: IMPRESSION: Stable liver lesions. Interval decrease in soft tissue mass in the hepatic flexure, adjacent peritoneal disease and retroperitoneal lymphadenopathy. New left pelvic mass measuring 5.3 x 7.6 cm. Question primary left adnexal mass, metastatic disease to the left ovary or new peritoneal disease. Lymph node is considered less likely. Follow-up pelvic ultrasound recommended. Fleischner guidelines were followed. l proceeded with pelvic ultrasound for further evaluation: 1. Complex hypervascular mass in the right adnexa. Consider possibility of cystadenocarcinoma among correlate with MRI. 2. Nonvisualization of left ovary and unremarkable uterus. She is clinically doing well. Tolerating treatment reasonably well. CEA: 228.60. This is reassuring. PLAN: Will proceed with MRI to follow-up on the right adnexal mass. Earliest they can do is 10/06. Will refer to air conditioning supervisor Oncology. Will follow-up on her tumor markers: CEA: 228.60, down from 1600 range. If there is disease progression will switch her to FOLFIRI with Avastin. She will return in 2 weeks for a follow-up. All her questions were answered to her satisfaction. Thank you, Cc: Dr. Martines. Dr. Jimenez. - Time Spent With Patient Time Spent with Patient (in minutes): 30
[2022-09-20 08:43] LABS: Basophils Absolute Auto 0.1 X10*3/uL (0.0-0.2); Basophils Percent Auto 1.1 % (0-2); Eosinophils Absolute Auto 0.2 X10*3/uL (0.0-0.4); Eosinophils Percent Auto 2.5 % (0-4); Hematocrit 38.4 % (37.0-47.0); Hemoglobin 12.3 g/dl (12.0-16.0); Imm Gran Abs Auto 0.24 X10*3/uL (0.00-0.03); Imm Gran Pct Auto 2.7 % (0.0-0.4); Lymphocytes Absolute Auto 3.3 X10*3/uL (1.2-4.9); Lymphocytes Percent Auto 36.1 % (20-40); MANUAL DIFF FLAG SCAN; Mean Corpuscular Hemoglobin 29.6 pg (27.0-33.0); Mean Corpuscular Volume 92.3 fL (80.0-98.0); Mean Platelet Volume 11.7 fL (9.4-12.3); Monocytes Absolute Auto 1.7 X10*3/uL (0.1-1.2); Monocytes Percent Auto 18.7 % (2-11); NRBC Pct Auto 0.4 /100WBC (0.0-0.2); Neutrophils Absolute Auto 3.5 x10*3/uL (2.0-8.3); Neutrophils Percent Auto 38.9 % (45-73); Platelet Count 146 X10*3/uL (160-400); Red Blood Count 4.16 X10*6/uL (4.20-5.50); Red Cell Distribution Width 21.6 % (11.0-16.0); SCAN SMEAR FLAG 1; White Blood Count 9.1 X10*3/uL (4.8-10.8)
[2022-09-20 08:45] LABS: Appearance Urine Clear; Color Urine Yellow; Glucose Urine UA Negative (Negative); Leukocyte Esterase Urine Small (1+) (Negative); Nitrite Urine Negative (Negative); UMIC TRIGGER UA YES; Urine Blood Negative (Negative); Urine Ketones Negative (Negative); Urine Protein Negative (Neg-Trace)
[2022-09-20 08:49] LABS: Bacteria Urine 1+ (None Seen); Hyaline Casts Urine 0-2 /LPF (0-2); RBC Urine 0-2 /HPF (0-2)
[2022-09-20 09:00] LABS: Alanine Aminotransferase 15 U/L (0-31); Albumin Level 3.4 g/dL (3.5-5.0); Alkaline Phosphatase 254 U/L (39-117); Anion Gap 13 (12-20); Aspartate Amino Transferase 37 U/L (5-31); Bilirubin Total 0.5 mg/dL (0.0-1.0); Blood Urea Nitrogen 8 mg/dL (9-16); Calcium 9.3 mg/dL (8.4-10.2); Carbon Dioxide 24 mmol/L (22-29); Chloride 109 mmol/L (96-108); Creatinine Clr Calc Pharmacy 77.3; Estimated Glomerular Filt Rate > 60; Glucose Random 134 mg/dL (60-115); Potassium 3.8 mmol/L (3.3-5.1); Sodium 142 mmol/L (135-145); Total Protein 6.5 g/dL (6.5-8.0)
[2022-09-20 09:02] LABS: SLIDE REVIEW VERIFIED
[2022-09-20] MEDS: diphenhydrAMINE HCL 50 MG/ML VIAL 25 MG IVPUSH (09:27)
[2022-09-20] MEDS: Acetaminophen 325 MG TABLET 650 MG PO (09:30)
[2022-09-20] MEDS: dexAMETHasone sod phosphate/NS 12 MG/50 ML PIGGYBACK 200 MG IV (09:30)
[2022-09-20] MEDS: Fosaprepitant Dimeglumine 150 MG in 0.9 % Sodium Chloride 145 ML 300 MG IV (10:31)
[2022-09-20] MEDS: Leucovorin Calcium 680 MG in Dextrose 5 % 250 ML 142 MG IV (12:07)
[2022-09-20] MEDS: OXALIplatin 100 MG, OXALIplatin 40 MG in Dextrose 5 % 500 ML 264 MG IV (12:07)
[2022-09-20] MEDS: fluorouraciL 4,050 MG in 0.9 % Sodium Chloride 11 ML IV (14:28)
--- NOTE | 2022-09-20 15:29 | MHC.HEMONC ---
Here for C12 Folfox/Mvasi. Port accessed with good blood return noted. Labs obtained. Feeling good today. Lab results reviewed and ok for treatment. Premeds given as ordered. Treatment done and tolerated well. Dr Salvador in to see pt for followup. Home with 5fu infusion pump. Scheduled for pump take down and neulasta in 2 days. Departure packet given and pt departed unit.
[2022-09-22 12:48] VITALS: BP 132/87; PULSE 88; RESP 18; TEMP 36.7; O2SAT 95; BMI 28.4
[2022-09-22] MEDS: Heparin Sodium,Porcine Flush 500 UNIT/5 ML SYRINGE IVFLUSH (12:48)
[2022-10-04 08:24] VITALS: BP 121/80; PULSE 90; RESP 18; TEMP 36.5; O2SAT 97; BMI 28.4
[2022-10-04 09:02] LABS: Alanine Aminotransferase 15 U/L (0-31); Albumin Level 3.2 g/dL (3.5-5.0); Alkaline Phosphatase 260 U/L (39-117); Anion Gap 14 (12-20); Aspartate Amino Transferase 30 U/L (5-31); Bilirubin Total 0.6 mg/dL (0.0-1.0); Blood Urea Nitrogen 7 mg/dL (9-16); Carbon Dioxide 23 mmol/L (22-29); Chloride 109 mmol/L (96-108); Creatinine Clr Calc Pharmacy 79.7; Estimated Glomerular Filt Rate > 60; Glucose Random 142 mg/dL (60-115); Potassium 3.1 mmol/L (3.3-5.1); Sodium 143 mmol/L (135-145); Total Protein 6.3 g/dL (6.5-8.0)
--- NOTE | 2022-10-04 15:55 | MHC.HEMONC ---
Addendum entered by Gem Dueñas RN 10/04/22 16:27: K+ 3.1 Potassium 20meq po given per Dr Salvador. Information on potassium rich foods given to patient. Original Note: Pt here for C13 Folfox/MVASI. Pt reports still having some nausea talking zofran, Discoloration of hands/Fingers, Low back pain, Neuropathy in fingers/toes. Port to right chest accessed, good blood return. Labs drawn and results reviewed. Ok to treat. Pre meds given Emend IV, Dex IV, Benadryl IV, Zofran IV, Tylenol PO. Oxaliplatin/Leucovorin infused. 5FU push given and sent home with pump. Pt returns on Tuesday for pump take down and Neulasta. Pt takes Dex 4mg daily on day 2 and 3. Summary given and pt departed. Pt has MRI on 10/15/22.
--- NOTE | 2022-10-04 16:34 | MHC.HEMONC ---
Pt notes faxed to REPRODUCTION ORDER PROCESSOR ONC at [facility] for Consultation due to abnormal T/V ultrasound.
--- NOTE | 2022-10-05 11:59 | MHC.HEMONC ---
Pt has appt with CONTENT MANAGER ONC at [facility] on 10/19/22 at 2pm. [id number]. Pt was advised of appt by Sudha (Faroese speaking ENGINEER SOILS). All notes sent.
[2022-10-06] MEDS: Heparin Sodium,Porcine Flush 500 UNIT/5 ML SYRINGE IVFLUSH (12:52)
--- NOTE | 2022-10-06 14:12 | MHC.HEMONC ---
Pt here for pump takedown. Pt asking about discoloration on hands and feet. This is not new but skin is darker. Skin intact, denies pain and has tingling. Will have Dr Salvador look at discoloration next treatment. Pump verified at zero and disconnected. Port to right chest flushed with saline/heparin. Good blood return. Neulasta given REX. Pt toll well. Calendar given and pt departed.
--- NOTE | 2022-10-18 08:08 | PM.HEMONCPN ---
Medical Summary - Medical Summary Date of Service: 10/19/22 Chief complaint: Follow-up for: Rectal carcinoma. Primary Care Provider: Corine Martines MD Medical Summary: DIAGNOSIS: NEW LIVER LESIONS. 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 CURRENT THERAPY: Started on modified FOLFOX and bevacizumab on 04/14. Day 15 on 04/28. Cycle 2 on 05/12. Day 14 on 06/01. Cycle 6 day 14 today. Interval History Interval history: Kayden Angulo is a pleasant 57 year old lady, here for a follow-up visit. She had imaging done on 08/18, reported on 08/24 which revealed: No appreciable change in bilateral pulmonary nodules. Largest pulmonary nodule in the left lower lobe may be slightly decreased in size. No new pulmonary nodules. Interval decrease in left hilar adenopathy. IMPRESSION: Stable liver lesions. Interval decrease in soft tissue mass in the hepatic flexure, adjacent peritoneal disease and retroperitoneal lymphadenopathy. New left pelvic mass measuring 5.3 x 7.6 cm. Question primary left adnexal mass, metastatic disease to the left ovary or new peritoneal disease. Lymph node is considered less likely. Follow-up pelvic ultrasound recommended. Fleischner guidelines were followed. She had pelvic ultrasound on 09/03 that revealed: 1. Complex hypervascular mass in the right adnexa. Consider possibility of cystadenocarcinoma among correlate with MRI. 2. Nonvisualization of left ovary and unremarkable uterus. She is here for cycle 6 day 14. She is feeling quite well. Sometimes she gets a pain in the belly which radiates from the front to the back. Denies any pelvic pain. She has not had any pelvic surgery. Energy level is down. No QUINTERO, nor dizziness. No fever nor chills. She has no chest pain. Denies shortness of breath. She has noticed that her abdominal girth is down. She nausea,vomiting heartburn or indigestion. She does feel bloated. She denies diarrhea. Denies any gross blood in the stools. She actually has constipation. Apetite is good. She has been eating better now. She has been taking more fiber. She is under the care of GI. Sometimes she notes pain in her back and left flank. She denies any dysuria or hematuria. She has arthritis and tendinitis. She has some back pain, and right knee pain. She gets pain in her right knee. She denies any focal weakness. She has depression. Skin of her fingers is darkening. She has history of dermatitis but not active now. She uses Dove soap only. She is otherwise tolerated the chemotherapy very well. No easy bruising on her arms and legs. PRESENTING HISTORY: She developed abdominal pain about six weeks ago. She mentions sharp pain in the upper abdomen radiating to both sides, back to front like a belt. Level was up to 7 on 1-10 scale. It was a sharp pain. It recurred with change of position. Not related to meals. She went to see her primary doctor who ordered an abdominal ultrasound. Ultrasound of the abdomen from 12/07 revealed: IMPRESSION: Enlarged liver and multiple predominately hyperechoic liver lesions. Appearance is suggestive of metastatic disease. Limited visualization of the pancreas. Otherwise unremarkable exam. She had a colonoscopy on 04/[address] Olivarez: Transverse Colon - colonic mass occluding the lumen at hepatic flexure, unable to pass the scope, tried an upper GI scope but also unable to pass, bx taken. Positive for adenocarcinoma. MSI stable. FAMILY HISTORY: Paternal grandma had breast cancer. Maternal aunt had breast cancer. They both from it. 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 She is single. She has 3 children. She denies any history of smoking. She quit alcohol several years ago. Denies drugs. Review of Systems - Constitutional Reports system reviewed and no additional complaints, except as documented - Eyes Reports system reviewed and no additional complaints, except as documented - ENT Reports system reviewed and no additional complaints, except as documented - Cardiovascular Reports system reviewed and no additional complaints, except as documented - Respiratory Reports no additional respiratory complaints - Gastrointestinal Reports system reviewed and no additional complaints, except as documented - Genitourinary Reports no additional female genitourinary complaints - Musculoskeletal Reports system reviewed and no additional complaints, except as documented - Integumentary/Breasts Skin/Breast: Reports no additional skin complaints - Neurologic Reports system reviewed and no additional complaints, except as documented, Denies weakness - Psychiatric Reports system reviewed and no additional complaints, except as documented - Endocrine Reports no additional endocrine complaints - Hematologic/Lymphatic Reports system reviewed and no additional complaints, except as documented - Allergic/Immunologic Reports system reviewed and no additional complaints, except as documented [facility] Medical History: Medical History (Last Reviewed 10/19/22 @ 20:16 by Laina Souza MD) Asthma Asthma Colorectal cancer Depression HTN (hypertension) Liver metastases Metastatic colon cancer to liver Functional capacity: independent ambulation Family History: Family History (Last Reviewed 05/13/22 @ 14:58 by Damion Marquis MD) Paternal Grandmother Breast cancer Maternal Aunt Breast cancer Surgical History: Surgical History (Last Reviewed 10/19/22 @ 20:16 by Laina Souza MD) History of esophagogastroduodenoscopy (EGD) Hx of arthroscopy of right knee Hx of colonoscopy Hx of excision of mass Hx of right breast biopsy Hx of tubal ligation Social History: Social History (Last Reviewed 05/13/22 @ 14:58 by Damion Marquis MD) Living Situation History: Household Members: Children Housing: Apartment Are you a primary pharmacy customer care specialist to a significant other at home: No Do you presently have visiting nurse or other home services: No Tobacco History: Patient Tobacco Use Status: Never used Tobacco e-Cigarette/Vaping Use: Never Used Occupation Assessmet: service: No Current occupational status: employed 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 Oncology Screenings - ECOG Performance Status ECOG Performance Status: 0 Home Medications and Allergies Current Medications: Current Medications Acetaminophen (Acetaminophen 325 Mg Tablet) 650 mg PO ONCE SAUL Stop: 10/18/22 23:59 Diphenhydramine HCl (Diphenhydramine Hcl 50 Mg/Ml Vial) 25 mg IVPUSH ONCE SAUL Stop: 10/18/22 23:59 Dexamethasone Sodium Phosphate (Decadron) 12 mg in 50 mls @ 200 mls/hr IV ONCE SAUL Stop: 10/18/22 23:59 Ondansetron HCl (Zofran) 16 mg in 50 mls @ 200 mls/hr IV ONCE SAUL Stop: 10/18/22 23:59 Fosaprepitant 150 mg/ Sodium (Chloride) 150 mls @ 300 mls/hr IV ONCE SAUL Stop: 10/18/22 23:59 Home Medications Medication Instructions Recorded Confirmed Type losartan 50 mg tablet 1 tab PO DAILY 01/13/21 07/26/22 History omeprazole 20 mg capsule,delayed 20 mg PO DAILY 10/08/21 07/26/22 History release metoprolol succinate 50 mg 1 tab PO DAILY 12/17/21 07/26/22 History tablet,extended release 24 hr Allergies Allergy/AdvReac Type Severity Reaction Status Date / Time latex Allergy Intermediate Rash Verified 04/30/22 14:09 Exam Vital signs: Vital Signs Temp 97.7 F 10/04/22 08:24 Pulse 90 10/04/22 08:24 Resp 18 10/04/22 08:24 BP 121/80 10/04/22 08:24 Pulse Ox 97 10/04/22 08:24 O2 Del Method Room Air 10/04/22 08:24 Weight 68.1 kg BMI result Body Mass Index 28.4 - Constitutional Present: no acute distress - Routine HEENT Exam Head: Present: normal inspection Eye: Present: normal appearance ENT: Present: mucous membranes moist - Routine Neck Exam Present: full ROM - Routine Respiratory Exam Present: CTAB - Routine Cardiovascular Exam Cardiovascular: Present: RRR, S1, S2 - Routine Abdominal Exam Present: soft, nontender - Routine Rectal Exam Patient deferred: digital exam - Routine Extremities Exam Present: nontender - Routine Back/Spine/Pelvis Exam Back/Spine: Present: full ROM - Routine Skin Exam Present: intact - Routine Neurological Exam Present: alert, oriented X3, vision grossly intact - Detailed Neurological Exam: Coma Scale Eye Opening: Spontaneous (4) - Routine Psychiatric Exam Present: normal affect Data - Labs CBC & Chem 7: 10/18/22 08:45 10/18/22 08:45 Assessment and Plan Patient Active problem list reviewed?: Yes (1) Liver metastases Status: Inactive Assessment and plan: This is a pleasant 57-year-old lady who developed upper abdominal pain. The pain since subsided however ultrasound revealed: IMPRESSION: Enlarged liver and multiple predominately hyperechoic liver lesions. Appearance is suggestive of metastatic disease. Limited visualization of the pancreas. Otherwise unremarkable exam. No known primary has been noted. DIFFERENTIAL DIAGNOSIS: 1. A GI PRIMARY: COLON CARCINOMA: She has not had a screening colonoscopy done yet. 2. PANCREATIC CANCER: 3. BREAST CANCER: However recent mammogram was normal. 4. LUNG CANCER: Is in the differential however she does not smoke. , so less likely. 5. PRIMARY HEPATOMA: Would also be unlikely. Usually we find metastases, from another site into the liver and not primary. l checked baseline labs including tumor markers today:CEA 325, Ca 19/9 962, Ca 27.29: 18 . DATABASE: LABS FROM TODAY: CBC WBC 7.4, HGB 11.7, HCT 36.4, PLT 368. CMP: Lytes WNL, glucose:88, BUN 7, LIME MIXER TENDER 0.73. LFTs: 0.6/208/66/27. I proceeded with further evaluation. l initiated search for a primary: CT scans of the chest abdomen and pelvis, from 01/18: Bilateral pulmonary nodules. Bilateral axillary and left supraclavicular upper normal-size lymph nodes. 4 cm colon mass in the hepatic flexure. Enlarged adjacent lymph nodes metastatic disease to the liver and peritoneal disease. Bilateral pulmonary nodules also probably representing metastatic disease. l proceeded with an ultrasound guided biopsy of the liver lesions to further define the primary. Biopsy of the lesion in the right lobe of the liver on 01/27 revealed: Moderately differentiated adenocarcinoma consistent with metastatic colorectal cancer. Unfortunately, very little tumor was present, insufficient for ancillary testing. I referred her to GI for a colonoscopy. That way we can obtain more issues to proceed with ancillary testing, to decide about the best regimen to give her. She was seen by Dr. Jimenez, on 02/26. The colonoscopy was scheduled for 03/26/22. However she came down with COVID. The procedure was postponed pending medical clearance. The bone scan was ordered on account of ongoing back and rib pain. It was done on 03/26: Normal whole body bone scan. No evidence of osseous metastatic disease. CEA Level: 863, 754, 1460, 1920, 869 (06/14). She started FOLFOX plus bevacizumab, on 04/14. She received day 15 on 04/28. Cycle 2 on 05/12. D 14 had to be postponed till 06/01, on account of neutropenia. Here for cycle 5 day 14. She is feeling well. She feels bloating, otherwise tolerating the chemotherapy well. She is taking omeprazole. CEA level: 05/18:1920. 06/14:869. 5/1:426. CT scan of the chest from 08/18: No appreciable change in bilateral pulmonary nodules. Largest pulmonary nodule in the left lower lobe may be slightly decreased in size. No new pulmonary nodules. Interval decrease in left hilar adenopathy. CT scan of the abdomen from 08/18: IMPRESSION: Stable liver lesions. Interval decrease in soft tissue mass in the hepatic flexure, adjacent peritoneal disease and retroperitoneal lymphadenopathy. New left pelvic mass measuring 5.3 x 7.6 cm. Question primary left adnexal mass, metastatic disease to the left ovary or new peritoneal disease. Lymph node is considered less likely. Follow-up pelvic ultrasound recommended. Fleischner guidelines were followed. l proceeded with pelvic ultrasound for further evaluation: 1. Complex hypervascular mass in the right adnexa. Consider possibility of cystadenocarcinoma among correlate with MRI. 2. Nonvisualization of left ovary and unremarkable uterus. She is clinically doing well. Tolerating treatment reasonably well. CEA: 228.60. This is reassuring. PLAN: Will proceed with MRI to follow-up on the right adnexal mass. Earliest they can do is 10/06. 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 Will follow-up on her tumor markers: CEA: 228.60, down from 1600 range. If there is disease progression will switch her to FOLFIRI with Avastin. She will return in 2 weeks for a follow-up. All her questions were answered to her satisfaction. Thank you, Cc: Dr. Martines. Dr. Jimenez. - Time Spent With Patient Time Spent with Patient (in minutes): 30
[2022-10-18 08:11] VITALS: BP 150/79; PULSE 103; RESP 18; TEMP 36.7; O2SAT 98; BMI 28.7
[2022-10-18 08:58] LABS: Basophils Absolute Auto 0.1 X10*3/uL (0.0-0.2); Eosinophils Absolute Auto 0.1 X10*3/uL (0.0-0.4); Eosinophils Percent Auto 0.7 % (0-4); Hematocrit 38.2 % (37.0-47.0); Hemoglobin 12.3 g/dl (12.0-16.0); Imm Gran Abs Auto 0.35 X10*3/uL (0.00-0.03); Imm Gran Pct Auto 3.6 % (0.0-0.4); Lymphocytes Absolute Auto 3.9 X10*3/uL (1.2-4.9); Lymphocytes Percent Auto 39.5 % (20-40); Mean Corpuscular HGB Conc 32.2 g/dl (31.0-35.0); Mean Corpuscular Hemoglobin 29.7 pg (27.0-33.0); Mean Corpuscular Volume 92.3 fL (80.0-98.0); Mean Platelet Volume 11.7 fL (9.4-12.3); Monocytes Absolute Auto 2.3 X10*3/uL (0.1-1.2); NRBC Pct Auto 0.6 /100WBC (0.0-0.2); Neutrophils Absolute Auto 3.1 x10*3/uL (2.0-8.3); Neutrophils Percent Auto 31.6 % (45-73); Platelet Count 151 X10*3/uL (160-400); Red Blood Count 4.14 X10*6/uL (4.20-5.50); Red Cell Distribution Width 23.3 % (11.0-16.0); SCAN SMEAR FLAG 1; White Blood Count 9.9 X10*3/uL (4.8-10.8)
[2022-10-18 09:00] LABS: MANUAL DIFF FLAG NO; Monocytes Percent Auto 23.6 % (2-11)
[2022-10-18 09:04] LABS: Appearance Urine Clear; Color Urine Yellow; Glucose Urine UA Negative (Negative); Leukocyte Esterase Urine Trace (Negative); Nitrite Urine Negative (Negative); UMIC TRIGGER UA YES; Urine Blood Negative (Negative); Urine Ketones Negative (Negative); Urine Protein Negative (Neg-Trace)
[2022-10-18 09:06] LABS: Alanine Aminotransferase 23 U/L (0-31); Albumin Level 3.4 g/dL (3.5-5.0); Alkaline Phosphatase 311 U/L (39-117); Anion Gap 14 (12-20); Aspartate Amino Transferase 49 U/L (5-31); Bilirubin Total 0.4 mg/dL (0.0-1.0); Blood Urea Nitrogen 7 mg/dL (9-16); Calcium 8.8 mg/dL (8.4-10.2); Carbon Dioxide 23 mmol/L (22-29); Chloride 109 mmol/L (96-108); Creatinine Clr Calc Pharmacy 69.9; Estimated Glomerular Filt Rate > 60; Glucose Random 193 mg/dL (60-115); Potassium 3.7 mmol/L (3.3-5.1); Sodium 142 mmol/L (135-145); Total Protein 6.9 g/dL (6.5-8.0)
[2022-10-18 09:07] LABS: Bacteria Urine None Seen (None Seen); Hyaline Casts Urine 0-2 /LPF (0-2); RBC Urine 0-2 /HPF (0-2); Squamous Epithelial Cell Urine 0-2 /HPF (0-2); WBC Urine 0-5 /HPF (0-5)
[2022-10-18] MEDS: Fosaprepitant Dimeglumine 150 MG in 0.9 % Sodium Chloride 145 ML 300 MG IV (09:58)
[2022-10-18] MEDS: Acetaminophen 325 MG TABLET 650 MG PO (10:00)
[2022-10-18] MEDS: dexAMETHasone sod phosphate/NS 12 MG/50 ML PIGGYBACK 200 MG IV (10:01)
[2022-10-18] MEDS: diphenhydrAMINE HCL 50 MG/ML VIAL 25 MG IVPUSH (10:01)
[2022-10-18] MEDS: Leucovorin Calcium 680 MG in Dextrose 5 % 250 ML 142 MG IV (12:17)
[2022-10-18] MEDS: fluorouraciL 4,100 MG in 0.9 % Sodium Chloride 10 ML IV (14:26)
--- NOTE | 2022-10-18 15:13 | MHC.HEMONC ---
C14: FOLFOX +MVASI- Port accessed without difficulty-positive blood return. Biopatch in place. Labs obtained and reviewed. UA unremarkable. VSS. Patient reported worsening numbness/tingling to fingers affecting activities of daily living- fingers/hands discolored black. Dr. Salvador aware. Oxaliplation reduced to 50%. Pre-medicated with Tylenol 650mg PO, Dexamethasone 12mg IV, Benadryl 25mg IV, Zofran 16mg IV, and Emend 150mg IV. Chemo infused. 5FU bolus and pump administered. Patient to return Tuesday for pump take down and Neulasta. Discharge packet provided. Transportation service booked for appt Tuesday and next cycle.
--- NOTE | 2022-10-19 09:45 | MHC.HEMONC ---
Pt informed on telephone by Leatha that MRI could scan her tomorrow after her pump takedown. She said she would attend. She also plans on going to [facility] this afternoon.
[2022-10-20] MEDS: Heparin Sodium,Porcine Flush 500 UNIT/5 ML SYRINGE IVFLUSH (13:04)
[2022-11-01 08:22] VITALS: BP 119/75; PULSE 107; RESP 18; TEMP 37.1; O2SAT 96; BMI 28.7
[2022-11-01 08:49] LABS: Basophils Absolute Auto 0.1 X10*3/uL (0.0-0.2); Basophils Percent Auto 0.9 % (0-2); Eosinophils Absolute Auto 0.2 X10*3/uL (0.0-0.4); Eosinophils Percent Auto 2.1 % (0-4); Hematocrit 36.7 % (37.0-47.0); Hemoglobin 11.8 g/dl (12.0-16.0); Imm Gran Pct Auto 1.2 % (0.0-0.4); Lymphocytes Absolute Auto 2.4 X10*3/uL (1.2-4.9); Lymphocytes Percent Auto 29.7 % (20-40); MANUAL DIFF FLAG SCAN; Mean Corpuscular HGB Conc 32.2 g/dl (31.0-35.0); Mean Corpuscular Hemoglobin 29.3 pg (27.0-33.0); Mean Corpuscular Volume 91.1 fL (80.0-98.0); Mean Platelet Volume 11.5 fL (9.4-12.3); Monocytes Absolute Auto 2.2 X10*3/uL (0.1-1.2); Monocytes Percent Auto 27.8 % (2-11); Neutrophils Absolute Auto 3.1 x10*3/uL (2.0-8.3); Neutrophils Percent Auto 38.3 % (45-73); Platelet Count 133 X10*3/uL (160-400); Red Blood Count 4.03 X10*6/uL (4.20-5.50); Red Cell Distribution Width 23.2 % (11.0-16.0); SCAN SMEAR FLAG 1; White Blood Count 8.1 X10*3/uL (4.8-10.8)
[2022-11-01 08:50] LABS: Appearance Urine Clear; Color Urine Yellow; Glucose Urine UA Negative (Negative); Leukocyte Esterase Urine Small (1+) (Negative); Nitrite Urine Negative (Negative); Specific Gravity - Urine 1.015 (1.005-1.025); UMIC TRIGGER UA YES; Urine Blood Negative (Negative); Urine Ketones Negative (Negative); Urine Protein Negative (Neg-Trace)
[2022-11-01 08:53] LABS: Bacteria Urine 1+ (None Seen); Hyaline Casts Urine 0-2 /LPF (0-2); RBC Urine 0-2 /HPF (0-2)
[2022-11-01 09:22] LABS: Alanine Aminotransferase 17 U/L (0-31); Albumin Level 3.3 g/dL (3.5-5.0); Alkaline Phosphatase 271 U/L (39-117); Anion Gap 18 (12-20); Aspartate Amino Transferase 39 U/L (5-31); Bilirubin Total 0.6 mg/dL (0.0-1.0); Blood Urea Nitrogen 7 mg/dL (9-16); Calcium 8.7 mg/dL (8.4-10.2); Carbon Dioxide 19 mmol/L (22-29); Chloride 104 mmol/L (96-108); Creatinine Clr Calc Pharmacy 72.7; Estimated Glomerular Filt Rate > 60; Glucose Random 173 mg/dL (60-115); Potassium 3.6 mmol/L (3.3-5.1); Sodium 137 mmol/L (135-145); Total Protein 6.5 g/dL (6.5-8.0)
--- NOTE | 2022-11-01 09:52 | HO.HEMONCPA ---
Addendum entered by Lilly Traore 11/17/22 13:48: PET to be done at [facility] by Wilner on Tuesday11/24/22 at 11:15. Directions in Sen[place]e will be given to pt on when she comes in for pump takedown. Original Note: LINDA FOR PET/CT SKULL TO THIGH ([id number]) APPROVED AUTH #[id number] DOS 11/01/22 - 01/30/23 SENT TO [facility] FOR SCHEDULING
[2022-11-01 10:06] LABS: SLIDE REVIEW VERIFIED
[2022-11-01] MEDS: diphenhydrAMINE HCL 50 MG/ML VIAL 25 MG IVPUSH (10:16)
[2022-11-01] MEDS: Acetaminophen 325 MG TABLET 650 MG PO (10:19)
[2022-11-01] MEDS: dexAMETHasone sod phosphate/NS 12 MG/50 ML PIGGYBACK 200 MG IV (10:20)
[2022-11-01] MEDS: Fosaprepitant Dimeglumine 150 MG in 0.9 % Sodium Chloride 145 ML 300 MG IV (10:20)
--- NOTE | 2022-11-01 15:44 | MHC.HEMONC ---
Here for C15 Folfox/Avastin. Port accessed with good blood return noted. Labs obtained. Pt states she is feeling ok today. She states she felt like she had a fever last night, but didn't take her temp. She states she was sweating, and had back pain. Today she is afebrile. Labs reviewed and ok for treatment. Pre-meds given as ordered. Treatment done and tolerated well. Home with 5fu infusion pump. Departure packet given and pt departed unit. Will return in 2 days for pump take down.
[2022-11-03 12:15] VITALS: BP 135/87; PULSE 85; RESP 18; TEMP 36.2; O2SAT 96
[2022-11-03] MEDS: Heparin Sodium,Porcine Flush 500 UNIT/5 ML SYRINGE IVFLUSH (12:19)
--- NOTE | 2022-11-03 15:47 | MHC.HEMONC ---
Here for pump take down. Tolerated treatment well. Port flushed with 500units heparin flush, and de-accessed. Neulasta given and tolerated well. Departed unit.
[2022-11-16 08:30] VITALS: BP 127/75; PULSE 106; RESP 18; TEMP 36.2; O2SAT 98; BMI 29.2
[2022-11-16 08:42] LABS: Basophils Absolute Auto 0.1 X10*3/uL (0.0-0.2); Basophils Percent Auto 1.1 % (0-2); Eosinophils Absolute Auto 0.1 X10*3/uL (0.0-0.4); Hematocrit 36.5 % (37.0-47.0); Hemoglobin 11.7 g/dl (12.0-16.0); Imm Gran Abs Auto 0.12 X10*3/uL (0.00-0.03); Imm Gran Pct Auto 1.5 % (0.0-0.4); Lymphocytes Absolute Auto 3.3 X10*3/uL (1.2-4.9); Lymphocytes Percent Auto 41.1 % (20-40); MANUAL DIFF FLAG SCAN; Mean Corpuscular HGB Conc 32.1 g/dl (31.0-35.0); Mean Corpuscular Hemoglobin 30.4 pg (27.0-33.0); Mean Corpuscular Volume 94.8 fL (80.0-98.0); Mean Platelet Volume 11.5 fL (9.4-12.3); Monocytes Absolute Auto 2.1 X10*3/uL (0.1-1.2); Monocytes Percent Auto 25.6 % (2-11); NRBC Pct Auto 0.3 /100WBC (0.0-0.2); Neutrophils Absolute Auto 2.4 x10*3/uL (2.0-8.3); Neutrophils Percent Auto 29.7 % (45-73); Platelet Count 152 X10*3/uL (160-400); Red Blood Count 3.85 X10*6/uL (4.20-5.50); Red Cell Distribution Width 23.6 % (11.0-16.0); SCAN SMEAR FLAG 1
[2022-11-16 08:45] LABS: Appearance Urine Clear; Color Urine Dark Yellow; Glucose Urine UA Negative (Negative); Leukocyte Esterase Urine Moderate (2+) (Negative); Nitrite Urine Negative (Negative); Specific Gravity - Urine 1.015 (1.005-1.025); UMIC TRIGGER UA YES; Urine Blood Negative (Negative); Urine Ketones Trace mg/dL (Negative); Urine Protein Trace mg/dL (Neg-Trace)
[2022-11-16 08:48] LABS: Bacteria Urine 2+ (None Seen); Hyaline Casts Urine 0-2 /LPF (0-2); RBC Urine 0-2 /HPF (0-2)
[2022-11-16 08:59] LABS: Alanine Aminotransferase 18 U/L (0-31); Albumin Level 3.5 g/dL (3.5-5.0); Alkaline Phosphatase 282 U/L (39-117); Anion Gap 14 (12-20); Aspartate Amino Transferase 46 U/L (5-31); Bilirubin Total 0.4 mg/dL (0.0-1.0); Blood Urea Nitrogen 6 mg/dL (9-16); Calcium 9.2 mg/dL (8.4-10.2); Carbon Dioxide 22 mmol/L (22-29); Chloride 107 mmol/L (96-108); Creatinine Clr Calc Pharmacy 67.8; Estimated Glomerular Filt Rate > 60; Glucose Random 178 mg/dL (60-115); Potassium 3.7 mmol/L (3.3-5.1); Sodium 139 mmol/L (135-145); Total Protein 6.9 g/dL (6.5-8.0)
[2022-11-16 09:22] LABS: SLIDE REVIEW VERIFIED
--- NOTE | 2022-11-16 09:25 | P.PNHO-ONC_ITS ---
Medical Summary - Medical Summary Date of Service: 11/16/22 Chief complaint: Follow-up for: Rectal carcinoma with metastatic disease. Primary Care Provider: Corine Martines MD Medical Summary: DIAGNOSIS: NEW LIVER LESIONS. 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 CURRENT THERAPY: Started on modified FOLFOX and bevacizumab on 04/14. Day 15 on 04/28. Cycle 2 on 05/12. Cycle 2,day 14 on 06/01. Cycle 6 on 09/20. Cycle 7 on 10/18. Cycle 8 on 11/16. Interval History Interval history: Kayden Angulo is a pleasant 57 year old lady, here for a follow-up visit. She is feeling a bit down. Her energy level is low. Her appetite is okay however her taste is not that good. She has been trying to eat sweet potato 2, passed our, plantains salads, green juices, guannabana, guava and passion fruit. Her fingers and feet hurt. Sometimes he feels electricity like sensation there. She feels her feet have bad under them. Her memory is not that good. No QUINTERO, nor dizziness. No fever nor chills. She has no chest pain. Denies shortness of breath. She has noticed that her abdominal girth is down. She nausea,vomiting heartburn or indigestion. She does feel bloated. She denies diarrhea. Denies any gross blood in the stools. She actually has constipation. Apetite is good. She has been eating better now. She has been taking more fiber. She is under the care of GI. Sometimes she notes pain in her back and left flank. She denies any dysuria or hematuria. She has arthritis and tendinitis. She has some back pain, and right knee pain. She gets pain in her right knee. She denies any focal weakness. She has depression. Skin of her fingers is darkening. She has history of dermatitis but not active now. She uses Dove soap only. She is otherwise tolerated the chemotherapy very well. No easy bruising on her arms and legs. INTERIM HISTORY: She had imaging done on 08/18, reported on 08/24 which revealed: No appreciable change in bilateral pulmonary nodules. Largest pulmonary nodule in the left lower lobe may be slightly decreased in size. No new pulmonary nodules. Interval decrease in left hilar adenopathy. IMPRESSION: Stable liver lesions. Interval decrease in soft tissue mass in the hepatic flexure, adjacent peritoneal disease and retroperitoneal lymphadenopathy. New left pelvic mass measuring 5.3 x 7.6 cm. Question primary left adnexal mass, metastatic disease to the left ovary or new peritoneal disease. Lymph node is considered less likely. Follow-up pelvic ultrasound recommended. Fleischner guidelines were followed. She had pelvic ultrasound on 09/03 that revealed: 1. Complex hypervascular mass in the right adnexa. Consider possibility of cystadenocarcinoma among correlate with MRI. 2. Nonvisualization of left ovary and unremarkable uterus. Sometimes she gets a pain in the belly which radiates from the front to the back. Denies any pelvic pain. She has not had any pelvic surgery. PRESENTING HISTORY: She developed abdominal pain about six weeks ago. She mentions sharp pain in the upper abdomen radiating to both sides, back to front like a belt. Level was up to 7 on 1-10 scale. It was a sharp pain. It recurred with change of position. Not related to meals. She went to see her primary doctor who ordered an abdominal ultrasound. Ultrasound of the abdomen from 12/07 revealed: IMPRESSION: Enlarged liver and multiple predominately hyperechoic liver lesions. Appearance is suggestive of metastatic disease. Limited visualization of the pancreas. Otherwise unremarkable exam. She had a colonoscopy on 04/[address] Olivarez: Transverse Colon - colonic mass occluding the lumen at hepatic flexure, unable to pass the scope, tried an upper GI scope but also unable to pass, bx taken. Positive for adenocarcinoma. MSI stable. FAMILY HISTORY: Paternal grandma had breast cancer. Maternal aunt had breast cancer. They both from it. 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 She is single. She has 3 children. She denies any history of smoking. She quit alcohol several years ago. Denies drugs. Review of Systems - Constitutional Reports no additional constitutional complaints, Denies anorexia, Denies chills, Reports fatigue, Denies fever(s), Denies headache(s), Reports lack of energy, Reports malaise, Denies weight loss - Eyes Reports no additional eye complaints - ENT Reports no additional ear, nose, mouth, and throat complaints - Cardiovascular Reports no additional cardiovascular complaints - Respiratory Reports no additional respiratory complaints - Gastrointestinal Reports no additional gastrointestinal complaints - Genitourinary Reports no additional female genitourinary complaints - Musculoskeletal Reports no additional musculoskeletal complaints - Integumentary/Breasts Skin/Breast: Reports no additional skin complaints - Neurologic Reports no additional neurologic complaints, Denies weakness - Psychiatric Reports no additional psychiatric complaints - Endocrine Reports no additional endocrine complaints - Hematologic/Lymphatic Reports no additional hematologic/lymphatic complaints - Allergic/Immunologic Reports no additional allergic/immunologic complaints PMFSH Medical History: Medical History (Last Reviewed 10/19/22 @ 20:16 by Laina Souza MD) Asthma Asthma Colorectal cancer Depression HTN (hypertension) Liver metastases Metastatic colon cancer to liver Functional capacity: independent ambulation Patient : No Family History: Family History (Last Reviewed 05/13/22 @ 14:58 by Daimon Marquis MD) Paternal Grandmother Breast cancer Maternal Aunt Breast cancer Surgical History: Surgical History (Last Reviewed 10/19/22 @ 20:16 by Laina Souza MD) History of esophagogastroduodenoscopy (EGD) Hx of arthroscopy of right knee Hx of colonoscopy Hx of excision of mass Hx of right breast biopsy Hx of tubal ligation Social History: Social History (Last Reviewed 05/13/22 @ 14:58 by Damion Marquis MD) Living Situation History: Household Members: Children Housing: Apartment Are you a primary medicare compliance auditor to a significant other at home: No Do you presently have visiting nurse or other home services: No Alcohol History Details: 1. How often do you have a drink containing alcohol?: a. Never Tobacco History: Patient Tobacco Use Status: Never used Tobacco e-Cigarette/Vaping Use: Never Used Substance Use History: Use of substances other than those prescribed or required for medical reasons : No Domestic Abuse History: Have you been hit, kicked, punched, or otherwise hurt by someone within the past year? 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 Oncology Screenings - ECOG Performance Status ECOG Performance Status: 0 Home Medications and Allergies Current Medications: Current Medications Acetaminophen (Acetaminophen 325 Mg Tablet) 650 mg PO ONCE SAUL Stop: 11/16/22 23:59 Diphenhydramine HCl (Diphenhydramine Hcl 50 Mg/Ml Vial) 25 mg IVPUSH ONCE SAUL Stop: 11/16/22 23:59 Dexamethasone Sodium Phosphate (Decadron) 12 mg in 50 mls @ 200 mls/hr IV ONCE SAUL Stop: 11/16/22 23:59 Ondansetron HCl (Zofran) 16 mg in 50 mls @ 200 mls/hr IV ONCE SAUL Stop: 11/16/22 23:59 Fosaprepitant 150 mg/ Sodium (Chloride) 150 mls @ 300 mls/hr IV ONCE SAUL Stop: 11/16/22 23:59 Home Medications Medication Instructions Recorded Confirmed Type losartan 50 mg tablet 1 tab PO DAILY 01/13/21 07/26/22 History omeprazole 20 mg capsule,delayed 20 mg PO DAILY 10/08/21 07/26/22 History release metoprolol succinate 50 mg 1 tab PO DAILY 12/17/21 07/26/22 History tablet,extended release 24 hr Allergies Allergy/AdvReac Type Severity Reaction Status Date / Time latex Allergy Intermediate Rash Verified 04/30/22 14:09 Exam Vital signs: Vital Signs Temp 97.2 F 11/16/22 08:30 Pulse 106 H 11/16/22 08:30 Resp 18 11/16/22 08:30 BP 127/75 11/16/22 08:30 Pulse Ox 98 11/16/22 08:30 O2 Del Method Room Air 11/16/22 08:30 Intake & Output 11/15/22 11/16/22 11/16/22 18:59 06:59 18:59 Other: Weight 70.2 kg Weight in Grams 59439 Weight 70.2 kg BMI result Body Mass Index 29.2 - Constitutional Present: no acute distress - Routine HEENT Exam Head: Present: normal inspection Eye: Present: normal appearance ENT: Present: mucous membranes moist - Routine Neck Exam Present: full ROM - Routine Respiratory Exam Present: CTAB - Routine Cardiovascular Exam Cardiovascular: Present: RRR, S1, S2 - Routine Abdominal Exam Present: soft, nontender - Routine Rectal Exam Patient deferred: digital exam - Routine Extremities Exam Present: nontender - Routine Back/Spine/Pelvis Exam Back/Spine: Present: full ROM - Routine Skin Exam Present: intact - Routine Neurological Exam Present: alert, oriented X3, vision grossly intact - Detailed Neurological Exam: Coma Scale Eye Opening: Spontaneous (4) - Routine Psychiatric Exam Present: normal affect Data - Labs CBC & Chem 7: 11/16/22 08:34 11/16/22 08:34 Assessment and Plan Patient Active problem list reviewed?: Yes (1) Liver metastases Status: Inactive Assessment and plan: This is a pleasant 57-year-old lady who developed upper abdominal pain. The pain since subsided however ultrasound revealed: IMPRESSION: Enlarged liver and multiple predominately hyperechoic liver lesions. Appearance is suggestive of metastatic disease. Limited visualization of the pancreas. Otherwise unremarkable exam. No known primary has been noted. DIFFERENTIAL DIAGNOSIS: 1. A GI PRIMARY: COLON CARCINOMA: She has not had a screening colonoscopy done yet. 2. PANCREATIC CANCER: 3. BREAST CANCER: However recent mammogram was normal. 4. LUNG CANCER: Is in the differential however she does not smoke. , so less likely. 5. PRIMARY HEPATOMA: Would also be unlikely. Usually we find metastases, from another site into the liver and not primary. l checked baseline labs including tumor markers today:CEA 325, Ca 19/9 962, Ca 27.29: 18 . DATABASE: LABS FROM TODAY: CBC WBC 7.4, HGB 11.7, HCT 36.4, PLT 368. CMP: Lytes WNL, glucose:88, BUN 7, EMERGENCY PLANNING AND RESPONSE MANAGER 0.73. LFTs: 0.6/208/66/27. I proceeded with further evaluation. l initiated search for a primary: CT scans of the chest abdomen and pelvis, from 01/18: Bilateral pulmonary nodules. Bilateral axillary and left supraclavicular upper normal-size lymph nodes. 4 cm colon mass in the hepatic flexure. Enlarged adjacent lymph nodes metastatic disease to the liver and peritoneal disease. Bilateral pulmonary nodules also probably representing metastatic disease. l proceeded with an ultrasound guided biopsy of the liver lesions to further define the primary. Biopsy of the lesion in the right lobe of the liver on 01/27 revealed: Moderately differentiated adenocarcinoma consistent with metastatic colorectal cancer. Unfortunately, very little tumor was present, insufficient for ancillary testing. I referred her to GI for a colonoscopy. That way we can obtain more issues to proceed with ancillary testing, to decide about the best regimen to give her. She was seen by Dr. Jimenez, on 02/26. The colonoscopy was scheduled for 03/26/22. However she came down with COVID. The procedure was postponed pending medical clearance. The bone scan was ordered on account of ongoing back and rib pain. It was done on 03/26: Normal whole body bone scan. No evidence of osseous metastatic disease. CEA Level: 863, 754, 1460, 1920, 869 (06/14). She started FOLFOX plus bevacizumab, on 04/14. She received day 15 on 04/28. Cycle 2 on 05/12. D 14 had to be postponed till 06/01, on account of neutropenia. Here for cycle 5 day 14. She is feeling well. She feels bloating, otherwise tolerating the chemotherapy well. She is taking omeprazole. CEA level: 05/18:1920. 06/14:869. 5/:426. CT scan of the chest from 08/18: No appreciable change in bilateral pulmonary nodules. Largest pulmonary nodule in the left lower lobe may be slightly decreased in size. No new pulmonary nodules. Interval decrease in left hilar adenopathy. CT scan of the abdomen from 08/18: IMPRESSION: Stable liver lesions. Interval decrease in soft tissue mass in the hepatic flexure, adjacent peritoneal disease and retroperitoneal lymphadenopathy. New left pelvic mass measuring 5.3 x 7.6 cm. Question primary left adnexal mass, metastatic disease to the left ovary or new peritoneal disease. Lymph node is considered less likely. Follow-up pelvic ultrasound recommended. Fleischner guidelines were followed. l proceeded with pelvic ultrasound for further evaluation: 1. Complex hypervascular mass in the right adnexa. Consider possibility of cystadenocarcinoma among correlate with MRI. 2. Nonvisualization of left ovary and unremarkable uterus. She is clinically doing well. Tolerating treatment reasonably well. CEA: 228.60. This is reassuring. l proceeded with MRI of the pelvis. This was done on 10/20 and revealed: 1. A 7.2 cm heterogeneous T2 signal mass centered in the left adnexa with multiple thin internal septations not significantly changed in size from prior and remains suspicious for ovarian neoplasm, though given history of metastatic colon cancer metastasis could also be considered. 2. Multiple hepatic metastases, partially imaged measuring up to 8.7 cm in the left hepatic lobe, previously 8.7 cm suboptimally evaluated on this MR pelvis. Previously seen peritoneal disease is suboptimally evaluated on this MR pelvis. 3. T2 hyperintense signal in the bilateral sacral ala and to a lesser extent the adjacent right iliac bone which could be seen in the setting of sacral insufficiency fractures. l referred her to project product manager Oncology. She saw Yoselyn Gaxiola. Her impression was this is likely to be metastatic colon cancer. PLAN: I will proceed with a PET scan for further evaluation. They have been trying to call her at home, to set up an appointment. We were able to connect her with them today. PET will be done next Tuesday. Have requested mutational analysis on the tumor tissue from the colon cancer biopsy from March. The tissue 0.2 cm. If not enough, then repeat biopsy may be needed. Can then decide about proceeding with the biopsy of the pelvic mass, based upon the above results. Will follow-up on her tumor markers: Serial CEA: 11/16: 160, 228.60, down from baseline of 1600 range. Since patient is having neuropathy symptoms related to the oxaliplatin, will switch her to FOLFIRI with Avastin. She will return in 2 weeks for a follow-up. All her questions were answered to her satisfaction. Thank you, Cc: Dr. Martines. Dr. Jimenez. - Time Spent With Patient Time Spent with Patient (in minutes): 30
[2022-11-16] MEDS: Acetaminophen 325 MG TABLET 650 MG PO (09:50)
[2022-11-16] MEDS: diphenhydrAMINE HCL 50 MG/ML VIAL 25 MG IVPUSH (09:51)
[2022-11-16] MEDS: dexAMETHasone sod phosphate/NS 12 MG/50 ML PIGGYBACK 200 MG IV (09:51)
[2022-11-16] MEDS: Fosaprepitant Dimeglumine 150 MG in 0.9 % Sodium Chloride 145 ML 300 MG IV (09:52)
[2022-11-16] MEDS: Leucovorin Calcium 690 MG in Dextrose 5 % 250 ML 142.25 MG IV (12:39)
[2022-11-16] MEDS: SODIUM CHLORIDE 0.9% IV (14:53)
[2022-11-16] MEDS: FLUOROURACIL IV (14:53)
--- NOTE | 2022-11-16 15:12 | MHC.HEMONC ---
[place] [facility] [place] Tuesday[place]/24/22 at 11:15. Directions in [place] will be given to pt on when she comes in for pump takedown.
--- NOTE | 2022-11-16 15:32 | MHC.HEMONC ---
Pt here for C16 Folfox, MVASI. Port to right chest accessed, good blood return. Labs drawn and results reviewed. Ragman used Pt reports very fatigued, Fingers discolored and like pain like electric shocks , toes the same and feet feel like wearing sponges on bottom . Dr Salvador saw patient today f/u and is aware of symptoms. Pt to have PET scan on Tuesday. Pre meds given tylenol po, Dex IV, Benadryl IV, Zofran IV, Emend IV. Treatment infused and 5FU push given and home with pump. Pt toll well. Summary given and pt departed. Pt returns on for pump take down.
--- NOTE | 2022-11-17 09:19 | MHC.HEMONCMA ---
called patient in regards of ct biopsy scheduled for 11/30 at 1034
[2022-11-18] MEDS: Heparin Sodium,Porcine Flush 500 UNIT/5 ML SYRINGE IVFLUSH (13:03)
--- NOTE | 2022-11-18 16:19 | MHC.HEMONC ---
Pt here for pump take down. Pump verified at zero. Pump disconnected. Port flushed with saline/heparin. Good blood return. Pt offers no complaints. Neulasta given subq as ordered. Calendar given with next appointment. Pt departed.
[2022-11-30 08:29] VITALS: BP 180/105; PULSE 94; RESP 18; TEMP 36.4; O2SAT 96; BMI 29.0
[2022-11-30 09:12] LABS: Basophils Absolute Auto 0.1 X10*3/uL (0.0-0.2); Eosinophils Absolute Auto 0.1 X10*3/uL (0.0-0.4); Eosinophils Percent Auto 1.7 % (0-4); Imm Gran Abs Auto 0.02 X10*3/uL (0.00-0.03); Imm Gran Pct Auto 0.3 % (0.0-0.4); Lymphocytes Absolute Auto 1.9 X10*3/uL (1.2-4.9); Lymphocytes Percent Auto 32.3 % (20-40); MANUAL DIFF FLAG SCAN; Mean Corpuscular HGB Conc 32.4 g/dl (31.0-35.0); Mean Corpuscular Hemoglobin 30.5 pg (27.0-33.0); Mean Corpuscular Volume 94.1 fL (80.0-98.0); Monocytes Absolute Auto 1.7 X10*3/uL (0.1-1.2); Monocytes Percent Auto 29.2 % (2-11); Neutrophils Percent Auto 35.5 % (45-73); Platelet Count 144 X10*3/uL (160-400); Red Blood Count 3.93 X10*6/uL (4.20-5.50); Red Cell Distribution Width 23.4 % (11.0-16.0); SCAN SMEAR FLAG 1; White Blood Count 5.8 X10*3/uL (4.8-10.8)
[2022-11-30 09:13] VITALS: BP 135/80
[2022-11-30 09:19] LABS: Appearance Urine Cloudy; Color Urine Dark Yellow; Glucose Urine UA Negative (Negative); Leukocyte Esterase Urine Small (1+) (Negative); Nitrite Urine Negative (Negative); Specific Gravity - Urine 1.025 (1.005-1.025); UMIC TRIGGER UA YES; Urine Blood Negative (Negative); Urine Ketones Trace mg/dL (Negative); Urine Protein Trace mg/dL (Neg-Trace)
[2022-11-30 09:22] LABS: Bacteria Urine 2+ (None Seen); Hyaline Casts Urine 0-2 /LPF (0-2); RBC Urine 0-2 /HPF (0-2)
[2022-11-30 09:32] LABS: Alanine Aminotransferase 14 U/L (0-31); Albumin Level 3.3 g/dL (3.5-5.0); Alkaline Phosphatase 275 U/L (39-117); Anion Gap 13 (12-20); Aspartate Amino Transferase 36 U/L (5-31); Bilirubin Total 0.6 mg/dL (0.0-1.0); Blood Urea Nitrogen 7 mg/dL (9-16); Carbon Dioxide 20 mmol/L (22-29); Chloride 111 mmol/L (96-108); Creatinine Clr Calc Pharmacy 71.1; Estimated Glomerular Filt Rate > 60; Glucose Random 146 mg/dL (60-115); Potassium 3.3 mmol/L (3.3-5.1); Sodium 141 mmol/L (135-145); Total Protein 6.6 g/dL (6.5-8.0)
[2022-11-30 09:36] LABS: SLIDE REVIEW VERIFIED
[2022-11-30] MEDS: diphenhydrAMINE HCL 50 MG/ML VIAL 25 MG IVPUSH (09:52)
[2022-11-30] MEDS: Acetaminophen 325 MG TABLET 650 MG PO (09:52)
[2022-11-30] MEDS: dexAMETHasone sod phosphate/NS 12 MG/50 ML PIGGYBACK 200 MG IV (09:55)
[2022-11-30] MEDS: Fosaprepitant Dimeglumine 150 MG in 0.9 % Sodium Chloride 145 ML 300 MG IV (09:59)
[2022-11-30] MEDS: Mag&Al/Sim/Diphenhyd/Lidocaine 10 ML ORAL.SUSP PO (10:15)
[2022-11-30] MEDS: Atropine Sulfate 1 MG/ML VIAL 0.5 MG SUBCUT (12:13)
[2022-11-30] MEDS: Leucovorin Calcium 700 MG in Dextrose 5 % 250 ML 190 MG IV (12:28)
[2022-11-30] MEDS: DEXTROSE 5% IV (12:29)
[2022-11-30] MEDS: IRINOTECAN HCL IV (12:29)
[2022-11-30] MEDS: fluorouraciL 4,175 MG in 0.9 % Sodium Chloride 8.5 ML IV (14:09)
--- NOTE | 2022-11-30 15:23 | MHC.HEMONC ---
Here for C1 Folfiri/Avastin. States is feeling good since last treatment, except is having some mouth pain. Does have sore on left side of mouth that appears to be healing. Magic mouthwash ordered and given. Port accessed with good blood return noted. Labs obtained. Education given regarding Irinotecan and side effects. Ganesh automobile salesman present. Consent signed for new treatment. Premeds given as ordered. Treatment done and tolerated well. Pt did c/o blurred vision in last 10min of treatment, and stated that it felt like her eyes were jumping . VSS. Dr Salvador aware. Treatment completed with no further c/o. Home with 5fu infusion pump. Departure packet given. Hospital transportation set up for next 2 treatment cycles. Pt aware.
[2022-12-02 12:07] VITALS: BP 143/86; PULSE 84; RESP 18; TEMP 36.7; O2SAT 97
[2022-12-02] MEDS: Heparin Sodium,Porcine Flush 500 UNIT/5 ML SYRINGE IVFLUSH (12:12)
--- NOTE | 2022-12-02 12:32 | MHC.HEMONC ---
Here for pump take down. Tolerated treatment well. States so far has not had any diarrhea. Verified bag volume of 0ml. Port flushed with heparin 500units and de-accessed. Neulasta 6mg sc given left arm and tolerated well. Aware of next treatment scheduled. Departed unit.
[2022-12-14 08:48] VITALS: BP 130/81; PULSE 96; RESP 18; TEMP 36.3; O2SAT 95; BMI 29.4
[2022-12-14 09:27] LABS: Basophils Absolute Auto 0.1 X10*3/uL (0.0-0.2); Basophils Percent Auto 1.3 % (0-2); Eosinophils Absolute Auto 0.1 X10*3/uL (0.0-0.4); Eosinophils Percent Auto 1.3 % (0-4); Hemoglobin 11.3 g/dl (12.0-16.0); Imm Gran Abs Auto 0.13 X10*3/uL (0.00-0.03); Imm Gran Pct Auto 1.6 % (0.0-0.4); Lymphocytes Absolute Auto 3.1 X10*3/uL (1.2-4.9); Lymphocytes Percent Auto 37.6 % (20-40); MANUAL DIFF FLAG SCAN; Mean Corpuscular HGB Conc 32.3 g/dl (31.0-35.0); Mean Corpuscular Hemoglobin 30.9 pg (27.0-33.0); Mean Corpuscular Volume 95.6 fL (80.0-98.0); Mean Platelet Volume 12.4 fL (9.4-12.3); Monocytes Absolute Auto 1.5 X10*3/uL (0.1-1.2); Monocytes Percent Auto 18.5 % (2-11); NRBC Pct Auto 0.2 /100WBC (0.0-0.2); Neutrophils Absolute Auto 3.3 x10*3/uL (2.0-8.3); Neutrophils Percent Auto 39.7 % (45-73); Platelet Count 150 X10*3/uL (160-400); Red Blood Count 3.66 X10*6/uL (4.20-5.50); Red Cell Distribution Width 23.4 % (11.0-16.0); SCAN SMEAR FLAG 1; White Blood Count 8.3 X10*3/uL (4.8-10.8)
[2022-12-14 09:28] LABS: Appearance Urine Clear; Color Urine Yellow; Glucose Urine UA Negative (Negative); Leukocyte Esterase Urine Trace (Negative); Nitrite Urine Negative (Negative); PH 6.5 (5.0-9.0); UMIC TRIGGER UA YES; Urine Blood Negative (Negative); Urine Ketones Negative (Negative); Urine Protein Negative (Neg-Trace)
[2022-12-14 09:33] LABS: Bacteria Urine None Seen (None Seen); Hyaline Casts Urine 0-2 /LPF (0-2); RBC Urine 0-2 /HPF (0-2); Squamous Epithelial Cell Urine 0-2 /HPF (0-2); WBC Urine 0-5 /HPF (0-5)
[2022-12-14 09:45] LABS: SLIDE REVIEW VERIFIED
[2022-12-14 09:51] LABS: Alanine Aminotransferase 17 U/L (0-31); Albumin Level 3.2 g/dL (3.5-5.0); Alkaline Phosphatase 270 U/L (39-117); Anion Gap 14 (12-20); Aspartate Amino Transferase 41 U/L (5-31); Bilirubin Total 0.4 mg/dL (0.0-1.0); Blood Urea Nitrogen 4 mg/dL (9-16); Calcium 8.6 mg/dL (8.4-10.2); Carbon Dioxide 20 mmol/L (22-29); Chloride 109 mmol/L (96-108); Creatinine Clr Calc Pharmacy 71.7; Estimated Glomerular Filt Rate > 60; Glucose Random 181 mg/dL (60-115); Potassium 3.2 mmol/L (3.3-5.1); Sodium 140 mmol/L (135-145); Total Protein 6.4 g/dL (6.5-8.0)
[2022-12-14] MEDS: Acetaminophen 325 MG TABLET 650 MG PO (10:06)
[2022-12-14] MEDS: Fosaprepitant Dimeglumine 150 MG in 0.9 % Sodium Chloride 145 ML 300 MG IV (10:07)
[2022-12-14] MEDS: dexAMETHasone sod phosphate/NS 12 MG/50 ML PIGGYBACK 200 MG IV (10:07)
[2022-12-14] MEDS: diphenhydrAMINE HCL 50 MG/ML VIAL 25 MG IVPUSH (10:07)
[2022-12-14] MEDS: Atropine Sulfate 1 MG/ML VIAL 0.4 MG SUBCUT (10:57)
[2022-12-14] MEDS: Potassium Chloride ER 20 MEQ TAB.ER.PRT PO (10:58)
[2022-12-14] MEDS: Leucovorin Calcium 690 MG in Dextrose 5 % 250 ML 189.67 MG IV (12:26)
[2022-12-14] MEDS: IRINOTECAN HCL IV (12:27)
[2022-12-14] MEDS: DEXTROSE 5% IV (12:27)
[2022-12-14] MEDS: fluorouraciL 4,150 MG in 0.9 % Sodium Chloride 9 ML IV (14:01)
[2022-12-16] MEDS: Heparin Sodium,Porcine Flush 500 UNIT/5 ML SYRINGE IVFLUSH (15:01)
--- NOTE | 2022-12-16 16:56 | MHC.HEMONC ---
Pt here for pump take down and neulasta. 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 Pt reported slept on right side and when she woke up she had pain on her right chest where port was that lasted 10 minutes. No pIn now. Pump verifird at zero+and disconnected. Port flushed with saline, good blood return. port de accessed with heparin. No redness,swelling or ecchymosis noted at or around site. No pain when flushing. Pt also c/o not being able to sleep night of chemo. Dr Salvador aware. Pt instructed to try melatonin or chamomile tea ok'd with Dr Salvador. Otherwise pt had no other complaints. Calendar given and pt departed with steady gait.
[2022-12-28 08:44] VITALS: BP 136/87; PULSE 89; RESP 18; TEMP 36.7; O2SAT 98; BMI 29.4
[2022-12-28 09:04] LABS: Basophils Absolute Auto 0.1 X10*3/uL (0.0-0.2); Basophils Percent Auto 0.8 % (0-2); Eosinophils Percent Auto 0.3 % (0-4); Hematocrit 34.6 % (37.0-47.0); Hemoglobin 11.2 g/dl (12.0-16.0); Imm Gran Pct Auto 2.2 % (0.0-0.4); Lymphocytes Absolute Auto 3.4 X10*3/uL (1.2-4.9); Lymphocytes Percent Auto 36.9 % (20-40); MANUAL DIFF FLAG SCAN; Mean Corpuscular HGB Conc 32.4 g/dl (31.0-35.0); Mean Corpuscular Hemoglobin 31.5 pg (27.0-33.0); Mean Corpuscular Volume 97.2 fL (80.0-98.0); Mean Platelet Volume 11.6 fL (9.4-12.3); Monocytes Absolute Auto 1.9 X10*3/uL (0.1-1.2); Monocytes Percent Auto 20.9 % (2-11); NRBC Pct Auto 0.4 /100WBC (0.0-0.2); Neutrophils Absolute Auto 3.5 x10*3/uL (2.0-8.3); Neutrophils Percent Auto 38.9 % (45-73); Platelet Count 173 X10*3/uL (160-400); Red Blood Count 3.56 X10*6/uL (4.20-5.50); Red Cell Distribution Width 23.8 % (11.0-16.0); SCAN SMEAR FLAG 1; White Blood Count 9.1 X10*3/uL (4.8-10.8)
[2022-12-28 09:05] LABS: Appearance Urine Clear; Color Urine Yellow; Glucose Urine UA Negative (Negative); Leukocyte Esterase Urine Trace (Negative); Nitrite Urine Negative (Negative); UMIC TRIGGER UA YES; Urine Blood Negative (Negative); Urine Ketones Negative (Negative); Urine Protein Negative (Neg-Trace)
[2022-12-28 09:10] LABS: Bacteria Urine Trace (None Seen); Hyaline Casts Urine 0-2 /LPF (0-2); RBC Urine 0-2 /HPF (0-2)
[2022-12-28 09:24] LABS: Alanine Aminotransferase 24 U/L (0-31); Albumin Level 3.4 g/dL (3.5-5.0); Alkaline Phosphatase 277 U/L (39-117); Anion Gap 16 (12-20); Aspartate Amino Transferase 49 U/L (5-31); Bilirubin Total 0.5 mg/dL (0.0-1.0); Blood Urea Nitrogen 7 mg/dL (9-16); Calcium 8.6 mg/dL (8.4-10.2); Carbon Dioxide 20 mmol/L (22-29); Chloride 106 mmol/L (96-108); Creatinine Clr Calc Pharmacy 67.2; Estimated Glomerular Filt Rate > 60; Glucose Random 182 mg/dL (60-115); Potassium 3.6 mmol/L (3.3-5.1); Sodium 138 mmol/L (135-145); Total Protein 6.6 g/dL (6.5-8.0)
[2022-12-28 09:27] LABS: SLIDE REVIEW VERIFIED
[2022-12-28] MEDS: diphenhydrAMINE HCL 50 MG/ML VIAL 25 MG IVPUSH (09:44)
[2022-12-28] MEDS: Acetaminophen 325 MG TABLET 650 MG PO (09:45)
[2022-12-28] MEDS: dexAMETHasone sod phosphate/NS 12 MG/50 ML PIGGYBACK 200 MG IV (09:45)
--- NOTE | 2022-12-28 10:20 | MHC.HEMONC ---
Addendum entered by Gem Dueñas RN 12/28/22 15:29: Avastin/Folfiri infused. Pt had a little dizziness just before Folfiri was finished. VSS. Symptoms resolved. Neuros intact. 5FU push given and home with pump. Pt given summary with next appointments. Pt will return on for pump take down. Pt declined wheel chair. Pt ambulated out of onc with steady gait. Transportation booked for next appts 01/11, 01/13, 01/25,01/27. Original Note: Pt her for C3 Folfiri/Avastin. Pt smiling reports skin discoloration starting to resolve. Still with neuropathy. No diarrhea/nausea/vomiting. Pt states had mouth sores for 2 days but resolved now. Pt asking for magic mouth wash. Dr salvador aware and script sent. Pt notified. Port to right chest accessed, good blood return. Labs drawn and reviewed. Pre meds started. Verified with Dr Salvador that patient is supposed to have Atropine 0.5mg subq 30 min prior to irinotecan. Order put in and Dr salvador to add to treatment plan for next cycle.
[2022-12-28] MEDS: Fosaprepitant Dimeglumine 150 MG in 0.9 % Sodium Chloride 145 ML 300 MG IV (10:47)
[2022-12-28] MEDS: Atropine Sulfate 1 MG/ML VIAL 0.5 MG SUBCUT (11:56)
[2022-12-28] MEDS: Leucovorin Calcium 700 MG in Dextrose 5 % 250 ML 190 MG IV (12:38)
[2022-12-28] MEDS: DEXTROSE 5% IV (12:39)
[2022-12-28] MEDS: IRINOTECAN HCL IV (12:39)
[2022-12-28] MEDS: fluorouraciL 4,175 MG in 0.9 % Sodium Chloride 8.5 ML IV (14:19)
--- NOTE | 2022-12-30 14:15 | MHC.HEMONC ---
Pump disconnected and neulasta given to right upper arm. Reports neuropathy and rash in hands improving. Pt aware of next appt.
--- NOTE | 2023-01-04 10:28 | MHC.HEMONC ---
Triage- Pt called because she has been experiencing tingling fingers, numbness, inability to open a bottle of medicine since her last chemotherapy. Msg given to Gem MARINELLI.
--- NOTE | 2023-01-04 16:42 | MHC.HEMONC ---
Pt called triage line complaining of neuropathy numbness and pain in fingers worse since last treatment. Reports had been getting better. Dr Salvador aware and script sent for Duloxetine. Pt offered neurology consult but pt declined stated will try the meds first.
[2023-01-11 08:05] VITALS: BP 116/66; PULSE 94; RESP 18; TEMP 36.4; O2SAT 98; BMI 29.2
[2023-01-11 08:37] LABS: Appearance Urine Cloudy; Basophils Absolute Auto 0.1 X10*3/uL (0.0-0.2); Basophils Percent Auto 1.4 % (0-2); Color Urine Dark Yellow; Eosinophils Absolute Auto 0.1 X10*3/uL (0.0-0.4); Eosinophils Percent Auto 0.9 % (0-4); Glucose Urine UA Negative (Negative); Hematocrit 34.9 % (37.0-47.0); Hemoglobin 11.5 g/dl (12.0-16.0); Imm Gran Abs Auto 0.26 X10*3/uL (0.00-0.03); Imm Gran Pct Auto 2.8 % (0.0-0.4); Leukocyte Esterase Urine Moderate (2+) (Negative); Lymphocytes Percent Auto 31.4 % (20-40); MANUAL DIFF FLAG SCAN; Mean Corpuscular Hemoglobin 31.4 pg (27.0-33.0); Mean Corpuscular Volume 95.4 fL (80.0-98.0); Mean Platelet Volume 11.5 fL (9.4-12.3); Monocytes Absolute Auto 2.2 X10*3/uL (0.1-1.2); Monocytes Percent Auto 23.5 % (2-11); NRBC Pct Auto 0.3 /100WBC (0.0-0.2); Neutrophils Absolute Auto 3.8 x10*3/uL (2.0-8.3); Nitrite Urine Negative (Negative); PH 6.5 (5.0-9.0); Platelet Count 181 X10*3/uL (160-400); Red Blood Count 3.66 X10*6/uL (4.20-5.50); Red Cell Distribution Width 22.4 % (11.0-16.0); SCAN SMEAR FLAG 1; Specific Gravity - Urine 1.015 (1.005-1.025); UMIC TRIGGER UA YES; Urine Blood Negative (Negative); Urine Ketones Negative (Negative); Urine Protein Trace mg/dL (Neg-Trace); White Blood Count 9.4 X10*3/uL (4.8-10.8)
[2023-01-11 08:49] LABS: Alanine Aminotransferase 28 U/L (0-31); Albumin Level 3.3 g/dL (3.5-5.0); Alkaline Phosphatase 277 U/L (39-117); Anion Gap 14 (12-20); Aspartate Amino Transferase 50 U/L (5-31); Bilirubin Total 0.5 mg/dL (0.0-1.0); Blood Urea Nitrogen 7 mg/dL (9-16); Calcium 8.8 mg/dL (8.4-10.2); Carbon Dioxide 20 mmol/L (22-29); Chloride 105 mmol/L (96-108); Creatinine Clr Calc Pharmacy 67.7; Estimated Glomerular Filt Rate > 60; Glucose Random 174 mg/dL (60-115); Potassium 3.2 mmol/L (3.3-5.1); Sodium 136 mmol/L (135-145); Total Protein 6.5 g/dL (6.5-8.0)
[2023-01-11 08:51] LABS: Bacteria Urine 2+ (None Seen); Hyaline Casts Urine 0-2 /LPF (0-2); Other Crystals Urine Present; WBC Urine 21-50 /HPF (0-5)
[2023-01-11 08:55] LABS: SLIDE REVIEW VERIFIED
[2023-01-11] MEDS: Acetaminophen 325 MG TABLET 650 MG PO (09:13)
[2023-01-11] MEDS: dexAMETHasone sod phosphate/NS 12 MG/50 ML PIGGYBACK 200 MG IV (09:14)
[2023-01-11] MEDS: diphenhydrAMINE HCL 50 MG/ML VIAL 25 MG IVPUSH (09:14)
[2023-01-11] MEDS: Fosaprepitant Dimeglumine 150 MG in 0.9 % Sodium Chloride 145 ML 300 MG IV (09:15)
[2023-01-11] MEDS: Potassium Chloride ER 20 MEQ TAB.ER.PRT PO (10:12)
[2023-01-11] MEDS: DULoxetine HCl 20 MG CAPSULE.DR PO (10:12)
[2023-01-11] MEDS: Atropine Sulfate 1 MG/ML VIAL 0.4 MG SUBCUT (11:38)
[2023-01-11] MEDS: Leucovorin Calcium 700 MG in Dextrose 5 % 250 ML 190 MG IV (11:47)
[2023-01-11] MEDS: IRINOTECAN HCL IV (11:47)
[2023-01-11] MEDS: DEXTROSE 5% IV (11:47)
--- NOTE | 2023-01-11 12:04 | MHC.HEMONC ---
Pt here for C4D1 Bevacizumab/Folfiri. Pt states she has low energy and fatigue, states fingers and toes painful with tingling. Dr Salvador aware-pt taking duloxetine bid with minimal relief at this time. Finger nails and fingers discolored. States has some oral sores-using magic mouth wash as needed. Port accessed with blood return noted-labs drawn from port, urine specimen obtained-all specimens to lab. Lab results reviewed-potassium level 3.[address] Salvador-20meq Kcl given orally as ordered. Okay to receive treatment today. Pre medicated with tylenol, dexamethasone, benadryl, zofran, emend, atropine sulfate 0.4mg sc in right arm-tolerated well. No edema or redness at site after injection. Bevacizumab/Folfiri given as ordered-tolerated well. Home chemo pump attached as ordered. Next appointment scheduled. Discharge packet given with next appointment scheduled. Pt to return on for chemo pump take down and Neulasta injection. Transportation arranged for next visits. Pt declines wheelchair for discharge.
[2023-01-11] MEDS: fluorouraciL 4,175 MG in 0.9 % Sodium Chloride 8.5 ML IV (13:24)
[2023-01-13] MEDS: Heparin Sodium,Porcine Flush 500 UNIT/5 ML SYRINGE IVFLUSH (13:03)
[2023-01-13 13:20] VITALS: BP 119/78; PULSE 83; O2SAT 96
--- NOTE | 2023-01-13 13:31 | P.PNHO-ONC_ITS ---
Medical Summary - Medical Summary Date of Service: 01/13/23 Chief complaint: Follow-up for: Colon carcinoma with Mets. Primary Care Provider: Corine Martines MD Medical Summary: DIAGNOSIS: NEW LIVER LESIONS. 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 CURRENT THERAPY: Started on modified FOLFOX and bevacizumab on 04/14. Day 15 on 04/28. Cycle 2 on 05/12. Cycle 2,day 14 on 06/01. Cycle 6 on 09/20. Cycle 7 on 10/18. Cycle 8 on 11/16. Started on FOLFIRI and bevacizumab on 11/30. Second dose: 12/14. Cycle 2 on 12/28. Cycle 2 day 14 on 01/11. Interval History Interval history: Kayden Angulo is a pleasant 57 year old lady, here for a follow-up visit. She tells me she is actually feeling quite well. She has been tolerating the treatment reasonably well. She had some feeling of electricity in her hands and had some imbalance. However the symptoms have improved since she started taking the duloxetine. She is walking better. Energy level is somewhat low. Her appetite is good. She has been trying to eat sweet potato, pasta, plantains salads, green juices, guannabana, guava and passion fruit. Her memory is not that good. No QUINTERO, nor dizziness. No fever nor chills. She has no chest pain. Denies shortness of breath. She has noticed that her abdominal girth is down. She nausea,vomiting heartburn or indigestion. She does feel bloated. She denies diarrhea. Denies any gross blood in the stools. She actually has constipation. She has been taking more fiber. She is under the care of GI. Sometimes she notes pain in her back and left flank. She denies any dysuria or hematuria. She has arthritis and tendinitis. She has some back pain, and right knee pain. She gets pain in her right knee. She denies any focal weakness. She has depression. Skin of her fingers is darkening. She has history of dermatitis but not active now. She uses Dove soap only. She is otherwise tolerated the chemotherapy very well. No easy bruising on her arms and legs. INTERIM HISTORY: She had imaging done on 08/18, reported on 08/24 which revealed: No appreciable change in bilateral pulmonary nodules. Largest pulmonary nodule in the left lower lobe may be slightly decreased in size. No new pulmonary nodules. Interval decrease in left hilar adenopathy. IMPRESSION: Stable liver lesions. Interval decrease in soft tissue mass in the hepatic flexure, adjacent peritoneal disease and retroperitoneal lymphadenopathy. New left pelvic mass measuring 5.3 x 7.6 cm. Question primary left adnexal mass, metastatic disease to the left ovary or new peritoneal disease. Lymph node is considered less likely. Follow-up pelvic ultrasound recommended. Fleischner guidelines were followed. She had pelvic ultrasound on 09/03 that revealed: 1. Complex hypervascular mass in the right adnexa. Consider possibility of cystadenocarcinoma among correlate with MRI. 2. Nonvisualization of left ovary and unremarkable uterus. Sometimes she gets a pain in the belly which radiates from the front to the back. Denies any pelvic pain. She has not had any pelvic surgery. PRESENTING HISTORY: She developed abdominal pain about six weeks ago. She mentions sharp pain in the upper abdomen radiating to both sides, back to front like a belt. Level was up to 7 on 1-10 scale. It was a sharp pain. It recurred with change of position. Not related to meals. She went to see her primary doctor who ordered an abdominal ultrasound. Ultrasound of the abdomen from 12/07 revealed: IMPRESSION: Enlarged liver and multiple predominately hyperechoic liver lesions. Appearance is suggestive of metastatic disease. Limited visualization of the pancreas. Otherwise unremarkable exam. She had a colonoscopy on 04/[address] Olivarez: Transverse Colon - colonic mass occluding the lumen at hepatic flexure, unable to pass the scope, tried an upper GI scope but also unable to pass, bx taken. Positive for adenocarcinoma. MSI stable. FAMILY HISTORY: Paternal grandma had breast cancer. Maternal aunt had breast cancer. They both from it. 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 She is single. She has 3 children. She denies any history of smoking. She quit alcohol several years ago. Denies drugs. Review of Systems - Constitutional Reports system reviewed and no additional complaints, except as documented, Reports weight gain, Denies anorexia, Denies lack of energy, Denies malaise, Denies poor appetite, Denies weight loss - Eyes Reports system reviewed and no additional complaints, except as documented - ENT Reports system reviewed and no additional complaints, except as documented - Cardiovascular Reports system reviewed and no additional complaints, except as documented - Respiratory Reports no additional respiratory complaints - Gastrointestinal Reports system reviewed and no additional complaints, except as documented - Genitourinary Reports no additional female genitourinary complaints - Musculoskeletal Reports system reviewed and no additional complaints, except as documented - Integumentary/Breasts Skin/Breast: Reports no additional skin complaints - Neurologic Reports system reviewed and no additional complaints, except as documented, Denies headache(s), Denies weakness - Psychiatric Reports system reviewed and no additional complaints, except as documented - Endocrine Reports no additional endocrine complaints - Hematologic/Lymphatic Reports system reviewed and no additional complaints, except as documented - Allergic/Immunologic Reports system reviewed and no additional complaints, except as documented PMFSH Medical History: Medical History (Last Reviewed 01/13/23 @ 13:21 by Leatha Alcantar) Asthma Asthma Colorectal cancer Depression HTN (hypertension) Liver metastases Metastatic colon cancer to liver Functional capacity: independent ambulation Patient : No Family History: Family History (Last Reviewed 01/13/23 @ 13:21 by Leatha Alcantar) Paternal Grandmother Breast cancer Maternal Aunt Breast cancer Surgical History: Surgical History (Last Reviewed 01/13/23 @ 13:21 by Letaha Alcantar) History of esophagogastroduodenoscopy (EGD) Hx of arthroscopy of right knee Hx of colonoscopy Hx of excision of mass Hx of right breast biopsy Hx of tubal ligation Social History: Social History (Last Reviewed 01/13/23 @ 13:21 by Leatha Alcantar) Living Situation History: Household Members: Children Housing: Apartment Are you a primary healthcare network consultant to a significant other at home: No Do you presently have visiting nurse or other home services: No Alcohol History Details: 1. How often do you have a drink containing alcohol?: a. Never Tobacco History: Patient Tobacco Use Status: Never used Tobacco e-Cigarette/Vaping Use: Never Used Substance Use History: Use of substances other than those prescribed or required for medical reasons : No Domestic Abuse History: Have you been hit, kicked, punched, or otherwise hurt by someone within the past year? 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 Home Medications and Allergies Current Medications: Current Medications Heparin Sodium (Porcine) (Heparin Sodium,Porcine Flush 500 Unit/5 Ml Syringe) 500 unit IVFLUSH ONCE SAUL Stop: 01/13/23 23:59 Last Admin: 01/13/23 13:03 Dose: 500 unit Pegfilgrastim (Pegfilgrastim 6 Mg Syringe) 6 mg SUBCUT ONCE SAUL Stop: 01/13/23 23:59 Last Admin: 01/13/23 13:03 Dose: 6 mg Home Medications Medication Instructions Recorded Confirmed Type losartan 50 mg tablet 1 tab PO DAILY 01/13/21 01/13/23 History omeprazole 20 mg capsule,delayed 20 mg PO DAILY 10/08/21 01/13/23 History release metoprolol succinate 50 mg 1 tab PO DAILY 12/17/21 01/13/23 History tablet,extended release 24 hr Allergies Allergy/AdvReac Type Severity Reaction Status Date / Time latex Allergy Intermediate Rash Verified 01/13/23 13:21 Exam Vital signs: Vital Signs Temp 97.5 F 01/11/23 08:05 Pulse 83 01/13/23 13:20 Resp 18 01/11/23 08:05 BP 119/78 01/13/23 13:20 Pulse Ox 96 01/13/23 13:20 O2 Del Method Room Air 01/13/23 13:20 Weight 70 kg BMI result Body Mass Index 29.2 - Constitutional Present: no acute distress - Routine HEENT Exam Head: Present: normal inspection Eye: Present: normal appearance ENT: Present: mucous membranes moist - Routine Neck Exam Present: full ROM - Routine Respiratory Exam Present: CTAB - Routine Cardiovascular Exam Cardiovascular: Present: RRR, S1, S2 - Routine Abdominal Exam Present: soft, nontender - Routine Rectal Exam Patient deferred: digital exam - Routine Extremities Exam Present: nontender - Routine Back/Spine/Pelvis Exam Back/Spine: Present: full ROM - Routine Skin Exam Present: intact - Routine Neurological Exam Present: alert, oriented X3, vision grossly intact - Detailed Neurological Exam: Coma Scale Eye Opening: Spontaneous (4) - Routine Psychiatric Exam Present: normal affect Data - Labs CBC & Chem 7: 01/11/23 08:20 01/11/23 08:20 Assessment and Plan Patient Active problem list reviewed?: Yes (1) Liver metastases Status: Inactive Assessment and plan: This is a pleasant 57-year-old lady who developed upper abdominal pain. The pain since subsided however ultrasound revealed: IMPRESSION: Enlarged liver and multiple predominately hyperechoic liver lesions. Appearance is suggestive of metastatic disease. Limited visualization of the pancreas. Otherwise unremarkable exam. No known primary has been noted. DIFFERENTIAL DIAGNOSIS: 1. A GI PRIMARY: COLON CARCINOMA: She has not had a screening colonoscopy done yet. 2. PANCREATIC CANCER: 3. BREAST CANCER: However recent mammogram was normal. 4. LUNG CANCER: Is in the differential however she does not smoke. , so less likely. 5. PRIMARY HEPATOMA: Would also be unlikely. Usually we find metastases, from another site into the liver and not primary. l checked baseline labs including tumor markers today:CEA 325, Ca 19/9 962, Ca 27.29: 18 . DATABASE: LABS FROM TODAY: CBC WBC 7.4, HGB 11.7, HCT 36.4, PLT 368. CMP: Lytes WNL, glucose:88, BUN 7, NEWS PRODUCER 0.73. LFTs: 0.6/208//. I proceeded with further evaluation. l initiated search for a primary: CT scans of the chest abdomen and pelvis, from 01/18: Bilateral pulmonary nodules. Bilateral axillary and left supraclavicular upper normal-size lymph nodes. 4 cm colon mass in the hepatic flexure. Enlarged adjacent lymph nodes metastatic disease to the liver and peritoneal disease. Bilateral pulmonary nodules also probably representing metastatic disease. l proceeded with an ultrasound guided biopsy of the liver lesions to further define the primary. Biopsy of the lesion in the right lobe of the liver on 01/27 revealed: Moderately differentiated adenocarcinoma consistent with metastatic colorectal cancer. Unfortunately, very little tumor was present, insufficient for ancillary testing. I referred her to GI for a colonoscopy. That way we can obtain more issues to proceed with ancillary testing, to decide about the best regimen to give her. She was seen by Dr. Jimenez, on 02/26. The colonoscopy was scheduled for 03/26/22. However she came down with COVID. The procedure was postponed pending medical clearance. The bone scan was ordered on account of ongoing back and rib pain. It was done on 03/26: Normal whole body bone scan. No evidence of osseous metastatic disease. CEA Level: 863, 754, 1460, 1920, 869 (06/14). She started FOLFOX plus bevacizumab, on 04/14. She received day 15 on 04/28. Cycle 2 on 05/12. D 14 had to be postponed till 06/01, on account of neutropenia. Here for cycle 5 day 14. She is feeling well. She feels bloating, otherwise tolerating the chemotherapy well. She is taking omeprazole. CEA level: 05/18:1920. 06/14:869. 07/26:426. CT scan of the chest from 08/18: No appreciable change in bilateral pulmonary nodules. Largest pulmonary nodule in the left lower lobe may be slightly decreased in size. No new pulmonary nodules. Interval decrease in left hilar adenopathy. CT scan of the abdomen from 08/18: IMPRESSION: Stable liver lesions. Interval decrease in soft tissue mass in the hepatic flexure, adjacent peritoneal disease and retroperitoneal lymphadenopathy. New left pelvic mass measuring 5.3 x 7.6 cm. Question primary left adnexal mass, metastatic disease to the left ovary or new peritoneal disease. Lymph node is considered less likely. Follow-up pelvic ultrasound recommended. Fleischner guidelines were followed. l proceeded with pelvic ultrasound for further evaluation: 1. Complex hypervascular mass in the right adnexa. Consider possibility of cystadenocarcinoma among correlate with MRI. 2. Nonvisualization of left ovary and unremarkable uterus. She is clinically doing well. Tolerating treatment reasonably well. CEA: 228.60. This is reassuring. l proceeded with MRI of the pelvis. This was done on 10/20 and revealed: 1. A 7.2 cm heterogeneous T2 signal mass centered in the left adnexa with multiple thin internal septations not significantly changed in size from prior and remains suspicious for ovarian neoplasm, though given history of metastatic colon cancer metastasis could also be considered. 2. Multiple hepatic metastases, partially imaged measuring up to 8.7 cm in the left hepatic lobe, previously 8.7 cm suboptimally evaluated on this MR pelvis. Previously seen peritoneal disease is suboptimally evaluated on this MR pelvis. 3. T2 hyperintense signal in the bilateral sacral ala and to a lesser extent the adjacent right iliac bone which could be seen in the setting of sacral insufficiency fractures. l referred her to machinery mechanic Oncology. She saw Yoselyn Gaxiola. Her impression was this is likely to be metastatic colon cancer. I proceeded with a PET scan for further evaluation, this was done on 11/25 and revealed: 1. There are multiple presumed metastatic left axillary/subpectoral FDG avid lymphadenopathy with SUV max of 9.8. 2. Interval development of FDG avid groundglass opacity within the central part of the right upper lobe of the lung with SUV max of 3.3, may represent infection versus new metastatic disease or combination thereof. 3. Interval increase in size and number of previously documented presumed bilateral multifocal multilobar noncalcified lung parenchymal metastatic disease, too small for accurate characterization on this current study. The dominant lung nodules seen at left lower lobe of the lung however appears relatively stable in size measuring approximately 1.1 cm. 4. Previously documented, clinically known multifocal hepatic metastatic disease shows variable echogenicity and increased peripheral/marginal FDG avidity most pronounced along the subdiaphragmatic surface of right lobe of the liver. 5. Intense FDG avidity associated with annular constricting lesion at the hepatic flexure at right mid abdomen with SUV max of 9.4, likely representing the site of primary colonic neoplasm. 6. Previously documented, clinically known heterogeneous solid-appearing mass in the left hemipelvis shows mild FDG avidity anteriorly by the majority of the mass is not FDG avid. Differential includes primary ovarian malignancy versus ovarian metastatic disease. 7. Heterogeneous FDG avidity within the entire visualized skeleton, may represent physiologic changes related to interval administration of G-CSF versus physiologic reactive hyperplastic marrow or mild diffuse bone marrow replacement and/or infiltrative process. I had requested mutational analysis on the tumor tissue from the colon cancer biopsy from March. A repeat biopsy was done on 12/06, pathology was consistent with colonic adenocarcinoma. Unfortunately there was not enough tissue for molecular testing. Her tumor markers: Serial CEA: 11/16: 160, 228.60, down from baseline of 1600 range. In view of disease progression and since patient was having neuropathy symptoms related to the oxaliplatin, l switched her to FOLFIRI with Avastin. She has had 2 cycles so far. She is actually feeling better. The neuropathy symptoms are better controlled with the duloxetine. PLAN: I offered to refer her for radiation for the pelvic mass however she says it is not bothering her so she would like to hold off for now. She will return in 2 weeks for a follow-up. Will reimage after completion of the 3rd cycle. All her questions were answered to her satisfaction. Thank you, Cc: Dr. Martines. Dr. Jimenez. - Time Spent With Patient Time Spent with Patient (in minutes): 26
--- NOTE | 2023-01-13 13:44 | MHC.HEMONC ---
Pt here for chemo pump take down. Port flushed with heparin and de accessed. Neulasta SC given in left arm-tolerated well. Pt aware of next appointment. Dr Salvador into see pt.
--- NOTE | 2023-01-19 15:27 | MHC.HEMONC ---
Triage call-pt called stating the magic mouth was is not helping with her oral pain and burning. Dr Salvador notified-Plan for Mycelex throat troches-pt notified.
[2023-01-25 08:41] VITALS: BP 133/79; PULSE 93; RESP 18; TEMP 36.8; O2SAT 95; BMI 29.4
[2023-01-25 08:54] LABS: Basophils Absolute Auto 0.1 X10*3/uL (0.0-0.2); Basophils Percent Auto 1.3 % (0-2); Eosinophils Absolute Auto 0.1 X10*3/uL (0.0-0.4); Hematocrit 33.8 % (37.0-47.0); Hemoglobin 11.1 g/dl (12.0-16.0); Imm Gran Abs Auto 0.12 X10*3/uL (0.00-0.03); Imm Gran Pct Auto 1.7 % (0.0-0.4); Lymphocytes Absolute Auto 2.2 X10*3/uL (1.2-4.9); MANUAL DIFF FLAG SCAN; Mean Corpuscular HGB Conc 32.8 g/dl (31.0-35.0); Mean Corpuscular Hemoglobin 31.4 pg (27.0-33.0); Mean Corpuscular Volume 95.8 fL (80.0-98.0); Mean Platelet Volume 11.1 fL (9.4-12.3); Monocytes Absolute Auto 1.4 X10*3/uL (0.1-1.2); Monocytes Percent Auto 20.3 % (2-11); NRBC Pct Auto 0.4 /100WBC (0.0-0.2); Neutrophils Percent Auto 43.7 % (45-73); Platelet Count 164 X10*3/uL (160-400); Red Blood Count 3.53 X10*6/uL (4.20-5.50); Red Cell Distribution Width 22.4 % (11.0-16.0); SCAN SMEAR FLAG 1; White Blood Count 6.9 X10*3/uL (4.8-10.8)
[2023-01-25 08:55] LABS: Appearance Urine Cloudy; Color Urine Yellow; Glucose Urine UA Negative (Negative); Leukocyte Esterase Urine Moderate (2+) (Negative); Nitrite Urine Negative (Negative); Specific Gravity - Urine 1.015 (1.005-1.025); UMIC TRIGGER UA YES; Urine Blood Negative (Negative); Urine Ketones Negative (Negative); Urine Protein Negative (Neg-Trace)
[2023-01-25 09:00] LABS: Bacteria Urine 3+ (None Seen); Hyaline Casts Urine 0-2 /LPF (0-2); RBC Urine 0-2 /HPF (0-2); WBC Urine 21-50 /HPF (0-5)
[2023-01-25 09:10] LABS: Alanine Aminotransferase 32 U/L (0-31); Albumin Level 3.3 g/dL (3.5-5.0); Alkaline Phosphatase 267 U/L (39-117); Anion Gap 16 (12-20); Aspartate Amino Transferase 53 U/L (5-31); Bilirubin Total 0.5 mg/dL (0.0-1.0); Blood Urea Nitrogen 7 mg/dL (9-16); Calcium 8.9 mg/dL (8.4-10.2); Carbon Dioxide 21 mmol/L (22-29); Chloride 103 mmol/L (96-108); Creatinine Clr Calc Pharmacy 72.5; Estimated Glomerular Filt Rate > 60; Glucose Random 211 mg/dL (60-115); Potassium 3.7 mmol/L (3.3-5.1); Sodium 136 mmol/L (135-145); Total Protein 6.4 g/dL (6.5-8.0)
[2023-01-25 09:21] LABS: SLIDE REVIEW VERIFIED
[2023-01-25] MEDS: diphenhydrAMINE HCL 50 MG/ML VIAL 25 MG IVPUSH (09:31)
[2023-01-25] MEDS: Fosaprepitant Dimeglumine 150 MG in 0.9 % Sodium Chloride 145 ML 300 MG IV (09:35)
[2023-01-25] MEDS: dexAMETHasone sod phosphate/NS 12 MG/50 ML PIGGYBACK 200 MG IV (09:35)
[2023-01-25] MEDS: Acetaminophen 325 MG TABLET 650 MG PO (09:37)
[2023-01-25] MEDS: Amoxicillin/Potassium Clav 875 MG TABLET PO (10:06)
[2023-01-25] MEDS: Mag&Al/Sim/Diphenhyd/Lidocaine 10 ML ORAL.SUSP PO (10:09)
[2023-01-25] MEDS: Leucovorin Calcium 700 MG in Dextrose 5 % 250 ML 190 MG IV (12:07)
[2023-01-25] MEDS: IRINOTECAN HCL IV (12:08)
[2023-01-25] MEDS: DEXTROSE 5% IV (12:08)
[2023-01-25] MEDS: fluorouraciL 4,175 MG in 0.9 % Sodium Chloride 8.5 ML IV (13:42)
--- NOTE | 2023-01-25 14:35 | MHC.HEMONC ---
Here for C5 Folfiri/Avastin. Feeling well, except she states she has a tooth that is bothering her. Some swelling to left cheek noted. Dr Salvador aware. Augmentin ordered and given. Also has mouth sore, and given magic mouthwash. Port accessed with good blood return noted. Labs obtained. Premeds given as ordered. Treatment done and tolerated well. Home with 5fu infusion pump. Scheduled for pump take down in 2 days. Departure packet given.
--- NOTE | 2023-01-26 11:36 | MHC.HEMONC ---
Triage call from pt. She states since she left here after treatment yesterday, her eyes are very teary, and that she is hallucinating . She states she is seeing things, explains that she is seeing flames and smoke. She also states she went to the bathroom, and saw a lot of blood in her panties, but there was no blood. Dr Leyva, covering for Dr Salvador, made aware, and said pt should go to the ED to be evaluated. Pt declines going to ED at this time, and states she is coming here for pump take down tomorrow. Will talk with Dr Salvador when she returns to office in AM
[2023-01-27] MEDS: Heparin Sodium,Porcine Flush 500 UNIT/5 ML SYRINGE IVFLUSH (12:47)
--- NOTE | 2023-01-27 16:30 | MHC.HEMONC ---
Patient here for pump take down- confirmed reservoir volume of zero. Neulasta 6mg s/c administered to left upper arm and well tolerated. Patient alert and states she is feeling better today. Denies hallucinations today. She states this happens on day 1 of treatment after she leaves hospital and resolves by the time she comes in for her pump disconnection. Dr. Salvador made aware- no new orders at this time. Will continue to monitor. VSS. Patient departed unit. Instructed patient to please call department if symptoms arise/persist. Patient verbalizes understanding.
[2023-02-08 08:43] LABS: Basophils Absolute Auto 0.1 X10*3/uL (0.0-0.2); Eosinophils Absolute Auto 0.1 X10*3/uL (0.0-0.4); Eosinophils Percent Auto 1.2 % (0-4); Hemoglobin 11.6 g/dl (12.0-16.0); Imm Gran Abs Auto 0.31 X10*3/uL (0.00-0.03); Imm Gran Pct Auto 3.8 % (0.0-0.4); Lymphocytes Absolute Auto 2.7 X10*3/uL (1.2-4.9); Lymphocytes Percent Auto 33.8 % (20-40); MANUAL DIFF FLAG SCAN; Mean Corpuscular HGB Conc 33.1 g/dl (31.0-35.0); Mean Corpuscular Hemoglobin 31.7 pg (27.0-33.0); Mean Corpuscular Volume 95.6 fL (80.0-98.0); Mean Platelet Volume 10.9 fL (9.4-12.3); Monocytes Absolute Auto 1.8 X10*3/uL (0.1-1.2); Monocytes Percent Auto 22.1 % (2-11); NRBC Pct Auto 0.5 /100WBC (0.0-0.2); Neutrophils Absolute Auto 3.1 x10*3/uL (2.0-8.3); Neutrophils Percent Auto 38.1 % (45-73); Platelet Count 184 X10*3/uL (160-400); Red Blood Count 3.66 X10*6/uL (4.20-5.50); Red Cell Distribution Width 22.2 % (11.0-16.0); SCAN SMEAR FLAG 1; White Blood Count 8.1 X10*3/uL (4.8-10.8)
[2023-02-08 08:44] LABS: Appearance Urine Clear; Color Urine Dark Yellow; Glucose Urine UA Negative (Negative); Leukocyte Esterase Urine Trace (Negative); Nitrite Urine Negative (Negative); PH 6.5 (5.0-9.0); Specific Gravity - Urine 1.015 (1.005-1.025); UMIC TRIGGER UA YES; Urine Blood Negative (Negative); Urine Ketones Trace mg/dL (Negative); Urine Protein Trace mg/dL (Neg-Trace)
[2023-02-08 08:46] LABS: Bacteria Urine None Seen (None Seen); Hyaline Casts Urine 0-2 /LPF (0-2); RBC Urine 0-2 /HPF (0-2); Squamous Epithelial Cell Urine 0-2 /HPF (0-2); WBC Urine 0-5 /HPF (0-5)
[2023-02-08 08:59] LABS: Alanine Aminotransferase 28 U/L (0-31); Albumin Level 3.4 g/dL (3.5-5.0); Alkaline Phosphatase 306 U/L (39-117); Anion Gap 16 (12-20); Aspartate Amino Transferase 51 U/L (5-31); Bilirubin Total 0.5 mg/dL (0.0-1.0); Blood Urea Nitrogen 8 mg/dL (9-16); Calcium 8.9 mg/dL (8.4-10.2); Carbon Dioxide 22 mmol/L (22-29); Chloride 106 mmol/L (96-108); Creatinine Clr Calc Pharmacy 65.5; Estimated Glomerular Filt Rate > 60; Glucose Random 208 mg/dL (60-115); Potassium 3.5 mmol/L (3.3-5.1); Sodium 140 mmol/L (135-145); Total Protein 6.6 g/dL (6.5-8.0)
[2023-02-08 09:00] LABS: SLIDE REVIEW VERIFIED
[2023-02-08 09:08] VITALS: BP 125/64; PULSE 92; RESP 18; TEMP 36.1; O2SAT 97; BMI 28.8
[2023-02-08] MEDS: diphenhydrAMINE HCL 50 MG/ML VIAL 25 MG IVPUSH (09:39)
[2023-02-08] MEDS: Acetaminophen 325 MG TABLET 650 MG PO (09:42)
[2023-02-08] MEDS: dexAMETHasone sod phosphate/NS 12 MG/50 ML PIGGYBACK 200 MG IV (09:43)
[2023-02-08] MEDS: Fosaprepitant Dimeglumine 150 MG in 0.9 % Sodium Chloride 145 ML 300 MG IV (09:44)
[2023-02-08] MEDS: Atropine Sulfate 1 MG/ML VIAL 0.5 MG SUBCUT (11:44)
[2023-02-08] MEDS: IRINOTECAN HCL IV (12:25)
[2023-02-08] MEDS: DEXTROSE 5% IV (12:25)
[2023-02-08] MEDS: Leucovorin Calcium 700 MG in Dextrose 5 % 250 ML 190 MG IV (12:26)
[2023-02-08] MEDS: fluorouraciL 4,175 MG in 0.9 % Sodium Chloride 8.5 ML IV (14:03)
--- NOTE | 2023-02-08 16:37 | MHC.HEMONC ---
Here for C6 Folfiri/Avastin. States is feeling well today. States mouth sores are better. Port accessed with good blood return noted. Labs obtained. Premeds given as ordered. Treatment done and tolerated well. Paradichlorobenzene Tender in with Dr Salvador for follow up. All of pts questions answered. Home with infusion pump. Scheduled for pump take down in 2 days, and next treatment in 2 weeks. Departure packet given and pt departed unit.
--- NOTE | 2023-02-09 11:10 | PM.HEMONCPN ---
Medical Summary - Medical Summary Date of Service: 02/09/23 Chief complaint: Follow up for: Metastatic Colon Carcinoma. Primary Care Provider: Corine Martines MD Medical Summary: DIAGNOSIS: NEW LIVER LESIONS. 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 CURRENT THERAPY: Started on modified FOLFOX and bevacizumab on 04/14. Day 15 on 04/28. Cycle 2 on 05/12. Cycle 2,day 14 on 06/01. Cycle 6 on 09/20. Cycle 7 on 10/18. Cycle 8 on 11/16. Started on FOLFIRI and bevacizumab on 11/30. Second dose: 12/14. Cycle 2 on 12/28. Cycle 2 day 14 on 01/11. Cycle 3 day 14 today. Interval History Interval history: Kayden Angulo is a pleasant 57 year old lady, here for a follow-up visit. She tells me she is feeling well. She had blurred vision and dizziness. She stopped taking the Duloxetine. These have improved. She feels tired. Other than that, she has been tolerating the treatment reasonably well. She has some numbness. She is walking better. Energy level is somewhat low. Her appetite is good. She has been trying to eat sweet potato, pasta, plantains salads, green juices, guannabana, guava and passion fruit. Her memory is not that good. No QUINTERO, nor dizziness. No fever nor chills. She has no chest pain. Denies shortness of breath. She has noticed that her abdominal girth is down. She nausea,vomiting heartburn or indigestion. She does feel bloated. She denies diarrhea. Denies any gross blood in the stools. She actually has constipation. She has been taking more fiber. She is under the care of GI. Sometimes she notes pain in her back and left flank. She denies any dysuria or hematuria. She has arthritis and tendinitis. She has some back pain, and right knee pain. She gets pain in her right knee. She denies any focal weakness. She has depression. Skin of her fingers is darkening. She has history of dermatitis but not active now. She uses Dove soap only. She is otherwise tolerated the chemotherapy very well. No easy bruising on her arms and legs. INTERIM HISTORY: She had imaging done on 08/18, reported on 08/24 which revealed: No appreciable change in bilateral pulmonary nodules. Largest pulmonary nodule in the left lower lobe may be slightly decreased in size. No new pulmonary nodules. Interval decrease in left hilar adenopathy. IMPRESSION: Stable liver lesions. Interval decrease in soft tissue mass in the hepatic flexure, adjacent peritoneal disease and retroperitoneal lymphadenopathy. New left pelvic mass measuring 5.3 x 7.6 cm. Question primary left adnexal mass, metastatic disease to the left ovary or new peritoneal disease. Lymph node is considered less likely. Follow-up pelvic ultrasound recommended. Fleischner guidelines were followed. She had pelvic ultrasound on 09/03 that revealed: 1. Complex hypervascular mass in the right adnexa. Consider possibility of cystadenocarcinoma among correlate with MRI. 2. Nonvisualization of left ovary and unremarkable uterus. Sometimes she gets a pain in the belly which radiates from the front to the back. Denies any pelvic pain. She has not had any pelvic surgery. PRESENTING HISTORY: She developed abdominal pain about six weeks ago. She mentions sharp pain in the upper abdomen radiating to both sides, back to front like a belt. Level was up to 7 on 1-10 scale. It was a sharp pain. It recurred with change of position. Not related to meals. She went to see her primary doctor who ordered an abdominal ultrasound. Ultrasound of the abdomen from 12/07 revealed: IMPRESSION: Enlarged liver and multiple predominately hyperechoic liver lesions. Appearance is suggestive of metastatic disease. Limited visualization of the pancreas. Otherwise unremarkable exam. She had a colonoscopy on 04/[address] Olivarez: Transverse Colon - colonic mass occluding the lumen at hepatic flexure, unable to pass the scope, tried an upper GI scope but also unable to pass, bx taken. Positive for adenocarcinoma. MSI stable. FAMILY HISTORY: Paternal grandma had breast cancer. Maternal aunt had breast cancer. They both from it. 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 She is single. She has 3 children. She denies any history of smoking. She quit alcohol several years ago. Denies drugs. Review of Systems - Constitutional Reports system reviewed and no additional complaints, except as documented, Reports lack of energy - Eyes Reports system reviewed and no additional complaints, except as documented, Denies blurry vision - ENT Reports system reviewed and no additional complaints, except as documented - Cardiovascular Reports system reviewed and no additional complaints, except as documented, Denies chest pain at rest - Respiratory Reports no additional respiratory complaints, Denies chest congestion - Gastrointestinal Reports system reviewed and no additional complaints, except as documented, Denies vomiting - Genitourinary Reports no additional female genitourinary complaints, Denies abnormal vaginal bleeding - Musculoskeletal Reports system reviewed and no additional complaints, except as documented, Denies abnormal walking - Integumentary/Breasts Skin/Breast: Reports no additional skin complaints, Denies bleeding lesions - Neurologic Reports system reviewed and no additional complaints, except as documented, Denies headache(s), Denies weakness - Psychiatric Reports system reviewed and no additional complaints, except as documented - Endocrine Reports no additional endocrine complaints, Reports cold intolerance - Hematologic/Lymphatic Reports system reviewed and no additional complaints, except as documented, Denies easy bruising - Allergic/Immunologic Reports system reviewed and no additional complaints, except as documented, Denies GI upset with certain foods, Denies urticaria PMFSH Medical History: Medical History (Last Reviewed 01/13/23 @ 13:21 by Leatha Alcantar) Asthma Asthma Colorectal cancer Depression HTN (hypertension) Liver metastases Metastatic colon cancer to liver Functional capacity: independent ambulation Patient : No Family History: Family History (Last Reviewed 01/13/23 @ 13:21 by Leatha Alcantar) Paternal Grandmother Breast cancer Maternal Aunt Breast cancer Surgical History: Surgical History (Last Reviewed 01/13/23 @ 13:21 by Leatha Alcantar) History of esophagogastroduodenoscopy (EGD) Hx of arthroscopy of right knee Hx of colonoscopy Hx of excision of mass Hx of right breast biopsy Hx of tubal ligation Social History: Social History (Last Reviewed 01/13/23 @ 13:21 by Leatha Alcantar) Living Situation History: Household Members: Children Housing: Apartment Are you a primary customer care manager to a significant other at home: No Do you presently have visiting nurse or other home services: No Alcohol History Details: 1. How often do you have a drink containing alcohol?: a. Never Tobacco History: Patient Tobacco Use Status: Never used Tobacco e-Cigarette/Vaping Use: Never Used Substance Use History: Use of substances other than those prescribed or required for medical reasons: No Domestic Abuse History: Have you been hit, kicked, punched, or otherwise hurt by someone within the past year? 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 Oncology Screenings - ECOG Performance Status ECOG Performance Status: 0 Home Medications and Allergies Home Medications Medication Instructions Recorded Confirmed Type losartan 50 mg tablet 1 tab PO DAILY 01/13/21 01/13/23 History omeprazole 20 mg capsule,delayed 20 mg PO DAILY 10/08/21 01/13/23 History release metoprolol succinate 50 mg 1 tab PO DAILY 12/17/21 01/13/23 History tablet,extended release 24 hr Allergies Allergy/AdvReac Type Severity Reaction Status Date / Time latex Allergy Intermediate Rash Verified 01/13/23 13:21 Exam Vital signs: Vital Signs Temp 96.9 F 02/08/23 09:08 Pulse 92 02/08/23 09:08 Resp 18 02/08/23 09:08 BP 125/64 02/08/23 09:08 Pulse Ox 97 02/08/23 09:08 O2 Del Method Room Air 02/08/23 09:08 Intake & Output 02/08/23 02/09/23 02/09/23 18:59 06:59 18:59 Intake Total 1164.5 / 1164.5 Balance 1164.5 / 1164.5 Intake: Intake, IV Amount 1164.5 / 1164.5 Bevacizumab 350 mg In 0.9 % 100 / 100 Sodium Chloride 86 ml @ 200 mls /hr IV ONCE SAUL Rx#:[id number] Fosaprepitant Dimeglumine 150 150 / 150 mg In 0.9 % Sodium Chloride 145 ml @ 300 mls/hr IV ONCE SAUL Rx #:[id number] Irinotecan HCl 310 mg In 515.5 / 515.5 Dextrose 5 % 500 ml @ 343.667 mls/hr IV ONCE SAUL Rx#: [id number] Leucovorin Calcium 700 mg In 285 / 285 Dextrose 5 % 250 ml @ 190 mls/ hr IV ONCE SAUL Rx#:[id number] Ondansetron HCL/NS 16 mg In 50 50 / 50 ml @ 200 mls/hr IV ONCE SAUL Rx# :[id number] dexAMETHasone sod phosphate/NS 50 / 50 12 mg In 50 ml @ 200 mls/hr IV ONCE SAUL Rx#:[id number] fluorouraciL 700 mg In Syringe 14 / 14 0 ml @ 168 mls/hr IVPUSH ONCE SAUL Rx#:[id number] Other: Weight 69.2 kg Weight in Grams 57723 Weight 69.2 kg BMI result Body Mass Index 28.8 - Constitutional Present: no acute distress - Routine HEENT Exam Head: Present: normal inspection Eye: Present: normal appearance ENT: Present: mucous membranes moist - Routine Neck Exam Present: full ROM - Routine Respiratory Exam Present: CTAB - Routine Cardiovascular Exam Cardiovascular: Present: RRR, S1, S2 - Routine Abdominal Exam Present: soft, nontender - Routine Rectal Exam Patient deferred: digital exam - Routine Extremities Exam Present: nontender - Routine Back/Spine/Pelvis Exam Back/Spine: Present: full ROM - Routine Skin Exam Present: intact - Routine Neurological Exam Present: alert, oriented X3, vision grossly intact - Detailed Neurological Exam: Coma Scale Eye Opening: Spontaneous (4) - Routine Psychiatric Exam Present: normal affect Data - Labs CBC & Chem 7: 02/08/23 08:29 02/08/23 08:29 Assessment and Plan Patient Active problem list reviewed?: Yes (1) Liver metastases Status: Inactive Assessment and plan: This is a pleasant 57-year-old lady who developed upper abdominal pain. The pain since subsided however ultrasound revealed: IMPRESSION: Enlarged liver and multiple predominately hyperechoic liver lesions. Appearance is suggestive of metastatic disease. Limited visualization of the pancreas. Otherwise unremarkable exam. No known primary has been noted. DIFFERENTIAL DIAGNOSIS: 1. A GI PRIMARY: COLON CARCINOMA: She has not had a screening colonoscopy done yet. 2. PANCREATIC CANCER: 3. BREAST CANCER: However recent mammogram was normal. 4. LUNG CANCER: Is in the differential however she does not smoke. , so less likely. 5. PRIMARY HEPATOMA: Would also be unlikely. Usually we find metastases, from another site into the liver and not primary. l checked baseline labs including tumor markers today:CEA 325, Ca 19/9 962, Ca 27.29: 18 . DATABASE: LABS FROM TODAY: CBC WBC 7.4, HGB 11.7, HCT 36.4, PLT 368. CMP: Lytes WNL, glucose:88, BUN 7, COMMUNICATIONS SUPERVISOR 0.73. LFTs: 0.6/208/66/27. I proceeded with further evaluation. l initiated search for a primary: CT scans of the chest abdomen and pelvis, from 01/18: Bilateral pulmonary nodules. Bilateral axillary and left supraclavicular upper normal-size lymph nodes. 4 cm colon mass in the hepatic flexure. Enlarged adjacent lymph nodes metastatic disease to the liver and peritoneal disease. Bilateral pulmonary nodules also probably representing metastatic disease. l proceeded with an ultrasound guided biopsy of the liver lesions to further define the primary. Biopsy of the lesion in the right lobe of the liver on 01/27 revealed: Moderately differentiated adenocarcinoma consistent with metastatic colorectal cancer. Unfortunately, very little tumor was present, insufficient for ancillary testing. I referred her to GI for a colonoscopy. That way we can obtain more issues to proceed with ancillary testing, to decide about the best regimen to give her. She was seen by Dr. Jimenez, on 02/26. The colonoscopy was scheduled for 03/26/22. However she came down with COVID. The procedure was postponed pending medical clearance. The bone scan was ordered on account of ongoing back and rib pain. It was done on 03/26: Normal whole body bone scan. No evidence of osseous metastatic disease. CEA Level: 863, 754, 1460, 1920, 869 (06/14). She started FOLFOX plus bevacizumab, on 04/14. She received day 15 on 04/28. Cycle 2 on 05/12. D 14 had to be postponed till 06/01, on account of neutropenia. Here for cycle 5 day 14. She is feeling well. She feels bloating, otherwise tolerating the chemotherapy well. She is taking omeprazole. CEA level: 05/18:1920. 06/14:869. /:426. CT scan of the chest from 08/18: No appreciable change in bilateral pulmonary nodules. Largest pulmonary nodule in the left lower lobe may be slightly decreased in size. No new pulmonary nodules. Interval decrease in left hilar adenopathy. CT scan of the abdomen from 08/18: IMPRESSION: Stable liver lesions. Interval decrease in soft tissue mass in the hepatic flexure, adjacent peritoneal disease and retroperitoneal lymphadenopathy. New left pelvic mass measuring 5.3 x 7.6 cm. Question primary left adnexal mass, metastatic disease to the left ovary or new peritoneal disease. Lymph node is considered less likely. Follow-up pelvic ultrasound recommended. Fleischner guidelines were followed. l proceeded with pelvic ultrasound for further evaluation: 1. Complex hypervascular mass in the right adnexa. Consider possibility of cystadenocarcinoma among correlate with MRI. 2. Nonvisualization of left ovary and unremarkable uterus. She is clinically doing well. Tolerating treatment reasonably well. CEA: 228.60. This is reassuring. l proceeded with MRI of the pelvis. This was done on 10/20 and revealed: 1. A 7.2 cm heterogeneous T2 signal mass centered in the left adnexa with multiple thin internal septations not significantly changed in size from prior and remains suspicious for ovarian neoplasm, though given history of metastatic colon cancer metastasis could also be considered. 2. Multiple hepatic metastases, partially imaged measuring up to 8.7 cm in the left hepatic lobe, previously 8.7 cm suboptimally evaluated on this MR pelvis. Previously seen peritoneal disease is suboptimally evaluated on this MR pelvis. 3. T2 hyperintense signal in the bilateral sacral ala and to a lesser extent the adjacent right iliac bone which could be seen in the setting of sacral insufficiency fractures. l referred her to [facility] transit bus [facility] Oncology. She saw Yoselyn Gaxiola. Her impression was this is likely to be metastatic colon cancer. I proceeded with a PET scan for further evaluation, this was done on 11/25 and revealed: 1. There are multiple presumed metastatic left axillary/subpectoral FDG avid lymphadenopathy with SUV max of 9.8. 2. Interval development of FDG avid groundglass opacity within the central part of the right upper lobe of the lung with SUV max of 3.3, may represent infection versus new metastatic disease or combination thereof. 3. Interval increase in size and number of previously documented presumed bilateral multifocal multilobar noncalcified lung parenchymal metastatic disease, too small for accurate characterization on this current study. The dominant lung nodules seen at left lower lobe of the lung however appears relatively stable in size measuring approximately 1.1 cm. 4. Previously documented, clinically known multifocal hepatic metastatic disease shows variable echogenicity and increased peripheral/marginal FDG avidity most pronounced along the subdiaphragmatic surface of right lobe of the liver. 5. Intense FDG avidity associated with annular constricting lesion at the hepatic flexure at right mid abdomen with SUV max of 9.4, likely representing the site of primary colonic neoplasm. 6. Previously documented, clinically known heterogeneous solid-appearing mass in the left hemipelvis shows mild FDG avidity anteriorly by the majority of the mass is not FDG avid. Differential includes primary ovarian malignancy versus ovarian metastatic disease. 7. Heterogeneous FDG avidity within the entire visualized skeleton, may represent physiologic changes related to interval administration of G-CSF versus physiologic reactive hyperplastic marrow or mild diffuse bone marrow replacement and/or infiltrative process. I had requested mutational analysis on the tumor tissue from the colon cancer biopsy from March. A repeat biopsy was done on 12/06, pathology was consistent with colonic adenocarcinoma. Unfortunately there was not enough tissue for molecular testing. Her tumor markers: Serial CEA: 11/16: 160, 228.60, down from baseline of 1600 range. In view of disease progression and since patient was having neuropathy symptoms related to the oxaliplatin, l switched her to FOLFIRI with Avastin. She has had 2 cycles so far. She is actually feeling better. The neuropathy symptoms were better controlled with the duloxetine. However this caused visual blurring and memory loss so it has been discontinued. PLAN: I offered to refer her for radiation for the pelvic mass however she says it is not bothering her so she would like to hold off for now. She will return in 2 weeks for a follow-up. Will reimage after completion of the 3rd cycle. All her questions were answered to her satisfaction. Thank you, Cc: Dr. Martines. Dr. Jimenez. - Time Spent With Patient Time Spent with Patient (in minutes): 30
[2023-02-10] MEDS: Heparin Sodium,Porcine Flush 500 UNIT/5 ML SYRINGE IVFLUSH (12:57)
--- NOTE | 2023-02-10 15:59 | MHC.HEMONC ---
Here for pump take down. Confirmed bag volume of 0ml. Port flushed with heparin 500units and de-accessed. Neulasta 6mg sc given right arm and tolerated well. Pt states is feeling much better since she stopped taking her duloxitine. Will continue to not take it. Aware of next treatment. Departed unit.
--- NOTE | 2023-02-21 16:13 | MHC.HEMONC ---
Triage call: Patient called to report she was not feeling well for the last several days- she states she has had a fever for a few days but has not checked temperature. She also reports that asthma is acting up with bloody nose. She reports that she fell today- but did not injure herself. Instructed patient to be evaluated in ED but patient is refusing. Dr. Salvador updated. Patient is scheduled for chemotherapy tomorrow and prefers to be evaluated then. Explained to patient that she may need to be sent to ED. Patient verbalizes understanding- also instructed patient to go to ED of symptoms worsen or persist. (Sudha assisted with translation).
== END 2023-02-24 | disposition home or self-care (01) ==
LOC: HO.ONC 13:00
PROVIDERS: PCP Internal Medicine; Referring Provider Internal Medicine; Visit Provider Internal Medicine Medical Oncology
DX: Z51.11 Encounter for antineoplastic chemotherapy (principal); C20 Malignant neoplasm of rectum; C78.7 Secondary malignant neoplasm of liver and intrahepatic bile duct; N83.8 Other noninflammatory disorders of ovary, fallopian tube and broad ligament; Z76.89 Persons encountering health services in other specified circumstances
CPT/HCPCS: 36415; 36591; 36593; 80053; 81001; 81003; 82105; 82378; 83615; 85007; 85025; 85027; 86300; 86301; 86704; 86705; 86706; 87340; 96360; 96361; 96366; 96367; 96368; 96372; 96375; 96411; 96413; 96415; 96416; 96417; 96523; 99204; 99213; 99214; J0461; J0640; J1100; J1200; J1453; J1642; J2405; J2506; J2997; J9035; J9190; J9206; J9263; Q5107

== ENCOUNTER 2023-02-22 03:50 | Inpatient (IN) | payer MEDICAID, SELFPAY ==
[2023-02-22] VITALS (24 sets, daily range): BP systolic 106–140; BP diastolic 59–89; PULSE 22–144; RESP 16–38; TEMP 37.1–39.5; O2SAT 85–100; BMI 29.8
--- NOTE | ~2023-02-22 | CT_ITS ---
EXAMINATION: CT ANGIOGRAM OF THE CHEST WITH AND WITHOUT CONTRAST (CT PULMONARY ANGIOGRAM FOR PE) CLINICAL INFORMATION: Reason for Exam Acute shortness of breath: Colon Ca COMPARISON: CT chest 08/18/2022.. TECHNIQUE: Prior to contrast administration, noncontrast localization images were obtained. Subsequently, multidetector volumetric imaging was performed from the thoracic inlet to below the diaphragms following the administration of 80 mL Omnipaque 350 intravenous contrast. No contrast reaction reported Sagittal, coronal, and MIP oblique sagittal reformatted images were obtained on the CT workstation, uploaded to PACS, and reviewed. This CT examination was performed using dose optimization techniques as appropriate, variously including the following: *Automated exposure control *Adjustment of mA and/or kV according to patient size (this includes techniques or standardized protocols for targeted exams where dose is matched to indication/reason for exam; i.e. extremities or head) *Use of iterative reconstruction technique Total exam dose-length product 211 mGy-cm FINDINGS: QUALITY OF STUDY/CONTRAST BOLUS: Satisfactory. PULMONARY ARTERIES: No pulmonary emboli. THORACIC AORTA: No aneurysm. LUNG: There is diffuse patchy infiltrative process in involving both lungs in all segments. In addition there are ill-defined nodular densities in left lower lobe and right upper lobe question metastatic. PLEURA: There is mild posterior pleural thickening MEDIASTINUM: The thyroid lobes are symmetrical and normal. The heart size is normal. The pulmonary vascularity is normal. There is a small hiatal hernia. No abnormal size mediastinal or hilar lymph nodes seen. No evidence of septal bowing or right heart strain. CORONARY ARTERY CALCIFICATION: None visualized on this study. CHEST WALL/AXILLA: No axillary or internal mammary lymphadenopathy. OSSEOUS STRUCTURES: No aggressive lytic or sclerotic process seen. UPPER ABDOMEN: There are multiple large liver lesions likely metastatic unless proven otherwise. No reflux of contrast into the hepatic veins to suggest elevated right heart pressures. CT/CT angio chest PE protocol IMPRESSION: 1. No evidence of PE. 2. No evidence aortic dissection or aneurysm. 3. Diffuse bilateral infiltrative process involving both lungs. There are ill-defined nodular densities in left lower lobe and right upper lobe consider metastatic disease. These were seen on previous exam 08/18/2022. 4. Multiple large liver lesions likely metastatic. VTE: negative.
--- NOTE | ~2023-02-22 | XR_ITS ---
EXAMINATION: XR CHEST CLINICAL INFORMATION: Shortness of breath COMPARISON: 08/18/2022 TECHNIQUE: Frontal view of the chest was obtained. FINDINGS: Right IJ port catheter tip in the region of the distal SVC. Lungs are mildly hypoinflated. There is heterogeneous opacity throughout the right lung. Coarsened appearance of the interstitium and suspected scattered patchy opacities in the mid to upper left lung. Lung nodules identified on prior CT are not adequately delineated radiographically. No evidence of pneumothorax. Small right pleural effusion cannot be excluded. The cardiomediastinal contour is unremarkable. No acute osseous findings are seen. XR/XR chest 1V IMPRESSION: Heterogeneous opacity throughout the right lung and suspected scattered patchy opacities in the mid to upper left lung, suspicious for multifocal pneumonia. In the proper clinical setting asymmetric edema could potentially have a similar appearance.
--- NOTE | ~2023-02-22 | XR_ITS ---
EXAMINATION: XR CHEST CLINICAL INFORMATION: Worsening hypoxia. COMPARISON: Previous of the same day. TECHNIQUE: Frontal view of the chest was obtained. FINDINGS: The lung volumes are low. The cardiomediastinal silhouette is stable. A Mediport is noted in a stable position. There are diffuse bilateral infiltrates which were present previously and appears to be more prominent on the left which may be partly technical. There are no significant pleural effusions. The bony structures and soft tissues are unremarkable. XR/XR chest 1V IMPRESSION: Low lung volume limits evaluation. Diffuse bilateral infiltrates appears more prominent on the left which may be partly technical due to differences in lung volumes versus progressing infiltrates. No other significant abnormality seen.
--- NOTE | 2023-02-22 03:59 | ECG_ITS ---
Test Reason : SOB Blood Pressure : / mmHG Vent. Rate : 125 BPM Atrial Rate : 125 BPM P-R Int : 156 ms QRS Dur : 080 ms QT Int : 302 ms P-R-T Axes : 028 -22 041 degrees QTc Int : 435 ms Sinus tachycardia Nonspecific ST and T wave abnormality Abnormal ECG When compared with ECG of 07-MAR-2022 19:31, Questionable change in initial forces of Septal leads No significant changes seen Referred By: Generic ED Physician Electronically Signed By:ADELA SAXENA MD
--- NOTE | 2023-02-22 04:06 | ED.SOB ---
HPI - SOB/Dyspnea General Chief Complaint: Dyspnea Stated Complaint: SOB Time Seen by Provider: 02/22/23 04:04 Source: patient Mode of arrival: EMS Limitations: no limitations History of Present Illness HPI Narrative: Patient history of colon cancer with Mets to liver currently on FOLFOX and Bevecizumab comes in for increased shortness of breath with cough for last up to 3 days after taking chemotherapy , patient does not use any oxygen at home feels warm and has nausea no diarrhea T-max on arrival was 103.1 patient was saturating 80% on room air when EMS reached improved to 100% on 3 L per EMS no chest pain Related Data Home Medications Medication Instructions Recorded Confirmed losartan 50 mg tablet 1 tab PO DAILY 01/13/21 01/13/23 omeprazole 20 mg capsule,delayed 20 mg PO DAILY 10/08/21 01/13/23 release metoprolol succinate 50 mg 1 tab PO DAILY 12/17/21 01/13/23 tablet,extended release 24 hr Previous Rx's Medication Instructions Recorded ipratropium 0.5 mg-albuterol 3 mg 3 ml inhalation RQ4H PRN wheezing 03/08/22 (2.5 mg base)/3 mL nebulization #90 mL soln nebulizers #1 ea 03/09/22 ondansetron 8 mg disintegrating 8 mg PO Q8H PRN Nausea And 03/18/22 tablet Vomiting #60 tabs polyethylene glycol 3350 17 17 g PO DAILY 30 days #510 grams 05/03/22 gram/dose oral powder (Miralax) metformin 500 mg tablet,extended 500 mg PO DAILY #14 tabs 05/13/22 release 24hr dexamethasone 4 mg tablet 4 mg PO BID #60 tabs 05/31/22 oxycodone 5 mg tablet 5 mg PO Q8H PRN Breakthrough Pain, 06/22/22 Moderate #30 tabs meclizine 25 mg chewable tablet 25 mg PO TID PRN Dizziness #50 tabs 06/28/22 (Antivert) sennosides 8.6 mg tablet (Senokot) 8.6 mg PO BID #60 tabs 11/09/22 Magic Mouthwash 10 ml PO QID #240 mL 12/28/22 Diphen/Nystat/Antacid 1:1:1 240 mL suspension duloxetine 20 mg capsule,delayed 20 mg PO BID #60 caps 01/04/23 release amoxicillin 500 mg-potassium 1 tab PO BID dental infection #30 01/25/23 clavulanate 125 mg tablet tabs (Augmentin) Allergies Allergy/AdvReac Type Severity Reaction Status Date / Time latex Allergy Intermediate Rash Verified 01/13/23 13:21 Review of Systems Review of Systems: Yes all other systems are reviewed and are negative [facility] Past Medical History Medical History Asthma Metastatic colon cancer to liver Colorectal cancer Liver metastases Depression Asthma HTN (hypertension) Surgical History Hx of colonoscopy History of esophagogastroduodenoscopy (EGD) Hx of arthroscopy of right knee Hx of right breast biopsy Hx of tubal ligation Hx of excision of mass Family History Family History Paternal Grandmother Breast cancer Maternal Aunt Breast cancer Social History Household Members: Children Housing: Apartment Are you a primary senior care provider to a significant other at home: No Do you presently have visiting nurse or other home services: No Alcohol intake: never Patient Tobacco Use Status: Never used Tobacco Smoked in Last 30 Days: No e-Cigarette/Vaping Use: Never Used Use of substances other than those prescribed or required for medical reasons: No Advance Directives: No Advance Directives Information Provided: Yes Patient : No service: No Current occupational status: employed 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 Oriented X3. In moderate distress on 5 L of oxygen via nasal cannula Eyes: PERRLA, No Nystagmus ENT: Pharynx normal. Oral Mucosa moist Neck: Normal inspection. Neck supple. CVS: Normal heart rate and rhythm. Pulses normal. Respiratory: Moderate respiratory distress. Equal air entry bilateral, prolonged expiration with bilateral rales more on the right side than the left prolonged expiration Abdomen: Soft and nontender. Bowel sounds are present, no mass palpable, no CVA tenderness Skin: Skin warm and dry. Normal skin color. Normal skin turgor. Extremities: No lower extremity edema. No calf tenderness Neuro: Oriented X 3. No motor deficit. No sensory deficit.No cerebellar signs , cranial nerves II-XII intact Medications Administered Generic Name Dose Route Start Last Admin Trade Name Freq PRN Reason Stop Dose Admin Sodium Chloride 2,500 mls @ 833.3333 mls/hr 02/22/23 06:36 02/22/23 06:51 Ns IV 02/22/23 09:35 833.33 mls/hr .Q3H STA Administration Discontinued Medications Generic Name Dose Route Start Last Admin Trade Name Freq PRN Reason Stop Dose Admin Acetaminophen 650 mg 02/22/23 06:12 02/22/23 06:19 Acetaminophen 325 Mg Tablet PO 02/22/23 06:13 650 mg ONCE ONE Administration Albuterol Sulfate 2.5 mg/ 0 mg 02/22/23 05:54 02/22/23 06:07 Albuterol/Ipratropium 3 ml INHALE 02/22/23 05:55 5 dose ONCE ONE Administration Ceftriaxone Sodium 1 gm/ 50 mls @ 100 mls/hr 02/22/23 05:50 02/22/23 06:41 Sodium Chloride IV 02/22/23 06:19 Infused ONCE ONE Infusion Azithromycin 500 mg/ Sodium 250 mls @ 125 mls/hr 02/22/23 05:50 02/22/23 06:49 Chloride IV 02/22/23 07:49 125 mls/hr ONCE ONE Administration Sodium Chloride 1,000 mls @ 999 mls/hr 02/22/23 06:13 02/22/23 06:19 Ns IV 02/22/23 07:13 999 mls/hr .Q1H1M ONE Administration Medical Decision Making Medical Decision Making [facility] Narrative: Patient with bilateral pneumonia sepsis with acute respiratory failure with hypoxia started on IV Rocephin and Zithromax will do CTA chest to rule out PE as patient does have history of colon cancer Patient received IV fluids and IV antibiotics per protocol Differential Diagnosis Differential Diagnoses: The differential diagnosis associated with the presentation includes Pneumonia/CHF/PE/pneumothorax/congestive heart failure/acute respiratory failure Admission/Observation Consideration of admission/observation: Escalation of care including admission/observation considered Consult Healthcare Provider Management of the patient was discussed with: Hospitalist Lab Data MDM Lab Attestation statement: I reviewed the patient's lab results. 02/22/23 04:22 02/22/23 04:22 Labs: Lab Results 02/22/23 02/22/23 02/22/23 Range/Units 04:22 04:27 06:01 WBC 12.8 H (4.8-10.8) X10*3/uL RBC 3.66 L (4.20-5.50) X10*6/uL Hgb 11.6 L (12.0-16.0) g/dl Hct 34.8 L (37.0-47.0) % MCV 95.1 (80.0-98.0) fL MCH 31.7 (27.0-33.0) pg MCHC 33.3 (31.0-35.0) g/dl RDW 21.8 H (11.0-16.0) % Plt Count 198 (160-400) X10*3/uL MPV 10.2 (9.4-12.3) fL Immature Gran % (Auto) Cancelled Neut % (Auto) Cancelled Lymph % (Auto) Cancelled Tyrrell % (Auto) Cancelled Eos % (Auto) Cancelled Baso % (Auto) Cancelled Lymph # (Auto) Cancelled Tyrrell # (Auto) Cancelled Eos # (Auto) Cancelled Baso # (Auto) Cancelled Abs Immat Gran (auto) Cancelled Absolute Neuts (auto) Cancelled Absolute Nucleated RBC 0.090 H (0.0-0.012) X10*3/uL Nucleated RBC % (auto) 0.7 H (0.0-0.2) /100WBC Neutrophils % (Manual) 48 (45-73) % Band Neutrophils % 11 H (3-5) % Lymphocytes % (Manual) 13 L (20-40) % Atypical Lymphs % (Man) 3 (0-6) % Monocytes % (Manual) 24 H (2-11) % Metamyelocytes % 1 % Abs Neuts (Manual) 7.6 (2.0-8.3) X10*3/uL Lymphocytes # (Manual) 1.7 (1.2-4.9) X10*3/uL Atyp Lymphs # (Manual) 0.4 x10*3/uL Monocytes # (Manual) 3.1 H (0.1-1.2) X10*3/uL Metamyelocytes # 0.1 X10*3/uL Nucleated RBCs 1 H (0-0) /100WBC Toxic Granulation PRESENT Toxic Vacuolation PRESENT Platelet Estimate NORMAL (NORMAL) Large Platelets PRESENT Giant Platelets PRESENT Plt Morphology Comment NOTED RBC Morphology NOTED Polychromasia 1+ (0-2) /OIF Target Cells 1+ (5-14) /OIF Acanthocytes (Spur) 2+ (3-5) /OIF PT 16.7 H D (11.1-13.3) SEC INR 1.4 H (0.9-1.1) APTT 27.5 (26.0-36.4) SEC VBG pH 7.44 H (7.32-7.43) VBG pCO2 33 mmHg VBG pO2 38 mmHg VBG HCO3 22 (22-26) mmol/L VBG O2 Saturation 60.0 % VBG Base Excess -0.8 mmol/L Sodium 133 L (135-145) mmol/L Potassium 3.4 (3.3-5.1) mmol/L Chloride 101 (96-108) mmol/L Carbon Dioxide 20 L (22-29) mmol/L Anion Gap 15 (12-20) BUN 8 L (9-16) mg/dL Creatinine 0.80 (0.5-1.4) mg/dL Estim Creat Clear Calc 71.1 Estimated GFR > 60 Random Glucose 201 H (60-115) mg/dL Lactic Acid 2.8 H* (0.5-2.0) mmol/L Calcium 8.4 (8.4-10.2) mg/dL Total Bilirubin 1.0 (0.0-1.0) mg/dL AST 67 H (5-31) U/L ALT 33 H (0-31) U/L Alkaline Phosphatase 287 H (39-117) U/L Troponin I High Sens 9.4 (<3.5-17.0) ng/L B-Natriuretic Peptide 41 (<100) pg/mL Total Protein 6.5 (6.5-8.0) g/dL Albumin 3.1 L (3.5-5.0) g/dL COVID-19 (JENNIFER) Negative (Negative) COVID-19 Clin Com See Note ABG Data Attestation ABG: I personally reviewed and interpreted this ABG as follows: Interpretation: Acute respiratory hypoxic Independent Interpretation I performed an independent interpretation of an: EKG and Plain X-Ray Interpretation: Sinus tachycardia with heart rate 125 beats per minute poor progression of R-wave in no acute distress no acute ischemia Radiology Impression Discussion of test interpretation with radiology: I have reviewed the radiologist's reading. Critical Care Time Critical Care Time Critical Care Time: Yes Total Critical Care Time: 60 Attestation: The patient was critically ill with a high probability of imminent or life threatening deterioration. I spent greater than 65 minutes of discontinuous time evaluating the patient,delivering critical care at the bedside, discussing and evaluating pertinent data with consultants. Critical care time does not include time spent performing separately billable procedures or teaching. Total time spent performing critical care was 60 minutes. Discharge Plan Discharge Clinical Impression: Bilateral pneumonia, Acute hypoxemic respiratory failure, Sepsis Patient Disposition: Admitted As Inpatient
--- NOTE | 2023-02-22 04:19 | PC.NURSE ---
this rn assumed care of pt @ 0400 pt biba from home at bedside. dr gardner made aware of pt status, pt states pt is FULL CODE RT called to bedside. Lung sound clear in L lung, crackles noted in R lung. pt placed on electronic device monitor. awaiting for additional orders and to be seen by ed provider
[2023-02-22 04:29] LABS: Hematocrit 34.8 % (37.0-47.0); Hemoglobin 11.6 g/dl (12.0-16.0); Mean Corpuscular HGB Conc 33.3 g/dl (31.0-35.0); Mean Corpuscular Hemoglobin 31.7 pg (27.0-33.0); Mean Corpuscular Volume 95.1 fL (80.0-98.0); Mean Platelet Volume 10.2 fL (9.4-12.3); NRBC Pct Auto 0.7 /100WBC (0.0-0.2); Platelet Count 198 X10*3/uL (160-400); Red Blood Count 3.66 X10*6/uL (4.20-5.50); Red Cell Distribution Width 21.8 % (11.0-16.0); White Blood Count 12.8 X10*3/uL (4.8-10.8)
[2023-02-22 04:32] LABS: Venous Blood Gas Refer to POC result
[2023-02-22 04:32] LABS: VBG Base Excess -0.8 mmol/L; VBG HCO3 22 mmol/L (22-26); VBG pCO2 33 mmHg; VBG pH 7.44 (7.32-7.43); VBG pO2 38 mmHg
[2023-02-22 04:41] LABS: COVID-19 Test Negative (Negative); IDNOW Serial# BCCEAD1C
[2023-02-22 04:48] LABS: Alanine Aminotransferase 33 U/L (0-31); Albumin Level 3.1 g/dL (3.5-5.0); Alkaline Phosphatase 287 U/L (39-117); Anion Gap 15 (12-20); Aspartate Amino Transferase 67 U/L (5-31); Blood Urea Nitrogen 8 mg/dL (9-16); Calcium 8.4 mg/dL (8.4-10.2); Carbon Dioxide 20 mmol/L (22-29); Chloride 101 mmol/L (96-108); Creatinine Clr Calc Pharmacy 71.1; Estimated Glomerular Filt Rate > 60; Glucose Random 201 mg/dL (60-115); Potassium 3.4 mmol/L (3.3-5.1); Sodium 133 mmol/L (135-145); Total Protein 6.5 g/dL (6.5-8.0); Troponin-I High Sensitivity 9.4 ng/L (<3.5-17.0)
[2023-02-22 04:49] LABS: Neutrophils Percent Manual 48 % (45-73)
[2023-02-22 04:50] LABS: Atypical Lymph Absolute Manual 0.4 x10*3/uL; Atypical Lymphs Percent Manual 3 % (0-6); Band Neutrophils Percent 11 % (3-5); Lymphocytes Absolute Manual 1.7 X10*3/uL (1.2-4.9); Lymphocytes Percent Manual 13 % (20-40); Metamyelocytes Absolute 0.1 X10*3/uL; Metamyelocytes Percent 1 %; Monocytes Absolute Manual 3.1 X10*3/uL (0.1-1.2); Monocytes Percent Manual 24 % (2-11); Neutrophils Absolute Manual 7.6 X10*3/uL (2.0-8.3); Nucleated Red Blood Cells 1 /100WBC (0-0)
[2023-02-22 04:51] LABS: Giant Platelet PRESENT; Large Platelet PRESENT; Platelet Estimate NORMAL (NORMAL); Platelet Morphology Comment NOTED; RBC Morphology NOTED
--- NOTE | 2023-02-22 04:51 | PC.NURSE ---
lab notified this rn of left shift , dr gardner made aware no new orders
[2023-02-22 04:52] LABS: Acanthocytes 2+ (3-5) /OIF; Polychromasia 1+ (0-2) /OIF; Target Cells 1+ (5-14) /OIF; Toxic Granulation PRESENT; Toxic Vacuolation PRESENT
[2023-02-22] MEDS: Albuterol Sulfate 2.5 MG, Albuterol/Iprat 2.5/0.5MG 3 ML 3 ML INHALE (06:07)
[2023-02-22] MEDS: cefTRIAXone sodium 1 GM in 0.9 % Sodium Chloride 50 ML IV (06:10)
[2023-02-22 06:15] LABS: INTERNATIONAL NORM RATIO 1.4 (0.9-1.1); Prothrombin Time 16.7 SEC (11.1-13.3)
[2023-02-22 06:18] LABS: Partial Thromboplastin Time 27.5 SEC (26.0-36.4)
[2023-02-22] MEDS: 0.9 % Sodium Chloride 1,000 ML 999 ML IV (06:19)
[2023-02-22] MEDS: Acetaminophen 325 MG TABLET 650 MG PO ×2 (06:19→14:38)
[2023-02-22 06:20] LABS: B Type Natriuretic Peptide 41 pg/mL (<100)
[2023-02-22 06:26] LABS: Lactic Acid 2.8 mmol/L (0.5-2.0)
--- NOTE | 2023-02-22 06:29 | PC.NURSE ---
@ 0602 dr gardner made aware of temp orally of 103.1 new orders placed pt medicated according to mar. additional bloodwork obtained and sent to lab
[2023-02-22] MEDS: Azithromycin 500 MG in 0.9 % Sodium Chloride 250 ML 125 MG IV (06:49)
[2023-02-22] MEDS: 0.9 % Sodium Chloride 2,500 ML 833.33 ML IV (06:51)
--- NOTE | 2023-02-22 07:16 | PC.NURSE ---
dr gardner received critical LA 2.8 @ 1106. at this time dr gardner did not call sepsis alert
--- NOTE | 2023-02-22 07:16 | PC.NURSE ---
this rn discussed sepsis alert plan with charge account identification clerk and dr gardner sepsis alert called at 0640
[2023-02-22 08:06] LABS: Reflex Lactate? Lactic Acid Added
[2023-02-22] MEDS: iohexoL 350 MG/ML 100 ML INFUS..BTL 60 ML IV (08:18)
--- NOTE | 2023-02-22 09:49 | PM.IMHP ---
History of Present Illness Date of Service: 02/22/23 Chief Complaint: shortness of breath This is a 57 year old Japanese speaking female (history obtained via son and Japanese speaking joss house keeper) with a PMH of metastatic colon Ca, Asthma, pre-diabetes (last A1C 6.1) who presents to the ED with a 4 day history of fevers, chills and shortness of breath. The patient endorses that her symptoms initially started as some chills and progressed to fevers. The day prior to admission, the patient reported shortness of breath which initially began with exertion, but progressed to rest. She denies any cough. She denies chest pain. Denies abd pain/n/v/d. On arrival to the ED, the patient was found to be in moderate distress. Vitals: 139/83 - 126 - 34 - 98.9 - 92% on 6L; TMax in the ED: 103.1; Imaging studies showed known metastatic disease in the lung and liver + diffuse infiltrates on b/l lungs. WBC 12, lactate 2.8. She has been given IVF, IV antibiotics and now will be admitted for further care. Review of Systems Review of Systems: Negative except HPI/interval history. [facility] Medical History Asthma Metastatic colon cancer to liver Colorectal cancer Liver metastases Depression Asthma HTN (hypertension) Family History Paternal Grandmother Breast cancer Maternal Aunt Breast cancer Surgical History Hx of colonoscopy History of esophagogastroduodenoscopy (EGD) Hx of arthroscopy of right knee Hx of right breast biopsy Hx of tubal ligation Hx of excision of mass Household Members: Children Housing: Apartment Are you a primary family day care worker to a significant other at home: No Do you presently have visiting nurse or other home services: No Alcohol intake: never Patient Tobacco Use Status: Never used Tobacco Smoked in Last 30 Days: No e-Cigarette/Vaping Use: Never Used Use of substances other than those prescribed or required for medical reasons: No Advance Directives: No Advance Directives Information Provided: Yes Patient : No service: No Current occupational status: employed 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 Allergies Allergy/AdvReac Type Severity Reaction Status Date / Time latex Allergy Intermediate Rash Verified 01/13/23 13:21 Active Medications: Current Medications Acetaminophen (Acetaminophen 325 Mg Tablet) 650 mg PO Q6H PRN PRN Reason: Pain, Mild (Pain Scale 1-3) Enoxaparin Sodium (Enoxaparin Sodium 40 Mg/0.4 Ml Syringe) 40 mg SUBCUT Q24H SAUL Ceftriaxone Sodium 1 gm/ (Sodium Chloride) 50 mls @ 100 mls/hr IV Q24H SAUL Azithromycin 500 mg/ Sodium (Chloride) 250 mls @ 125 mls/hr IV Q24H SAUL Ondansetron HCl (Ondansetron Hcl 4 Mg/2 Ml Vial) 4 mg IVPUSH Q8H PRN PRN Reason: Nausea and Vomiting Sodium Chloride (0.9 % Sodium Chloride Flush 3 Ml Syringe) 3 ml IVFLUSH QSHIFT [facility] Home Medications Medication Instructions Recorded Confirmed Last Taken Type losartan 50 mg tablet 1 tab PO DAILY 01/13/21 01/13/23 04/07/22 History omeprazole 20 mg capsule,delayed 20 mg PO DAILY 10/08/21 01/13/23 04/07/22 History release metoprolol succinate 50 mg 1 tab PO DAILY 12/17/21 01/13/23 04/07/22 History tablet,extended release 24 hr Physical Exam Vital Signs and Narrative: Vital Signs: Last Vital Signs Temp 99.6 F 02/22/23 07:18 Pulse 22 L 02/22/23 07:18 Resp 23 H 02/22/23 06:18 BP 124/73 02/22/23 07:18 Pulse Ox 91 L 02/22/23 06:18 O2 Del Method Nasal Cannula 02/22/23 07:18 O2 Flow Rate 6 02/22/23 07:18 Oxygen Flow Rate 6 02/22/23 04:07 BMI result Body Mass Index 29.8 Const: Other: Constitutional - Awake and Alert Eyes - PERRLA, EOMI Cardiovascular - S1S2, RRR, No edema Respiratory - rales/rhonchi throughout lungs foley; sats 88-90% on 6L; Gastrointestinal - NT / ND; +BS; No rebound or guarding - No CVA tenderness Extremities - no calf tenderness bilaterally, no swelling Musculoskeletal - Normal inspection, normal ROM Skin - Warm/Dry Neurological - Alert & oriented x3, No focal deficit Psychological - Appropriate affect Results Labs 02/22/23 04:22 02/22/23 04:22 Labs: Laboratory Results - last 24 hr 02/22/23 02/22/23 02/22/23 04:22 04:27 06:01 MCV 95.1 MCH 31.7 MCHC 33.3 RDW 21.8 H Plt Count 198 MPV 10.2 Immature Gran % (Auto) Cancelled Neut % (Auto) Cancelled Lymph % (Auto) Cancelled Levy % (Auto) Cancelled Eos % (Auto) Cancelled Baso % (Auto) Cancelled Lymph # (Auto) Cancelled Levy # (Auto) Cancelled Eos # (Auto) Cancelled Baso # (Auto) Cancelled Abs Immat Gran (auto) Cancelled Absolute Neuts (auto) Cancelled Absolute Nucleated RBC 0.090 H Nucleated RBC % (auto) 0.7 H Neutrophils % (Manual) 48 Band Neutrophils % 11 H Lymphocytes % (Manual) 13 L Atypical Lymphs % (Man) 3 Monocytes % (Manual) 24 H Metamyelocytes % 1 Abs Neuts (Manual) 7.6 Lymphocytes # (Manual) 1.7 Atyp Lymphs # (Manual) 0.4 Monocytes # (Manual) 3.1 H Metamyelocytes # 0.1 Nucleated RBCs 1 H Toxic Granulation PRESENT Toxic Vacuolation PRESENT Platelet Estimate NORMAL Large Platelets PRESENT Giant Platelets PRESENT Plt Morphology Comment NOTED RBC Morphology NOTED Polychromasia 1+ (0-2) Target Cells 1+ (5-14) Acanthocytes (Spur) 2+ (3-5) PT 16.7 H D INR 1.4 H APTT 27.5 VBG pH 7.44 H VBG pCO2 33 VBG pO2 38 VBG HCO3 22 VBG O2 Saturation 60.0 VBG Base Excess -0.8 Anion Gap 15 Estim Creat Clear Calc 71.1 Estimated GFR > 60 Random Glucose 201 H Lactic Acid 2.8 H* Calcium 8.4 Total Bilirubin 1.0 AST 67 H ALT 33 H Alkaline Phosphatase 287 H B-Natriuretic Peptide 41 Total Protein 6.5 Albumin 3.1 L COVID-19 (JENNIFER) Negative COVID-19 Clin Com See Note Imaging Radiologist's Impressions: Impressions Chest X-Ray 02/22/23 05:10 IMPRESSION: Heterogeneous opacity throughout the right lung and suspected scattered patchy opacities in the mid to upper left lung, suspicious for multifocal pneumonia. In the proper clinical setting asymmetric edema could potentially have a similar appearance. Chest CTA 02/22/23 08:24 IMPRESSION: 1. No evidence of PE. 2. No evidence aortic dissection or aneurysm. 3. Diffuse bilateral infiltrative process involving both lungs. There are ill-defined nodular densities in left lower lobe and right upper lobe consider metastatic disease. These were seen on previous exam 08/18/2022. 4. Multiple large liver lesions likely metastatic. VTE: negative. Assessment and Plan (1) Sepsis: Status: Acute Plan 57 yo F with a known history of metastatic colon Ca who presents with shortness of breath with fevers and chills. Her work up is consistent with bilateral pneumonia causing acute respiratory failure and sepsis. 1. Severe sepsis and acute respiratory failure with hypoxia due to bilateral pneumonia Currently on 6L O2, continue with goal 92. IV rocephin/zithromax f/u cultures trend lactate 2. Prediabetes Pt reports she takes insulin surrounding her chemo days as needed, but not scheduled (Question hyperglycemia secondary to decadron given around chemo) sliing scale, hold off insulin for now and trend 3. Lactic acidosis likely due to sepsis, trend 4. Metastatic colon Ca last chemo about 2 weeks ago outpatient f/u Full Code DVT pptx, Lovenox Endorses her son a HCP. Immunocompromised patient with acute respiratory failure and severe sepsis due to pneumonia, who is expected to require IV antibiotics and oxygen for a minimum of 48 hours and therefore expected to stay 2 midnights. Hence, she will be admitted as inpatient. Med rec pending -- continue home meds as appropriate once completed. Quality Stroke Does the patient have a stroke diagnosis?: No VTE Prior VTE?: No VTE Risk Level:: Medical - moderate - high VTE Device Contraindication: N/A - Device Ordered VTE Drug Contraindication: N/A - Med Ordered
[2023-02-22] MEDS: Enoxaparin Sodium 40 MG/0.4 ML SYRINGE SUBCUT (10:16)
--- NOTE | 2023-02-22 10:19 | PHA.MEDREC ---
Pharmacy Consult ? Medication Reconciliation Pharmacy has completed the medication reconciliation. Patient states they only take one metformin tablet a day as they do not have diabetes . Kemar
[2023-02-22 11:35] LABS: ~Lactic Acid-LAB USE ONLY 4.7 mmol/L (0.5-2.0)
--- NOTE | 2023-02-22 11:49 | PC.NURSE ---
Repeat lactic 4.7. previously 2.8. Dr. Robles was notified. no new orders at this time.
--- NOTE | 2023-02-22 11:54 | PC.NURSE ---
LATE ENTRY: PT ALERT AND ORIENTED. THIS RN ASSUMED CARE OF THIS PT AFTER SEPTIC ALERT PROTOCOL WAS INITIATED. FLUIDS AND ANTIBIOTIC WERE STARTED PRIOR TO ASSUMING CARE. PT TOLERATED TREATMENT WELL. PT'S ORAL TEMP AT 0718 - 99.6. REPEAT ORAL TEMP AT 1026 - 98.9. B/Ps documented per protocol. pt's son remains at her bedside.
[2023-02-22 12:31] LABS: Reflex Lactate? 2 Y
[2023-02-22 13:29] LABS: Glucose, Whole Blood 141 mg/dL (60-115)
--- NOTE | 2023-02-22 14:00 | PC.NURSE ---
PT SATTING 87 -89% ON 6L N/C. PT PLACED ON OXY-MASK 11L SATTING 90-91%. RHONCHI AUSCULTATED. PT REPORTS FEELING LIKE I CAN'T CATCH MY BREATH . DR TEE WAS NOTIFIED. BREATHING TX WAS ORDERED.
[2023-02-22] MEDS: Albuterol/Iprat 2.5/0.5MG 3 ML AMPUL.NEB INHALE ×2 (14:08→20:10)
[2023-02-22] MEDS: Furosemide 20 MG/2 ML VIAL IVPUSH (14:25)
[2023-02-22 14:26] LABS: ABG Refer to POC result
[2023-02-22 14:26] LABS: ABG Base Excess -3.9 mmol/L; ABG HCO3 18 mmol/L (22-26); ABG pCO2 28 mmHg (32-45); ABG pH 7.43 (7.35-7.45); ABG pO2 81 mmHg (83-108)
--- NOTE | 2023-02-22 15:30 | PC.NURSE ---
RECTAL TEMP 101.5. tylenol given. DR. TEE AWARE. PT PLACED ON HI-FLOW 70% 55L. abg done. PT SATTING 87-90%. IV LASIX GIVEN.
[2023-02-22 16:00] LABS: ~Lactic Acid-LAB USE ONLY 6.8 mmol/L (0.5-2.0)
--- NOTE | 2023-02-22 16:21 | MHC.EDTECH ---
Patient repositioned and bed linen changed
[2023-02-22] MEDS: cefEPime HCl 2 GM in 0.9 % Sodium Chloride 50 ML IV ×2 (16:26→22:13)
[2023-02-22] MEDS: vancomycin/NS 2,000 MG/500 ML PLAST..BAG 250 MG IV (16:26)
--- NOTE | 2023-02-22 17:01 | MHC.EDTECH ---
Patient inc and patient cleaned
[2023-02-22] MEDS: Morphine Sulfate 4 MG/ML CARTRIDGE IVPUSH (18:45)
[2023-02-22] MEDS: ondansetron HCL 4 MG/2 ML VIAL IVPUSH (18:45)
--- NOTE | 2023-02-22 19:22 | PC.NURSE ---
Addendum entered by Kim Heredia 02/22/23 19:25: larryo running freeflow at slow infusion via previous RN. Original Note: assumed care of pt at this time. pt on highflow nasal cannula sats 94%. tachypneic. pt denies cp/n/v. pt reports back pain d/t position. request for hospital bed made. pt febrile 100.4F sinus tachy 126 bpm. pt not due for tylenol. Dr. Carrion made aware.
--- NOTE | 2023-02-22 19:22 | PC.NURSE ---
LATE ENTRY: 1630- REPEAT LACTIC 6.8. DR TEE WAS NOTIFIED, NO NEW ORDERS. PER DR. TEE NO NEED TO REPEAT.
--- NOTE | 2023-02-22 19:39 | PC.NURSE ---
report called to [facility] rn resp notified for transport.
--- NOTE | 2023-02-22 20:36 | PC.NURSE ---
pt transported wt this rn and respiratory.
--- NOTE | 2023-02-22 20:43 | PM.EVENT ---
Event Note Date of Service: 02/22/23 Event Note: Pt with increasing respiratory distress and increasing O2 requirement and presently max on high flow with increase WOB, tachypnea RR up to 33, HR 144. I discussed option with patient and her children at the bedside that if she continues to decline the next may include intubation and mechanical ventilation, she is ok with that. I disccussed with Dr. Butts who has offered take patient in transfer to the ICU Time Spent With Patient Time: Total time managing care of this patient today ____ minutes.
--- NOTE | 2023-02-22 21:49 | W.PM.CCCN ---
History of Present Illness Data of Consult Service Date: 02/22/23 Requesting physician: Ren Robles Primary Care Provider: Corine Martines MD HPI Reason for consult: Hypoxic Resp Failure HPI: ?Patient is a 57-year-old female originally from [place] and speaks [place] only, who has underlying history of colon cancer with metastasis to the liver for which she has been undergoing treatment with chemotherapy with Dr. Tellez, whose last chemotherapy was 2 weeks ago and she was due to day, has history of asthma, borderline diabetes with last A1c of 6.1, anxiety, depression, hypertension, among others. Patient had initially presented to the emergency room complaints of shortness of breath which started 5 days ago and has progressed over time associated with chills and symptoms of fever but no cough, no sputum production.? For a day or so she felt better but then her symptoms got worse and the family decided to bring her to emergency room today as she was noticeably short of breath with minimal exertion. On arrival the patient was normotensive, afebrile however tachycardic at 126 beats per minute and tachypneic at 34 breaths per minute, satting 92% on 6 L nasal cannula, subsequently the patient became febrile with a T-max of 103.1 degrees, patient required higher oxygen administration including an OxyMask, non revealed greater. ?Her workup was significant for white count 12.8, H&H of 11.6 and 34.8., band neutrophils 11, toxic granulation; chemistry showed no electrolyte deficiency and renal functions normal, her initial lactic acid was 2.8; patient was given 2 L of IV fluids, started on Rocephin Zithromax, x-ray did show bilateral infiltrates with a subsequent CT angiogram that showed no PE but did show bilateral infiltrates with evidence of or represents metastatic disease to the lungs.? The patient was admitted to the floor but continued to require higher oxygenation administration and appeared to be working hard breathe, she was placed on high-flow O2 and we were consulted for evaluation. During my evaluation, patient appears to be comfortable, there is no accessory muscle usage; tachypneic, denies any cough or sputum production, admits that she feels somewhat tired. Review of systems: As above, otherwise the patient denies any prior history of strokes, cold intolerance, migraine headaches, head trauma, no eyes, ears or nose problems, no problems swallowing or with phonation, no thyroid disease, denies any history of chest pain, palpitations, coronary disease, cough, sputum production, prior pneumonia, bronchitis, COPD or emphysema, abdominal pain, nausea, vomiting, diarrhea, melena, hematochezia, hematemesis, hematuria, kidney stones, liver problems, no diabetes, no history of DVT or PE, leg edema, all other review of systems were reviewed and they were all negative. Past Medical History:? As above Past Surgical History: Tubal ligation Right knee arthroscopy EGD Breast biopsy (benign) Family history:? Her mom and aunt had breast cancer Social History: ?Patient lives at home, there is no history of alcohol, tobacco or drug use. CODE STATUS: FULL CODE Allergies: ?Latex Home Medications: See Med Rec Sepsis PHYSICAL EXAM done at 9 pm: VS: 136/85; 102; 38; 100.4; 95% on max Hi Flow 55 L General:? Alert oriented x3 no acute distress.? Speaking full sentences.? Speech is well articulated, thought process is coherent.? Following all commands. Skin:? hyperpigmented (black spots) on the hands and tongue; intact, no lesions, edema, erythema, clubbing or cyanosis.? No ulcers. HEENT:? Head is normocephalic, atraumatic, pupils equal round reactive to light accommodation bilaterally.? Extraocular movements appear intact.? Buccal mucosa is moist, Neck is supple without lymphadenopathy. Cardiac:? Tachycardic with Clear S1-S2, no murmurs rubs or gallops. Pulmonary:? Diminished lung sounds bilaterally with fine rhonchi and crackles at the right base more than left, no expiratory wheezes. Abdomen:? Protuberant, positive bowel sounds in all 4 quadrants.? Soft, nontender, no rebound or guarding.? Musculoskeletal:? Moving all 4 extremities upon request a major joints, there is no crepitus or tenderness.? The strength is 5/5 bilaterally and throughout all 4 extremities.? There is no leg edema , no calf tenderness , no leg asymmetry.? Gait not assessed at this point. Neurologic:? As above, cranial nerves 2-12 are grossly intact.? No focal deficits noted. Vascular:? 2+ pulses upper and lower extremities distally. ?2nd capillary refill of the finger and toes bilaterally upper and lower extremities. SIGNIFICANT LABORATORY DATA:? As above REVIEW OF IMAGES: CHEST X-RAY IMPRESSION: Low lung volume limits evaluation. Diffuse bilateral infiltrates appears more prominent on the left which may be partly technical due to differences in lung volumes versus progressing infiltrates. No other significant abnormality seen. CHEST CT ANGIOGRAM IMPRESSION: 1. No evidence of PE. 2. No evidence aortic dissection or aneurysm. 3. Diffuse bilateral infiltrative process involving both lungs. There are ill-defined nodular densities in left lower lobe and right upper lobe consider metastatic disease. These were seen on previous exam 08/18/2022. 4. Multiple large liver lesions likely metastatic. VTE: negative. EKG REVIEW: ?To my view this sinus tachycardia with a rate of 125 beats per minute.? There is no true ST elevations or depressions.? QTC 435 MS.? No comparison available. ASSESSMENT : 1. Acute severe sepsis 2. Bilateral multifocal pneumonia of immunocompromised patient with evidence of lung metastasis of her known primary colon cancer 3. Acute hypoxic respiratory failure 4. Metabolic and lactic acidosis due to the above 5. Hypoosmolar Hypovolemic hyponatremia 6. Hyperglycemia without history of diabetes 7. Hypoalbuminemia 8. Underlying history of colon cancer with metastasis to the liver and now to the lungs status post 10 months of chemotherapy last being 2 weeks ago 9. Mild transaminitis 10. Essential hypertension 11. Steroid related hyperglycemia PLAN OF CARE: Prior to transfer to ICU I had a lengthy discussion with the patient patient's children at bedside, I spoke to them in [place] which is they are [place] language, goals of care were addressed in detail and the patient would like to continue with full code status, she is aware that if she was to need intubation and and or resuscitation at any given point, we cannot make any guarantees, they all agree. Patient will be transferred to ICU, monitor vital signs, I's and O's, for now she is maxed out on high-flow oxygen administration, she seems to be quite tachypneic at 35-40 breaths per minute, will give her morphine for work of breathing but if this does not improve and she seems to be tiring out, the next step will be intubation. Will repeat laboratories including a venous blood gas, continue with broad spectrum antibiotics, sputum culture Gram stain, repeat laboratories in the morning, insulin sliding scale. Depending on how the patient develops a during this admission, I may be important to have a true prognostic discussion with her oncologist and whether not a is worth to continue with chemotherapy rather than doing palliative Care Medicine and setting her up for hospice services. GI PROPHYLAXIS: ?IV ppi DVT PROPHYLAXIS: ?Lovenox subQ Follow-up sepsis physical exam done at 03:15 am on 02/23/2023 VS: 104/64, 123, 33, 95% on 90% FiO2 with a flow rate of 55 L General:? Alert oriented x3 no acute distress.? Speaking full sentences. No acute distress Skin:? hyperpigmented (black spots) on the hands and tongue; intact, no lesions, edema, erythema, clubbing or cyanosis.? No ulcers. Cardiac:? Tachycardic Clear S1-S2, no murmurs rubs or gallops. Pulmonary:? Diminished lung sounds bilaterally with fine rhonchi and crackles at the right base more than left, no expiratory wheezes. Abdomen:? Protuberant, positive bowel sounds in all 4 quadrants.? Soft, nontender, no rebound or guarding.?? Musculoskeletal:? Moving all 4 extremities upon request a major joints, there is no crepitus or tenderness.? Vascular:? 2+ pulses upper and lower extremities distally.? 2nd capillary refill of the finger and toes bilaterally upper and lower extremities. Will continue with the above-mentioned plan, follow laboratories this morning, does far the patient has no require further intervention and seems to be holding off on high-flow oxygen, according to patient she does not want to be intubated unless she absolutely would deteriorate and has not been the case until now. Critical care time used for critical evaluation of this patient, diagnosis, treatment and coordination of care, review her records and documentation TOTAL CRITICAL CARE TIME? 120 MIN . discussion and coordination with consultants, completely separate from any procedures performed. Patient's care was discussed in detail with Dr. Butts.? He is aware of all the above as well as the plan of care for this patient. PENDING SALE TO [facility] Past Medical History Medical History Asthma Metastatic colon cancer to liver Colorectal cancer Liver metastases Depression Asthma HTN (hypertension) Family History Family History Paternal Grandmother Breast cancer Maternal Aunt Breast cancer Surgical History Surgical History Hx of colonoscopy History of esophagogastroduodenoscopy (EGD) Hx of arthroscopy of right knee Hx of right breast biopsy Hx of tubal ligation Hx of excision of mass Social History Social History Household Members: Family Housing: Apartment Are you a primary care navigator to a significant other at home: No Do you presently have visiting nurse or other home services: No Alcohol intake: never Patient Tobacco Use Status: Never used Tobacco e-Cigarette/Vaping Use: Never Used service: No Current occupational status: employed 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 Allergies Allergy/AdvReac Type Severity Reaction Status Date / Time latex Allergy Intermediate Rash Verified 01/13/23 13:21 Active Medications: Current Medications Acetaminophen (Acetaminophen 325 Mg Tablet) 650 mg PO Q6H PRN PRN Reason: Pain, Mild (Pain Scale 1-3) Last Admin: 02/22/23 14:38 Dose: 650 mg Albuterol/Ipratropium (Albuterol/Iprat 2.5/0.5mg 3 Ml Ampul.Neb) 3 ml INHALE RQ4H WHILE AWAKE [facility] Last Admin: 02/22/23 20:10 Dose: 3 ml Duloxetine HCl (Duloxetine Hcl 20 Mg Capsule.Dr) 20 mg PO BID SAUL Enoxaparin Sodium (Enoxaparin Sodium 40 Mg/0.4 Ml Syringe) 40 mg SUBCUT Q24H [facility] Last Admin: 02/22/23 10:16 Dose: 40 mg Cefepime HCl 2 gm/ Sodium (Chloride) 50 mls @ 100 mls/hr IV Q8H [facility] Last Infusion: 02/22/23 17:25 Dose: Infused Vancomycin HCl 1,250 mg/ (Sodium Chloride) 250 mls @ 166.667 mls/hr IV ONCE@0600 [facility] Stop: 02/23/23 07:29 Vancomycin HCl 1,000 mg/ (Sodium Chloride) 270 mls @ 270 mls/hr IV Q12H [facility] Metoprolol Succinate (Metoprolol Succinate Er 50 Mg Tab.Er.24h) 50 mg PO DAILY SAUL; Protocol Morphine Sulfate (Morphine Sulfate 4 Mg/Ml Cartridge) 4 mg IVPUSH Q4H PRN; Protocol PRN Reason: Pain, Severe (Pain Scale 7-10) Last Admin: 02/22/23 18:45 Dose: 4 mg Omeprazole (Omeprazole 20 Mg Capsule.Dr) 20 mg PO DAILY [facility] Ondansetron HCl (Ondansetron Hcl 4 Mg/2 Ml Vial) 4 mg IVPUSH Q8H PRN PRN Reason: Nausea and Vomiting Last Admin: 02/22/23 18:45 Dose: 4 mg Oxycodone HCl (Oxycodone Hcl Immed Release 5 Mg Tablet) 5 mg PO Q6H PRN PRN Reason: Pain, Moderate(Pain Scale 4-6) Polyethylene Glycol (Polyethylene Glycol 3350 17 Gm Powd.Pack) 17 gm PO DAILY [facility] Senna (Sennosides 8.6 Mg Tablet) 8.6 mg PO BID [facility] Sodium Chloride (0.9 % Sodium Chloride Flush 3 Ml Syringe) 3 ml IVFLUSH QSHIFT [facility] Last Admin: 02/22/23 17:25 Dose: Not Given Home Medications Medication Instructions Recorded Confirmed Last Taken Type losartan 50 mg tablet 1 tab PO DAILY 01/13/21 02/22/23 04/07/22 History omeprazole 20 mg capsule,delayed 20 mg PO DAILY 10/08/21 02/22/23 04/07/22 History release metoprolol succinate 50 mg 1 tab PO DAILY 12/17/21 02/22/23 04/07/22 History tablet,extended release 24 hr loratadine 10 mg tablet 10 mg PO DAILY 02/22/23 02/22/23 Unknown History Physical Exam Vital Signs: Vital Signs: Last Vital Signs Temp 99.4 F 02/22/23 20:29 Pulse 141 H 02/22/23 20:29 Resp 18 02/22/23 21:42 BP 140/76 H 02/22/23 20:29 Pulse Ox 100 02/22/23 20:29 O2 Del Method High Flow Nasal C annula 02/22/23 20:29 O2 Flow Rate 55 02/22/23 20:29 FiO2 90 02/22/23 20:29 Oxygen Flow Rate 6 02/22/23 04:07 BMI result Body Mass Index 29.8 Results Labs 02/23/23 04:30 02/23/23 04:30 Labs: Short CBC 02/22/23 Range/Units 04:22 WBC 12.8 H (4.8-10.8) X10*3/uL Hgb 11.6 L (12.0-16.0) g/dl Hct 34.8 L (37.0-47.0) % Plt Count 198 (160-400) X10*3/uL BMP 02/22/23 04:22 Sodium 133 L Potassium 3.4 Chloride 101 Carbon Dioxide 20 L BUN 8 L Creatinine 0.80 Calcium 8.4 Liver Function 02/22/23 Range/Units 04:22 Total Bilirubin 1.0 (0.0-1.0) mg/dL AST 67 H (5-31) U/L ALT 33 H (0-31) U/L Alkaline Phosphatase 287 H (39-117) U/L Albumin 3.1 L (3.5-5.0) g/dL
[2023-02-22] MEDS: Morphine Sulfate 2 MG/ML CARTRIDGE IVPUSH (22:09)
[2023-02-22] MEDS: DULoxetine HCl 20 MG CAPSULE.DR PO (22:09)
[2023-02-22 22:18] LABS: Glucose, Whole Blood 155 mg/dL (60-115)
[2023-02-22 22:32] LABS: Venous Blood Gas Refer to POC result
[2023-02-22 22:36] LABS: VBG pCO2 33 mmHg; VBG pH 7.43 (7.32-7.43)
[2023-02-22 22:37] LABS: VBG Base Excess -0.5 mmol/L; VBG HCO3 22 mmol/L (22-26); VBG pO2 48 mmHg
[2023-02-22 22:38] LABS: Basophils Absolute Auto 0.2 X10*3/uL (0.0-0.2); Basophils Percent Auto 1.1 % (0-2); Eosinophils Absolute Auto 0.3 X10*3/uL (0.0-0.4); Eosinophils Percent Auto 1.3 % (0-4); Hematocrit 37.9 % (37.0-47.0); Hemoglobin 12.6 g/dl (12.0-16.0); Imm Gran Abs Auto 0.88 X10*3/uL (0.00-0.03); Imm Gran Pct Auto 4.3 % (0.0-0.4); Lymphocytes Absolute Auto 3.4 X10*3/uL (1.2-4.9); Lymphocytes Percent Auto 16.7 % (20-40); MANUAL DIFF FLAG SCAN; Mean Corpuscular HGB Conc 33.2 g/dl (31.0-35.0); Mean Corpuscular Hemoglobin 31.8 pg (27.0-33.0); Mean Corpuscular Volume 95.7 fL (80.0-98.0); Mean Platelet Volume 11.1 fL (9.4-12.3); Monocytes Absolute Auto 3.7 X10*3/uL (0.1-1.2); Monocytes Percent Auto 17.9 % (2-11); NRBC Pct Auto 0.9 /100WBC (0.0-0.2); Neutrophils Percent Auto 58.7 % (45-73); Platelet Count 229 X10*3/uL (160-400); Red Blood Count 3.96 X10*6/uL (4.20-5.50); Red Cell Distribution Width 22.3 % (11.0-16.0); SCAN SMEAR FLAG 1; White Blood Count 20.4 X10*3/uL (4.8-10.8)
[2023-02-22 22:48] LABS: Alanine Aminotransferase 28 U/L (0-31); Albumin Level 3.1 g/dL (3.5-5.0); Alkaline Phosphatase 270 U/L (39-117); Anion Gap 13 (12-20); Aspartate Amino Transferase 63 U/L (5-31); Bilirubin Total 1.2 mg/dL (0.0-1.0); Blood Urea Nitrogen 6 mg/dL (9-16); Calcium 8.2 mg/dL (8.4-10.2); Carbon Dioxide 23 mmol/L (22-29); Chloride 104 mmol/L (96-108); Creatinine Clr Calc Pharmacy 76.9; Estimated Glomerular Filt Rate > 60; Glucose Random 156 mg/dL (60-115); Potassium 3.4 mmol/L (3.3-5.1); Sodium 137 mmol/L (135-145); Total Protein 6.2 g/dL (6.5-8.0)
[2023-02-22 23:40] LABS: SLIDE REVIEW VERIFIED
[2023-02-23] VITALS (34 sets, daily range): BP systolic 97–134; BP diastolic 59–84; PULSE 107–144; RESP 22–36; TEMP 36.9–37; O2SAT 89–100
[2023-02-23 00:31] LABS: Reflex Lactate? Lactic Acid Added
[2023-02-23] MEDS: Metoprolol Tartrate 5 MG/5 ML VIAL IVPUSH (00:51)
[2023-02-23 02:00] LABS: ~Lactic Acid-LAB USE ONLY 3.7 mmol/L (0.5-2.0)
[2023-02-23 03:43] LABS: Reflex Lactate? 2 Y
[2023-02-23 04:42] LABS: VBG Base Excess -0.7 mmol/L; VBG HCO3 22 mmol/L (22-26); VBG pCO2 33 mmHg; VBG pH 7.43 (7.32-7.43); VBG pO2 48 mmHg
[2023-02-23 04:43] LABS: Venous Blood Gas Refer to POC result
[2023-02-23 05:02] LABS: ~Lactic Acid-LAB USE ONLY 3.3 mmol/L (0.5-2.0)
[2023-02-23 05:50] LABS: Hematocrit 36.6 % (37.0-47.0); Hemoglobin 12.1 g/dl (12.0-16.0); Mean Corpuscular HGB Conc 33.1 g/dl (31.0-35.0); Mean Corpuscular Volume 96.8 fL (80.0-98.0); NRBC Pct Auto 1.1 /100WBC (0.0-0.2); Platelet Count 243 X10*3/uL (160-400); Red Blood Count 3.78 X10*6/uL (4.20-5.50); Red Cell Distribution Width 22.6 % (11.0-16.0); White Blood Count 19.7 X10*3/uL (4.8-10.8)
[2023-02-23] MEDS: vancomycin HCL 1,250 MG in 0.9 % Sodium Chloride 250 ML 166.67 MG IV (06:01)
[2023-02-23 06:13] LABS: Alanine Aminotransferase 28 U/L (0-31); Alkaline Phosphatase 260 U/L (39-117); Anion Gap 13 (12-20); Aspartate Amino Transferase 64 U/L (5-31); Bilirubin Total 1.2 mg/dL (0.0-1.0); Blood Urea Nitrogen 9 mg/dL (9-16); Calcium 8.3 mg/dL (8.4-10.2); Carbon Dioxide 23 mmol/L (22-29); Chloride 103 mmol/L (96-108); Creatinine Clr Calc Pharmacy 74.9; Estimated Glomerular Filt Rate > 60; Glucose Random 214 mg/dL (60-115); Potassium 3.9 mmol/L (3.3-5.1); Sodium 135 mmol/L (135-145)
--- NOTE | 2023-02-23 07:01 | PC.NURSE ---
Pt transferred to ICU from [facility] on 02/22 at approx 2200. Upon initial assessment- pt A&Ox4, loss mitigation specialist utilized for assessment, calm/cooperative. Afebrile. ST on tele, HR up to 140s- given lopressor 5 mg IVP x1 with some effect, HR down to 120s. BP WNL. HFNC titrated down to 55L/80%. Given morphine 2 mg IVP x1 for RR 30-40s with good effect per pt. Tolerating PO intact. Purewick in place. Skin overall intact. Pt/family aware of pt status/plan of care. Call lazo in reach, bed locked in lowest position.
[2023-02-23 07:32] LABS: Glucose, Whole Blood 174 mg/dL (60-115)
[2023-02-23] MEDS: Albuterol/Iprat 2.5/0.5MG 3 ML AMPUL.NEB INHALE ×4 (08:02→19:11)
--- NOTE | 2023-02-23 08:27 | PM.CCPN ---
Subjective Subjective Date of Service: 02/23/23 Interval History: admitted overnight w/ multi-focal pneumonia c/b acute hypoxic respiratory failure, on maximum HFNC Critical Care Time (minutes): 90 Physical Exam Vital Signs: Vital Signs: Last Vital Signs Temp 98.6 F 02/23/23 04:00 Pulse 123 H 02/23/23 08:02 Resp 32 H 02/23/23 08:02 BP 99/69 02/23/23 08:00 Pulse Ox 93 02/23/23 08:00 O2 Del Method High Flow Nasal C annula 02/23/23 08:00 O2 Flow Rate 55 02/23/23 08:00 FiO2 80 02/23/23 08:00 Oxygen Flow Rate 6 02/22/23 04:07 BMI result Body Mass Index 29.8 Const: General: cooperative Orientation/consciousness: patient oriented x3 HEENT: Head: Yes normal to inspection, Yes normocephalic and Yes atraumatic Eyes: General: appearance normal, both eyes and all related structures Neck: Neck: Yes normal visual inspection, Yes full ROM, Yes no meningeal signs and Yes supple Chest: Chest palpation & inspection: normal inspection of the chest Resp: Other: appreciable rales, L lower lung field greater than R; some appreciable accessory muscle use; no appreciable nasal flaring, tripoding Cardio: Rate: tachycardic Rhythm: regular rhythm GI: Inspection: Yes normal to inspection, No Abdominal wall edema and No distended Palpation (GI): Soft to palpation, not firm, nontender, no guarding and not rigid : External Female Exam: normal external appearance Skin: Other: appreciable hyperpigmentation, particularly bilateral hands Neuro: General: patient oriented x3, moves all extremities, no meningeal signs and no focal motor deficits Extrem: Other: 1+ pitting edema to bilateral knees General: Yes capillary refill normal Psych: Appearance: grossly normal Objective Data Labs 02/23/23 04:30 02/23/23 04:30 Labs: Laboratory Results - last 24 hr 02/22/23 02/22/23 02/22/23 10:24 13:24 14:19 WBC RBC Hgb Hct MCV MCH MCHC RDW Plt Count MPV Immature Gran % (Auto) Neut % (Auto) Lymph % (Auto) [place] % (Auto) Eos % (Auto) Baso % (Auto) Lymph # (Auto) [place] # (Auto) Eos # (Auto) Baso # (Auto) Abs Immat Gran (auto) Absolute Neuts (auto) Absolute Nucleated RBC Nucleated RBC % (auto) Smear Tech's Comments O2 Saturation 97.0 ABG pH at Pt Temp 7.43 ABG pCO2 at Pt Temp 28 L ABG pO2 at Pt Temp 81 L ABG HCO3 18 L ABG Base Excess (Actual) -3.9 VBG pH VBG pCO2 VBG pO2 VBG HCO3 VBG O2 Saturation VBG Base Excess Sodium Potassium Chloride Carbon Dioxide Anion Gap BUN Creatinine Estim Creat Clear Calc Estimated GFR POC Glucose 141 H Random Glucose Lactic Acid Lactic Acid F/U @ 2Hr 4.7 H* Lactic Acid F/U @ 4Hr Calcium Total Bilirubin AST ALT Alkaline Phosphatase Total Protein Albumin 02/22/23 02/22/23 02/22/23 15:35 22:14 22:25 WBC 20.4 H RBC 3.96 L Hgb 12.6 Hct 37.9 MCV 95.7 MCH 31.8 MCHC 33.2 RDW 22.3 H Plt Count 229 MPV 11.1 Immature Gran % (Auto) 4.3 H Neut % (Auto) 58.7 Lymph % (Auto) 16.7 L [place] % (Auto) 17.9 H Eos % (Auto) 1.3 Baso % (Auto) 1.1 Lymph # (Auto) 3.4 [place] # (Auto) 3.7 H Eos # (Auto) 0.3 Baso # (Auto) 0.2 Abs Immat Gran (auto) 0.88 H Absolute Neuts (auto) 12.0 H Absolute Nucleated RBC 0.180 H Nucleated RBC % (auto) 0.9 H Smear Tech's Comments VERIFIED O2 Saturation ABG pH at Pt Temp ABG pCO2 at Pt Temp ABG pO2 at Pt Temp ABG HCO3 ABG Base Excess (Actual) VBG pH 7.43 VBG pCO2 33 VBG pO2 48 VBG HCO3 22 VBG O2 Saturation 80.0 VBG Base Excess -0.5 Sodium Potassium Chloride Carbon Dioxide Anion Gap BUN Creatinine Estim Creat Clear Calc Estimated GFR POC Glucose 155 H Random Glucose Lactic Acid 4.0 H* Lactic Acid F/U @ 2Hr Lactic Acid F/U @ 4Hr 6.8 H* Calcium Total Bilirubin AST ALT Alkaline Phosphatase Total Protein Albumin 02/22/23 02/23/2302/23/23 22:26 01:36 04:30 WBC 19.7 H RBC 3.78 L Hgb 12.1 Hct 36.6 L MCV 96.8 MCH 32.0 MCHC 33.1 RDW 22.6 H Plt Count 243 MPV 12.0 Immature Gran % (Auto) Neut % (Auto) Lymph % (Auto) [place] % (Auto) Eos % (Auto) Baso % (Auto) Lymph # (Auto) [place] # (Auto) Eos # (Auto) Baso # (Auto) Abs Immat Gran (auto) Absolute Neuts (auto) Absolute Nucleated RBC 0.210 H Nucleated RBC % (auto) 1.1 H Smear Tech's Comments O2 Saturation ABG pH at Pt Temp ABG pCO2 at Pt Temp ABG pO2 at Pt Temp ABG HCO3 ABG Base Excess (Actual) VBG pH VBG pCO2 VBG pO2 VBG HCO3 VBG O2 Saturation VBG Base Excess Sodium 137 135 Potassium 3.4 3.9 Chloride 104 103 Carbon Dioxide 23 23 Anion Gap 13 13 BUN 6 L 9 Creatinine 0.74 0.76 Estim Creat Clear Calc 76.9 74.9 Estimated GFR > 60 > 60 POC Glucose Random Glucose 156 H 214 H Lactic Acid Lactic Acid F/U @ 2Hr 3.7 H* Lactic Acid F/U @ 4Hr 3.3 H* Calcium 8.2 L 8.3 L Total Bilirubin 1.2 H 1.2 H AST 63 H 64 H ALT 28 28 Alkaline Phosphatase 270 H 260 H Total Protein 6.2 L 6.0 L Albumin 3.1 L 3.0 L 02/23/23 02/23/23 04:35 07:29 WBC RBC Hgb Hct MCV MCH MCHC RDW Plt Count MPV Immature Gran % (Auto) Neut % (Auto) Lymph % (Auto) [place] % (Auto) Eos % (Auto) Baso % (Auto) Lymph # (Auto) [place] # (Auto) Eos # (Auto) Baso # (Auto) Abs Immat Gran (auto) Absolute Neuts (auto) Absolute Nucleated RBC Nucleated RBC % (auto) Smear Tech's Comments O2 Saturation ABG pH at Pt Temp ABG pCO2 at Pt Temp ABG pO2 at Pt Temp ABG HCO3 ABG Base Excess (Actual) VBG pH 7.43 VBG pCO2 33 VBG pO2 48 VBG HCO3 22 VBG O2 Saturation 80.0 VBG Base Excess -0.7 Sodium Potassium Chloride Carbon Dioxide Anion Gap BUN Creatinine Estim Creat Clear Calc Estimated GFR POC Glucose 174 H Random Glucose Lactic Acid Lactic Acid F/U @ 2Hr Lactic Acid F/U @ 4Hr Calcium Total Bilirubin AST ALT Alkaline Phosphatase Total Protein Albumin Microbiology Microbiology Results: Microbiology 02/22/23 06:01 Blood - Venous Blood Culture - Preliminary No growth after 24 hours. 02/22/23 06:01 Blood - Venous Blood Culture - Preliminary Prelim: GPR Gram Stain only Progress Note: A&P Assessment and plan (1) Acute hypoxemic respiratory failure: Status: Acute (2) Pneumonia: Status: Acute Plan Patient 57 Y F with hypertension, diabetes mellitus, metastatic colon cancer to liver, lungs, followed by Dr. Patel, presenting with dyspnea, found to have multi-focal pneumonia, c/b hypoxic respiratory failure necessitating HFNC N: no acute issues CV: no acute issues; hypertension R: metastatic colon cancer to lungs; multi-focal pneumonia, c/b acute hypoxic respiratory failure, on HFNC, to wean as tolerated GI: NPO w/ tenuous respiratory status : no acute issues; to monitor electrolytes, urine output H/O: metastatic colon cancer to liver, lungs, followed by Dr. Patel; Dr. Patel consulted; discussed overall poor prognosis ID: multi-focal pneumonia, on empiric vancomycin, cefepime; to follow-up blood cultures, sputum cultures E: no acute issues P: no acute issues Quality Stroke Does the patient have a stroke diagnosis?: No VTE Prior VTE?: No VTE Risk Level:: Medical - moderate - high VTE Device Contraindication: N/A - Device Ordered VTE Drug Contraindication: N/A - Med Ordered
[2023-02-23] MEDS: cefEPime HCl 2 GM in 0.9 % Sodium Chloride 50 ML IV ×3 (08:54→22:55)
[2023-02-23] MEDS: Metoprolol Succinate ER 50 MG TAB.ER.24H PO (09:05)
[2023-02-23] MEDS: DULoxetine HCl 20 MG CAPSULE.DR PO (09:05)
[2023-02-23] MEDS: polyethylene glycoL 3350 17 GM POWD.PACK PO (09:05)
[2023-02-23] MEDS: Omeprazole 20 MG CAPSULE.DR PO (09:05)
[2023-02-23] MEDS: Sennosides 8.6 MG TABLET PO (09:05)
[2023-02-23] MEDS: Enoxaparin Sodium 40 MG/0.4 ML SYRINGE SUBCUT (09:42)
[2023-02-23] MEDS: Acetaminophen 325 MG TABLET 650 MG PO (09:47)
[2023-02-23] MEDS: Albumin Human 25 % 100 ML IV ×4 (09:55→15:23)
[2023-02-23] MEDS: 0.9 % Sodium Chloride Flush 3 ML SYRINGE IVFLUSH ×2 (09:58→15:34)
--- NOTE | 2023-02-23 10:12 | P.CNHO_ITS ---
Subjective - Subjective Chief complaint: Consult for; SOB,Pneumonia. Colon Ca Patient: known to practice within the last 3 years Consult date: 02/23/23 Requesting Physician: Fidel Mccollum. Primary Care Provider: Corine Martines MD Medical Summary: DIAGNOSIS: Rectall Cancer. HPI - Consult Narrative Narrative: Kayden Angulo is a 57 year old lady, [place] Lankan speaking, (history obtained via son and [place]ankan speaking electrolysis needle operator) She has been admitted overnight w/ multi-focal pneumonia c/b acute hypoxic respiratory failure, on maximum HFNC She has a PMH of metastatic colon Ca, Asthma, pre-diabetes (last A1C 6.1). She presented to the ED with a 4 day history of fevers, chills and shortness of breath. Her symptoms initially started as some chills and progressed to fevers. The day prior to admission, the patient reported shortness of breath which initially began with exertion, but progressed to rest. She denies any cough. She denies chest pain. Denies abd pain/n/v/d. Here, the patient was found to be in moderate distress. Vitals: 139/83 - 126 - 34 - 98.9 - 92% on 6L; TMax in the ED: 103.1; Imaging studies showed known metastatic disease in the lung and liver + diffuse infiltrates on b/l lungs. WBC 12, lactate 2.8. She was given IVF, IV antibiotics and admitted for further care. Review of Systems 2 Review of Systems: Negative except HPI/interval history. [facility] Medical History: Asthma Metastatic colon cancer to liver Colorectal cancer Liver metastases Depression Asthma HTN (hypertension) Family History: Paternal Grandmother Breast cancer Maternal Aunt Breast cancer Surgical History: Hx of colonoscopy History of esophagogastroduodenoscopy (EGD) Hx of arthroscopy of right knee Hx of right breast biopsy Hx of tubal ligation Review of Systems - Constitutional Reports system reviewed and no additional complaints, except as documented, Reports body ache(s), Reports chills, Reports fatigue, Reports fever(s), Reports lack of energy, Reports poor appetite - Eyes Reports system reviewed and no additional complaints, except as documented - ENT Reports system reviewed and no additional complaints, except as documented - Cardiovascular Reports system reviewed and no additional complaints, except as documented - Respiratory Reports no additional respiratory complaints, Reports chest congestion, Reports dyspnea, Reports dyspnea on exertion, Reports wheezing, Denies cough - Gastrointestinal Reports system reviewed and no additional complaints, except as documented - Genitourinary Reports no additional female genitourinary complaints - Musculoskeletal Reports system reviewed and no additional complaints, except as documented - Integumentary/Breasts Skin/Breast: Reports no additional skin complaints - Neurologic Reports system reviewed and no additional complaints, except as documented - Psychiatric Reports system reviewed and no additional complaints, except as documented - Endocrine Reports no additional endocrine complaints - Hematologic/Lymphatic Reports system reviewed and no additional complaints, except as documented - Allergic/Immunologic Reports system reviewed and no additional complaints, except as documented Oncology Screenings - ECOG Performance Status ECOG Performance Status: 3 [facility] Medical History: Medical History (Last Reviewed 02/22/23 @ 06:39 by Dimitri Monreal MD) Asthma Asthma Colorectal cancer Depression HTN (hypertension) Liver metastases Metastatic colon cancer to liver Functional capacity: bed bound Patient : No Family History: Family History (Last Reviewed 02/22/23 @ 06:39 by Dimitri Monreal MD) Paternal Grandmother Breast cancer Maternal Aunt Breast cancer Surgical History: Surgical History (Last Reviewed 02/22/23 @ 06:39 by Dimitri Monreal MD) History of esophagogastroduodenoscopy (EGD) Hx of arthroscopy of right knee Hx of colonoscopy Hx of excision of mass Hx of right breast biopsy Hx of tubal ligation Social History: Social History (Last Reviewed 02/22/23 @ 06:39 by Dimitri Monreal MD) Living Situation History: Household Members: Family Housing: Apartment Are you a primary rn care transition to a significant other at home: No Do you presently have visiting nurse or other home services: No Tobacco History: Patient Tobacco Use Status: Never used Tobacco e-Cigarette/Vaping Use: Never Used Occupation Assessmet: service: No Current occupational status: employed 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 Home Medications and Allergies Current Medications: Current Medications Acetaminophen (Acetaminophen 325 Mg Tablet) 650 mg PO Q6H PRN PRN Reason: Pain, Mild (Pain Scale 1-3) Last Admin: 02/23/23 09:47 Dose: 650 mg Albuterol/Ipratropium (Albuterol/Iprat 2.5/0.5mg 3 Ml Ampul.Neb) 3 ml INHALE RQ4H WHILE AWAKE SAUL Last Admin: 02/23/23 08:02 Dose: 3 ml Duloxetine HCl (Duloxetine Hcl 20 Mg Capsule.Dr) 20 mg PO BID [facility] Last Admin: 02/23/23 09:05 Dose: 20 mg Enoxaparin Sodium (Enoxaparin Sodium 40 Mg/0.4 Ml Syringe) 40 mg SUBCUT Q24H [facility] Last Admin: 02/23/23 09:42 Dose: 40 mg Cefepime HCl 2 gm/ Sodium (Chloride) 50 mls @ 100 mls/hr IV Q8H [facility] Last Infusion: 02/23/23 10:01 Dose: Infused Vancomycin HCl 1,000 mg/ (Sodium Chloride) 270 mls @ 270 mls/hr IV Q12H [facility] Azithromycin 500 mg/ Sodium (Chloride) 250 mls @ 125 mls/hr IV Q24H [facility] Metoprolol Succinate (Metoprolol Succinate Er 50 Mg Tab.Er.24h) 50 mg PO DAILY [facility]; Protocol Last Admin: 02/23/23 09:05 Dose: 50 mg Morphine Sulfate (Morphine Sulfate 4 Mg/Ml Cartridge) 4 mg IVPUSH Q4H PRN; Protocol PRN Reason: Pain, Severe (Pain Scale 7-10) Last Admin: 02/22/23 18:45 Dose: 4 mg Omeprazole (Omeprazole 20 Mg Capsule.Dr) 20 mg PO DAILY [facility] Last Admin: 02/23/23 09:05 Dose: 20 mg Ondansetron HCl (Ondansetron Hcl 4 Mg/2 Ml Vial) 4 mg IVPUSH Q8H PRN PRN Reason: Nausea and Vomiting Last Admin: 02/22/23 18:45 Dose: 4 mg Polyethylene Glycol (Polyethylene Glycol 3350 17 Gm Powd.Pack) 17 gm PO DAILY [facility] Last Admin: 02/23/23 09:05 Dose: 17 gm Senna (Sennosides 8.6 Mg Tablet) 8.6 mg PO BID [facility] Last Admin: 02/23/23 09:05 Dose: 8.6 mg Sodium Chloride (0.9 % Sodium Chloride Flush 3 Ml Syringe) 3 ml IVFLUSH QSHIFT [facility] Last Admin: 02/23/23 09:58 Dose: 3 ml Home Medications Medication Instructions Recorded Confirmed Type losartan 50 mg tablet 1 tab PO DAILY 01/13/21 02/22/23 History omeprazole 20 mg capsule,delayed 20 mg PO DAILY 10/08/21 02/22/23 History release metoprolol succinate 50 mg 1 tab PO DAILY 12/17/21 02/22/23 History tablet,extended release 24 hr loratadine 10 mg tablet 10 mg PO DAILY 02/22/23 02/22/23 History Allergies Allergy/AdvReac Type Severity Reaction Status Date / Time latex Allergy Intermediate Rash Verified 01/13/23 13:21 Physical Exam Vital signs: Vital Signs Temp 98.6 F 02/23/23 04:00 Pulse 113 H 02/23/23 10:00 Resp 32 H 02/23/23 10:00 BP 102/68 02/23/23 10:00 Pulse Ox 93 02/23/23 10:00 O2 Del Method High Flow Nasal Cannula 02/23/23 10:00 O2 Flow Rate 55 02/23/23 10:00 FiO2 80 02/23/23 10:00 Intake & Output 02/22/23 02/23/23 02/23/23 18:59 06:59 18:59 Intake Total 3800 / 4640 840 / 4640 300 / 300 Output Total 0 / 0 Balance 3800 / 4640 840 / 4640 300 / 300 Urine Output (Average ml/kg/hr) 0.00 0.00 Intake: Intake, Oral Amount 290 / 290 Intake, IV Amount 3800 / 4350 550 / 4350 300 / 300 0.9 % Sodium Chloride 2,500 ml 3500 / 3500 @ 833.3333 mls/hr IV .Q3H STA Rx#:[id number] Azithromycin 500 mg In 0.9 % 250 / 250 Sodium Chloride 250 ml @ 125 mls/hr IV ONCE ONE Rx#: [id number] cefEPime HCl 2 gm In 0.9 % 50 / 100 50 / 100 50 / 50 Sodium Chloride 50 ml @ 100 mls /hr IV Q8H SAUL Rx#:[id number] vancomycin HCL 1,250 mg In 0.9 250 / 250 % Sodium Chloride 250 ml @ 166. 667 mls/hr IV ONCE@0600 SAUL Rx# :[id number] vancomycin/NS 2,000 mg In 500 500 / 500 ml @ 250 mls/hr IV ONCE ONE Rx# :[id number] Output: Output, Urine Amount (Catheter) 0 / 0 Female External 0 / 0 Other: Number of Incontinent Voids 1 Urine Color Yellow Last Bowel Movement 02/22/23 Weight 73.8 kg - Constitutional Present: moderate distress. Absent: mild distress - Routine HEENT Exam Head: Present: normal inspection, normocephalic Eye: Present: normal appearance ENT: Present: mucous membranes moist, normal oropharynx Hem/Onc Consult Result - Labs CBC & Chem 7: 02/24/23 05:05 02/24/23 05:05 Labs: Short CBC 02/22/23 02/23/23 Range/Units 22:25 04:30 WBC 20.4 H 19.7 H (4.8-10.8) X10*3/uL Hgb 12.6 12.1 (12.0-16.0) g/dl Hct 37.9 36.6 L (37.0-47.0) % Plt Count 229 243 (160-400) X10*3/uL BMP 02/22/23 02/23/23 22:26 04:30 Sodium 137 135 Potassium 3.4 3.9 Chloride 104 103 Carbon Dioxide 23 23 BUN 6 L 9 Creatinine 0.74 0.76 Calcium 8.2 L 8.3 L Liver Function 02/22/23 02/23/23 Range/Units 22:26 04:30 Total Bilirubin 1.2 H 1.2 H (0.0-1.0) mg/dL AST 63 H 64 H (5-31) U/L ALT 28 28 (0-31) U/L Alkaline Phosphatase 270 H 260 H (39-117) U/L Albumin 3.1 L 3.0 L (3.5-5.0) g/dL Assessment and Plan Patient Active problem list reviewed?: Yes (1) Metastatic colon cancer to liver Status: Acute Assessment and plan: Pleasant 57-year-old lady with a history of rectal carcinoma with lung and liver metastases P CT scans of the chest abdomen and pelvis, from 01/18/22: Bilateral pulmonary nodules. Bilateral axillary and left supraclavicular upper normal-size lymph nodes. 4 cm colon mass in the hepatic flexure. Enlarged adjacent lymph nodes metastatic disease to the liver and peritoneal disease. Bilateral pulmonary nodules also probably representing metastatic disease. l proceeded with an ultrasound guided biopsy of the liver lesions to further define the primary. Biopsy of the lesion in the right lobe of the liver on 01/27 revealed: Moderately differentiated adenocarcinoma consistent with metastatic colorectal cancer. Unfortunately, very little tumor was present, insufficient for ancillary testing. I referred her to GI for a colonoscopy, to obtain more tissue to proceed with ancillary testing, to decide about the best regimen to give her. She was seen by Dr. Jimenez, on 02/26. The colonoscopy was scheduled for 03/26/22.However she came down with COVID. The bone scan was ordered on account of ongoing back and rib pain. It was done on 03/26: Normal whole body bone scan. No evidence of osseous metastatic disease. CEA Level: 863, 754, 1460, 1920, 869 (06/14). She was initially started on FOLFOX plus bevacizumab, on 04/14/22. She received day 15 on 04/28. Cycle 2 on 05/12. D 14 had to be postponed till 06/01, on account of neutropenia. CEA level: 05/18:1920. 06/14:869. /:426. CT scan of the chest from 08/18: No appreciable change in bilateral pulmonary nodules. Largest pulmonary nodule in the left lower lobe may be slightly decreased in size. No new pulmonary nodules. Interval decrease in left hilar adenopathy. CEA: 228.60. This was reassuring. l proceeded with MRI of the pelvis. This was done on 10/20 and revealed: 1. A 7.2 cm heterogeneous T2 signal mass centered in the left adnexa with multiple thin internal septations not significantly changed in size from prior and remains suspicious for ovarian neoplasm, though given history of metastatic colon cancer metastasis could also be considered. 2. Multiple hepatic metastases, partially imaged measuring up to 8.7 cm in the left hepatic lobe, previously 8.7 cm suboptimally evaluated on this MR pelvis. Previously seen peritoneal disease is suboptimally evaluated on this MR pelvis. 3. T2 hyperintense signal in the bilateral sacral ala and to a lesser extent the adjacent right iliac bone which could be seen in the setting of sacral insufficiency fractures. l referred her to glaze supervisor Oncology. She saw Yoselyn Gaxiola. Her impression was this is likely to be metastatic colon cancer. I proceeded with a PET scan for further evaluation, this was done on 11/25 and revealed: 1. There are multiple presumed metastatic left axillary/subpectoral FDG avid lymphadenopathy with SUV max of 9.8. 2. Interval development of FDG avid groundglass opacity within the central part of the right upper lobe of the lung with SUV max of 3.3, may represent infection versus new metastatic disease or combination thereof. 3. Interval increase in size and number of previously documented presumed bilateral multifocal multilobar noncalcified lung parenchymal metastatic disease, too small for accurate characterization on this current study. The dominant lung nodules seen at left lower lobe of the lung however appears relatively stable in size measuring approximately 1.1 cm. 4. Previously documented, clinically known multifocal hepatic metastatic disease shows variable echogenicity and increased peripheral/marginal FDG avidity most pronounced along the subdiaphragmatic surface of right lobe of the liver. 5. Intense FDG avidity associated with annular constricting lesion at the hepatic flexure at right mid abdomen with SUV max of 9.4, likely representing the site of primary colonic neoplasm. 6. Previously documented, clinically known heterogeneous solid-appearing mass in the left hemipelvis shows mild FDG avidity anteriorly by the majority of the mass is not FDG avid. Differential includes primary ovarian malignancy versus ovarian metastatic disease. 7. Heterogeneous FDG avidity within the entire visualized skeleton, may represent physiologic changes related to interval administration of G-CSF versus physiologic reactive hyperplastic marrow or mild diffuse bone marrow replacement and/or infiltrative process. A repeat biopsy was done on 12/06, pathology was consistent with colonic adenocarcinoma. Unfortunately there was not enough tissue for molecular testing. Her tumor markers: Serial CEA: 11/16: 160, 228.60, down from baseline of 1600 range. In view of disease progression and since patient was having neuropathy symptoms related to the oxaliplatin, l switched her to FOLFIRI with Avastin. She has had 2 cycles so far. I offered to refer her for radiation for the pelvic mass however she says it is not bothering her so she would like to hold off for now. Patient has now been admitted to the ICU on account of multi lobar pneumonia and hypoxia. She is on broad-spectrum antibiotics. She is currently receiving high-flow oxygen. She appears to be stable. However the concern is if she was to deteriorate, she is not an ideal candidate for intubation, in the setting of metastatic carcinoma. Had a discussion with her and her son via the electrolysis needle operator. She understands that intubation would not be in her best interest. She said she knows that, sometimes patients are not able to come off the vent. She would not want that for herself. We also discussed CPR/cardiac compressions. After giving that some thought, she declined. She would however want continued treatment of the pneumonia with antibiotics and other supportive care. Thank you, Cc: Dr. Martines. Dr. Parra - Time Spent With Patient Time Spent with Patient (in minutes): 30
--- NOTE | 2023-02-23 10:54 | P.ACPN_ITS ---
Advanced Care Planning Note Advanced Care Planning Note Discussed with: family member(s) Time spent (in minutes): 30 Narrative: Ms. Angulo is alert, oriented, and appropriate. Her son, Rk, Dr. Patel, her oncologist, and our aerial photograph interpreter were present at the bedside. We discussed her critical illness, specifically her respiratory failure from her pneumonia, which is likely in part a consequence of her metastatic colon cancer to the lung. Dr. Patel and I agree that Ms. Angulo's overall prognosis is poor given her advanced metastatic disease and made this known to Ms. Angulo and Rk. Given this, we expressed that intubation and ventilation may cause discomfort and potentially suffering without a meaningful overall recovery. Ms. Angulo and Rk expressed understanding of this. The process, pros, and cons of CPR were also discussed, with Ms. Angulo's understanding. Given this, Ms. Angulo changed her code status to DNR, DNI. Problems Discussed (1) Metastatic colon cancer to liver:
[2023-02-23] MEDS: Azithromycin 500 MG in 0.9 % Sodium Chloride 250 ML 125 MG IV (10:57)
[2023-02-23 11:48] LABS: Glucose, Whole Blood 132 mg/dL (60-115)
[2023-02-23] MEDS: Morphine Sulfate 4 MG/ML CARTRIDGE IVPUSH (18:45)
[2023-02-23] MEDS: vancomycin HCL 750 MG in 0.9 % Sodium Chloride 250 ML 265 MG IV (18:54)
[2023-02-23] MEDS: Morphine Sulfate 2 MG/ML CARTRIDGE IVPUSH ×2 (20:58→22:51)
[2023-02-23 21:09] LABS: Glucose, Whole Blood 143 mg/dL (60-115)
[2023-02-24] VITALS (23 sets, daily range): BP systolic 0–114; BP diastolic 0–66; PULSE 0–133; RESP 15–39; TEMP 36.2–36.9; O2SAT 87–96
[2023-02-24] MEDS: 0.9 % Sodium Chloride Flush 3 ML SYRINGE IVFLUSH ×3 (01:42→15:51)
[2023-02-24 05:09] LABS: VBG Base Excess -2.6 mmol/L; VBG HCO3 24 mmol/L (22-26); VBG pCO2 48 mmHg; VBG pO2 73 mmHg
[2023-02-24 05:12] LABS: Venous Blood Gas Refer to POC result
[2023-02-24 05:39] LABS: Hematocrit 31.2 % (37.0-47.0); Hemoglobin 10.1 g/dl (12.0-16.0); Mean Corpuscular HGB Conc 32.4 g/dl (31.0-35.0); Mean Corpuscular Hemoglobin 32.3 pg (27.0-33.0); Mean Corpuscular Volume 99.7 fL (80.0-98.0); Mean Platelet Volume 10.6 fL (9.4-12.3); NRBC Pct Auto 0.6 /100WBC (0.0-0.2); Platelet Count 229 X10*3/uL (160-400); Red Blood Count 3.13 X10*6/uL (4.20-5.50); Red Cell Distribution Width 22.9 % (11.0-16.0); White Blood Count 22.8 X10*3/uL (4.8-10.8)
[2023-02-24] MEDS: vancomycin HCL 750 MG in 0.9 % Sodium Chloride 250 ML 265 MG IV (05:53)
[2023-02-24 05:59] LABS: Anion Gap 14 (12-20); Blood Urea Nitrogen 13 mg/dL (9-16); Calcium 8.6 mg/dL (8.4-10.2); Carbon Dioxide 23 mmol/L (22-29); Chloride 104 mmol/L (96-108); Creatinine Clr Calc Pharmacy 72.1; Estimated Glomerular Filt Rate > 60; Glucose Random 100 mg/dL (60-115); Potassium 4.3 mmol/L (3.3-5.1); Sodium 137 mmol/L (135-145)
[2023-02-24 06:00] LABS: Band Neutrophils Percent 11 % (3-5); Basophils Abs Manual 0.2 X10*3/uL (0.0-0.2); Basophils Percent Manual 1 % (0-2); Eosinophils Absolute Manual 0.2 X10*3/uL (0.0-0.4); Eosinophils Percent Manual 1 % (0-4); Lymphocytes Absolute Manual 1.8 X10*3/uL (1.2-4.9); Lymphocytes Percent Manual 8 % (20-40); Monocytes Absolute Manual 2.3 X10*3/uL (0.1-1.2); Monocytes Percent Manual 10 % (2-11); Neutrophils Absolute Manual 18.2 X10*3/uL (2.0-8.3); Neutrophils Percent Manual 69 % (45-73)
[2023-02-24 06:01] LABS: Acanthocytes 1+ (0-2) /OIF; Large Platelet PRESENT; Macrocytosis 1+ (5-14) /OIF; Ovalocytes 1+ (5-14) /OIF; Platelet Estimate NORMAL (NORMAL); Platelet Morphology Comment NOTED; RBC Morphology NOTED; Schistocytes 1+ (0-2) /OIF; Spherocytes 1+ (0-2) /OIF; Target Cells 1+ (5-14) /OIF
[2023-02-24 06:02] LABS: Polychromasia 1+ (0-2) /OIF; Toxic Granulation PRESENT; Toxic Vacuolation PRESENT
--- NOTE | 2023-02-24 06:40 | PC.NURSE ---
Pt lethargic after receiving morphine sulfate X2 during the night for increased resp effort. Cpap facemask on during the night. Pt tolerated mask well. Tajik speaking only. Denies pain. Follows commands. Monitor shows ST, rate 110's. Bp soft after morphine.
[2023-02-24 07:19] LABS: Glucose, Whole Blood 108 mg/dL (60-115)
--- NOTE | 2023-02-24 07:54 | P.PNCC_ITS ---
Subjective Subjective Date of Service: 02/24/23 Interval History: increased work of breathing overnight, placed on CPAP; appreciable discomfort, improved with judicious opioids Critical Care Time (minutes): 90 Physical Exam 2 Vital Signs: Vital Signs: Last Vital Signs Temp 97.2 F 02/24/23 04:00 Pulse 104 H 02/24/23 07:00 Resp 28 H 02/24/23 07:00 BP 99/60 02/24/23 07:00 Pulse Ox 91 L 02/24/23 07:00 O2 Del Method CPAP 02/24/23 07:00 O2 Flow Rate 50 02/23/23 17:59 FiO2 90 02/24/23 07:00 Oxygen Flow Rate 6 02/22/23 04:07 BMI result Body Mass Index 29.8 Objective Data Labs 02/24/23 05:05 02/24/23 05:05 Labs: Laboratory Results - last 24 hr 02/23/23 02/23/23 02/23/23 11:45 16:05 21:06 WBC RBC Hgb Hct MCV MCH MCHC RDW Plt Count MPV Immature Gran % (Auto) Neut % (Auto) Lymph % (Auto) [place] % (Auto) Eos % (Auto) Baso % (Auto) Lymph # (Auto) [place] # (Auto) Eos # (Auto) Baso # (Auto) Abs Immat Gran (auto) Absolute Neuts (auto) Absolute Nucleated RBC Nucleated RBC % (auto) Neutrophils % (Manual) Band Neutrophils % Lymphocytes % (Manual) Monocytes % (Manual) Eosinophils % (Manual) Basophils % (Manual) Abs Neuts (Manual) Lymphocytes # (Manual) Monocytes # (Manual) Eosinophils # (Manual) Basophils # (Manual) Toxic Granulation Toxic Vacuolation Platelet Estimate Large Platelets Plt Morphology Comment RBC Morphology Polychromasia Macrocytosis Spherocytes Target Cells Ovalocytes Acanthocytes (Spur) Schistocytes VBG pH VBG pCO2 VBG pO2 VBG HCO3 VBG O2 Saturation VBG Base Excess Sodium Potassium Chloride Carbon Dioxide Anion Gap BUN Creatinine Estim Creat Clear Calc Estimated GFR POC Glucose 132 H 143 H Random Glucose Calcium Random Vancomycin 19.0 02/24/23 02/24/23 02/24/23 05:04 05:05 07:16 WBC 22.8 H RBC 3.13 L Hgb 10.1 L Hct 31.2 L MCV 99.7 H MCH 32.3 MCHC 32.4 RDW 22.9 H Plt Count 229 MPV 10.6 Immature Gran % (Auto) Cancelled Neut % (Auto) Cancelled Lymph % (Auto) Cancelled [place] % (Auto) Cancelled Eos % (Auto) Cancelled Baso % (Auto) Cancelled Lymph # (Auto) Cancelled [place] # (Auto) Cancelled Eos # (Auto) Cancelled Baso # (Auto) Cancelled Abs Immat Gran (auto) Cancelled Absolute Neuts (auto) Cancelled Absolute Nucleated RBC 0.130 H Nucleated RBC % (auto) 0.6 H Neutrophils % (Manual) 69 Band Neutrophils % 11 H Lymphocytes % (Manual) 8 L Monocytes % (Manual) 10 Eosinophils % (Manual) 1 Basophils % (Manual) 1 Abs Neuts (Manual) 18.2 H Lymphocytes # (Manual) 1.8 Monocytes # (Manual) 2.3 H Eosinophils # (Manual) 0.2 Basophils # (Manual) 0.2 Toxic Granulation PRESENT Toxic Vacuolation PRESENT Platelet Estimate NORMAL Large Platelets PRESENT Plt Morphology Comment NOTED RBC Morphology NOTED Polychromasia 1+ (0-2) Macrocytosis 1+ (5-14) Spherocytes 1+ (0-2) Target Cells 1+ (5-14) Ovalocytes 1+ (5-14) Acanthocytes (Spur) 1+ (0-2) Schistocytes 1+ (0-2) VBG pH 7.30 L VBG pCO2 48 VBG pO2 73 VBG HCO3 24 VBG O2 Saturation 94.0 VBG Base Excess -2.6 Sodium 137 Potassium 4.3 Chloride 104 Carbon Dioxide 23 Anion Gap 14 BUN 13 Creatinine 0.79 Estim Creat Clear Calc 72.1 Estimated GFR > 60 POC Glucose 108 Random Glucose 100 Calcium 8.6 Random Vancomycin Microbiology Microbiology Results: Microbiology 02/22/23 06:01 Blood - Venous Blood Culture - Preliminary Prelim: GNR Gram Stain only 02/22/23 06:01 Blood - Venous Blood Culture - Preliminary Gram negative keri Progress Note: A&P Assessment and plan (1) Sepsis: Status: Acute (2) Acute hypoxemic respiratory failure: Status: Acute (3) Colon cancer metastasized to lung: Status: Acute (4) Colon cancer metastasized to liver: Status: Acute Plan Patient 57 Y F with hypertension, diabetes mellitus, metastatic colon cancer to liver, lungs, followed by Dr. Patel, presenting with dyspnea, found to have multi-focal pneumonia, c/b hypoxic respiratory failure necessitating HFNC N: no acute issues CV: no acute issues; hypertension, though currently normotensive; to hold home antihypertensives R: metastatic colon cancer to lungs; multi-focal pneumonia, c/b acute hypoxic respiratory failure, on HFNC/CPAP, to wean as tolerated GI: regular diet, though reports decreased appetite : no acute issues; to monitor electrolytes, urine output H/O: metastatic colon cancer to liver, lungs, followed by Dr. Patel; discussed overall poor prognosis at bedside 02/23 ID: multi-focal pneumonia; also blood cultures growing gram negative rods; to follow-upon empiric vancomycin, cefepime E: no acute issues P: endorses generalized discomfort; judicious opioids as needed Quality Stroke Does the patient have a stroke diagnosis?: No VTE Prior VTE?: No VTE Risk Level:: Medical - moderate - high VTE Device Contraindication: N/A - Device Ordered VTE Drug Contraindication: N/A - Med Ordered
[2023-02-24] MEDS: Albuterol/Iprat 2.5/0.5MG 3 ML AMPUL.NEB INHALE ×3 (08:18→15:50)
[2023-02-24] MEDS: Morphine Sulfate 2 MG/ML CARTRIDGE IVPUSH ×5 (09:20→16:50)
[2023-02-24] MEDS: cefEPime HCl 2 GM in 0.9 % Sodium Chloride 50 ML IV ×2 (09:30→15:44)
[2023-02-24] MEDS: Azithromycin 500 MG in 0.9 % Sodium Chloride 250 ML 125 MG IV (09:45)
--- NOTE | 2023-02-24 10:12 | MHC.CM.PN ---
CM MET WITH PT/SON/HCP KILO AT BEDSIDE IN ICU. PT IS CURRENTLY UNABLE TO PARTICIPATE IN ASSESSMENT. PER SON, PT LIVES WITH HIM. PT IS INDEPENDENT AT BASELINE AND USES NEBULIZER NEEDED. +COPY OF HCP ON FILE. PCP DR. [place]/ONCOLOGIST DR. MAYO. DP: PLAN TO BE DETERMINED. SON WILL TRANSPORT HOME ON RECOVERY. CM WILL CONTINUE TO FOLLOW FOR DCPLAN/NEEDS.
--- NOTE | 2023-02-24 10:16 | W.MHC.ACPN ---
Advanced Care Planning Note Advanced Care Planning Note Discussed with: family member(s) Time spent (in minutes): 30 Narrative: Ms. Angulo's son, Rk, was present at bedside this morning. I offered updates and clarifications. We discussed that Ms. Angulo's oxygen requirement is high, and at times, necessitates CPAP. Unfortunately Ms. Angulo appears uncomfortable with the CPAP mask. Moreover, Ms. Angulo has not been interested in eating. We discussed that Ms. Angulo is demonstrating many symptom that unfortunately occur at the end-of-life. Rk expressed that he would like to give antibiotics more time to take affect. In the meantime, Rk expressed additional interventions, such as central line and arterial line, would likely cause more discomfort. Given such, Rk agreed an appropriate plan is to continue CPAP/HFNC as needed, but avoid other interventions at this point in time. Problems Discussed (1) Sepsis: (2) Acute hypoxemic respiratory failure: (3) Colon cancer metastasized to lung: (4) Colon cancer metastasized to liver:
[2023-02-24 11:29] LABS: Glucose, Whole Blood 110 mg/dL (60-115)
[2023-02-24] MEDS: Enoxaparin Sodium 40 MG/0.4 ML SYRINGE SUBCUT (11:48)
[2023-02-24 16:35] LABS: Vancomycin Random 19.9 mcg/mL (15-20)
--- NOTE | 2023-02-24 16:38 | W.MHC.ACPN ---
Advanced Care Planning Note Advanced Care Planning Note Discussed with: family member(s) Time spent (in minutes): 15 Narrative: Ms. Angulo continues to suffer from acute hypoxic respiratory failure and has been on CPAP most of today. Her daughter and two sons have been at her bedside all of today and they feel that she is in significant discomfort. They made the difficult decision to transition her philosophy of care to comfort-focused care. Problems Discussed (1) Sepsis: (2) Acute hypoxemic respiratory failure: (3) Colon cancer metastasized to lung: (4) Colon cancer metastasized to liver:
[2023-02-24] MEDS: fentaNYL citrate/NS 1,000 MCG/100 ML PLAST..BAG 10 MCG IVCONT (16:55)
[2023-02-24] MEDS: Scopolamine 1.5 MG PATCH.TD.3 TRANSDERMA (17:23)
--- NOTE | 2023-02-24 17:36 | PC.NURSE ---
16:20 Pt HCP made decision for [facility]ITY [facility]OVER and change in code status. MD placed new orders, fentanyl gtt started @100. Morphine 2 mg IVP given x2. Scopolamine patch applied. 17:30 CPAP mask removed by RT and RN per family/ HCP request.
--- NOTE | 2023-02-24 17:40 | PM.DDS ---
Discharge Sum: Prov Provider Primary care physician: Corine Martines MD Attending physician on admission: Lilly Butts Pronouncing clinician: Lilly Butts Discharge Sum: Diag PCOD Cause of : Pneumonia Contributing Factors (1) Sepsis: (2) Acute hypoxemic respiratory failure: (3) Colon cancer metastasized to lung: (4) Colon cancer metastasized to liver: Discharge Sum: Summary Date and Time Date of admission: 02/22/23 09:44 Summary Details: Ms. Angulo is a 57 Y F with metastatic colon cancer to the liver and lung, presenting with dyspnea on 02/22, and found to have multi-focal pneumonia complicated by acute hypoxic respiratory failure necessitating high-flow nasal cannula, and bacteremia. Ms. Angulo's ICU course was complicated by persistent and worsening acute hypoxic respiratory failure despite antibiotics and supportive measures. Unfortunately, Ms. Angulo expressed signs and symptoms of significant discomfort, particularly with high-flow nasal cannula and face mask. On 02/24, Ms. Angulo's daughter and two sons transitioned her philosophy of care to comfort-focused care. She later that day. Additional Data Confirmation of as documented by pronouncing clinician: no pulse, no respirations, no heart sounds and pupils fixed and dilated Family: at bedside Attending/PCP notified?: Yes Attending physician: Lilly Butts MD
--- NOTE | 2023-02-24 19:58 | PC.NURSE ---
POST MORTEM CARE DONE. FAMILY WILL CALL THE [employer] WITH HOME INFORMATION WHEN THEY KNOW WHICH ONE. FAMILY TOOK ALL BELONGINGS HOME INCLUDING JEWELRY PT WAS WEARING. BODY TO [place] AAT THIS TIME.
== END 2023-02-24 17:50 | disposition expired | DRG 720 ==
LOC: HO.ED 07:51 → HO.EDOVER 09:51 → HO.IMC 19:23 → HO.ICU 21:43
PROVIDERS: Physician Assistant Medical; Admitting Provider Family Medicine; Emergency Provider Internal Medicine; PCP Internal Medicine; Visit Provider Internal Medicine Critical Care Medicine
DX: A41.9 Sepsis, unspecified organism (principal); J96.01 Acute respiratory failure with hypoxia; J18.9 Pneumonia, unspecified organism; C78.02 Secondary malignant neoplasm of left lung; C78.01 Secondary malignant neoplasm of right lung; C77.3 Secondary and unspecified malignant neoplasm of axilla and upper limb lymph nodes; E87.20 Acidosis, unspecified; Z51.5 Encounter for palliative care; Z66 Do not resuscitate; C78.7 Secondary malignant neoplasm of liver and intrahepatic bile duct; C18.3 Malignant neoplasm of hepatic flexure; E87.1 Hypo-osmolality and hyponatremia; R73.9 Hyperglycemia, unspecified; E86.1 Hypovolemia; R65.20 Severe sepsis without septic shock; Z20.822 Contact with and (suspected) exposure to COVID-19; Z79.69 Long term (current) use of other immunomodulators and immunosuppressants; Z79.84 Long term (current) use of oral hypoglycemic drugs; Z79.899 Other long term (current) drug therapy
CPT/HCPCS: 36415; 36600; 71045; 71275; 80048; 80053; 80202; 82803; 82947; 83605; 83880; 84484; 85007; 85025; 85027; 85610; 85730; 87040; 87077; 87186; 87205; 87635; 93005; 94640; 94660; 99285; J0456; J0692; J0696; J1650; J1940; J2270; J2405; J3010; J3370; J3371; P9047; Q9967

== ENCOUNTER → 2023-02-22 09:44 | Outpatient (BNV) | payer MEDICAID, SELFPAY | PROVIDERS: Admitting Provider Family Medicine; Emergency Provider Internal Medicine; PCP Internal Medicine; Visit Provider Family Medicine | DX: A41.9 Sepsis, unspecified organism (principal) | CPT/HCPCS: 99223; 99499 ==

== ENCOUNTER → 2023-02-22 09:44 | Outpatient (BNV) | payer MEDICAID, SELFPAY | PROVIDERS: Admitting Provider Family Medicine; Emergency Provider Internal Medicine; PCP Internal Medicine; Visit Provider Internal Medicine Critical Care Medicine | DX: C18.9 Malignant neoplasm of colon, unspecified (principal); C78.7 Secondary malignant neoplasm of liver and intrahepatic bile duct; J96.01 Acute respiratory failure with hypoxia; J18.9 Pneumonia, unspecified organism | CPT/HCPCS: 99238; 99291 ==

== ENCOUNTER → 2023-02-22 09:44 | Outpatient (BNV) | payer MEDICAID, SELFPAY | PROVIDERS: Admitting Provider Family Medicine; Emergency Provider Internal Medicine; PCP Internal Medicine; Visit Provider Internal Medicine Medical Oncology | DX: J18.9 Pneumonia, unspecified organism (principal); C78.7 Secondary malignant neoplasm of liver and intrahepatic bile duct; C18.9 Malignant neoplasm of colon, unspecified | CPT/HCPCS: 99222 ==